=== PATIENT | female | born 1960 | race Caucasian/White ===

== ENCOUNTER 2017-07-16 07:10 | Inpatient (IN) | payer OTHER ==
--- NOTE | 2017-07-16 07:44 | EDPHY ---
HPI/HX/ROS/PE/MDM Narrative: CHIEF COMPLAINT: Abdominal pain HPI: The patient is a 56 y/o female who complains of abdominal pain. Her reports that earlier this morning she was diagnosed with gallstones at [facility] At 15:00 yesterday the pain began and became more severe at 21:00 last night. She states this pain is different than her chronic pain. Her states that they are unable to control her pain at home with her prescribed narcotics. She has also been vomiting since the pain began. Denies chest pain, numbness, paresthesias or other pertinent symptoms. Her states that she was told she had gallstones and was discharged and told to follow-up with a surgeon. REVIEW OF SYSTEMS: Aside from elements discussed in the HPI, a comprehensive 10-point review of systems was reviewed and is negative. PMH: Gallstones Diabetes Chronic pain RSD SOCIAL HISTORY: Lives in [place] at bedside PHYSICAL EXAM: General:Patient is alert, writhing in pain, very uncomfortable. ENT:Eyes are normal to inspection. ENT inspection normal. Neck: Normal inspection. Full range of motion. Respiratory:No respiratory distress. Breath sounds normal bilaterally. Cardiovascular: Regular rate and rhythm. Strong peripheral pulses. Normal cap refill. Abdomen: Diffuse abdominal tenderness is present. Back: Normal to inspection. No tenderness to palpation. Skin: Normal color. No rash. Warm and dry. Extremities: Normal appearance. Full range of motion. Neuro: Normal motor function. Normal sensory function. Portions of this note were transcribed by an ED scribe. I personally performed the history, physical exam, and medical decision making; and confirm the accuracy of the information in the transcribed note. ED Course: The patient is a 56 y/o female who was diagnosed with gallstones at [facility] this morning. She presents to this ED with no pain or nausea relief. 1mg IV Ativan administered. 0817: Consulted with Dr. Yuliana Dunn, general surgeon, for removal of her gallbladder. She believes the hospitalist should be the primary physician. 0824: 150 mcg IV Fentanyl administered. From [facility] records: Assessment and Plan 56, female, presenting with 10 hours of moderate to severe sharp epigastric pain with radiation to her back at the same level that is exacerbated by deep palpation, relieved by rest. The patient has chronic nausea for which she takes Ativan. No emesis. The patient has a colostomy, output has been at baseline. No fevers, urinary symptoms. Past history is notable for appendectomy, she is unclear on the indication for the colostomy. She additionally has a history of chronic pain syndrome for which she takes MS Contin. She is additionally on Klonopin and the aforementioned Ativan. At baseline, she states that "everything hurts," severely hindering her activities of daily living. She was admitted here about 6 months ago for ketoacidosis, presumably secondary to poor oral intake/diabetes. She is a [id number] diabetic. At the time of that admission, she had several abnormal vital signs. On arrival today, she was found to be afebrile, pulse rate in the 80s, systolic in the 120s, breathing at 16/m, oxygenating in the mid 90s on room air. On exam, she appears generally uncomfortable, has diffuse tenderness on palpation of her abdomen but no signs of peritonitis. ED workup included CBC, BMP, LFTs, lipase, EKG, troponin, VBG, serum ketones. CT abdomen/pelvis was performed without contrast as she is allergic to iodine amongst numerous other medications. Her will bring her home medications secondary to an extensive list of allergies that she is very anxious about, wearing a mask to the emergency department tonight to avoid any form of any such exposures. MDM: This patient has a history of severe intermittent abdominal pain, and a note of narcotic caution is present in her chart, making evaluation somewhat difficult. She apparently had a CTAP within the last 12 hours that shows a gallstone in the gallbladder neck. Given her degree of pain and this objective finding, Dr. Dunn was consulted. She plans on taking the patient to the OR for cholecystectomy. I have not repeated imaging here, but based on [facility] records , I see no evidence of pancreatitis, bowel obstruction, bowel perforation or sepsis. - Data Points Laboratory Results: Laboratory Results 07/16/17 07:25 07/16/17 07:25 07/16/17 07/16/17 07:25 07:25 WBC 9.96 10^3/uL H 10^3/uL (3.80-9.50) RBC 4.41 10^6/uL 10^6/uL (4.18-5.33) Hgb 15.7 g/dL g/dL (12.6-16.3) Hct 45.4 % % (38.0-47.0) MCV 102.9 fL H fL (81.5-99.8) MCH 35.6 pg H pg (27.9-34.1) MCHC 34.6 g/dL g/dL (32.4-36.7) RDW 14.0 % % (11.5-15.2) Plt Count 216 10^3/uL 10^3/uL (150-400) MPV 10.6 fL fL (8.7-11.7) Neut % (Auto) 82.1 % H % (39.3-74.2) Lymph % (Auto) 14.7 % L % (15.0-45.0) [place] % (Auto) 2.1 % L % (4.5-13.0) Eos % (Auto) 0.2 % L % (0.6-7.6) Baso % (Auto) 0.2 % L % (0.3-1.7) Nucleat RBC Rel Count 0.0 % % (0.0-0.2) Absolute Neuts (auto) 8.18 10^3/uL H 10^3/uL (1.70-6.50) Absolute Lymphs (auto) 1.46 10^3/uL 10^3/uL (1.00-3.00) Absolute Monos (auto) 0.21 10^3/uL L 10^3/uL (0.30-0.80) Absolute Eos (auto) 0.02 10^3/uL L 10^3/uL (0.03-0.40) Absolute Basos (auto) 0.02 10^3/uL 10^3/uL (0.02-0.10) Absolute Nucleated RBC 0.00 10^3/uL 10^3/uL (0-0.01) Immature Gran % 0.7 % % (0.0-1.1) Immature Gran # 0.07 10^3/uL 10^3/uL (0.00-0.10) Sodium 139 mEq/L mEq/L (134-144) Potassium 4.3 mEq/L mEq/L (3.5-5.2) Chloride 105 mEq/L mEq/L (97-110) Carbon Dioxide 18 mEq/l L mEq/l (22-31) Anion Gap 16 mEq/L mEq/L (8-16) BUN 14 mg/dL mg/dL (7-23) Creatinine 1.0 mg/dL mg/dL (0.6-1.0) Estimated GFR 57 Glucose 222 mg/dL H mg/dL (70-100) Calcium 8.8 mg/dL mg/dL (8.5-10.4) Lipase 165 IU/L IU/L (23-300) Medications Given: Fentanyl (Sublimaze) 50 - 100 mcg IVP Q1H PRN PRN Reason: Pain, Severe Stop: 07/16/17 23:30 Last Admin: 07/16/17 11:05 Dose: 50 mcg Fentanyl (Sublimaze) 50 mcg IVP Q10M PRN PRN Reason: Pain, Severe Unable to Take PO Stop: 07/16/17 23:59 Last Admin: 07/16/17 12:17 Dose: 50 mcg Lorazepam (Ativan Injection) 1 mg IVP Q1H PRN PRN Reason: Anxiety Stop: 01/12/18 08:44 Last Admin: 07/16/17 11:33 Dose: 1 mg Discontinued Medications Fentanyl (Sublimaze) 150 mcg IVP EDNOW ONE Stop: 07/16/17 08:25 Last Admin: 07/16/17 08:33 Dose: 150 mcg Lorazepam (Ativan Injection) 1 mg IVP EDNOW ONE Stop: 07/16/17 07:52 Last Admin: 07/16/17 08:00 Dose: 1 mg General Time Seen by Provider: 07/16/17 07:42 Initial Vital Signs: Initial Vital Signs Temperature (C) 37.1 C 07/16/17 07:25 Heart Rate 93 07/16/17 07:25 Respiratory Rate 16 07/16/17 07:25 Blood Pressure 183/147 H 07/16/17 07:25 O2 Sat (%) 91 L 07/16/17 07:25 O2 Delivery Mode Nasal Cannula O2 (L/minute) 2 Allergies/Adverse Reactions: vancomycin Allergy (Intermediate, Verified 04/23/16 20:52) Rash amoxicillin trihydrate [From Augmentin] Allergy (Verified 04/23/16 20:52) ampicillin [Ampicillin] Allergy (Verified 04/23/16 20:52) azithromycin Allergy (Verified 04/23/16 20:52) cephalexin monohydrate [From Keflex] Allergy (Verified 04/23/16 20:52) Cephalosporins Allergy (Verified 04/23/16 20:52) ciprofloxacin Allergy (Verified 07/16/17 07:28) clindamycin Allergy (Verified 07/16/17 07:28) cyclobenzaprine Allergy (Verified 07/16/17 07:28) Other-Enter Comments dalteparin sodium,porcine [From Fragmin] Allergy (Verified 07/16/17 07:28) erythromycin base [Erythromycin Base] Allergy (Verified 07/16/17 07:28) iodine Allergy (Verified 07/16/17 07:28) levofloxacin [Levofloxacin] Allergy (Verified 07/16/17 07:28) nitrofurantoin macrocrystalline [From Macrodantin] Allergy (Verified 07/16/17 07 :28) ondansetron HCl [From Zofran (as hydrochloride)] Allergy (Verified 07/16/17 07: 28) oxymorphone HCl [From Opana] Allergy (Verified 07/16/17 07:28) Penicillins Allergy (Verified 07/16/17 07:28) phenytoin sodium [From Dilantin] Allergy (Verified 07/16/17 07:28) potassium clavula *RETIRED-07/13/12 [From Augmentin] Allergy (Verified 07/16/17 07:28) prednisone Allergy (Verified 07/16/17 07:28) rifampin Allergy (Verified 07/16/17 07:28) Shellfish *RETIRED-07/13/12 Allergy (Verified 07/16/17 07:28) sulfamethoxazole [Sulfamethoxazole] Allergy (Verified 07/16/17 07:28) trimethoprim [From Bactrim] Allergy (Verified 04/23/16 20:52) chloroprep Allergy (Uncoded 07/16/17 07:28) LATEX Allergy (Uncoded 07/16/17 07:28) narcotics Allergy (Uncoded 07/16/17 07:28) Home Medications: Medication Instructions Recorded Insulin 70/30 Human [Novolin 70/30 10 unit SC BIDMEAL 07/16/17 (*)] Morphine Sulfate [Ms Contin] 15 mg PO BID@0530,22 07/16/17 Morphine Sulfate [Ms Contin] 15 mg PO DAILY@14 PRN 07/16/17 [place] Kiss 1 each PO QID@129,529,,07/16/17 clonIDINE [Catapres (*)] 0.1 mg PO BID@529,07/16/17 clonazePAM [Klonopin (*)] 0.5 mg PO QID@0,529,,07/16/17 diphenhydrAMINE HCL [Wal-Dryl] 50 mg PO QID@129,529,,07/16/17 tiZANidine HCL [Zanaflex 2MG (*)] 2 mg PO QID@129,529,,07/16/17 Departure - Departure Disposition: [facility] Inpatient Acute Clinical Impression: Biliary colic, Chronic pain Condition: Fair Report Scribed for: Lm Lane Report Scribed by: Flower Cruz Date of Report: 07/16/17 Time of Report: 07:44
[2017-07-16] MEDS ORDERED: LORazepam 2 MG/ML INJ IVP ONE (07:51)
[2017-07-16 08:11] LABS: % IMMATURE GRANULYOCYTES 0.7 % (0.0-1.1); ABSOLUTE IMMATURE GRANULOCYTES 0.07 10^3/uL (0.00-0.10); ADD DIFF? NO; ADD MORPH? NO; ADD SCAN? NO; ATYPICAL LYMPHOCYTE FLAG 0 (0-99); FRAGMENT RBC FLAG 30 (0-99); HEMATOCRIT 45.4 % (38.0-47.0); HEMOGLOBIN 15.7 g/dL (12.6-16.3); LEFT SHIFT FLG 0 (0-99); LIPEMIA HEMOLYSIS FLAG 90 (0-99); MEAN CELL HEMOGLOBIN 35.6 pg (27.9-34.1); MEAN CELL HEMOGLOBIN CONCENTR. 34.6 g/dL (32.4-36.7); MEAN CELL VOLUME 102.9 fL (81.5-99.8); MEAN PLATELET VOLUME 10.6 fL (8.7-11.7); PLATELET CLUMPS FLAG 0 (0-99); PLATELET COUNT 216 10^3/uL (150-400); RED BLOOD CELL COUNT 4.41 10^6/uL (4.18-5.33)
[2017-07-16 08:16] LABS: ANION GAP 16 mEq/L (8-16); CALCIUM 8.8 mg/dL (8.5-10.4); CARBON DIOXIDE 18 mEq/l (22-31); CHLORIDE 105 mEq/L (97-110); GLOMERULAR FILTRATION RATE 57; GLUCOSE 222 mg/dL (70-100); POTASSIUM 4.3 mEq/L (3.5-5.2); SODIUM 139 mEq/L (134-144)
[2017-07-16] MEDS ORDERED: fentaNYL 100 MCG/2 ML INJ IVP ONE ×2 (08:24→10:55)
[2017-07-16] MEDS ORDERED: fentaNYL 100 MCG/2 ML INJ ONE ×7 (08:25→17:05)
[2017-07-16] MEDS ORDERED: ONDANSETRON DISINTEGRATING 4 MG TAB PO PRN (08:37)
[2017-07-16] MEDS ORDERED: ONDANSETRON 4 MG/2 ML VIAL IVP PRN (08:37)
[2017-07-16] MEDS ORDERED: fentaNYL 100 MCG/2 ML INJ IVP PRN (08:42)
[2017-07-16] MEDS ORDERED: PHARMACY PAIN CONSULT 1 EA MISC SCH (10:00)
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
--- NOTE | 2017-07-16 11:11 | GHP ---
[f rep st] HISTORY AND PHYSICAL DATE OF ADMISSION: 07/16/2017 CHIEF COMPLAINT: Epigastric pain. HISTORY OF PRESENT ILLNESS: The patient is a 56-year-old woman well known to me , who had abrupt onset of abdominal pain last night. It was so severe she presented to [facility]. She reports that she had a CAT scan there, and I looked at the report which showed cholelithiasis including a stone in the neck of the gallbladder. She also had nonobstructing right renal calculi without hydronephrosis. A bedside ultrasound was obtained and lab was obtained. She was given fentanyl and discharged home. Due to her continued nausea, vomiting, and abdominal pain, she presented to the ER at [facility]. Her pain is fairly constant. PAST MEDICAL HISTORY: Stroke, reflex sympathetic dystrophy, diabetes mellitus. PAST SURGICAL HISTORY: Three back surgeries, knee surgeries, hysterectomy, ostomy for difficulty with bowel movements due to limited sensation below the waist. MEDICATIONS: MS Contin 30 mg daily, Zanaflex, Klonopin and per Pharmacy medication reconciliation. ALLERGIES: Multiple allergies including most opioids. She is able to take fentanyl. Latex, Fragmin, most antibiotics, iodine, gadolinium, surgical steel , nickel, cobalt, aluminum, red dye #4, ChloraPrep. SOCIAL HISTORY: She is with 1 child. She denies tobacco, alcohol, illegal drug use. She is physically disabled. FAMILY HISTORY: Her grandmother had breast and ovarian cancer. Her great- aunts on her maternal side also had breast cancer. REVIEW OF SYSTEMS: Per HPI. PHYSICAL EXAM: GENERAL: A pleasant, obese, well-groomed woman, lying on gurney , very uncomfortable, at bedside. HEENT: Normocephalic. No gross hearing deficits. Mucous membranes moist. Pupils equal and round. No scleral icterus. LUNGS: Clear to auscultation bilaterally. No increased work of breathing. CARDIAC: Regular rate. No peripheral edema. ABDOMEN: She is exquisitely tender in the right upper quadrant. She has minimal tenderness in other areas of her abdomen. She has stool in her appliance. Her ostomy is pink. Lower midline abdominal incision. MUSCULOSKELETAL: Requires wheelchair with assistance for complete transfers. SKIN: Warm and dry. PSYCH: Appropriately tearful. NEURO: Limited sensation below the waist. LABORATORY DATA: Results reviewed. I reviewed the results of her laboratory work from [facility] as well as her CT scan from [facility]. IMPRESSION AND PLAN: A 56-year-old woman with reflex sympathetic dystrophy, history of stroke, and cholelithiasis. I will take her to the operating room for a laparoscopic cholecystectomy. The risks and benefits including but not limited to stroke, heart attack, , blood clots, infection, bleeding, damage to common bile duct were all discussed. I discussed the case with Dr. Ten Tomas, and she will receive aztreonam 1 g IV on-call to OR. Due to her difficulty with pain management, I have asked Pharmacy to assist with this. I have also asked the hospitalist to see her as well. I have known this patient for quite some time and, in general, she does not like being admitted to the hospital or coming in for doctor's appointments so her pain is clearly out of the ordinary for her. /[id number]/MODL MTDD
[2017-07-16] MEDS ORDERED: LORazepam 2 MG/ML INJ ONE ×2 (11:27→13:21)
[2017-07-16] MEDS ORDERED: AZTREONAM 1 GM in D5W 50 ML IV ONE (11:30)
[2017-07-16] MEDS: LORazepam 2 MG/ML INJ IVP PRN ×4 (11:33→19:27)
[2017-07-16] MEDS: fentaNYL 100 MCG/2 ML INJ IVP PRN ×15 (11:49→20:55)
[2017-07-16] MEDS ORDERED: PROPOFOL 200 MG/20 ML VIAL ONE (12:56)
[2017-07-16] MEDS ORDERED: DEXAMETHASONE 4 MG/ML VIAL ONE ×2 (12:59→14:58)
[2017-07-16] MEDS ORDERED: ROCURONIUM 50 MG/5 ML VIAL ONE ×2 (12:59→14:42)
[2017-07-16] MEDS ORDERED: DESFLURANE 240 ML BOTTLE IH ONE (13:19)
[2017-07-16] MEDS ORDERED: BUPIVACAINE 0.5% 30 ML SDV ONE (13:23)
[2017-07-16] MEDS ORDERED: LABETALOL HCL 5 MG/ML 20 ML MDV ONE (14:22)
[2017-07-16] MEDS ORDERED: clonIDINE 1 MG/10 ML VIAL EP ONE (14:38)
[2017-07-16] MEDS ORDERED: GLYCOPYRROLATE 0.2 MG/1 ML VIAL ONE (15:11)
[2017-07-16] MEDS ORDERED: NEOSTIGMINE METHYLSULFATE 5 MG/5 ML SYR ONE (15:12)
[2017-07-16] MEDS ORDERED: NALOXONE HCL 0.4 MG/ML INJ IVP PRN (15:32)
--- NOTE | 2017-07-16 15:35 | POSTOPPROG ---
Post Op Note Date of Operation: 07/16/17 Surgeon: Yuliana Dunn Anesthesiologist: chey Anesthesia: GET(General Endotracheal) Pre-op Diagnosis: cholelithiasis Post-op Diagnosis: same Indication: 56 yo with RUQ pain and stone in neck of GB Procedure: lap lorraine Findings: large gallbladder Inf/Abcess present in the surg proc area at time of surgery?: No EBL: Minimal Specimen(s): gallbladder
--- NOTE | 2017-07-16 15:47 | POSTANESTH ---
Post Anesthetic Evaluation Cardiovascular Status: Normal, Stable Respiratory Status: Similar to Pre-op Cond. Level of Consciousness/Mental Status: Can Participate in Eval Pain Control: Adequate, Prn Tx Ordered Nausea/Vomiting Control: Adequate, Prn Tx Ordered Complications Possibly Related to Anesthesia: None Noted
[2017-07-16] MEDS ORDERED: MORPHINE SULFATE 15 MG PO PRN (17:05)
--- NOTE | 2017-07-16 17:24 | PDHOSCONS ---
Hospitalist Consult Hospitalist Consult: CONSULTATION HISTORY AND PHYSICAL CC: I have been asked by Dr. Dunn to assess and assist in the care of this patient with multiple complex medical issues, entering the hospital for cholecystectomy HISTORY: This patient has presented to the hospital with abdominal pain consistent with gallbladder etiology and has imaging study showing presence of gallstone in the common duct. Dr. Yuliana Dunn is not taking the patient to the operating room and perform cholecystectomy by laparoscopy. I am seeing the patient postop in the recovery room. The patient had no complications in the operating room. She has some mild nausea right now in the recovery room but her pain is reasonably well controlled in terms of abdominal incision pain. Her chronic pains are at her baseline. She has no shortness of breath, no headache, no fever symptoms no palpitations. ROS: A comprehensive 10 system review revealed no other significant Acute findings but she does have significant chronic symptoms especially pain related to her complex regional pain syndrome. PAST MEDICAL HISTORY: Complex regional pain syndrome since 2003, affecting both legs, the lower portion of her trunk now into her upper extremities as well with pain and numbness Stroke Diabetes mellitus Colostomy which was performed due to bowel issues related to loss of sensation Chronic pain syndrome with chronic daily prescribed narcotic use Kidney stones Urinary tract infection Depression Hemochromatosis Surgeries including multiple spine surgeries, knee, hysterectomy and her colostomy FAMILY MEDICAL HISTORY: SOCIAL HISTORY: no use of tobacco alcohol or drugs MEDICATIONS: The patients list has been reconciled by our clinical pharmacist in the EMR. I have reviewed the list and ordered appropriate medicines. PHYSICAL EXAMINATION: Vital Signs: currently in the recovery room stable without fever Shrub Grower: sinus rhythm Examination: General: alert, oriented, good mentation, relaxed Skin: skin particularly on her legs slightly cool and pale, thickened, consistent with her chronic syndrome but no signs of acute hypoperfusion HEENT: normal Neck: no mass or jvd Resps: relaxed Lungs: clear breath sounds Heart: regular, no murmur Abdomen: soft, nondistended, no signs of bleeding, No Bleeding or bruising Neurologic: normal speech/language, normal worm packer, no focal weakness LABORATORY DATA: white blood cell count 9000 Blood glucose just over 200 RADIOLOGY STUDIES: imaging studies were performed last night at the [facility] are not available for my viewing at this time but per Dr. Zuniga discussion show evidence of an impacted gallstone in the common duct ASSESSMENT: -Status post successful laparoscopic cholecystectomy -Mild nausea in the postoperative setting otherwise stable -Ongoing chronic severe pain due to complex regional pain syndrome, wide spread over her body and requiring ongoing narcotic use ; this will make postoperative pain management a bit more challenging. She also has issues with formulations of various pain medicines and other medicines and I will order her home medications to be used to keep up with her oral medications as much as possible - insulin-dependent diabetes mellitus. We will have to see how she does with eating but will need to keep up with close blood sugar monitoring and manage her Diabetes depending on her dietary intake and her sugar levels It will be beneficial to be aggressive about managing nausea and her situation in the postoperative setting in terms of her recovery
[2017-07-16] MEDS: D5W 1/2 NS W/ 20 KCl/L 1,000 ML IV SCH (18:08)
[2017-07-16] MEDS ORDERED: D50W 25 GM/50 ML SYR IVP PRN (21:18)
[2017-07-16] MEDS ORDERED: CLONAZEPAM 0.5 MG PO SCH (22:00)
[2017-07-16] MEDS ORDERED: MORPHINE SULFATE 15 MG PO SCH (22:00)
[2017-07-16] MEDS ORDERED: TIZANIDINE HCL PO SCH (22:00)
[2017-07-16] MEDS: DIPHENHYDRAMINE HCL 25 MG PO SCH (22:49)
[2017-07-16] MEDS: SENNOSIDES PO SCH (22:49)
[2017-07-16] MEDS: TIZANIDINE HCL 4 MG PO SCH (22:50)
[2017-07-16] MEDS: CLONIDINE 0.1 MG PO SCH (22:50)
[2017-07-16] MEDS: MORPHINE SULFATE 15 MG PO SCH (22:51)
[2017-07-16] MEDS: CLONAZEPAM 0.5 MG PO SCH (22:51)
[2017-07-16] MEDS: INSULIN 70/30 HUMAN 100 UNITS/ML SYR SC SCH (22:52)
[2017-07-17] MEDS: DIPHENHYDRAMINE HCL 25 MG PO SCH ×4 (02:02→22:23)
[2017-07-17] MEDS: TIZANIDINE HCL 4 MG PO SCH ×4 (02:03→22:25)
[2017-07-17] MEDS: CLONAZEPAM 0.5 MG PO SCH ×4 (02:03→22:11)
[2017-07-17] MEDS: SENNOSIDES PO SCH ×4 (02:03→22:27)
[2017-07-17] MEDS: MORPHINE SULFATE 15 MG PO SCH ×2 (05:44→22:15)
[2017-07-17] MEDS: CLONIDINE 0.1 MG PO SCH ×2 (05:44→22:18)
[2017-07-17] MEDS: D5W 1/2 NS W/ 20 KCl/L 1,000 ML IV SCH (05:44)
[2017-07-17 05:55] LABS: % IMMATURE GRANULYOCYTES 0.9 % (0.0-1.1); ABSOLUTE IMMATURE GRANULOCYTES 0.07 10^3/uL (0.00-0.10); ADD DIFF? NO; ADD MORPH? NO; ADD SCAN? NO; ATYPICAL LYMPHOCYTE FLAG 0 (0-99); FRAGMENT RBC FLAG 0 (0-99); HEMATOCRIT 38.1 % (38.0-47.0); HEMOGLOBIN 12.9 g/dL (12.6-16.3); LEFT SHIFT FLG 0 (0-99); LIPEMIA HEMOLYSIS FLAG 90 (0-99); MEAN CELL HEMOGLOBIN 35.5 pg (27.9-34.1); MEAN CELL HEMOGLOBIN CONCENTR. 33.9 g/dL (32.4-36.7); MEAN PLATELET VOLUME 10.6 fL (8.7-11.7); PLATELET CLUMPS FLAG 0 (0-99); PLATELET COUNT 172 10^3/uL (150-400); RED BLOOD CELL COUNT 3.63 10^6/uL (4.18-5.33); RED CELL DISTRIBUTION WIDTH 14.1 % (11.5-15.2)
[2017-07-17 06:24] LABS: ALANINE AMINOTRANSFERASE 59 IU/L (9-52); ALKALINE PHOSPHATASE 91 IU/L (38-126); ANION GAP 9 mEq/L (8-16); ASPARTATE AMINOTRANSFERASE 67 IU/L (14-46); BILIRUBIN,TOTAL 1.3 mg/dL (0.1-1.4); CARBON DIOXIDE 21 mEq/l (22-31); CHLORIDE 107 mEq/L (97-110); CREATININE 0.8 mg/dL (0.6-1.0); GLOMERULAR FILTRATION RATE > 60; GLUCOSE 239 mg/dL (70-100); POTASSIUM 4.7 mEq/L (3.5-5.2); SODIUM 137 mEq/L (134-144); TOTAL PROTEIN 5.2 g/dL (6.3-8.2)
[2017-07-17] MEDS ORDERED: INSULIN LISPRO 100 UNIT/ML SC SCH ×2 (08:00→12:00)
[2017-07-17] MEDS ORDERED: D50W 25 GM/50 ML SYR IVP PRN (08:18)
[2017-07-17] MEDS: LORazepam 2 MG/ML INJ IVP PRN ×4 (08:36→23:01)
[2017-07-17] MEDS: INSULIN 70/30 HUMAN 100 UNITS/ML SYR SC SCH ×3 (08:39→19:07)
[2017-07-17] MEDS: fentaNYL 100 MCG/2 ML INJ IV PRN ×4 (10:56→23:00)
--- NOTE | 2017-07-17 14:43 | HOSPPROG ---
Hospitalist Progress Note Assessment/Plan: #Acute on chronic abd pain: s/p cholecystectomy. Doing well on home meds and PRN IV Fentanyl #Chronic pain syndrome: home meds #Uncontrolled DM: she wants to dose her own insulin like she does at home. She understands the risk of not checking fingersticks regularly #Diet: diabetic #DVT ppx: declines Lovenox, SCDs aggravate RSD Disp: stable for transfer to floor Subjective: min pain this morning Objective: Vital Signs Temp Pulse Resp BP Pulse Ox 36.4 C 47 L 12 117/75 99 07/17/17 12:00 07/17/17 12:00 07/17/17 12:00 07/17/17 12:00 07/17/17 12:00 Laboratory Results 07/17/17 05:48 07/17/17 05:48 07/16/17 07/17/17 07/18/17 05:59 05:59 05:59 Intake Total 2851 Balance 2851 - Physical Exam Constitutional: no apparent distress Eyes: PERRL Ears, Nose, Mouth, Throat: moist mucous membranes, hearing normal Cardiovascular: regular rate and rhythym, no murmur, rub, or gallop Respiratory: no respiratory distress Gastrointestinal: normoactive bowel sounds, other (lap incision sites CDI, min pain with palp) Skin: warm Musculoskeletal: full muscle strength Neurologic: AAOx3, CN II-XII Intact Psychiatric: interacting appropriately ICD10 Worksheet Patient Problems: Problems Problem Status Onset Biliary colic Acute Chronic pain Acute Kidney stone Active Microscopic hematuria Active Recurrent cystitis Active Reflex sympathetic dystrophy Active Abdominal pain Acute Flank pain, acute Acute Narcotic withdrawal Acute Nausea and vomiting Acute UTI (urinary tract infection) Acute Vomiting Acute
--- NOTE | 2017-07-17 14:56 | ASMTCASEMG ---
Living Arrangements What is your living Answers: With Spouse arrangement? Who do you live with? Type Of Residence What kind of residence do Answers: House you live in? Discharge Plan Comments Coordination Status Comments Notes: Patient is a 56yo woman with reflex sympathetic dystrophy, hx of stroke and cholelithiasis. Patient is admitted for a laparoscopic cholecystectomy. OT/PT ordered. OT recommends d/c to home independent. Awaiting PT eval.Patient lives with her and is disabled at baseline. CM will follow. Date Signed: 07/17/2017 02:56 PM Electronically Signed By:Veronica Beth LCSW
--- NOTE | 2017-07-17 16:46 | SOAPPROG ---
SOAP Progress Note Assessment/Plan: Assessment: Postop day 1. Status post laparoscopic cholecystectomy for stone in the neck of the gallbladder. Overall her abdominal pain is much improved from preop. From a surgical perspective DVT prophylaxis is okay although I suspect SHERRI will decline. No SCDs as this aggravates her RSD Appreciate pharmacy assisting with pain management. I counseled Sherri that she would probably need an escalated dose of pain medicine for 2-3 days postoperatively and then back down to her baseline medications Regular diet Appreciate hospitalists with co-management S: feeling better, no nausea or emesis since post op. O: Lying in bed, vern at bedside Abdomen soft and mostly non tender. Incisions cdi Plan: 07/17/17 16:43 Objective: Vital Signs Temp Pulse Resp BP Pulse Ox 36.6 C 67 11 L 95/60 L 97 07/17/17 16:00 07/17/17 16:00 07/17/17 16:00 07/17/17 16:00 07/17/17 16:00 Laboratory Results 07/17/17 05:48 07/17/17 05:48 07/16/17 07/17/17 07/18/17 05:59 05:59 05:59 Intake Total 2851 Balance 2851 ICD10 Worksheet Patient Problems: Problems Problem Status Onset Biliary colic Acute Chronic pain Acute Kidney stone Active Microscopic hematuria Active Recurrent cystitis Active Reflex sympathetic dystrophy Active Abdominal pain Acute Flank pain, acute Acute Narcotic withdrawal Acute Nausea and vomiting Acute UTI (urinary tract infection) Acute Vomiting Acute
[2017-07-18] MEDS: CLONAZEPAM 0.5 MG PO SCH ×3 (02:00→14:08)
[2017-07-18] MEDS: TIZANIDINE HCL 4 MG PO SCH ×3 (02:03→14:11)
[2017-07-18] MEDS: DIPHENHYDRAMINE HCL 25 MG PO SCH ×3 (02:03→14:10)
[2017-07-18] MEDS: SENNOSIDES PO SCH ×3 (02:04→14:13)
[2017-07-18 05:39] LABS: % IMMATURE GRANULYOCYTES 0.7 % (0.0-1.1); ABSOLUTE IMMATURE GRANULOCYTES 0.05 10^3/uL (0.00-0.10); ADD DIFF? NO; ADD MORPH? NO; ADD SCAN? NO; ATYPICAL LYMPHOCYTE FLAG 0 (0-99); FRAGMENT RBC FLAG 0 (0-99); HEMATOCRIT 37.3 % (38.0-47.0); HEMOGLOBIN 12.8 g/dL (12.6-16.3); LEFT SHIFT FLG 0 (0-99); LIPEMIA HEMOLYSIS FLAG 90 (0-99); MEAN CELL HEMOGLOBIN 36.1 pg (27.9-34.1); MEAN CELL HEMOGLOBIN CONCENTR. 34.3 g/dL (32.4-36.7); MEAN CELL VOLUME 105.1 fL (81.5-99.8); MEAN PLATELET VOLUME 10.6 fL (8.7-11.7); PLATELET CLUMPS FLAG 0 (0-99); PLATELET COUNT 131 10^3/uL (150-400); RED BLOOD CELL COUNT 3.55 10^6/uL (4.18-5.33); RED CELL DISTRIBUTION WIDTH 14.2 % (11.5-15.2)
[2017-07-18 06:01] LABS: ALANINE AMINOTRANSFERASE 56 IU/L (9-52); ALBUMIN 2.8 g/dL (3.5-5.0); ALKALINE PHOSPHATASE 102 IU/L (38-126); ANION GAP 6 mEq/L (8-16); ASPARTATE AMINOTRANSFERASE 41 IU/L (14-46); BILIRUBIN,TOTAL 0.7 mg/dL (0.1-1.4); CALCIUM 8.3 mg/dL (8.5-10.4); CARBON DIOXIDE 23 mEq/l (22-31); CHLORIDE 105 mEq/L (97-110); CREATININE 0.8 mg/dL (0.6-1.0); GLOMERULAR FILTRATION RATE > 60; GLUCOSE 211 mg/dL (70-100); POTASSIUM 3.8 mEq/L (3.5-5.2); SODIUM 134 mEq/L (134-144); TOTAL PROTEIN 5.2 g/dL (6.3-8.2)
[2017-07-18] MEDS: MORPHINE SULFATE 15 MG PO SCH (06:14)
[2017-07-18] MEDS: CLONIDINE 0.1 MG PO SCH (06:21)
[2017-07-18] MEDS: fentaNYL 100 MCG/2 ML INJ IV PRN ×5 (06:32→20:56)
[2017-07-18] MEDS: LORazepam 2 MG/ML INJ IVP PRN ×5 (06:32→20:56)
--- NOTE | 2017-07-18 08:33 | SOAPPROG ---
SOAP Progress Note Assessment/Plan: Assessment: POD #2 s/p laparoscopic cholecystectomy for stone in the neck of the gallbladder. Pain currently controlled with Fentanyl. Wants to go home without pain meds ( has at home) Regular diet No SCDs as this aggravates her RSD Appreciate hospitalists with co-management Dispo: d/c if pain controlled, tolerating regular diet S: feeling better, no nausea or emesis since post op. O: Lying in bed, comfortable, NAD Abdomen soft and mostly non tender. Incisions cdi Plan: 07/17/17 16:43 07/18/17 08:31 Objective: Vital Signs Temp Pulse Resp BP Pulse Ox 36.6 C 56 L 18 122/78 H 96 07/18/17 04:00 07/18/17 04:00 07/18/17 04:00 07/18/17 04:00 07/18/17 04:00 Laboratory Results 07/18/17 05:13 07/18/17 05:13 07/17/17 07/18/17 07/19/17 05:59 05:59 05:59 Intake Total 1000 Balance 1000 ICD10 Worksheet Patient Problems: Problems Problem Status Onset Biliary colic Acute Chronic pain Acute Kidney stone Active Microscopic hematuria Active Recurrent cystitis Active Reflex sympathetic dystrophy Active Abdominal pain Acute Flank pain, acute Acute Narcotic withdrawal Acute Nausea and vomiting Acute UTI (urinary tract infection) Acute Vomiting Acute
[2017-07-18] MEDS: INSULIN 70/30 HUMAN 100 UNITS/ML SYR SC SCH ×3 (09:33→17:28)
--- NOTE | 2017-07-18 15:24 | HOSPPROG ---
Hospitalist Progress Note Assessment/Plan: # POD#2 s/p lap lorraine for abd pain and stone in GB neck # chronic pain on continuos narcotics - cont home meds + fentanyl IV # DM - wants to take home insulin as is - her glucs are high # RSD # CVA # vte ppx - declines lovenox/SCDs Subjective: ongoing abd/back/rib pain Objective: Vital Signs Temp Pulse Resp BP Pulse Ox 36.6 C 68 16 120/74 98 07/18/17 12:00 07/18/17 14:20 07/18/17 14:20 07/18/17 14:20 07/18/17 14:20 Laboratory Results 07/18/17 05:13 07/18/17 05:13 07/17/17 07/18/17 07/19/17 05:59 05:59 05:59 Intake Total 1000 Balance 1000 chart reviewed op note reviewed - Physical Exam Constitutional: other (tearful) Cardiovascular: regular rate and rhythym, no murmur, rub, or gallop Respiratory: no respiratory distress, no rales or rhonchi, clear to auscultation Gastrointestinal: other (abd soft, TTP), No guarding, No rebound ICD10 Worksheet Patient Problems: Problems Problem Status Onset Nausea and vomiting Acute Reflex sympathetic dystrophy Active Kidney stone Active Microscopic hematuria Active Recurrent cystitis Active Abdominal pain Acute Narcotic withdrawal Acute Chronic pain Acute Vomiting Acute Flank pain, acute Acute UTI (urinary tract infection) Acute Biliary colic Acute
--- NOTE | 2017-07-18 15:36 | GOP ---
[f rep st] OPERATIVE REPORT DATE OF OPERATION: 07/16/2017 SURGEON: Yuliana Dunn MD ANESTHESIA: General. ANESTHESIOLOGIST: Alli Mckenzie MD. PREOPERATIVE DIAGNOSIS: Symptomatic cholelithiasis. POSTOPERATIVE DIAGNOSIS: Symptomatic cholelithiasis. PROCEDURE PERFORMED: Laparoscopic cholecystectomy. FINDINGS: Enlarged gallbladder. SPECIMENS: Gallbladder. ESTIMATED BLOOD LOSS: 20 cc. INDICATIONS: The patient is a 56-year-old woman with a stroke and RSD. She presented with acute onset of epigastric pain, nausea, vomiting. At outside facility, a CT scan was obtained, which showed a stone in the neck of the gallbladder. She was given fentanyl and discharged. Due to her continued symptoms, they presented to the emergency room at [facility]. I reviewed her outside records and took her to surgery. DESCRIPTION OF PROCEDURE: The patient was brought into the operating room, placed supine on the table, and general anesthesia was administered. Her abdomen was prepped and draped in the usual sterile fashion. I infiltrated all sites with 0.5% Marcaine prior to making incisions. Due to her previous lower midline incision, I made an incision in her right upper quadrant. I infiltrated the area with Marcaine, inserted the Veress needle. It passed the hanging drop test. Her abdomen insufflated to a pressure of 15 mmHg. I placed a 5 mm trocar with a camera at this site. There were no injuries from Veress needle placement. Under direct vision, I placed a 10 mm subxiphoid trocar, a 5 mm umbilical trocar, and an additional 5 mm trocar along the right costal margin. I lifted her gallbladder cephalad. I performed some adhesiolysis and tried to expose the triangle of Calot; however, there was a lot of omentum that was coming up into this critical area. I made an additional incision and placed a 5 mm trocar so that I could retract the omentum downward to have visualization of the triangle of Calot. I completely skeletonized the cystic artery and cystic duct so that they were the only 2 structures directly entering the gallbladder. I singly clipped the cystic duct toward the gallbladder, and I used the Harmonic Scalpel to achieve hemostasis on the cystic artery. I transected the cystic duct with scissors. I then placed an Endoloop around the cystic duct. I removed the gallbladder from the gallbladder fossa with the Harmonic. It was placed in an EndoCatch bag and removed the gallbladder. Hemostasis was achieved on the liver bed with electrocautery. I explored the abdomen. The loop was tight, and there was no leakage from the cystic duct. There was no bleeding from the cystic artery. The ports were removed under direct vision and the abdomen allowed to desufflate. The fascia at the 10 mm trocar site was closed with a Eddie- Patricia device with 0 Vicryl, skin closed with 4-0 Monocryl, Dermabond applied. She was awakened in the operating room, extubated, transferred to PACU in stable condition. /[id number]/MODL MTDD
--- NOTE | 2017-07-18 17:37 | ASMTCMCOM ---
CM Note CM Note Notes: Spoke w/RN, antiicpate pt will dc home w/support of when medically stable. CM availble for any changes. Date Signed: 07/18/2017 05:37 PM Electronically Signed By:Gladys Martinez RN
[2017-07-18 19:25] VITALS: BP 114/69; PULSE 77; RESP 18; TEMP 98.6; O2SAT 98
--- NOTE | 2017-07-19 12:28 | GDS ---
[f rep st] DISCHARGE SUMMARY Date of admission: 07/16/2017 Date of discharge: 07/18/2017 Reason for admission: Increasing abdominal pain with nausea, vomiting and imaging with stone in the neck of the gallbladder ADMITTING DIAGNOSIS: Cholelithiasis with a stone in the neck of the gallbladder. SECONDARY DIAGNOSES: 1. Diabetes mellitus. 2. History of cerebrovascular accident. 3. Reflex sympathetic dystrophy. HOSPITAL COURSE: The patient was admitted on 07/16 and taken to the OR on the same day for a cholecystectomy, that was performed by Dr. Dunn for symptomatic cholelithiasis. She was given her home pain medications. For postoperative pain, Pharmacy was consulted for pain management, and fentanyl was prescribed for breakthrough pain. On postop day #1, her diet was advanced and pain controlled with Fentanyl. Her diet was advanced and was able to be discharged on postop day 2 DISCHARGE CONDITION: The patient is discharged with pain controlled and tolerating regular diet. DISCHARGE MEDICATIONS: None. FOLLOWUP: The patient will make an appointment to follow up in Dr. Dunn's office in 2 weeks. /[id number]/MODL MTDD
--- NOTE | 2017-07-19 14:26 | ASDISCHSUM ---
Discharge Information Plan Status:Home with No Needs Medically Cleared to Leave: Discharge Date:07/18/2017 09:10 PM CM D/C Disposition:Home, Routine, Self-Care ADT D/C Disposition:Home, Routine, Self-Care Projected Discharge Date:07/18/2017 09:10 PM Transportation at D/C:Family Discharge Delay Reason: Follow-Up Date:07/18/2017 09:10 PM Discharge Slot: Final Diagnosis: Placement Information Patient Contact Information Contact Name:GT Relationship: Address:[address] [place] City:[place] Alternate Phone: State/Zip Code:[place] [address] Email: Financial Information Financial Class: Primary Plan Desc:MEDICARE INPATIENT Primary Plan Number:[id number] Secondary Plan Desc:[facility] Secondary Plan Number:[id number] Assessment Information [facility] Initial CM Assessment Living Arrangements What is your living Answers: With Spouse arrangement? Who do you live with? Type Of Residence What kind of residence do Answers: House you live in? Discharge Plan Comments Coordination Status Comments Notes: Patient is a 56yo woman with reflex sympathetic dystrophy, hx of stroke and cholelithiasis. Patient is admitted for a laparoscopic cholecystectomy. OT/PT ordered. OT recommends d/c to home independent. Awaiting PT eval.Patient lives with her and is disabled at baseline. CM will follow. Date Signed: 07/17/2017 02:56 PM Electronically Signed By:Veronica Beth LCSW [facility] CM Progress Note CM Note CM Note Notes: Spoke w/cece VAUGHAN pt will dc home w/support of when medically stable. CM availble for any changes. Date Signed: 07/18/2017 05:37 PM Electronically Signed By:Gladys Martinez RN Intervention Information Intervention Type:*DESAI-Signed Date of Service:07/17/2017 09:26 AM Patient Type:Observation Staff Member:Vane Fischer Hours: Discipline: Severity: Comment: Intervention Type:*Occurence 72 Date of Service:07/16/2017 08:37 AM Patient Type:Inpatient Staff Member:CLEMENT Malhotra, Loraine Hours: Discipline: Severity: Comment: Occ 72 for 07/16/2017 as patient disch arged 07/18/2017 1634 9< 2 MN LOS after patie nt admission status changed from observation to inpatient)
== END 2017-07-18 21:10 | disposition home or self-care (01) | DRG 418 ==
LOC: F2N 17:47 → OBSVTOIN 07-17 15:26 → F3E 07-17 20:43
PROVIDERS: ADMIT Surgery; ATTEND Surgery
PROC: 0FT44ZZ Resection of Gallbladder, Percutaneous Endoscopic Approach (ICD-10-PCS; principal; 2017-07-16 12:15)
DX: K80.20 Calculus of gallbladder without cholecystitis without obstruction (principal); G90.50 Complex regional pain syndrome I, unspecified; E11.9 Type 2 diabetes mellitus without complications; Z86.73 Personal history of transient ischemic attack (TIA), and cerebral infarction without residual deficits; Z79.4 Long term (current) use of insulin
CPT/HCPCS: 96374; 97162-GP; 97166-GO; 97535-GO; G0378; G8978-GP-CI; G8979-GP-CI; G8987-GO-CK; G8988-GO-CJ; J0735; J1100; J1200; J1815; J2060; J2704; J2710; J3010; J3490

== ENCOUNTER → 2017-10-31 | Outpatient (CLI) | payer OTHER | LOC: FIMAGING 16:16 | PROVIDERS: ATTEND Surgery | DX: L98.8 Other specified disorders of the skin and subcutaneous tissue (principal); Z93.3 Colostomy status; N20.0 Calculus of kidney; R16.1 Splenomegaly, not elsewhere classified ==

== ENCOUNTER 2018-02-27 18:54 | Inpatient (IN) | payer OTHER ==
[2018-02-27] MEDS ORDERED: NS 1,000 ML IV ONE ×3 (19:17→21:35)
[2018-02-27] MEDS ORDERED: LORazepam 2 MG/ML INJ IVP ONE (19:17)
[2018-02-27] MEDS ORDERED: fentaNYL 100 MCG/2 ML INJ IVP ONE ×3 (19:17→21:54)
--- NOTE | 2018-02-27 19:21 | EDPHY ---
H & P Stated Complaint: abd pain Time Seen by Provider: 02/27/18 19:08 HPI/ROS: CHIEF COMPLAINT: Abdominal pain, concerns over small-bowel obstruction HISTORY OF PRESENT ILLNESS: 57-year-old female with significant medical history for diabetes, reflex sympathetic dystrophy, bowel obstruction, cholecystectomy, ileostomy, arrives via private vehicle complaining of intractable vomiting, decreased ileostomy output for the past [address] Artemio Santos, on-call for Dr. Dunn, recommend she come to the ER for evaluation as Dr. Dunn has performed majority of her surgeries. REVIEW OF SYSTEMS: A ten point review of systems was performed and is negative with the exception of the items mentioned in the HPI PAST MEDICAL & SURGICAL HISTORY: Diabetes. RSD. Bowel obstruction. Cholecystectomy. Colostomy. SOCIAL HISTORY: PHYSICAL EXAM (Prior to examination, patient consented to physical exam, hands were washed and my usual and customary physical exam procedures followed) 1) GENERAL: Well-developed, well-nourished, alert and oriented. She appears uncomfortable, moaning 2) HEAD: Normocephalic, atraumatic 3) HEENT: Pupils equal, round, reactive to light bilaterally. Sclera anicteric. [Nasopharynx, oropharynx, clear, no lesions. Dry mucous membranes 4) NECK: Full range of motion, no meningeal signs. 5) LUNGS: Clear auscultation bilaterally, no wheezes, no rhonchi, no retractions. 6) HEART: Regular rate and rhythm, no murmur, no heave, no gallop. 7) ABDOMEN: Small amount of output in her ileostomy bag. Diffusely tender to palpation abdomen, distended., 8) MUSCULOSKELETAL: Moving all extremities, no focal areas of tenderness, no obvious trauma. No peripheral edema or discoloration. 9) BACK: No CVA tenderness, no midline vertebral tenderness, no fluctuance, no step-off, no obvious trauma, no visual or palpable abnormality. 10) SKIN: No rash, no petechiae. 11) Psychiatric: Patient is oriented X 3, there is no agitation. DIFFERENTIAL DIAGNOSIS: In no particular order including but not limited to bowel obstruction, mesenteric ischemia, volvulus, DKA, - Personal History Current Tetanus/Diphtheria Vaccine: Unsure Current Tetanus Diphtheria and Acellular Pertussis (TDAP): Unsure Tetanus Vaccine Date: unsure - Medical/Surgical History Hx Asthma: No Hx Chronic Respiratory Disease: No Hx Diabetes: Yes Hx Cardiac Disease: No Hx Renal Disease: No Hx Cirrhosis: No Hx Alcoholism: No Hx HIV/AIDS: No Hx Splenectomy or Spleen Trauma: No Other PMH: Reflex Synpathetic Dystrophy, chronic back pain, lumbar fusion, TIA, Appendectomy, Total hysterectomy, colostomy takedown and revision, , chronic constipation, chronic immobility, DM, O2 dependant, HTN with pain, chronic nausea. - Social History Smoking Status: Former smoker Constitutional: Initial Vital Signs Temperature (C) 36.4 C 02/27/18 19:01 Heart Rate 117 H 02/27/18 19:01 Respiratory Rate 20 02/27/18 19:01 Blood Pressure 113/90 H 02/27/18 19:01 O2 Sat (%) 89 L 02/27/18 19:01 O2 Delivery Mode Nasal Cannula O2 (L/minute) 2 Allergies/Adverse Reactions: vancomycin Allergy (Intermediate, Verified 02/27/18 18:59) Rash amoxicillin trihydrate [From Augmentin] Allergy (Verified 02/27/18 18:59) ampicillin [Ampicillin] Allergy (Verified 02/27/18 18:59) azithromycin Allergy (Verified 02/27/18 18:59) cephalexin monohydrate [From Keflex] Allergy (Verified 02/27/18 18:59) Cephalosporins Allergy (Verified 02/27/18 18:59) ciprofloxacin Allergy (Verified 02/27/18 18:59) clindamycin Allergy (Verified 02/27/18 18:59) cyclobenzaprine Allergy (Verified 02/27/18 18:59) Other-Enter Comments dalteparin sodium,porcine [From Fragmin] Allergy (Verified 02/27/18 18:59) erythromycin base [Erythromycin Base] Allergy (Verified 02/27/18 18:59) iodine Allergy (Verified 02/27/18 18:59) levofloxacin [Levofloxacin] Allergy (Verified 02/27/18 18:59) nitrofurantoin macrocrystalline [From Macrodantin] Allergy (Verified 02/27/18 18 :59) ondansetron HCl [From Zofran (as hydrochloride)] Allergy (Verified 02/27/18 18: 59) oxymorphone HCl [From Opana] Allergy (Verified 02/27/18 18:59) Penicillins Allergy (Verified 02/27/18 18:59) phenytoin sodium [From Dilantin] Allergy (Verified 02/27/18 18:59) potassium clavula *RETIRED-07/13/12 [From Augmentin] Allergy (Verified 02/27/18 18:59) prednisone Allergy (Verified 02/27/18 18:59) rifampin Allergy (Verified 02/27/18 18:59) Shellfish *RETIRED-07/13/12 Allergy (Verified 02/27/18 18:59) sulfamethoxazole [Sulfamethoxazole] Allergy (Verified 02/27/18 18:59) trimethoprim [From Bactrim] Allergy (Verified 02/27/18 18:59) chloroprep Allergy (Uncoded 02/27/18 18:59) LATEX Allergy (Uncoded 02/27/18 18:59) narcotics Allergy (Uncoded 02/27/18 18:59) Home Medications: Medication Instructions Recorded Insulin 70/30 Human [Novolin 70/30 4 - 10 unit SC DAILY PRN 07/16/17 (*)] Morphine Sulfate [Ms Contin] 15 mg PO BID@0530,07/16/17 Morphine Sulfate [Ms Contin] 15 mg PO DAILY@14 PRN 07/16/17 Czech Kiss 1 each PO QID@0130,0530,,07/16/17 Tizanidine HCl [Zanaflex] 8 mg PO QID@0130,0530,,07/16/17 clonIDINE [Catapres (*)] 0.1 mg PO BID@0530,07/16/17 clonazePAM [Klonopin (*)] 0.25 mg PO QID@0130,0530,14 07/16/17 clonazePAM [Klonopin (*)] 0.5 mg PO DAILY@2200 07/16/17 diphenhydrAMINE HCL [Wal-Dryl] 50 mg PO QID@0130,0530,14,07/16/17 LORazepam [Lorazepam Intensol] 2 mg PO Q4 PRN 02/27/18 Medical Decision Making - Diagnostics Imaging Results: Imaging Impressions Abdomen/Pelvis CT 02/27/18 19:17 Impression: 1. Dilation of the colon proximal to a left lower quadrant end colostomy suggests partial obstruction. 2. Additional findings, as above. Dr. Tan discussed these findings by telephone with Johnathon Bauer at 2008 hours on 02/27/2018. Images reviewed by myself ED Course/Re-evaluation: 7:20 p.m.: I reviewed the patient's medical records, discussed case with secondary supervising physician Dr. Morris in the ER. Will obtain CT imaging, laboratory studies, plan on likely admission. Patient has multiple allergies listed including iodine. States that she is only able to tolerate IV fentanyl and Ativan for analgesia. 7:40 p.m.: Patient noted to have an elevated H&H of 20 and 62 which I think is more likely secondary to hemoconcentration secondary to intractable vomiting, decreased oral intake. She is receiving IV hydration. 8:39 p.m.: Consultation with Dr. Artemio Santos regarding patient's obstructions proximal order colostomy. He recommended enema from the colostomy , he will consult for surgery, recommends admission to hospitalist for her DKA. 8:50 p.m.: Consultation with hospitalist Dr. Russ Morgan who will admit patient to ICU - Data Points Laboratory Results: Laboratory Results 02/27/18 19:14 02/27/18 19:14 02/27/18 02/27/18 02/27/18 21:30 21:29 21:15 WBC RBC Hgb POC Hgb 21.1 gm/dL H* gm/dL (12.6-16.3) Hct POC Hct 62 % H* % (38-47) MCV MCH MCHC RDW Plt Count MPV Neut % (Auto) Lymph % (Auto) Walker % (Auto) Eos % (Auto) Baso % (Auto) Nucleat RBC Rel Count Absolute Neuts (auto) Absolute Lymphs (auto) Absolute Monos (auto) Absolute Eos (auto) Absolute Basos (auto) Absolute Nucleated RBC Immature Gran % Immature Gran # PT INR APTT VBG Lactic Acid 2.8 mmol/L H mmol/L (0.7-2.1) POC Sodium 139 mEq/L mEq/L (135-145) Sodium POC Potassium 6.0 mEq/L H mEq/L (3.3-5.0) Potassium POC Chloride 102 mEq/L mEq/L (97-110) Chloride Carbon Dioxide Anion Gap POC BUN 22 mg/dL mg/dL (7-23) BUN Creatinine POC Creatinine 1.0 mg/dL mg/dL (0.6-1.0) Estimated GFR Glucose POC Glucose 312 mg/dL H mg/dL (70-100) Calcium Total Bilirubin Conjugated Bilirubin Unconjugated Bilirubin AST ALT Alkaline Phosphatase Total Protein Albumin Lipase Beta-Hydroxybutyrate 2.17 mmol/L H mmol/L (0.02-0.27) Beta HCG, Qual Specimen Hemolysis 02/27/18 02/27/18 02/27/18 19:22 19:14 19:14 WBC RBC Hgb POC Hgb 21.1 gm/dL H* gm/dL (12.6-16.3) Hct POC Hct 62 % H* % (38-47) MCV MCH MCHC RDW Plt Count MPV Neut % (Auto) Lymph % (Auto) Walker % (Auto) Eos % (Auto) Baso % (Auto) Nucleat RBC Rel Count Absolute Neuts (auto) Absolute Lymphs (auto) Absolute Monos (auto) Absolute Eos (auto) Absolute Basos (auto) Absolute Nucleated RBC Immature Gran % Immature Gran # PT 12.1 SEC SEC (12.0-15.0) INR 0.87 (0.83-1.16) APTT 23.7 SEC SEC (23.0-38.0) VBG Lactic Acid POC Sodium 136 mEq/L mEq/L (135-145) Sodium POC Potassium 5.1 mEq/L H mEq/L (3.3-5.0) Potassium POC Chloride 101 mEq/L mEq/L (97-110) Chloride Carbon Dioxide Anion Gap POC BUN 20 mg/dL mg/dL (7-23) BUN Creatinine POC Creatinine 1.0 mg/dL mg/dL (0.6-1.0) Estimated GFR Glucose POC Glucose 333 mg/dL H mg/dL (70-100) Calcium Total Bilirubin Conjugated Bilirubin Unconjugated Bilirubin AST ALT Alkaline Phosphatase Total Protein Albumin Lipase Beta-Hydroxybutyrate Beta HCG, Qual NEGATIVE Specimen Hemolysis 02/27/18 02/27/18 02/27/18 19:14 19:14 19:14 WBC 10.86 10^3/uL H 10^3/uL (3.80-9.50) RBC 6.73 10^6/uL H 10^6/uL (4.18-5.33) Hgb 20.3 g/dL H* g/dL (12.6-16.3) POC Hgb Hct 58.5 % H % (38.0-47.0) POC Hct MCV 86.9 fL fL (81.5-99.8) MCH 30.2 pg pg (27.9-34.1) MCHC 34.7 g/dL g/dL (32.4-36.7) RDW 16.1 % H % (11.5-15.2) Plt Count 162 10^3/uL 10^3/uL (150-400) MPV 10.3 fL fL (8.7-11.7) Neut % (Auto) 87.5 % H % (39.3-74.2) Lymph % (Auto) 9.0 % L % (15.0-45.0) Walker % (Auto) 2.4 % L % (4.5-13.0) Eos % (Auto) 0.1 % L % (0.6-7.6) Baso % (Auto) 0.3 % % (0.3-1.7) Nucleat RBC Rel Count 0.0 % % (0.0-0.2) Absolute Neuts (auto) 9.50 10^3/uL H 10^3/uL (1.70-6.50) Absolute Lymphs (auto) 0.98 10^3/uL L 10^3/uL (1.00-3.00) Absolute Monos (auto) 0.26 10^3/uL L 10^3/uL (0.30-0.80) Absolute Eos (auto) 0.01 10^3/uL L 10^3/uL (0.03-0.40) Absolute Basos (auto) 0.03 10^3/uL 10^3/uL (0.02-0.10) Absolute Nucleated RBC 0.00 10^3/uL 10^3/uL (0-0.01) Immature Gran % 0.7 % % (0.0-1.1) Immature Gran # 0.08 10^3/uL 10^3/uL (0.00-0.10) PT INR APTT VBG Lactic Acid 2.1 mmol/L mmol/L (0.7-2.1) POC Sodium Sodium 136 mEq/L mEq/L (135-145) POC Potassium Potassium 5.4 mEq/L H mEq/L (3.5-5.2) POC Chloride Chloride 99 mEq/L mEq/L (97-110) Carbon Dioxide 17 mEq/l L mEq/l (22-31) Anion Gap 20 mEq/L H mEq/L (8-16) POC BUN BUN 15 mg/dL mg/dL (7-23) Creatinine 0.9 mg/dL mg/dL (0.6-1.0) POC Creatinine Estimated GFR > 60 Glucose 309 mg/dL H mg/dL (70-100) POC Glucose Calcium 9.2 mg/dL mg/dL (8.5-10.4) Total Bilirubin 1.9 mg/dL H mg/dL (0.1-1.4) Conjugated Bilirubin 0.9 mg/dL H mg/dL (0.0-0.5) Unconjugated Bilirubin 1.0 mg/dL mg/dL (0.0-1.1) AST 39 IU/L IU/L (14-46) ALT 42 IU/L IU/L (9-52) Alkaline Phosphatase 180 IU/L H IU/L (38-126) Total Protein 7.6 g/dL g/dL (6.3-8.2) Albumin 4.4 g/dL g/dL (3.5-5.0) Lipase 145 IU/L IU/L (23-300) Beta-Hydroxybutyrate 1.95 mmol/L H mmol/L (0.02-0.27) Beta HCG, Qual Specimen Hemolysis 126 Medications Given: Lorazepam (Ativan Injection) 1 mg IVP Q4HRS PRN PRN Reason: Anxiety, Unable to Take PO Stop: 08/26/18 21:54 Last Admin: 02/27/18 22:41 Dose: 1 mg Discontinued Medications Fentanyl (Sublimaze) 100 mcg IVP EDNOW ONE Stop: 02/27/18 19:18 Last Admin: 02/27/18 19:27 Dose: 100 mcg Fentanyl (Sublimaze) 100 mcg IVP EDNOW ONE Stop: 02/27/18 20:06 Last Admin: 02/27/18 20:10 Dose: 100 mcg Fentanyl (Sublimaze) 100 mcg IVP ONCE ONE Stop: 02/27/18 21:55 Last Admin: 02/27/18 21:55 Dose: 100 mcg Sodium Chloride (Ns) 1,000 mls @ 0 mls/hr IV ONCE ONE PRN Reason: Wide Open Stop: 02/27/18 19:18 Last Admin: 02/27/18 19:27 Dose: 1,000 mls Sodium Chloride (Ns) 1,000 mls @ 1,000 mls/hr IV EDNOW ONE PRN Reason: Protocol Stop: 02/27/18 22:34 Last Admin: 02/27/18 22:42 Dose: Not Given Insulin Human Regular 100 unit / Miscellaneous Medication 1 ea/ Sodium Chloride 101 mls @ 0 mls/hr IV EDNOW ONE; Per Protocol PRN Reason: Protocol Stop: 02/27/18 20:36 Last Admin: 02/27/18 21:44 Dose: 101 mls Sodium Chloride (Ns) 1,000 mls @ 6,000 mls/hr IV ONCE ONE Stop: 02/27/18 21:19 Last Admin: 02/27/18 21:45 Dose: 1,000 mls Lorazepam (Ativan Injection) 1 mg IVP EDNOW ONE Stop: 02/27/18 19:18 Last Admin: 02/27/18 19:28 Dose: 1 mg Point of Care Test Results: 02/27/18 02/27/18 19:22 21:29 POC Sodium 136 139 POC Potassium 5.1 H 6.0 H POC Chloride 101 102 POC BUN 20 22 POC Creatinine 1.0 1.0 POC Glucose 333 H 312 H Departure - Departure Disposition: [facility] Inpatient Acute Clinical Impression: Hyperglycemia, Volume depletion, History of reflex sympathetic dystrophy Bowel obstruction Qualifiers: Intestinal obstruction type: unspecified Intestinal obstruction extent: complete Qualified Code(s): K56.601 - Complete intestinal obstruction, unspecified as to cause Condition: Fair
[2018-02-27 19:29] LABS: PLATELET COUNT 162 10^3/uL (150-400)
[2018-02-27 19:35] LABS: INR 0.87 (0.83-1.16); PROTIME(PATIENT) 12.1 SEC (12.0-15.0)
[2018-02-27] MEDS ORDERED: fentaNYL 100 MCG/2 ML INJ ONE (20:06)
[2018-02-27] MEDS ORDERED: INSULIN REGULAR HUMAN 100 UNIT, COSIGN. REQUIRED 1 EA in NS 100 ML IV ONE (20:35)
[2018-02-27] MEDS ORDERED: D10W 1,000 ML IV ONE (20:35)
[2018-02-27] MEDS ORDERED: D50W 25 GM/50 ML SYR IVP PRN (20:35)
[2018-02-27] MEDS ORDERED: PROMETHAZINE HCL 25 MG/ML INJ IVP PRN (21:50)
[2018-02-27] MEDS ORDERED: ONDANSETRON DISINTEGRATING 4 MG TAB PO PRN (21:50)
[2018-02-27] MEDS ORDERED: ONDANSETRON 4 MG/2 ML VIAL IVP PRN (21:50)
[2018-02-27] MEDS ORDERED: HYDROmorphONE/DILAUDID 1 MG/ML INJ IVP PRN (21:50)
[2018-02-27] MEDS ORDERED: DIAZEPAM 5 MG/ML 1 ML SYR IVP PRN (21:55)
[2018-02-27] MEDS ORDERED: HYDROmorphone HCL/NS 0.5 MG/ML SYR IVP PRN ×2 (21:56→23:19)
[2018-02-27] MEDS: LORazepam 2 MG/ML INJ IVP PRN (22:41)
--- NOTE | 2018-02-27 23:01 | GHP ---
[f rep st] HISTORY AND PHYSICAL DATE OF ADMISSION: 02/27/2018 HISTORY OF PRESENT ILLNESS: The patient is a 57-year-old female with a history of ostomy placement, on continuous benzodiazepine and narcotic use, type 2 diabetes, who presents with nausea and vomiting . She was feeling well yesterday but today she has had nausea and vomiting, has been unable to eat a nything. She has not had fever or chills. When I see her, she has brown ostomy output in her stool. She has not been taking extra pain medicines. She has not had cough or nausea, vomiting, diarrhea. REVIEW OF SYSTEMS: Complete 10-point review of systems conducted, negative except as noted in the HP I. PAST MEDICAL HISTORY: Chronic abdominal pain with reflex sympathetic dystrophy starting after back s urgery in 2002; hypertension; anxiety; chronic oxygen dependency; lumbar fusion; history of stroke; s mall bowel obstruction with lysis of adhesions; colostomy with takedown, revision, and now with colos jacinta. ALLERGIES: Vancomycin, amoxicillin, ampicillin, azithromycin, Keflex, cephalosporin, ciprofloxacin, clindamycin, cyclobenzaprine, dalteparin, erythromycin, iodine, levofloxacin, nitrofurantoin, ondanse ronaldo, oxymorphone, penicillins, phenytoin, prednisone, rifampin, shellfish, trimethoprim sulfamethoxa zole, ChloraPrep, latex, narcotics. MEDICATIONS: Tizanidine; Filipino [place], I do not know what that is; MS Contin 15 b.i.d., lorazepam, in sulin 70/30 sliding scale, diphenhydramine, clonazepam. clonidine. SOCIAL HISTORY: No tobacco. No alcohol. Lives with her . FAMILY HISTORY: Reviewed, unremarkable. PHYSICAL EXAMINATION: Temp 36.4, blood pressure 113/90, pulse 117, breathing 20 times a minute, 88% on room air, 96% on 2 L. GENERAL: Uncomfortable, moaning. Sclerae anicteric. Oropharynx clear. M ucous membranes are moist. NECK: Supple. Without lymphadenopathy or JVD. LUNGS: Clear to auscult ation bilaterally. HEART: S1, S2. It is borderline tachycardic when I see her. ABDOMEN: Soft. T here is no rebound or guarding. Bowel sounds are hypoactive but she has a fair amount of abdominal f at. There is no rebound or guarding. She has brown stool in her ostomy. LOWER EXTREMITIES: No stephanie ma. Calves are nontender. SKIN: Without rash. NEUROLOGIC: Nonfocal. LABORATORY DATA: White count 10.9, hemoglobin 20, hematocrit 58.5, platelets are 162,000. Coags are normal. Venous lactate is elevated at 2.8. Presenting sodium 136, potassium 5.4, chloride 99, bica rb 17, BUN 15, creatinine 0.9, glucose 309. LFTs are somewhat normal. Bilirubin slightly elevated. Beta-hydroxybutyrate elevated. Beta hCG is negative. Repeat is pending. Repeat chem-7 is pending at this time. IMAGING: Abdominal CT shows obstruction at the level of the left colon. There is no evidence of abs cess. I discussed case with Lm Bauer of the emergency department. ASSESSMENT/PLAN: 57-year-old female with colon obstruction, metabolic acidosis. 1. Metabolic acid acidosis. Initially I though this was likely to be just ketosis from starvation, but her rising lactate is somewhat concerning. This was drawn just a half an hour ago. We will cont inue volume resuscitation and follow. She is hemodynamically stable. I do not think she has an infe ction. I do not think she has sepsis. I do worry about underperfusion of this. Dr. Santos is aware of it and I will reach out to him and let him know the current findings. She does not have peritonea l signs. 2. Question diabetic ketoacidosis. The patient has type 2 diabetes and starvation ketosis. Her bic arb is not really consistent with diabetic ketoacidosis. We can avoid an insulin drip. I have start ed her on a sliding scale, which should be adequate. 3. Multiple drug allergies. We will minimize medications. 4. Bowel obstruction. Addendum: The patient is n.p.o. I will give her p.r.n. IV Benadryl, p.r.n. IV narcotics. 5. Reflex sympathetic dystrophy. I advised against touching her legs as these can be a trigger poin t for her. 6. Prophylaxis: The patient is at risk for a deep vein thrombosis, but given her abdominal issue, s he may be candidate for surgery. We will hold at this time. DISPOSITION: Inpatient status. /[id number]/MODL
[2018-02-27] MEDS ORDERED: fentaNYL 100 MCG/2 ML INJ IVP PRN (23:39)
--- NOTE | 2018-02-27 23:39 | PDMN ---
Medical Necessity Medical necessity: C/M review: est. > 2 MN LOS for eval and TX of acute metabolic acidosis, question diabetic acidosis, acute bowel obstruction, patient may be a candidate for surgery, requiring General Surgery consult, ongoing NPO, IV fluids, insulin sliding scale, IV Benadryl as needed, IV narcotics as needed, minimize medications, avoid touching patient's legs as these can be can be a trigger point for patient, pulse oximetry, supplemental O2 , comorbid type 2 diabetes, multiple drug allergies, chronic abdominal pain with reflex sympathetic dystrophy after back surgery in 2002, chronic O2 dependency, lumbar fusion, history of a stroke, small bowel obstruction with lysis of adhesions, colostomy with take down, now with colostomy per H/P.
[2018-02-28] MEDS: hydrALAZINE 20 MG/ML VIAL IVP PRN ×2 (00:38→18:21)
[2018-02-28] MEDS: NS 1,000 ML IV SCH ×3 (00:39→11:14)
[2018-02-28] MEDS: fentaNYL 100 MCG/2 ML INJ IVP PRN ×16 (01:24→22:17)
[2018-02-28] MEDS: LORazepam 2 MG/ML INJ IVP PRN ×5 (02:27→19:32)
[2018-02-28 05:09] LABS: INR 0.99 (0.83-1.16); PROTIME(PATIENT) 13.3 SEC (12.0-15.0)
[2018-02-28 05:10] LABS: PLATELET COUNT 166 10^3/uL (150-400)
[2018-02-28] MEDS: KETAMINE 100 MG in D5W 100 ML IV SCH ×2 (11:38→18:15)
--- NOTE | 2018-02-28 12:15 | SOAPPROG ---
SOAP Progress Note Assessment/Plan: Assessment: AFEBRILE TODAY/ STILL CO PAIN/ LARGE VOLUME EMPTYING FROM COLON WITH ENEMAS/ 2 -WAY IMPROVED Plan:MAY NEED OSTOMY REVISION 02/28/18 12:14 Objective: Vital Signs Temp Pulse Resp BP Pulse Ox 36.6 C 111 H 12 158/84 H 92 02/28/18 12:00 02/28/18 12:03 02/28/18 12:03 02/28/18 12:03 02/28/18 12:03 Laboratory Results 02/28/18 04:50 02/28/18 04:50 02/27/18 02/28/18 03/01/18 05:59 05:59 05:59 Intake Total 3494 Output Total 1999 400 Balance 1494 -400 PT 13.3 SEC (12.0-15.0) 02/28/18 04:50 INR 0.99 (0.83-1.16) 02/28/18 04:50 ICD10 Worksheet Patient Problems: Problems Problem Status Onset Bowel obstruction Acute History of reflex sympathetic dystrophy Acute Hyperglycemia Acute Volume depletion Acute Kidney stone Active Microscopic hematuria Active Recurrent cystitis Active Reflex sympathetic dystrophy Active Abdominal pain Acute Biliary colic Acute Chronic pain Acute Flank pain, acute Acute Narcotic withdrawal Acute Nausea and vomiting Acute UTI (urinary tract infection) Acute Vomiting Acute
[2018-02-28] MEDS ORDERED: LIDOCAINE 1% 300 MG/30 ML SDV ONE (12:25)
--- NOTE | 2018-02-28 13:45 | PDRADPN ---
Radiology Procedure Note Date of Procedure: 02/28/18 Radiologist: Aditya Moreira Anesthesia: Local (Specify) Pre-op Diagnosis: ICU Post-op Diagnosis: same Indication: bad access Finding(s): LUE cephalic TL PICC terminates at mid SVC. ok to use Inf/Abcess present in the surg proc area at time of surgery?: No EBL: Minimal Complications: none
--- NOTE | 2018-02-28 14:01 | HOSPPROG ---
Hospitalist Progress Note Assessment/Plan: DIAGNOSES: -partial colonic obstruction at her ostomy site with increased abdominal pain and vomiting * Awaiting Dr. Santos final recommendations but she may need surgical revision * So far will able to get some stool out using fleets through the colostomy -acute metabolic acidosis, combination of lactic and ketosis. ? If the ketosis was a starvation ketosis from repeated vomiting or a diabetic ketoacidosis * Anion gap is now resolved though her bicarb is little bit low with hyperchloremia after resuscitation -uncontrolled diabetes mellitus * Her usage of insulin at home was extremely low dose, and given the fact that she is not eating it would be very easy to cause her to be hypoglycemic here, her pain and other acute issues will help to mitigate that to some degree but will need to be very careful about insulin and monitoring -severe uncontrolled pain of not only her colon but her legs and back with severe chronic RSD * Uses 45 mg per day of oral long-acting morphine at home * Here fentanyl has been helpful to a degree but she has been in severe pain getting several times as much equivalent narcotic here as at home * Have begun a 5 ketamine drip and are starting to get better pain relief with that now -sinus tachycardia * This may limit what were able to do with the fentanyl drip -erythrocytosis, largely concentration affect from dehydration and is improving with hydration -chronic hypertension -chronic hypoxemic respiratory failure * So far not aiming any trouble with hypoxemia or dyspnea here Seen by me on hospitalist rounds and multidisc rounds I have reviewed in detail with Dr Dumont and will review with Dr Santos PLANS: -continue IV hydration -continue pain management as above -continue to try and evacuate the bowels is were able -await Dr. Santos recommendations for management of her obstruction beyond that -antiemetics -Q 4 hr glucose monitoring and for now use a low dose short-acting insulin regimen. Would not use her usual 70 30 at this time is there is too much chance of hypoglycemia with that under these circumstances SUBJECTIVE: Severe ongoing abdominal pain nausea vomiting No shortness of breath No fever symptoms OBJECTIVE Vitals reviewed: Remains mildly tachycardic in sinus rhythm, blood pressure is good, respirations okay, no fever Lan Manager, my review: Sinus tachycardia Exam: alert oriented, looks quite uncomfortable skin warm dry color some flushing in several areas likely related to RSD resps not labored lungs clear BSs heart regular tachycardic abd soft mildly distended, quiet, diffusely tender but no rebound limbs warm, some edema of limbs edema iv site ok Laboratory data: Her anion gap has resolved, CO2 was low but there is some hyperchloremia; lactate now in normal range Electrolytes okay renal function okay Some decrease in white count and her high red count I reviewed the images from her CT abdomen and she does certainly have a distended colon with lots of stool and some air, and air-fluid level, and a narrowed segment of bowel just leading up to her ostomy Objective: Vital Signs Temp Pulse Resp BP Pulse Ox 36.6 C 111 H 12 158/84 H 92 02/28/18 12:00 02/28/18 12:03 02/28/18 12:03 02/28/18 12:03 02/28/18 12:03 Laboratory Results 02/28/18 04:50 02/28/18 04:50 02/27/18 02/28/18 03/01/18 06:59 06:59 06:59 Intake Total 3494 Output Total 2400 650 Balance 1094 -650 PT 13.3 SEC (12.0-15.0) 02/28/18 04:50 INR 0.99 (0.83-1.16) 02/28/18 04:50 - Time Spent With Patient Time Spent with Patient: greater than 35 minutes Time Spent with Patient: Greater than 35 minutes spent on this patients care, greater than 50% of time spent counseling, educating, and coordinating care regarding the above mentioned plan. ICD10 Worksheet Patient Problems: Problems Problem Status Onset Bowel obstruction Acute History of reflex sympathetic dystrophy Acute Hyperglycemia Acute Volume depletion Acute Kidney stone Active Microscopic hematuria Active Recurrent cystitis Active Reflex sympathetic dystrophy Active Abdominal pain Acute Biliary colic Acute Chronic pain Acute Flank pain, acute Acute Narcotic withdrawal Acute Nausea and vomiting Acute UTI (urinary tract infection) Acute Vomiting Acute
[2018-02-28] MEDS ORDERED: D5W LR 1,000 ML IV SCH (14:15)
[2018-02-28] MEDS ORDERED: D5W 1,000 ML IV SCH (14:15)
--- NOTE | 2018-02-28 14:52 | ASMTCMCOM ---
CM Note CM Note Notes: Patient admitted for partial colonic obstruction at her ostomy site with increased abdominal pain and vomiting. She is awaiting Dr Santos final recommendations re: surgical revision. She has many other medical problems including multiple drug allergies and chronic narcotic use. She lives with her and is essentially bed bound according to her . Therapies have been ordered, and Case Management will follow for any discharge needs. Date Signed: 02/28/2018 02:52 PM Electronically Signed By:Michelle Weinstein RN
[2018-02-28] MEDS: INSULIN LISPRO 100 UNIT/ML SC SCH ×2 (15:25→22:18)
[2018-03-01] MEDS: fentaNYL 100 MCG/2 ML INJ IVP PRN ×9 (01:29→22:28)
[2018-03-01] MEDS: LORazepam 2 MG/ML INJ IVP PRN ×3 (01:29→10:33)
[2018-03-01] MEDS: KETAMINE 100 MG in D5W 100 ML IV SCH ×3 (01:33→16:08)
[2018-03-01] MEDS: INSULIN LISPRO 100 UNIT/ML SC SCH ×6 (01:39→22:07)
[2018-03-01] MEDS: LR 1,000 ML IV SCH ×3 (07:40→22:11)
[2018-03-01 09:10] LABS: INR 1.03 (0.83-1.16); PROTIME(PATIENT) 13.7 SEC (12.0-15.0)
--- NOTE | 2018-03-01 09:49 | SOAPPROG ---
SOAP Progress Note Assessment/Plan: Assessment: AFEBRILE TODAY/ STILL CO PAIN/ LARGE VOLUME EMPTYING FROM COLON WITH ENEMAS/ 2 -WAY IMPROVED Plan:MAY NEED OSTOMY REVISION 02/28/18 12:14 03/01/18 09:47 AFEBRILE/ STILL CO PAIN/ NO OSTOMY OUTPUT AND REMAINS TIGHTLY STRICTURED COMBO OF NARCS AND STRICTURE CREATING PROBLEM/ RISKS AND OPTIONS FULLY DISCUSSED WITH PT AND FAMILY PLAN PROCEED WITH OSTOMY REVISION TODAY/ KUB AND LABS PENDING Objective: Vital Signs Temp Pulse Resp BP Pulse Ox 36.9 C 104 H 14 160/79 H 97 03/01/18 08:00 03/01/18 09:00 03/01/18 09:00 03/01/18 09:00 03/01/18 09:00 Laboratory Results 03/01/18 08:45 03/01/18 08:45 02/28/18 03/01/18 03/02/18 05:59 05:59 05:59 Intake Total 3494 3487 Output Total 1999 2400 Balance 1494 1087 PT 13.7 SEC (12.0-15.0) 03/01/18 08:45 INR 1.03 (0.83-1.16) 03/01/18 08:45 ICD10 Worksheet Patient Problems: Problems Problem Status Onset Bowel obstruction Acute History of reflex sympathetic dystrophy Acute Hyperglycemia Acute Volume depletion Acute Kidney stone Active Microscopic hematuria Active Recurrent cystitis Active Reflex sympathetic dystrophy Active Abdominal pain Acute Biliary colic Acute Chronic pain Acute Flank pain, acute Acute Narcotic withdrawal Acute Nausea and vomiting Acute UTI (urinary tract infection) Acute Vomiting Acute
--- NOTE | 2018-03-01 12:34 | HOSPPROG ---
Hospitalist Progress Note Assessment/Plan: 57 yo F dm2, chronic pain, rsd and colostomy here w colostomy obstruction, acidosis acidosis: lactic and starvation ketosis not DKA resolved colostomy obstruction: not complete, but warrants revision per dr finley surgery at his timing colon not ischemic pain: restarted home pain meds currently on ketamine drip will continue this until surgery pain management challenging in this patient proph: lmwh postop dm2: continue sliding scale requesting c prptide, which I have sent dispo: inpt Subjective: on ketamine. case d/w rossy finley and reyna Objective: Vital Signs Temp Pulse Resp BP Pulse Ox 36.9 C 91 20 153/76 H 99 03/01/18 08:00 03/01/18 12:00 03/01/18 12:00 03/01/18 12:00 03/01/18 12:00 Laboratory Results 03/01/18 08:45 03/01/18 08:45 02/28/18 03/01/18 03/02/18 05:59 05:59 05:59 Intake Total 3494 3487 Output Total 2000 2400 Balance 1494 1087 PT 13.7 SEC (12.0-15.0) 03/01/18 08:45 INR 1.03 (0.83-1.16) 03/01/18 08:45 - Physical Exam Constitutional: no apparent distress, appears nourished Eyes: PERRL, anicteric sclera Ears, Nose, Mouth, Throat: moist mucous membranes, hearing normal Cardiovascular: regular rate and rhythym, no murmur, rub, or gallop Respiratory: no respiratory distress, no rales or rhonchi Gastrointestinal: normoactive bowel sounds, soft, non-tender abdomen Genitourinary: no bladder fullness, No woods in urethra Skin: warm, normal color Musculoskeletal: full muscle strength Neurologic: AAOx3 Psychiatric: interacting appropriately, not anxious Lymph, Heme, Immunologic: no cervical LAD ICD10 Worksheet Patient Problems: Problems Problem Status Onset Bowel obstruction Acute History of reflex sympathetic dystrophy Acute Hyperglycemia Acute Volume depletion Acute Kidney stone Active Microscopic hematuria Active Recurrent cystitis Active Reflex sympathetic dystrophy Active Abdominal pain Acute Biliary colic Acute Chronic pain Acute Flank pain, acute Acute Narcotic withdrawal Acute Nausea and vomiting Acute UTI (urinary tract infection) Acute Vomiting Acute
[2018-03-01] MEDS ORDERED: morphINE SR 15 MG TAB PO PRN ×2 (13:10→14:00)
--- NOTE | 2018-03-01 13:50 | PDINTPN ---
Trailer Chief Progress Note Assessment/Plan: Assessment: Lactic and ketoacidosis: Likely starvation. Resolved. Diabetes: BSs controlled with minimal insulin. Not taking PO Abdominal Pain: Apparently due to colostomy obstruction in addition to chronic pain syndrome. Complex regional pain syndrome: Now essentially generalized. Improved with ketamine, able to sleep Plan: Continue ketamine. Restart Zanaflex, clonidine. Hopefully can transfer to floor and stop ketamine post-op 03/01/18 13:50 Subjective: Sleeping. Pain control has been a bit better. Objective: Vital Signs Temp Pulse Resp BP Pulse Ox 36.9 C 95 25 H 149/91 H 96 03/01/18 08:00 03/01/18 13:00 03/01/18 13:00 03/01/18 13:00 03/01/18 13:00 Laboratory Results 03/01/18 08:45 03/01/18 08:45 02/28/18 03/01/18 03/02/18 05:59 05:59 05:59 Intake Total 3494 3487 Output Total 2000 2400 Balance 1494 1087 PT 13.7 SEC (12.0-15.0) 03/01/18 08:45 INR 1.03 (0.83-1.16) 03/01/18 08:45 Physical Exam - Physical Exam General Appearance: no apparent distress, No alert (sleeping) EENT: normal ENT inspection Neck: normal inspection Cardiac/Chest: No edema Skin: normal color, warm/dry Extremities: normal inspection Neuro/Psych: No alert (sleeping) ICD10 Worksheet Patient Problems: Problems Problem Status Onset Bowel obstruction Acute History of reflex sympathetic dystrophy Acute Hyperglycemia Acute Volume depletion Acute Kidney stone Active Microscopic hematuria Active Recurrent cystitis Active Reflex sympathetic dystrophy Active Abdominal pain Acute Biliary colic Acute Chronic pain Acute Flank pain, acute Acute Narcotic withdrawal Acute Nausea and vomiting Acute UTI (urinary tract infection) Acute Vomiting Acute
[2018-03-01] MEDS ORDERED: clonazePAM 0.5 MG TAB PO SCH ×2 (14:00→22:00)
[2018-03-01] MEDS ORDERED: DIPHENHYDRAMINE HCL 50 MG PO SCH (14:00)
[2018-03-01] MEDS ORDERED: TIZANIDINE HCL 8 MG PO SCH (14:00)
[2018-03-01] MEDS ORDERED: [UNRECOGNIZED DRUG - OTHER] PO SCH (14:00)
[2018-03-01] MEDS: clonazePAM 0.5 MG TAB PO SCH ×2 (14:17→22:02)
[2018-03-01] MEDS: DIPHENHYDRAMINE HCL 50 MG PO SCH ×3 (14:17→22:03)
[2018-03-01] MEDS: TIZANIDINE HCL 8 MG PO SCH ×2 (14:18→22:05)
[2018-03-01] MEDS: [UNRECOGNIZED DRUG - OTHER] PO SCH ×2 (14:18→22:06)
[2018-03-01] MEDS ORDERED: PROPOFOL 200 MG/20 ML VIAL ONE (14:24)
[2018-03-01] MEDS ORDERED: fentaNYL 250 MCG/5 ML INJ ONE (14:24)
[2018-03-01] MEDS ORDERED: LIDOCAINE 2% 100 MG/5 ML SYR ONE (14:25)
[2018-03-01] MEDS ORDERED: DEXAMETHASONE 4 MG/ML VIAL ONE (14:28)
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
[2018-03-01] MEDS ORDERED: BUPIVACAINE 0.5% 30 ML SDV ONE (15:37)
[2018-03-01] MEDS ORDERED: fentaNYL 100 MCG/2 ML INJ IVP PRN (15:55)
[2018-03-01] MEDS ORDERED: NALOXONE HCL 0.4 MG/ML INJ IVP PRN (15:55)
[2018-03-01] MEDS ORDERED: ALBUTEROL 3 ML DEYVIAL IH PRN (15:55)
--- NOTE | 2018-03-01 15:58 | POSTANESTH ---
Post Anesthetic Evaluation Cardiovascular Status: Similar to Pre-Op Cond Respiratory Status: Similar to Pre-op Cond. Level of Consciousness/Mental Status: Mildly Sleepy, Arousable Pain Control: Adequate, Prn Tx Ordered Nausea/Vomiting Control: Adequate, Prn Tx Ordered Complications Possibly Related to Anesthesia: None Noted
[2018-03-01] MEDS: hydrALAZINE 20 MG/ML VIAL IVP PRN (16:34)
[2018-03-01] MEDS: LORazepam 1 MG/0.5 ML UDSYR PO PRN (17:10)
--- NOTE | 2018-03-01 18:23 | POSTOPPROG ---
Post Op Note Date of Operation: 03/01/18 Surgeon: Artemio Santos Anesthesiologist: BIB Anesthesia: GET(General Endotracheal) Pre-op Diagnosis: COLON OBSTRUCTION SECONDARY TO COLOSTOMY STRICTURE Post-op Diagnosis: SAME Indication: OBSTRUCTION Procedure: COLOSTOMY RESECTION AND CREATION OF A NEW END COLOSTOMY Findings: SEVERE STRICTURE IN THE SKIN AND SUBCUTANEOUS LEVEL BUT ADEQUATE THE OPENIN Inf/Abcess present in the surg proc area at time of surgery?: Yes Depth: Organ Space EBL: Minimal Complications: NONE Specimen(s): COLOSTOMY
[2018-03-01] MEDS ORDERED: morphINE SR 15 MG TAB PO SCH (22:00)
[2018-03-01] MEDS: morphINE SR 15 MG TAB PO SCH (22:02)
[2018-03-02] MEDS: KETAMINE 100 MG in D5W 100 ML IV SCH ×3 (00:12→12:26)
[2018-03-02] MEDS: fentaNYL 100 MCG/2 ML INJ IVP PRN ×5 (00:19→18:29)
[2018-03-02] MEDS: clonazePAM 0.5 MG TAB PO SCH ×4 (01:32→21:09)
[2018-03-02] MEDS: DIPHENHYDRAMINE HCL 50 MG PO SCH ×4 (01:33→20:56)
[2018-03-02] MEDS: TIZANIDINE HCL 8 MG PO SCH ×4 (01:34→20:58)
[2018-03-02] MEDS: [UNRECOGNIZED DRUG - OTHER] PO SCH ×3 (01:35→13:39)
[2018-03-02] MEDS: INSULIN LISPRO 100 UNIT/ML SC SCH ×6 (01:45→20:55)
[2018-03-02] MEDS: LR 1,000 ML IV SCH (05:18)
[2018-03-02] MEDS: morphINE SR 15 MG TAB PO SCH ×2 (05:22→21:09)
[2018-03-02 05:47] LABS: PLATELET COUNT 105 10^3/uL (150-400)
[2018-03-02] MEDS: LORazepam 1 MG/0.5 ML UDSYR PO PRN (10:26)
--- NOTE | 2018-03-02 10:29 | SOAPPROG ---
SOAP Progress Note Assessment/Plan: Assessment: 57 y/o female s/p colostomy resection and recreation for stricture POD#1 S: Doing well today. Sitting up in bed eating breakfast during visit. Concerned about pain control upon discharge. Still in ICU d/t ketamine drip. Takes MS contin bid at home. O: Alert Afebrile RRR No increase WOB Abdomen: soft, nontender, ostomy pink with sweat in appliance, no flatus or BM. Plan: Discussed moving to oral pain meds only. Pt and concerned about increased pain with this. Pt can likely go home tomorrow or the next day pending return of bowel function into ostomy and pain control. 03/02/18 10:24 Objective: Vital Signs Temp Pulse Resp BP Pulse Ox 36.9 C 67 12 107/57 L 98 03/02/18 07:00 03/02/18 09:00 03/02/18 09:00 03/02/18 09:00 03/02/18 09:00 Laboratory Results 03/02/18 05:39 03/02/18 05:39 03/01/18 03/02/18 03/03/18 05:59 05:59 05:59 Intake Total 3487 3554 Output Total 2400 695 Balance 1087 2859 PT 13.7 SEC (12.0-15.0) 03/01/18 08:45 INR 1.03 (0.83-1.16) 03/01/18 08:45 ICD10 Worksheet Patient Problems: Problems Problem Status Onset Bowel obstruction Acute History of reflex sympathetic dystrophy Acute Hyperglycemia Acute Volume depletion Acute Kidney stone Active Microscopic hematuria Active Recurrent cystitis Active Reflex sympathetic dystrophy Active Abdominal pain Acute Biliary colic Acute Chronic pain Acute Flank pain, acute Acute Narcotic withdrawal Acute Nausea and vomiting Acute UTI (urinary tract infection) Acute Vomiting Acute
--- NOTE | 2018-03-02 15:27 | HOSPPROG ---
Hospitalist Progress Note Assessment/Plan: 57 yo F dm2, chronic pain, rsd and colostomy here w colostomy obstruction, acidosis acidosis: lactic and starvation ketosis not DKA resolved colostomy obstruction: s/p revision bowel function returning pain: restarted home pain meds currently on ketamine drip will continue this until surgery decrease ketamine today proph: scd's as allergic to dalteparin dm2: continue sliding scale requesting c prptide, which I have sent dispo: inpt Subjective: casse d/w dr mccabe. somnolent Objective: Vital Signs Temp Pulse Resp BP Pulse Ox 36.9 C 70 20 112/68 96 03/02/18 07:00 03/02/18 14:00 03/02/18 14:00 03/02/18 14:00 03/02/18 14:00 Laboratory Results 03/02/18 05:39 03/02/18 05:39 03/01/18 03/02/18 03/03/18 05:59 05:59 05:59 Intake Total 3487 3554 320 Output Total 2400 695 600 Balance 1087 2859 -280 PT 13.7 SEC (12.0-15.0) 03/01/18 08:45 INR 1.03 (0.83-1.16) 03/01/18 08:45 - Physical Exam Constitutional: no apparent distress, appears nourished Eyes: PERRL, anicteric sclera Ears, Nose, Mouth, Throat: moist mucous membranes, hearing normal Cardiovascular: regular rate and rhythym, no murmur, rub, or gallop Respiratory: no respiratory distress, no rales or rhonchi Gastrointestinal: other (solid stool in ostomy bag. bowel sounds present) Genitourinary: No woods in urethra Skin: warm, normal color Musculoskeletal: full muscle strength Neurologic: AAOx3 ICD10 Worksheet Patient Problems: Problems Problem Status Onset Bowel obstruction Acute History of reflex sympathetic dystrophy Acute Hyperglycemia Acute Volume depletion Acute Kidney stone Active Microscopic hematuria Active Recurrent cystitis Active Reflex sympathetic dystrophy Active Abdominal pain Acute Biliary colic Acute Chronic pain Acute Flank pain, acute Acute Narcotic withdrawal Acute Nausea and vomiting Acute UTI (urinary tract infection) Acute Vomiting Acute
[2018-03-02] MEDS: ACETAMINOPHEN 325 MG TAB PO PRN (18:03)
[2018-03-02] MEDS: IBUPROFEN 200 MG TAB PO PRN (18:30)
[2018-03-02] MEDS: KRISS PO SCH (20:56)
[2018-03-02] MEDS ORDERED: KRISS PO SCH (22:00)
[2018-03-03] MEDS: DIPHENHYDRAMINE HCL 50 MG PO SCH ×4 (01:04→21:09)
[2018-03-03] MEDS: fentaNYL 100 MCG/2 ML INJ IVP PRN ×10 (01:04→22:32)
[2018-03-03] MEDS: clonazePAM 0.5 MG TAB PO SCH ×4 (01:04→14:32)
[2018-03-03] MEDS: TIZANIDINE HCL 8 MG PO SCH ×4 (01:05→21:09)
[2018-03-03] MEDS: KRISS PO SCH ×4 (01:06→21:07)
[2018-03-03] MEDS: KETAMINE 100 MG in D5W 100 ML IV SCH (01:07)
[2018-03-03] MEDS: ACETAMINOPHEN 325 MG TAB PO PRN ×2 (03:35→10:27)
[2018-03-03] MEDS: IBUPROFEN 200 MG TAB PO PRN ×3 (03:35→21:07)
[2018-03-03] MEDS: morphINE SR 15 MG TAB PO SCH ×2 (05:46→21:07)
[2018-03-03] MEDS: INSULIN LISPRO 100 UNIT/ML SC SCH ×4 (08:57→21:02)
[2018-03-03] MEDS ORDERED: KETAMINE 100 MG in D5W 100 ML IV SCH (11:30)
[2018-03-03] MEDS ORDERED: morphINE SR 15 MG TAB PO PRN (14:30)
--- NOTE | 2018-03-03 15:35 | HOSPPROG ---
Hospitalist Progress Note Assessment/Plan: 57 yo F dm2, chronic pain, rsd and colostomy here w colostomy obstruction, acidosis acidosis: lactic and starvation ketosis not DKA resolved colostomy obstruction: s/p revision bowel function returned pain: restarted home pain meds ketamine drip off at 5 [place] to keep fentanyl going until dc, which she states will be tomoorow proph: scd's as allergic to dalteparin dm2: c peptide normal, type 2 dm refusing insulin and fingersticks, which worsens her care dispo: inpt Subjective: case d/w belkys valentine, general surgery PA. bowel funtion has returned she notes Objective: Vital Signs Temp Pulse Resp BP Pulse Ox 36.8 C 78 16 128/65 H 99 03/03/18 04:00 03/03/18 10:00 03/03/18 10:00 03/03/18 10:00 03/03/18 10:00 Laboratory Results 03/02/18 05:39 03/02/18 05:39 03/02/18 03/03/18 03/04/18 05:59 05:59 05:59 Intake Total 3554 3208 Output Total 695 1320 Balance 2859 1888 PT 13.7 SEC (12.0-15.0) 03/01/18 08:45 INR 1.03 (0.83-1.16) 03/01/18 08:45 - Physical Exam Constitutional: no apparent distress, appears nourished Eyes: PERRL, anicteric sclera Ears, Nose, Mouth, Throat: moist mucous membranes, hearing normal Cardiovascular: regular rate and rhythym, no murmur, rub, or gallop Respiratory: no respiratory distress, no rales or rhonchi Gastrointestinal: normoactive bowel sounds, soft, non-tender abdomen Genitourinary: no bladder fullness, No woods in urethra Skin: warm, normal color Musculoskeletal: full muscle strength Neurologic: AAOx3 ICD10 Worksheet Patient Problems: Problems Problem Status Onset Bowel obstruction Acute History of reflex sympathetic dystrophy Acute Hyperglycemia Acute Volume depletion Acute Kidney stone Active Microscopic hematuria Active Recurrent cystitis Active Reflex sympathetic dystrophy Active Abdominal pain Acute Biliary colic Acute Chronic pain Acute Flank pain, acute Acute Narcotic withdrawal Acute Nausea and vomiting Acute UTI (urinary tract infection) Acute Vomiting Acute
--- NOTE | 2018-03-03 16:49 | ASMTCMCOM ---
CM Note CM Note Notes: In ICU Rounds, RN reported that patient wanted to follow her medication schedule she had at home. asked if he would be interested in a Family Meeting which he declined today. Date Signed: 03/03/2018 04:48 PM Electronically Signed By:Meghan Darby LCSW
--- NOTE | 2018-03-03 17:52 | SOAPPROG ---
SOAP Progress Note Assessment/Plan: Assessment/Plan: 57 Y F c RSD and chronic opioid dependence s/p colostomy revision for high grade stricture causing obstruction. Challenging patient in regards to pain control. Plan is to turn off ketamine gtt today. Discussed with medicine who is managing this--appreciate the help. Regular diet. Ostomy is pink, +soft brown stool in bag. Of note, patient claims the ostomy appliance in place now was the same as before surgery--this is not the case. She has refused ostomy care and assistance from the ostomy nurse. Discussed with ICU nurse. S: c/o pain. wants to make sure she gets fentanyl right away if the ketamine gtt is turned off. continues to forget earlier agreed upon plans for pain control. O: alert, nad no wob abd soft, wounds intact, ostomy pink, +soft brown stool. 03/03/18 17:48 Objective: Vital Signs Temp Pulse Resp BP Pulse Ox 36.8 C 62 16 113/94 H 98 03/03/18 04:00 03/03/18 14:00 03/03/18 14:00 03/03/18 14:00 03/03/18 14:00 Laboratory Results 03/02/18 05:39 03/02/18 05:39 03/02/18 03/03/18 03/04/18 05:59 05:59 05:59 Intake Total 3554 3208 Output Total 695 1320 Balance 2859 1888 PT 13.7 SEC (12.0-15.0) 03/01/18 08:45 INR 1.03 (0.83-1.16) 03/01/18 08:45 ICD10 Worksheet Patient Problems: Problems Problem Status Onset Bowel obstruction Acute History of reflex sympathetic dystrophy Acute Hyperglycemia Acute Volume depletion Acute Kidney stone Active Microscopic hematuria Active Recurrent cystitis Active Reflex sympathetic dystrophy Active Abdominal pain Acute Biliary colic Acute Chronic pain Acute Flank pain, acute Acute Narcotic withdrawal Acute Nausea and vomiting Acute UTI (urinary tract infection) Acute Vomiting Acute
[2018-03-03] MEDS ORDERED: clonazePAM 0.5 MG TAB PO SCH (22:00)
[2018-03-04] MEDS: DIPHENHYDRAMINE HCL 50 MG PO SCH ×3 (00:51→14:33)
[2018-03-04] MEDS: TIZANIDINE HCL 8 MG PO SCH ×3 (00:52→14:30)
[2018-03-04] MEDS: fentaNYL 100 MCG/2 ML INJ IVP PRN ×8 (00:53→17:34)
[2018-03-04] MEDS: clonazePAM 0.5 MG TAB PO SCH ×3 (00:53→14:32)
[2018-03-04] MEDS: KRISS PO SCH ×3 (00:54→14:31)
[2018-03-04] MEDS: morphINE SR 15 MG TAB PO SCH (04:41)
[2018-03-04] MEDS: INSULIN LISPRO 100 UNIT/ML SC SCH ×2 (08:20→12:41)
--- NOTE | 2018-03-04 10:40 | SOAPPROG ---
SOAP Progress Note Assessment/Plan: Assessment/Plan: 57 Y F c RSD and chronic opioid dependence s/p colostomy revision for high grade stricture causing obstruction. Ostomy functioning. Open to working with fountain dispenser today. Has pain, but controlled. S: pleasant this am. "sore." Wants to go home O: alert, nad no wob abd soft, wounds intact, ostomy appears pink but difficult to view 2/2 +soft brown stool. patient not wanting me to remove appliance. 03/04/18 10:39 Objective: Vital Signs Temp Pulse Resp BP Pulse Ox 36.9 C 66 16 125/80 H 97 03/04/18 07:14 03/04/18 07:14 03/04/18 07:14 03/04/18 07:14 03/04/18 07:14 Laboratory Results 03/02/18 05:39 03/02/18 05:39 03/03/18 03/04/18 03/05/18 05:59 05:59 05:59 Intake Total 3208 2206 Output Total 1320 Balance 1888 2206 PT 13.7 SEC (12.0-15.0) 03/01/18 08:45 INR 1.03 (0.83-1.16) 03/01/18 08:45 ICD10 Worksheet Patient Problems: Problems Problem Status Onset Bowel obstruction Acute History of reflex sympathetic dystrophy Acute Hyperglycemia Acute Volume depletion Acute Kidney stone Active Microscopic hematuria Active Recurrent cystitis Active Reflex sympathetic dystrophy Active Abdominal pain Acute Biliary colic Acute Chronic pain Acute Flank pain, acute Acute Narcotic withdrawal Acute Nausea and vomiting Acute UTI (urinary tract infection) Acute Vomiting Acute
--- NOTE | 2018-03-04 12:40 | HOSPPROG ---
Hospitalist Progress Note Assessment/Plan: 57 yo F dm2, chronic pain, rsd and colostomy here w colostomy obstruction, acidosis low grade temps: w urinary sx check UA, ucx acidosis: lactic and starvation ketosis not DKA resolved colostomy obstruction: s/p revision bowel function returned pain: restarted home pain meds ketamine drip off at 5 [place] to keep fentanyl going until dc, which she states will be tomoorow proph: scd's as allergic to dalteparin dm2: c peptide normal, type 2 dm refusing insulin and fingersticks, which worsens her care dispo: inpt Subjective: "i think i have a uti" Objective: Vital Signs Temp Pulse Resp BP Pulse Ox 37.4 C 70 16 131/83 H 94 03/04/18 11:40 03/04/18 11:40 03/04/18 11:40 03/04/18 11:40 03/04/18 11:40 Laboratory Results 03/02/18 05:39 03/02/18 05:39 03/03/18 03/04/18 03/05/18 05:59 05:59 05:59 Intake Total 3208 2206 Output Total 1320 Balance 1888 2206 PT 13.7 SEC (12.0-15.0) 03/01/18 08:45 INR 1.03 (0.83-1.16) 03/01/18 08:45 - Physical Exam Constitutional: no apparent distress, appears nourished Eyes: PERRL, anicteric sclera Ears, Nose, Mouth, Throat: moist mucous membranes, hearing normal Cardiovascular: regular rate and rhythym, no murmur, rub, or gallop Respiratory: no respiratory distress, no rales or rhonchi Gastrointestinal: normoactive bowel sounds, soft, non-tender abdomen, other ( brown stool in ostomy) Genitourinary: no bladder fullness, No woods in urethra Musculoskeletal: full muscle strength, no muscle tenderness Neurologic: AAOx3 ICD10 Worksheet Patient Problems: Problems Problem Status Onset Bowel obstruction Acute History of reflex sympathetic dystrophy Acute Hyperglycemia Acute Volume depletion Acute Kidney stone Active Microscopic hematuria Active Recurrent cystitis Active Reflex sympathetic dystrophy Active Abdominal pain Acute Biliary colic Acute Chronic pain Acute Flank pain, acute Acute Narcotic withdrawal Acute Nausea and vomiting Acute UTI (urinary tract infection) Acute Vomiting Acute
[2018-03-04 16:00] VITALS: BP 123/75
--- NOTE | 2018-03-04 16:52 | WOCRNPDOC ---
WOCRN Advanced Assessment Note - Colostomy Assessment, Advanced Left Lower Abdomen Colostomy Stoma Colostomy Appliance Intact: Yes Colostomy Appliance Currently in Use: Two Piece Flat, 2 3/4, Cut to Fit Stoma Color: Arnot, Red Stoma Turgor: Moist Stoma Shape: Oval Stoma Height: Protruding Slightly Mucocutaneus Junction: Intact Colostomy Effluent: Fecal, Thin Peristomal Skin: Intact Colostomy Comment/Treatment Details: Stoma has a flat profile but is healthy. Patient reports her previous stoma was also flat but smaller and her pouch worked well for 5 days at a time so they will continue to use that pouch at home. Current pouch removed and changed. Stoma remeasured and 2 3/4 which patient was using will continue to fit well. Patient wanted scientist immunology to perform pouch change and did not participate but it well versed in ostomy care as she has had the ostomy for quite a while. Patient requests samples from convatec, coloplast and [place] all which will be requested. No further needs at this time. sat instructor will sign off.
--- NOTE | 2018-03-04 16:58 | GDS ---
[f rep st] DISCHARGE SUMMARY DISCHARGE DIAGNOSES: 1. 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 2. Metabolic acidosis, now resolved. 3. Reflex sympathetic dystrophy. 4. Multiple drug allergies. 5. Chronic pain with continuous narcotic use. Please see admission history and physical by Dr. Russ Morgan. The patient presented with abdomina l pain, metabolic acidosis, likely secondary to starvation. It was not DKA. Her type 2 diabetes was confirmed with a positive C-peptide. She went to the operating room with Dr. Santos for revision of her ostomy, which went well. The patient was maintained postoperatively on ketamine drip, on fentany l. On the last hospital day, she developed some urinary symptoms. Urinalysis checked and was unambi guously negative. She was discharged home with no prescriptions provided. /[id number]/MODL
--- NOTE | 2018-03-08 17:45 | GOP ---
[f rep st] OPERATIVE REPORT DATE OF OPERATION: 03/01/2018 SURGEON: Artemio Santos MD BANNER PAINTER: None. PREOPERATIVE DIAGNOSIS: Colonic obstruction with colostomy stenosis. POSTOPERATIVE DIAGNOSIS: Colonic obstruction with colostomy stenosis. PROCEDURE PERFORMED: Colostomy revision with partial colectomy. FINDINGS: The patient was found to have severe stenosis of the colostomy in the left lower quadrant involving the skin and subcutaneous tissue. However, the colon was quite free and normal at the fasc ia level and was able to be elevated up. DESCRIPTION OF PROCEDURE: Patient taken to the operating room. She received satisfactory general en dotracheal anesthesia. She was placed in supine position and prepped and draped in usual sterile fas hion. An elliptical skin incision was made around the colostomy opening. Dissection extended down t hrough the subcutaneous tissue down to the fascial level. The colon was freed up from the fascia cir cumferentially, and the abdomen was entered, and the colon was elevated for several cm. The strictur ed subcutaneous portion of the colostomy was then excised and sent to Pathology. She had good viable bleeding edges from the cut colon. The colon segment was secured to the fascia with interrupted 3-0 Vicryl sutures, and then the open end of the colon was secured to the skin with interrupted 4-0 Vicr yl sutures creating a good, patent ostomy opening. The suture line was covered with Dermabond and an appliance was placed. Prior to that, the stoma was palpated and was quite open all the way through the fascia. The wound was infiltrated with some Marcaine. She tolerated procedure well. She was ta mariela to the recovery room in good condition. There were no complications. /[id number]/MODL
== END 2018-03-04 18:07 | disposition home or self-care (01) | DRG 330 ==
LOC: OBSVTOIN 21:50 → F2N 22:49 → F3E 03-03 22:46
PROVIDERS: ADMIT Internal Medicine; ATTEND Internal Medicine
PROC: 02HV33Z Insertion of Infusion Device into Superior Vena Cava, Percutaneous Approach (ICD-10-PCS; 2018-02-28)
PROC: 0WQF0ZZ Repair Abdominal Wall, Open Approach (ICD-10-PCS; principal; 2018-03-01 12:30)
PROC: 0D1N0Z4 Bypass Sigmoid Colon to Cutaneous, Open Approach (ICD-10-PCS; principal; 2018-03-01 12:30)
PROC: 0DBN0ZX Excision of Sigmoid Colon, Open Approach, Diagnostic (ICD-10-PCS; principal; 2018-03-01 12:30)
PROC: 02H633Z Insertion of Infusion Device into Right Atrium, Percutaneous Approach (ICD-10-PCS; 2018-03-02)
DX: K94.03 Colostomy malfunction (principal); E87.2 Acidosis; G90.523 Complex regional pain syndrome I of lower limb, bilateral; G90.59 Complex regional pain syndrome I of other specified site; J96.11 Chronic respiratory failure with hypoxia; F11.20 Opioid dependence, uncomplicated; G89.29 Other chronic pain; E11.9 Type 2 diabetes mellitus without complications; I10 Essential (primary) hypertension; Z99.81 Dependence on supplemental oxygen; Z79.4 Long term (current) use of insulin; Z86.73 Personal history of transient ischemic attack (TIA), and cerebral infarction without residual deficits; Z87.891 Personal history of nicotine dependence
CPT/HCPCS: 82947-QW; 84681-90; 96374; C1751; J0360; J1100; J1170; J1815; J2001; J2060; J2270; J2704; J3010

== ENCOUNTER 2018-04-08 09:33 | Inpatient (IN) | payer OTHER ==
[2018-04-08] MEDS ORDERED: PROMETHAZINE HCL 25 MG/ML INJ IVP PRN (12:08)
[2018-04-08] MEDS ORDERED: ZOLPIDEM TARTRATE 5 MG TAB PO PRN (12:08)
[2018-04-08] MEDS ORDERED: ONDANSETRON 4 MG/2 ML VIAL IVP PRN (12:08)
[2018-04-08] MEDS ORDERED: oxyCODONE IR 5 MG TAB PO PRN (12:08)
[2018-04-08] MEDS ORDERED: ONDANSETRON DISINTEGRATING 4 MG TAB PO PRN (12:08)
[2018-04-08] MEDS ORDERED: D50W 25 GM/50 ML SYR IVP PRN (13:07)
[2018-04-08] MEDS ORDERED: AZTREONAM 1 GM in NS 50 ML IV SCH (13:30)
[2018-04-08 14:28] LABS: PLATELET COUNT 141 10^3/uL (150-400)
[2018-04-08] MEDS ORDERED: ALTEPLASE 2 MG VIAL IVP PRN (15:20)
--- NOTE | 2018-04-08 16:21 | PDGENHP ---
History and Physical - Chief Complaint fever/uti - History of Present Illness 57 yo F with MMI including RSD, chronic pain with continuous narcotic use and dependency as well as recurrent UTI and multiple allergies to medications presenting with UTI diagnosed at her ID doctor's appointment. She is being admitted for IV abx as there are no oral options for her given her multiple allergies. She also complains of severe pain throughout her urethra at all times , that feels like razor blades and for which she feels her current pain regimen is not controlling. She also notes that she has an abscess in her vagina that was seen by Dr. Santos recently and which she thinks is draining. History Information - Allergies/Home Medication List Allergies/Adverse Reactions: ondansetron HCl [From Zofran (as hydrochloride)] Allergy (Severe, Verified 04/08 12:58) itching and swelling of throat vancomycin Allergy (Intermediate, Verified 02/27/18 18:59) Rash oxymorphone HCl [From Opana] Allergy (Unknown, Verified 04/08/18 12:58) amoxicillin trihydrate [From Augmentin] Allergy (Verified 02/27/18 18:59) ampicillin [Ampicillin] Allergy (Verified 02/27/18 18:59) azithromycin Allergy (Verified 02/27/18 18:59) cephalexin monohydrate [From Keflex] Allergy (Verified 02/27/18 18:59) Cephalosporins Allergy (Verified 02/27/18 18:59) ciprofloxacin Allergy (Verified 02/27/18 18:59) clindamycin Allergy (Verified 02/27/18 18:59) cyclobenzaprine Allergy (Verified 02/27/18 18:59) Other-Enter Comments dalteparin sodium,porcine [From Fragmin] Allergy (Verified 02/27/18 18:59) erythromycin base [Erythromycin Base] Allergy (Verified 02/27/18 18:59) iodine Allergy (Verified 02/27/18 18:59) levofloxacin [Levofloxacin] Allergy (Verified 02/27/18 18:59) nitrofurantoin macrocrystalline [From Macrodantin] Allergy (Verified 02/27/18 18 :59) Penicillins Allergy (Verified 02/27/18 18:59) phenytoin sodium [From Dilantin] Allergy (Verified 02/27/18 18:59) potassium clavula *RETIRED-07/13/12 [From Augmentin] Allergy (Verified 02/27/18 18:59) prednisone Allergy (Verified 02/27/18 18:59) rifampin Allergy (Verified 02/27/18 18:59) Shellfish *RETIRED-07/13/12 Allergy (Verified 02/27/18 18:59) sulfamethoxazole [Sulfamethoxazole] Allergy (Verified 02/27/18 18:59) trimethoprim [From Bactrim] Allergy (Verified 02/27/18 18:59) chloroprep Allergy (Uncoded 02/27/18 18:59) LATEX Allergy (Uncoded 02/27/18 18:59) narcotics Allergy (Uncoded 02/27/18 18:59) Home Medications: Insulin 70/30 Human [Novolin 70/30 (*)] 4 - 10 unit SC DAILY PRN 07/16/17 [Last Taken 04/08/18 12:00 7.5 units] Morphine Sulfate [Ms Contin] 15 mg PO BID@529,07/16/17 [Last Taken 04/08/18 05:30] Morphine Sulfate [Ms Contin] 15 mg PO DAILY@14 PRN 07/16/17 [Last Taken Unknown] Tizanidine HCl [Zanaflex] 8 mg PO QID@129,529,,07/16/17 [Last Taken 04/08 05:30] clonIDINE [Catapres (*)] 0.1 mg PO BID@0530,07/16/17 [Last Taken 04/08/18 05: 30] clonazePAM [Klonopin (*)] 0.25 mg PO QID@129,529,07/16/17 [Last Taken 04/08 05:30] clonazePAM [Klonopin (*)] 0.5 mg PO DAILY@2200 07/16/17 [Last Taken 04/07/18] diphenhydrAMINE HCL [Wal-Dryl] 50 mg PO QID@0,30,,07/16/17 [Last Taken 04/08/18 05:30] LORazepam [Lorazepam Intensol] 2 mg PO Q4 PRN 02/27/18 [Last Taken 04/08/18 11: 30] Acetaminophen/ASA/Caffeine [Excedrin Tablet (*)] 1 each PO DAILY PRN 04/08/18 [ Last Taken Unknown] Alocril 2% Drops 1 drop EACHEYE DAILY PRN 04/08/18 [Last Taken Unknown] Morphine 100mg/5ml Symone 0.5 - 1 ml PO DAILY PRN 04/08/18 [Last Taken Unknown] Phenazopyridine HCl [Pyridium] 100 mg PO HS 04/08/18 [Last Taken 04/07/18 20:00] Ronel [place] 1 each PO QID@0130,0530,14,22 04/08/18 [Last Taken 04/08/18 05:30] I have personally reviewed and updated: family history, medical history, social history, surgical history - Past Medical History hypertension Additional medical history: RSD. chronic pain/continuous narcotic use and dependency. anxiety. sbo. morbid obesity - Surgical History Additional surgical history: LUPILLO. colostomy and takedown/revision - Family History Positive for: non-pertinent - Social History Smoking Status: Former smoker Alcohol Use: Rarely Drug Use: None Additional social history: wheelchair bound Review of Systems Review of Systems: ROS: 10pt was reviewed & negative except for what was stated in HPI & below Physical Exam Physical Exam: Temp Pulse Resp BP Pulse Ox 35.9 C L 73 12 115/77 93 04/08/18 12:40 04/08/18 12:40 04/08/18 12:40 04/08/18 12:40 04/08/18 12:40 O2 (L/minute) 2 Constitutional: no apparent distress, obese Eyes: PERRL, anicteric sclera Ears, Nose, Mouth, Throat: moist mucous membranes, hearing normal Cardiovascular: regular rate and rhythym, no murmur, rub, or gallop, No edema Respiratory: no respiratory distress, no rales or rhonchi Gastrointestinal: normoactive bowel sounds, soft, non-tender abdomen Genitourinary: no bladder tenderness Skin: warm Musculoskeletal: muscular tenderness, generalized weakness Neurologic: AAOx3 Psychiatric: interacting appropriately, anxious Lab Data & Imaging Review 04/08/18 14:00 04/08/18 14:17 WBC 5.43 10^3/uL (3.80-9.50) 04/08/18 14:00 RBC 5.66 10^6/uL (4.18-5.33) H 04/08/18 14:00 Hgb 16.7 g/dL (12.6-16.3) H 04/08/18 14:00 Hct 49.5 % (38.0-47.0) H 04/08/18 14:00 MCV 87.5 fL (81.5-99.8) 04/08/18 14:00 MCH 29.5 pg (27.9-34.1) 04/08/18 14:00 MCHC 33.7 g/dL (32.4-36.7) 04/08/18 14:00 RDW 13.5 % (11.5-15.2) 04/08/18 14:00 Plt Count 141 10^3/uL (150-400) L 04/08/18 14:00 MPV 10.5 fL (8.7-11.7) 04/08/18 14:00 Neut % (Auto) 52.8 % (39.3-74.2) 04/08/18 14:00 Lymph % (Auto) 33.3 % (15.0-45.0) 04/08/18 14:00 [place] % (Auto) 5.7 % (4.5-13.0) 04/08/18 14:00 Eos % (Auto) 7.2 % (0.6-7.6) 04/08/18 14:00 Baso % (Auto) 0.6 % (0.3-1.7) 04/08/18 14:00 Nucleat RBC Rel Count 0.0 % (0.0-0.2) 04/08/18 14:00 Absolute Neuts (auto) 2.87 10^3/uL (1.70-6.50) 04/08/18 14:00 Absolute Lymphs (auto) 1.81 10^3/uL (1.00-3.00) 04/08/18 14:00 Absolute Monos (auto) 0.31 10^3/uL (0.30-0.80) 04/08/18 14:00 Absolute Eos (auto) 0.39 10^3/uL (0.03-0.40) 04/08/18 14:00 Absolute Basos (auto) 0.03 10^3/uL (0.02-0.10) 04/08/18 14:00 Absolute Nucleated RBC 0.00 10^3/uL (0-0.01) 04/08/18 14:00 Immature Gran % 0.4 % (0.0-1.1) 04/08/18 14:00 Immature Gran # 0.02 10^3/uL (0.00-0.10) 04/08/18 14:00 Sodium TNP 04/08/18 14:17 Potassium REJ 04/08/18 14:17 Chloride REJ 04/08/18 14:17 Carbon Dioxide REJ 04/08/18 14:17 Anion Gap REJ 04/08/18 14:17 BUN REJ 04/08/18 14:17 Creatinine REJ 04/08/18 14:17 Estimated GFR REJ 04/08/18 14:17 Glucose REJ 04/08/18 14:17 Calcium REJ 04/08/18 14:17 Total Bilirubin REJ 04/08/18 14:17 AST REJ 04/08/18 14:17 ALT REJ 04/08/18 14:17 Alkaline Phosphatase REJ 04/08/18 14:17 Total Protein REJ 04/08/18 14:17 Albumin REJ 04/08/18 14:17 Urine Color BRENNAN 04/08/18 12:39 Urine Appearance TURBID 04/08/18 12:39 Urine pH 5.0 (5.0-7.5) 04/08/18 12:39 Ur Specific [place] 1.021 (1.002-1.030) 04/08/18 12:39 Urine Protein 2+ (NEGATIVE) H 04/08/18 12:39 Urine Ketones TRACE (NEGATIVE) H 04/08/18 12:39 Urine Blood 2+ (NEGATIVE) H 04/08/18 12:39 Urine Nitrate POSITIVE (NEGATIVE) H 04/08/18 12:39 Urine Bilirubin NEGATIVE (NEGATIVE) 04/08/18 12:39 Urine Urobilinogen 4.0 EU (0.2-1.0) H 04/08/18 12:39 Ur Leukocyte Esterase 2+ (NEGATIVE) H 04/08/18 12:39 Urine RBC 50-182 /hpf (0-3) H 04/08/18 12:39 Urine WBC 50-182 /hpf (0-3) H 04/08/18 12:39 Ur Epithelial Cells 2+ /lpf (NONE-1+) H 04/08/18 12:39 Urine Bacteria 4+ /hpf (NONE SEEN) H 04/08/18 12:39 Urine Mucus 2+ /lpf (NONE-1+) H 04/08/18 12:39 Ur Culture Indicated? INDICATED (NI) H 04/08/18 12:39 Urine Glucose 2+ (NEGATIVE) H 04/08/18 12:39 Assessment & Plan Assessment: 57 yo F with RSD/chronic pain/multiple allergies admitted with UTI # UTI: given multiple allergies treatment needs to be completed in hospital, started on aztreonam with benadryl, ID following, urine culture pending # acute on chronic pain/continuous narcotic use and dependency: complicating her care, will continue her OP regimen and work to avoid IV narcotics unless she is completely unable to take PO # RSD: with pain "everywhere" and inability to ambulate due to this, as above # vaginal lesion: with what appears to be hidradenitis but draining on it's own , no e/o surrounding cellulitis # anxiety: again complicating her care, patient states that she needs to know that when she pushes her button "staff will come running" , will need to work on boundaries and reasonable expectations for this patient # IP status, will require abx x 3 days Patient new to my care. Old records reviewed, care plan reviewed with DR. Tomas. Further hx obtained from patients present at bedside.
[2018-04-08] MEDS ORDERED: LORazepam 1 MG/0.5 ML UDSYR PO PRN (16:29)
[2018-04-08] MEDS ORDERED: MORPHINE 100 MG/5 ML PO PRN (16:29)
[2018-04-08] MEDS ORDERED: ALOCRIL EACHEYE PRN (16:29)
--- NOTE | 2018-04-08 17:24 | PCMIDPN ---
Assessment/Plan: Assessment/Plan: * E coli cystitis with multiple antibiotic allergies: Multiple antibiotic allergies preclude use of oral therapy necessitating hospitalization for treatment of UTI with IV aztreonam which she has tolerated previously. Anticipate short duration of therapy dependent on clinical response with goal of 3-5 days of antibiotics in total. Will premedicate with Benadryl IV as this has improved tolerance of therapies previously. * Nausea: Patient notes responds well to Ativan which will be provided as needed. * Multiple drug allergies: See above discussion. * History of Katarina vaginitis with antibiotic exposure: Plan fluconazole 200 mg IV x1 on day of discharge. Time spent, greater than 35 min, of which greater than half was spent in education/counseling/coordination of care related to treatment of E coli cystitis with IV aztreonam based on multiple drug allergies and medication intolerances. 04/08/18 17:20 04/08/18 17:26 Subjective: Patient admitted in preceding month for colostomy revision and describes having I/O catheterization performed x1. Approximately 2 days after leaving hospital, she describes having development of dysuria, frequency, urgency and suprapubic pain. This has persisted and progressed over time and she now describes that it feels like razors in her urethra with urination. No fever or chills. No flank pain. Does have prior history of nephrolithiasis. Urinalysis obtained by primary care provider showing significant pyuria and culture with greater than 100,000 E coli which is a butcher susceptible organism. Patient with multiple antibiotic allergies without viable oral options available to treat her cystitis. Based on this finding and prior tolerance of aztreonam, she is now admitted for IV antibiotic therapy of E coli cystitis. Objective: Vital Signs Temp Pulse Resp BP Pulse Ox 36.9 C 76 18 145/96 H 97 04/08/18 16:56 04/08/18 16:56 04/08/18 16:56 04/08/18 16:56 04/08/18 16:56 Laboratory Results 04/08/18 14:00 04/08/18 16:35 UA 50-182 WBC Urine culture greater than 100,000 E coli - Physical Exam General Appearance: alert, no apparent distress EENT: No scleral icterus, No thrush Respiratory: lungs clear, No respiratory distress Cardiac/Chest: regular rate, rhythm Abdomen: tender (Suprapubic region), No distended ICD10 Worksheet Patient Problems: Problems Problem Status Onset Kidney stone Active Microscopic hematuria Active Recurrent cystitis Active Reflex sympathetic dystrophy Active Abdominal pain Acute Biliary colic Acute Bowel obstruction Acute Chronic pain Acute Flank pain, acute Acute History of reflex sympathetic dystrophy Acute Hyperglycemia Acute Narcotic withdrawal Acute Nausea and vomiting Acute UTI (urinary tract infection) Acute Volume depletion Acute Vomiting Acute
[2018-04-08] MEDS: INSULIN LISPRO 100 UNIT/ML SC SCH (18:10)
[2018-04-08] MEDS: LORazepam 2 MG/ML INJ IVP PRN (21:37)
[2018-04-08] MEDS: ZANAFLEX 4 MG PO SCH (21:40)
[2018-04-08] MEDS: clonazePAM 0.5 MG TAB PO SCH (21:41)
[2018-04-08] MEDS: morphINE SR 15 MG TAB PO SCH (21:41)
[2018-04-08] MEDS: PHENAZOPYRIDINE HCL 100 MG TAB PO SCH (21:46)
[2018-04-08] MEDS ORDERED: KRISS PO SCH (22:00)
[2018-04-08] MEDS: SENNOSIDES PO SCH (23:03)
[2018-04-08] MEDS: HERBAL LAXATIVE PO SCH (23:03)
[2018-04-09] MEDS: AZTREONAM 1 GM in NS 50 ML IV SCH ×3 (00:32→16:32)
[2018-04-09] MEDS: ZANAFLEX 4 MG PO SCH ×4 (01:42→22:06)
[2018-04-09] MEDS: SENNOSIDES PO SCH ×4 (01:42→22:07)
[2018-04-09] MEDS: HERBAL LAXATIVE PO SCH ×4 (01:42→22:07)
[2018-04-09] MEDS: clonazePAM 0.5 MG TAB PO SCH ×4 (01:43→22:28)
[2018-04-09] MEDS: LORazepam 2 MG/ML INJ IVP PRN ×4 (01:45→19:40)
[2018-04-09] MEDS: morphINE SR 15 MG TAB PO SCH ×2 (05:40→22:28)
--- NOTE | 2018-04-09 07:10 | PDMN ---
Medical Necessity Medical necessity: Pt meets IP criteria per MD; est los >2 mn for eval/tx of UTI , vaginal lesion & RSD w/inability to ambulate; pt has multiple allergies; admit for IV abx (there are no oral options), ID consult & therapies; hx HTN, recurrent UTIs, SBO, chronic pain/narcotic use, anxiety & morbid obesity; per H& P & order 04/08/18
[2018-04-09] MEDS: INSULIN LISPRO 100 UNIT/ML SC SCH ×3 (08:53→17:40)
[2018-04-09] MEDS: HYDROmorphONE/DILAUDID 1 MG/ML INJ IVP PRN ×3 (09:04→19:58)
[2018-04-09] MEDS ORDERED: LORazepam 2 MG/ML INJ IVP ONE (10:11)
[2018-04-09] MEDS: INSULIN 70/30 HUMAN 100 UNIT/ML SYR SC PRN (12:55)
[2018-04-09] MEDS ORDERED: morphINE SR 15 MG TAB PO PRN (14:00)
--- NOTE | 2018-04-09 14:24 | ASMTCMCOM ---
CM Note CM Note Notes: Pt admitted for IV ABX mgmt of her UTI. Anticipate pt will have no DC needs but CM available if needs change. Date Signed: 04/09/2018 02:23 PM Electronically Signed By:Alana Warren LCSW
--- NOTE | 2018-04-09 14:32 | HOSPPROG ---
Hospitalist Progress Note Assessment/Plan: 57 yo F with RSD/chronic pain/multiple allergies admitted with UTI # e coli UTI: given multiple allergies treatment needs to be completed in hospital, started on aztreonam with benadryl, ID following, will likely require 3-5 days of abx given her usual history # acute on chronic pain/continuous narcotic use and dependency: complicating her care, will continue her OP regimen and work to avoid IV narcotics unless she is completely unable to take PO # RSD: with pain "everywhere" and inability to ambulate due to this, as above # vaginal lesion: with what appears to be hidradenitis suppurativa but draining on it's own, no e/o surrounding cellulitis, continue usual management # anxiety: again complicating her care, patient states that she needs to know that when she pushes her button "staff will come running" , will need to work on boundaries and reasonable expectations for this patient # IP status, will require abx x 3-5 days Care plan discussed with Dr. Tomas and patients present at bedside. Subjective: no significant overnight events, patient currently feeling a bit better though pain/nausea continues, frustrated that her medications are not being given as she would like them to be Objective: Vital Signs Temp Pulse Resp BP Pulse Ox 36.4 C 58 L 18 158/102 H 100 04/09/18 08:35 04/09/18 08:35 04/09/18 08:35 04/09/18 08:35 04/09/18 08:35 Laboratory Results 04/08/18 14:00 04/09/18 05:26 04/08/18 04/09/18 04/10/18 05:59 05:59 05:59 Intake Total 690 Output Total 400 Balance 290 Constitutional: no apparent distress, obese Eyes: PERRL, anicteric sclera Ears, Nose, Mouth, Throat: moist mucous membranes, hearing normal Cardiovascular: regular rate and rhythym, no murmur, rub, or gallop, No edema Respiratory: no respiratory distress, no rales or rhonchi Gastrointestinal: normoactive bowel sounds, soft, non-tender abdomen Genitourinary: no bladder tenderness Skin: warm Musculoskeletal: muscular tenderness, generalized weakness Neurologic: AAOx3 Psychiatric: interacting appropriately, anxious - Time Spent With Patient Time Spent with Patient: greater than 35 minutes Time Spent with Patient: Greater than 35 minutes spent on this patients care, greater than 50% of time spent counseling, educating, and coordinating care regarding the above mentioned plan. ICD10 Worksheet Patient Problems: Problems Problem Status Onset Kidney stone Active Microscopic hematuria Active Recurrent cystitis Active Reflex sympathetic dystrophy Active Abdominal pain Acute Biliary colic Acute Bowel obstruction Acute Chronic pain Acute Flank pain, acute Acute History of reflex sympathetic dystrophy Acute Hyperglycemia Acute Narcotic withdrawal Acute Nausea and vomiting Acute UTI (urinary tract infection) Acute Volume depletion Acute Vomiting Acute
--- NOTE | 2018-04-09 17:03 | PCMIDPN ---
Assessment/Plan: Assessment/Plan: * E coli cystitis with multiple antibiotic allergies: Continue IV aztreonam with Benadryl premedication which she is tolerating well to date. No improvement and cystitis symptoms as of yet. Total treatment course will be of 3-5 days duration dependent on clinical response to therapy. * Nausea: Persistent nausea with some decreased with use of Ativan. * Multiple drug allergies * History of Katarina vaginitis with antibiotic exposure: Plan fluconazole 200 mg IV x1 on day of discharge. 04/09/18 16:56 Subjective: Patient with persistent dysuria, urgency and frequency. Continues to have nausea. Objective: Vital Signs Temp Pulse Resp BP Pulse Ox 36.4 C 58 L 18 158/102 H 100 04/09/18 08:35 04/09/18 08:35 04/09/18 08:35 04/09/18 08:35 04/09/18 08:35 Laboratory Results 04/08/18 14:00 04/09/18 05:26 04/08/18 04/09/18 04/10/18 05:59 05:59 05:59 Intake Total 690 Output Total 400 Balance 290 Aztreonam # 1 Urine culture with greater than 100,000 lactose fermenting gram-negative rods; outpatient culture recently showed greater than 100,000 E coli which is butcher susceptible - Physical Exam General Appearance: alert, no apparent distress EENT: No scleral icterus, No thrush Respiratory: lungs clear, No respiratory distress Cardiac/Chest: regular rate, rhythm Abdomen: tender (Suprapubic region) ICD10 Worksheet Patient Problems: Problems Problem Status Onset Kidney stone Active Microscopic hematuria Active Recurrent cystitis Active Reflex sympathetic dystrophy Active Abdominal pain Acute Biliary colic Acute Bowel obstruction Acute Chronic pain Acute Flank pain, acute Acute History of reflex sympathetic dystrophy Acute Hyperglycemia Acute Narcotic withdrawal Acute Nausea and vomiting Acute UTI (urinary tract infection) Acute Volume depletion Acute Vomiting Acute
[2018-04-09] MEDS: PHENAZOPYRIDINE HCL 100 MG TAB PO SCH (22:05)
[2018-04-10] MEDS: LORazepam 2 MG/ML INJ IVP PRN ×5 (00:13→21:27)
[2018-04-10] MEDS: HYDROmorphONE/DILAUDID 1 MG/ML INJ IVP PRN ×5 (00:14→21:27)
[2018-04-10] MEDS: clonazePAM 0.5 MG TAB PO SCH ×6 (00:53→21:54)
[2018-04-10] MEDS: HERBAL LAXATIVE PO SCH ×4 (00:53→21:30)
[2018-04-10] MEDS: ZANAFLEX 4 MG PO SCH ×4 (00:53→21:36)
[2018-04-10] MEDS: SENNOSIDES PO SCH ×4 (00:53→21:30)
[2018-04-10] MEDS: AZTREONAM 1 GM in NS 50 ML IV SCH ×3 (00:53→17:42)
[2018-04-10] MEDS: morphINE SR 15 MG TAB PO SCH ×2 (05:00→21:55)
[2018-04-10] MEDS ORDERED: diphenhydrAMINE 25 MG CAP PO PRN (09:31)
--- NOTE | 2018-04-10 09:35 | PCMIDPN ---
Assessment/Plan: Assessment: Cystitis symptoms secondary to pansensitive E coli. Patient with multiple medical antibiotic allergies. She is currently being managed on IV aztreonam. Today she reports no improvement yet in her symptoms. Plan to continue the aztreonam course for a total of 3-5 days. Will continue to follow symptoms. Plan: 1. Continue IV aztreonam at current dose. 2. Discuss with hospitalist about scheduling Benadryl around morphine as well as antibiotic doses. 3. Follow symptoms of cystitis. 04/10/18 09:32 Subjective: Patient is resting in her hospital bed. Her is in the room. Denies any new symptoms although states that her symptoms on admission have not changed. Objective: Aztreonam #2 Vital Signs Temp Pulse Resp BP Pulse Ox 35.8 C L 67 15 108/76 98 04/10/18 07:55 04/10/18 07:55 04/10/18 07:55 04/10/18 07:55 04/10/18 07:55 Microbiology 04/08/18 12:39 Urine Culture - Final Urine,Clean Catch Escherichia Coli Laboratory Results 04/08/18 14:00 04/09/18 05:26 04/09/18 04/10/18 04/11/18 05:59 05:59 05:59 Intake Total 690 1140 Output Total 400 400 Balance 290 740 - Physical Exam General Appearance: WD/WN, alert, no apparent distress, non-toxic Respiratory: lungs clear, normal breath sounds, No respiratory distress Cardiac/Chest: regular rate, rhythm, No tachycardia Abdomen: non-tender, soft Skin: normal color, warm/dry, No rash Neuro/Psych: alert, normal mood/affect, oriented x 3 ICD10 Worksheet Patient Problems: Problems Problem Status Onset Kidney stone Active Microscopic hematuria Active Recurrent cystitis Active Reflex sympathetic dystrophy Active Abdominal pain Acute Biliary colic Acute Bowel obstruction Acute Chronic pain Acute Flank pain, acute Acute History of reflex sympathetic dystrophy Acute Hyperglycemia Acute Narcotic withdrawal Acute Nausea and vomiting Acute UTI (urinary tract infection) Acute Volume depletion Acute Vomiting Acute
[2018-04-10] MEDS: INSULIN LISPRO 100 UNIT/ML SC SCH ×3 (09:52→17:42)
--- NOTE | 2018-04-10 12:54 | ASMTCMCOM ---
CM Note CM Note Notes: Pt's asked for a list of caregiver support groups in [place]. Provided him with the list. stated he had no other DC needs. Date Signed: 04/10/2018 12:54 PM Electronically Signed By:Alana Warren LCSW
--- NOTE | 2018-04-10 13:21 | HOSPPROG ---
Hospitalist Progress Note Assessment/Plan: 57 yo F with RSD/chronic pain/multiple allergies admitted with UTI # e coli UTI: given multiple allergies treatment needs to be completed in hospital, started on aztreonam with IV benadryl, ID following, day 3 of treatment with only minimal improvement in her symptoms # acute on chronic pain/continuous narcotic use and dependency: complicating her care, will continue her OP regimen and work to avoid IV narcotics unless she is completely unable to take PO # RSD: with pain "everywhere" and inability to ambulate due to this, as above # vaginal lesion: with what appears to be hidradenitis suppurativa but draining on it's own, no e/o surrounding cellulitis, continue usual management # anxiety: again complicating her care, has been behaviorally well controlled during this stay # IP status, will require abx x 3-5 days Care plan discussed with and patients present at bedside. Subjective: no acute overnight events, patient wondering about getting a new bed for her home, also wants more benadryl Objective: Vital Signs Temp Pulse Resp BP Pulse Ox 35.8 C L 67 15 108/76 98 04/10/18 07:55 04/10/18 07:55 04/10/18 07:55 04/10/18 07:55 04/10/18 07:55 Microbiology 04/08/18 12:39 Urine Culture - Final Urine,Clean Catch Escherichia Coli Laboratory Results 04/08/18 14:00 04/09/18 05:26 04/09/18 04/10/18 04/11/18 05:59 05:59 05:59 Intake Total 690 1140 Output Total 400 400 Balance 290 740 Constitutional: no apparent distress, obese Eyes: PERRL, anicteric sclera Ears, Nose, Mouth, Throat: moist mucous membranes, hearing normal Cardiovascular: regular rate and rhythym, no murmur, rub, or gallop, No edema Respiratory: no respiratory distress, no rales or rhonchi Gastrointestinal: normoactive bowel sounds, soft, non-tender abdomen Genitourinary: no bladder tenderness Skin: warm Musculoskeletal: muscular tenderness, generalized weakness Neurologic: AAOx3 Psychiatric: interacting appropriately, anxious - Time Spent With Patient Time Spent with Patient: greater than 35 minutes Time Spent with Patient: Greater than 35 minutes spent on this patients care, greater than 50% of time spent counseling, educating, and coordinating care regarding the above mentioned plan. ICD10 Worksheet Patient Problems: Problems Problem Status Onset Kidney stone Active Microscopic hematuria Active Recurrent cystitis Active Reflex sympathetic dystrophy Active Abdominal pain Acute Biliary colic Acute Bowel obstruction Acute Chronic pain Acute Flank pain, acute Acute History of reflex sympathetic dystrophy Acute Hyperglycemia Acute Narcotic withdrawal Acute Nausea and vomiting Acute UTI (urinary tract infection) Acute Volume depletion Acute Vomiting Acute
[2018-04-10] MEDS: PHENAZOPYRIDINE HCL 100 MG TAB PO SCH ×2 (21:29→21:42)
[2018-04-11] MEDS: AZTREONAM 1 GM in NS 50 ML IV SCH ×3 (00:31→17:04)
[2018-04-11] MEDS: LORazepam 2 MG/ML INJ IVP PRN ×6 (01:38→22:46)
[2018-04-11] MEDS: HYDROmorphONE/DILAUDID 1 MG/ML INJ IVP PRN ×6 (01:38→22:46)
[2018-04-11] MEDS: clonazePAM 0.5 MG TAB PO SCH ×4 (01:38→23:15)
[2018-04-11] MEDS: ZANAFLEX 4 MG PO SCH ×4 (01:42→22:51)
[2018-04-11] MEDS: SENNOSIDES PO SCH ×4 (04:20→21:12)
[2018-04-11] MEDS: HERBAL LAXATIVE PO SCH ×4 (04:20→21:12)
[2018-04-11] MEDS: morphINE SR 15 MG TAB PO SCH ×2 (05:37→22:48)
[2018-04-11] MEDS: INSULIN LISPRO 100 UNIT/ML SC SCH ×3 (08:13→17:49)
--- NOTE | 2018-04-11 09:57 | PCMIDPN ---
Assessment/Plan: Assessment: Cystitis symptoms secondary to pansensitive E coli. Patient with multiple medical antibiotic allergies. She is currently being managed on IV aztreonam. Today she reports some improvement in her dysuria although it is still painful. Plan to continue the aztreonam course for a total of 4-5 days. Will continue to follow symptoms. Plan: 1. Continue IV aztreonam at current dose. 2. Follow symptoms of cystitis. 04/10/18 09:32 04/11/18 09:56 Subjective: Patient continues to rest in her hospital bed. is by her bedside. She reports some small improvement in her dysuria symptoms. She denies any fevers or chills. Objective: Aztreonam # 3 Vital Signs Temp Pulse Resp BP Pulse Ox 35.9 C L 53 L 16 183/100 H 98 04/11/18 07:30 04/11/18 07:30 04/11/18 07:30 04/11/18 07:30 04/11/18 07:30 Microbiology 04/08/18 12:39 Urine Culture - Final Urine,Clean Catch Escherichia Coli Laboratory Results 04/08/18 14:00 04/09/18 05:26 04/10/18 04/11/18 04/12/18 05:59 05:59 05:59 Intake Total 1140 1414 Output Total 400 850 Balance 740 564 - Physical Exam General Appearance: WD/WN, alert, no apparent distress, obese, non-toxic Respiratory: lungs clear, normal breath sounds, No respiratory distress Cardiac/Chest: regular rate, rhythm, No tachycardia Skin: normal color, warm/dry, No rash Neuro/Psych: alert, normal mood/affect, oriented x 3 ICD10 Worksheet Patient Problems: Problems Problem Status Onset Kidney stone Active Microscopic hematuria Active Recurrent cystitis Active Reflex sympathetic dystrophy Active Abdominal pain Acute Biliary colic Acute Bowel obstruction Acute Chronic pain Acute Flank pain, acute Acute History of reflex sympathetic dystrophy Acute Hyperglycemia Acute Narcotic withdrawal Acute Nausea and vomiting Acute UTI (urinary tract infection) Acute Volume depletion Acute Vomiting Acute
[2018-04-11] MEDS: INSULIN 70/30 HUMAN 100 UNIT/ML SYR SC PRN (14:07)
--- NOTE | 2018-04-11 14:09 | HOSPPROG ---
Hospitalist Progress Note Assessment/Plan: 57 yo F with RSD/chronic pain/multiple allergies admitted with UTI # e coli UTI: given multiple allergies treatment needs to be completed in hospital, started on aztreonam with IV benadryl, ID following, day 4 of treatment with some improvement in her symptoms, continue current tx and if sxs improved tomorrow can likely dc at that time # acute on chronic pain/continuous narcotic use and dependency: complicating her care, will continue her OP regimen and work to avoid IV narcotics unless she is completely unable to take PO # RSD: with pain "everywhere" and inability to ambulate due to this, as above # vaginal lesion: with what appears to be hidradenitis suppurativa but draining on it's own, no e/o surrounding cellulitis, continue usual management # anxiety: again complicating her care, has been behaviorally well controlled during this stay # IP status, will require abx x 3-5 days Patient with an issue with her bed at home, discussed with her PCP Dr. Cunningham who is aware and working on it Subjective: no significant overnight events, "urethral pain" improved but still feels like "razor blades" Objective: Vital Signs Temp Pulse Resp BP Pulse Ox 35.9 C L 53 L 16 183/100 H 98 04/11/18 07:30 04/11/18 07:30 04/11/18 07:30 04/11/18 07:30 04/11/18 07:30 Laboratory Results 04/08/18 14:00 04/09/18 05:26 04/10/18 04/11/18 04/12/18 05:59 05:59 05:59 Intake Total 1140 1414 Output Total 400 850 Balance 740 564 Constitutional: no apparent distress, obese Eyes: PERRL, anicteric sclera Ears, Nose, Mouth, Throat: moist mucous membranes, hearing normal Cardiovascular: regular rate and rhythym, no murmur, rub, or gallop, No edema Respiratory: no respiratory distress, no rales or rhonchi Gastrointestinal: normoactive bowel sounds, soft, non-tender abdomen Genitourinary: no bladder tenderness Skin: warm Musculoskeletal: muscular tenderness, generalized weakness Neurologic: AAOx3 Psychiatric: interacting appropriately, anxious - Time Spent With Patient Time Spent with Patient: greater than 35 minutes Time Spent with Patient: Greater than 35 minutes spent on this patients care, greater than 50% of time spent counseling, educating, and coordinating care regarding the above mentioned plan. ICD10 Worksheet Patient Problems: Problems Problem Status Onset Kidney stone Active Microscopic hematuria Active Recurrent cystitis Active Reflex sympathetic dystrophy Active Abdominal pain Acute Biliary colic Acute Bowel obstruction Acute Chronic pain Acute Flank pain, acute Acute History of reflex sympathetic dystrophy Acute Hyperglycemia Acute Narcotic withdrawal Acute Nausea and vomiting Acute UTI (urinary tract infection) Acute Volume depletion Acute Vomiting Acute
[2018-04-11] MEDS: PHENAZOPYRIDINE HCL 100 MG TAB PO SCH (21:11)
[2018-04-12] MEDS: HERBAL LAXATIVE PO SCH ×4 (00:47→20:02)
[2018-04-12] MEDS: SENNOSIDES PO SCH ×4 (00:47→20:02)
[2018-04-12] MEDS: AZTREONAM 1 GM in NS 50 ML IV SCH ×4 (01:20→18:44)
[2018-04-12] MEDS: clonazePAM 0.5 MG TAB PO SCH ×4 (01:24→21:32)
[2018-04-12] MEDS ORDERED: morphINE 10 MG/0.5 ML UDSYR PO ONE (02:20)
[2018-04-12] MEDS: HYDROmorphONE/DILAUDID 1 MG/ML INJ IVP PRN ×4 (02:43→18:42)
[2018-04-12] MEDS: LORazepam 2 MG/ML INJ IVP PRN ×5 (02:44→18:51)
[2018-04-12] MEDS: ZANAFLEX 4 MG PO SCH ×4 (02:49→21:33)
[2018-04-12] MEDS: ACETAMINOPHEN/ASA/CAFFEINE 1 EACH TAB PO PRN (04:06)
[2018-04-12] MEDS: morphINE 10 MG/0.5 ML UDSYR PO PRN (04:07)
[2018-04-12] MEDS: morphINE SR 15 MG TAB PO SCH ×2 (05:33→21:32)
[2018-04-12] MEDS: INSULIN LISPRO 100 UNIT/ML SC SCH ×3 (09:11→18:40)
--- NOTE | 2018-04-12 13:48 | HOSPPROG ---
Hospitalist Progress Note Assessment/Plan: 57 yo F with RSD/chronic pain/multiple allergies admitted with UTI # e coli UTI: given multiple allergies treatment needs to be completed in hospital, started on aztreonam with IV benadryl, ID following, day 5 of treatment with some improvement in her symptoms. will keep at least one more day # acute on chronic pain/continuous narcotic use and dependency: complicating her care, will continue her OP regimen and work to avoid IV narcotics unless she is completely unable to take PO # RSD: with pain "everywhere" and inability to ambulate due to this, as above # vaginal lesion: with what appears to be hidradenitis suppurativa but draining on it's own, no e/o surrounding cellulitis, continue usual management # anxiety: again complicating her care, has been behaviorally well controlled during this stay # IP status, will require abx x 3-5 days Subjective: feeling better. no new complaints Objective: Vital Signs Temp Pulse Resp BP Pulse Ox 36.2 C 51 L 16 113/102 H 96 04/12/18 08:00 04/12/18 08:00 04/12/18 08:00 04/12/18 08:00 04/12/18 08:00 Laboratory Results 04/08/18 14:00 04/09/18 05:26 04/11/18 04/12/18 04/13/18 05:59 05:59 05:59 Intake Total 1414 2560 Output Total 850 400 Balance 564 2160 - Physical Exam Constitutional: no apparent distress, appears nourished, not in pain Eyes: anicteric sclera, EOMI Ears, Nose, Mouth, Throat: moist mucous membranes Cardiovascular: regular rate and rhythym Respiratory: no respiratory distress, no rales or rhonchi Gastrointestinal: normoactive bowel sounds, soft, non-tender abdomen, no palpable masses Skin: warm Neurologic: AAOx3 Psychiatric: interacting appropriately, not anxious, not encephalopathic, thought process linear ICD10 Worksheet Patient Problems: Problems Problem Status Onset Kidney stone Active Microscopic hematuria Active Recurrent cystitis Active Reflex sympathetic dystrophy Active Abdominal pain Acute Biliary colic Acute Bowel obstruction Acute Chronic pain Acute Flank pain, acute Acute History of reflex sympathetic dystrophy Acute Hyperglycemia Acute Narcotic withdrawal Acute Nausea and vomiting Acute UTI (urinary tract infection) Acute Volume depletion Acute Vomiting Acute
--- NOTE | 2018-04-12 15:44 | PCMIDPN ---
Assessment/Plan: Assessment: Cystitis symptoms secondary to pansensitive E coli. Patient with multiple medical antibiotic allergies. She is currently being managed on IV aztreonam. Today she reports some small increment improvement but the majority of her symptoms remain. Plan to continue the aztreonam course for 1 more day for total of 5 days. Will continue to follow symptoms. After further discussion with the patient it appears that she has a history as a child of having urethral stricture and multiple dilatations. Is it possible that some of the basis of the symptoms or even a urinary tract infection risk could be secondary to anatomic issues or urodynamic issues now as an older adult. In conversation with the patient and her I suggested that she pursue urodynamic testing as the next step if her symptoms do not completely resolve. Plan: 1. Continue IV aztreonam at current dose. 2. Follow symptoms of cystitis. Subjective: Patient is resting in her hospital room. is in room as well. Patient relates that her symptoms are not significantly resolved at this point as she would expect. She denies any fevers or chills. She states that she has continued deep pelvic pain with urination and that her urine stream suddenly "cuts off"as she is trying to urinate. Objective: Aztreonam # 4/5 Vital Signs Temp Pulse Resp BP Pulse Ox 36.2 C 51 L 16 113/102 H 96 04/12/18 08:00 04/12/18 08:00 04/12/18 08:00 04/12/18 08:00 04/12/18 08:00 Laboratory Results 04/08/18 14:00 04/09/18 05:26 04/11/18 04/12/18 04/13/18 05:59 05:59 05:59 Intake Total 1414 2560 Output Total 850 400 Balance 564 2160 - Physical Exam General Appearance: WD/WN, alert, no apparent distress, non-toxic Respiratory: lungs clear, normal breath sounds, No respiratory distress Cardiac/Chest: regular rate, rhythm, No tachycardia Abdomen: soft Skin: normal color, warm/dry, No rash Neuro/Psych: alert, normal mood/affect, oriented x 3 ICD10 Worksheet Patient Problems: Problems Problem Status Onset Kidney stone Active Microscopic hematuria Active Recurrent cystitis Active Reflex sympathetic dystrophy Active Abdominal pain Acute Biliary colic Acute Bowel obstruction Acute Chronic pain Acute Flank pain, acute Acute History of reflex sympathetic dystrophy Acute Hyperglycemia Acute Narcotic withdrawal Acute Nausea and vomiting Acute UTI (urinary tract infection) Acute Volume depletion Acute Vomiting Acute
[2018-04-12] MEDS: PHENAZOPYRIDINE HCL 100 MG TAB PO SCH (20:01)
[2018-04-12] MEDS: INSULIN 70/30 HUMAN 100 UNIT/ML SYR SC PRN ×2 (20:05→22:01)
[2018-04-13] MEDS: SENNOSIDES PO SCH ×4 (00:08→21:38)
[2018-04-13] MEDS: HERBAL LAXATIVE PO SCH ×4 (00:08→21:38)
[2018-04-13] MEDS: LORazepam 0.5 MG TAB PO PRN (01:38)
[2018-04-13] MEDS: ZANAFLEX 4 MG PO SCH ×4 (01:39→21:40)
[2018-04-13] MEDS: clonazePAM 0.5 MG TAB PO SCH ×4 (01:39→21:42)
[2018-04-13] MEDS: HYDROmorphONE/DILAUDID 1 MG/ML INJ IVP PRN ×5 (01:40→22:38)
[2018-04-13] MEDS: AZTREONAM 1 GM in NS 50 ML IV SCH ×3 (01:42→17:38)
[2018-04-13] MEDS: LORazepam 2 MG/ML INJ IVP PRN ×5 (01:50→22:38)
[2018-04-13] MEDS: morphINE SR 15 MG TAB PO SCH ×2 (05:20→22:10)
[2018-04-13] MEDS: INSULIN LISPRO 100 UNIT/ML SC SCH ×3 (07:36→17:32)
--- NOTE | 2018-04-13 12:07 | ASMTCMCOM ---
CM Note CM Note Notes: Chart reviewed. Met with patient to review discharge needs. The patient reports that she and her are equipped to provide her care needs at home. They requested a sheet for loan closets as well as [employer]. These were provided. CM to follow. Plan: Likely home without services. Date Signed: 04/13/2018 12:06 PM Electronically Signed By:Maritza Ho RN
[2018-04-13] MEDS: FLUCONAZOLE/NaCl 100 ML IV SCH (12:40)
--- NOTE | 2018-04-13 13:07 | PCMIDPN ---
Assessment/Plan: Assessment/Plan: * E coli cystitis with multiple antibiotic allergies: Completing 5th day of aztreonam today. Dysuria improved but other symptoms without significant interval change. See Dr. Anne is note dated 04/12/2018 for details regarding potential anatomic contributions. * Rash: Inguinal rash consistent with intertrigo. Will begin fluconazole 200 mg IV daily. Query if this may also be contributing to her urinary symptoms. * Multiple drug allergies 04/13/18 13:05 Subjective: Patient complains of painful rash in both inguinal regions. Dysuria decreased but lower abdominal pain unchanged. Objective: Vital Signs Temp Pulse Resp BP Pulse Ox 36.5 C 55 L 17 176/101 H 97 04/13/18 07:25 04/13/18 07:25 04/13/18 07:25 04/13/18 07:25 04/13/18 07:25 Laboratory Results 04/08/18 14:00 04/09/18 05:26 04/12/18 04/13/18 04/14/18 05:59 05:59 05:59 Intake Total 2560 260 Output Total 400 400 Balance 2160 -140 Aztreonam # 5 Urine culture greater than 100,000 butcher susceptible E coli Blood culture x1 no growth - Physical Exam General Appearance: alert, no apparent distress EENT: No scleral icterus, No thrush Abdomen: tender (Suprapubic region) Skin: rash (Bilateral rash over thighs abutting perineal region consistent with intertrigo) ICD10 Worksheet Patient Problems: Problems Problem Status Onset Kidney stone Active Microscopic hematuria Active Recurrent cystitis Active Reflex sympathetic dystrophy Active Abdominal pain Acute Biliary colic Acute Bowel obstruction Acute Chronic pain Acute Flank pain, acute Acute History of reflex sympathetic dystrophy Acute Hyperglycemia Acute Narcotic withdrawal Acute Nausea and vomiting Acute UTI (urinary tract infection) Acute Volume depletion Acute Vomiting Acute
--- NOTE | 2018-04-13 14:18 | HOSPPROG ---
Hospitalist Progress Note Assessment/Plan: 57 yo F with RSD/chronic pain/multiple allergies admitted with UTI # e coli UTI: given multiple allergies treatment needs to be completed in hospital, started on aztreonam with IV benadryl, ID following, will finish abx tonight # acute on chronic pain/continuous narcotic use and dependency: complicating her care, will continue her OP regimen and work to avoid IV narcotics unless she is completely unable to take PO # intertrigo - IV fluconazole # RSD: with pain "everywhere" and inability to ambulate due to this, as above # vaginal lesion: with what appears to be hidradenitis suppurativa but draining on it's own, no e/o surrounding cellulitis, continue usual management # anxiety: again complicating her care, has been behaviorally well controlled during this stay # IP status, will require abx x 3-5 days Subjective: complains rash groin Objective: Vital Signs Temp Pulse Resp BP Pulse Ox 36.5 C 55 L 17 176/101 H 97 04/13/18 07:25 04/13/18 07:25 04/13/18 07:25 04/13/18 07:25 04/13/18 07:25 Laboratory Results 04/08/18 14:00 04/09/18 05:26 04/12/18 04/13/18 04/14/18 05:59 05:59 05:59 Intake Total 2560 260 Output Total 400 400 Balance 2160 -140 - Physical Exam Constitutional: no apparent distress, appears nourished, not in pain Eyes: anicteric sclera, EOMI Ears, Nose, Mouth, Throat: moist mucous membranes, hearing normal Cardiovascular: regular rate and rhythym Respiratory: no respiratory distress Gastrointestinal: normoactive bowel sounds, soft, non-tender abdomen, no palpable masses Skin: warm Neurologic: AAOx3 Psychiatric: interacting appropriately, not anxious, not encephalopathic, thought process linear ICD10 Worksheet Patient Problems: Problems Problem Status Onset Kidney stone Active Microscopic hematuria Active Recurrent cystitis Active Reflex sympathetic dystrophy Active Abdominal pain Acute Biliary colic Acute Bowel obstruction Acute Chronic pain Acute Flank pain, acute Acute History of reflex sympathetic dystrophy Acute Hyperglycemia Acute Narcotic withdrawal Acute Nausea and vomiting Acute UTI (urinary tract infection) Acute Volume depletion Acute Vomiting Acute
[2018-04-13] MEDS: PHENAZOPYRIDINE HCL 100 MG TAB PO SCH (21:44)
[2018-04-13] MEDS: INSULIN 70/30 HUMAN 100 UNIT/ML SYR SC PRN (22:10)
[2018-04-14] MEDS ORDERED: fentaNYL 100 MCG/2 ML INJ ONE ×2 (13:38→17:09)
--- NOTE | 2018-04-14 22:30 | ASMTCMCOM ---
CM Note CM Note Notes: Met with patient to see if they had any change in needs today. They have not yet called loan closets or medical supply providers. Per the patient she will likely be here a few days. ID following. CM to follow. Plan: Home with family support when medically cleared for discharge. Date Signed: 04/14/2018 03:08 PM Electronically Signed By:Maritza Ho RN
[2018-04-15] MEDS: LORazepam 2 MG/ML INJ IVP PRN ×5 (05:35→21:52)
[2018-04-15] MEDS: fentaNYL 100 MCG/2 ML INJ IV PRN ×5 (05:35→21:52)
[2018-04-15] MEDS: morphINE SR 15 MG TAB PO SCH ×4 (05:36→22:11)
[2018-04-15] MEDS: clonazePAM 0.5 MG TAB PO SCH ×5 (05:36→22:11)
[2018-04-15] MEDS: HERBAL LAXATIVE PO SCH ×4 (05:39→22:12)
[2018-04-15] MEDS: SENNOSIDES PO SCH ×4 (05:39→22:12)
[2018-04-15] MEDS: ZANAFLEX 4 MG PO SCH ×4 (05:40→22:14)
[2018-04-15] MEDS: FLUCONAZOLE/NaCl 100 ML IV SCH ×2 (07:11→09:35)
[2018-04-15] MEDS: INSULIN LISPRO 100 UNIT/ML SC SCH ×5 (07:11→18:27)
[2018-04-15] MEDS: PHENAZOPYRIDINE HCL 100 MG TAB PO SCH ×2 (07:12→21:58)
[2018-04-15] MEDS: AZTREONAM 1 GM in NS 50 ML IV SCH ×2 (07:12→07:13)
[2018-04-15] MEDS ORDERED: FLUCONAZOLE/NaCl 100 ML IV ONE (10:30)
--- NOTE | 2018-04-15 11:29 | PCMIDPN ---
Assessment/Plan: Assessment/Plan: * E coli cystitis with multiple antibiotic allergies: Completed 5 days of aztreonam. No noticeable change in symptoms raising question if residual symptoms are related to atrophic vaginitis or interstitial cystitis. E coli cystitis should be markedly improved at this point in time after 5 days of IV antibiotics. Other consideration is proceeding with formal gynecologic evaluation giving ongoing urethral in vaginal pain. * Rash: Inguinal rash consistent with intertrigo. No significant improvement with fluconazole at 200 mg IV daily. Patient notes she is unable to take oral fluconazole due to allergic reaction. Discussed with her use of topical nystatin powder given presence of maceration which she is reluctant to try due to numerous intolerance is associated with composition of powders and creams. Other consideration is proceeding with formal gynecologic evaluation * Multiple drug allergies Time spent, greater than 35 min, of which greater than half was spent in education/counseling/coordination of care related to urinary symptoms, rash, treatment considerations, and plan of care. 04/15/18 11:25 Subjective: Patient complains of persistent urethral burning like razors are present. Does not feel significant change in urinary symptoms after aztreonam. Patient notes that she stopped injectable estrogen replacement due to interaction with insulin. Does note she has significant vaginal dryness. Notes that inguinal rash appears to be extending with some involvement near perianal region. Objective: Vital Signs Temp Pulse Resp BP Pulse Ox 37.1 C 58 L 16 159/101 H 95 04/14/18 08:00 04/14/18 08:00 04/14/18 08:00 04/15/18 05:48 04/14/18 08:00 Laboratory Results 04/08/18 14:00 04/09/18 05:26 04/14/18 04/15/18 04/16/18 05:59 05:59 05:59 Intake Total 620 Balance 620 Fluconazole # 3 Status post 5 days aztreonam - Physical Exam General Appearance: alert, no apparent distress Skin: rash (Bilateral inguinal regions with rash consistent with intertrigo with maceration at groin crease; some rash present in perianal region) ICD10 Worksheet Patient Problems: Problems Problem Status Onset Kidney stone Active Microscopic hematuria Active Recurrent cystitis Active Reflex sympathetic dystrophy Active Abdominal pain Acute Biliary colic Acute Bowel obstruction Acute Chronic pain Acute Flank pain, acute Acute History of reflex sympathetic dystrophy Acute Hyperglycemia Acute Narcotic withdrawal Acute Nausea and vomiting Acute UTI (urinary tract infection) Acute Volume depletion Acute Vomiting Acute
--- NOTE | 2018-04-15 13:46 | ASMTLACE ---
LACE Length of stay for Answers: 7-13 days current admission Acuity / Level of Answers: Yes Care: Did the patient have an inpatient admission? Comorbidities - select Answers: Opioid dependence all that apply / Chronic pain Other Notes: HTN # of Emergency department Answers: 1-2 visits in the last 6 months Social determinants Answers: Mental health diagnosis (anxiety, depression, pers onality disorders, etc.) Score: 17 Date Signed: 04/15/2018 01:45 PM Electronically Signed By:Alana Warren LCSW
--- NOTE | 2018-04-15 14:59 | HOSPPROG ---
Hospitalist Progress Note Assessment/Plan: 57 yo F with RSD/chronic pain/multiple allergies admitted with UTI # e coli UTI: started on aztreonam with IV benadryl, ID following, ABX now stopped. She is still symptomatic which argues against her symptoms being from UTI #Vaginal pain and likely atrophic Vaginitis -will consult [employer] ASSOCIATE # acute on chronic pain/continuous narcotic use and dependency: complicating her care, will continue her OP regimen and work to avoid IV narcotics unless she is completely unable to take PO # intertrigo - IV fluconazole # RSD: with pain "everywhere" and inability to ambulate due to this, as above # vaginal lesion: with what appears to be hidradenitis suppurativa but draining on it's own, no e/o surrounding cellulitis, continue usual management # anxiety: again complicating her care, has been behaviorally well controlled during this stay # IP status, will require abx x 3-5 days Plan: -Off abx -Copnt IV Fluconazole -[employer] ASSOCIATE consult Subjective: still with vaginal pain and discomfort. no cp or sob. eating. Objective: Vital Signs Temp Pulse Resp BP Pulse Ox 37.1 C 58 L 16 161/101 H 95 04/15/18 08:00 04/15/18 08:00 04/15/18 08:00 04/15/18 08:00 04/15/18 08:00 Laboratory Results 04/08/18 14:00 04/09/18 05:26 04/14/18 04/15/18 04/16/18 05:59 05:59 05:59 Intake Total 620 Balance 620 - Physical Exam Constitutional: no apparent distress, not in pain Eyes: PERRL, EOMI Ears, Nose, Mouth, Throat: moist mucous membranes, hearing normal Cardiovascular: regular rate and rhythym, No edema Respiratory: no respiratory distress, no rales or rhonchi Gastrointestinal: normoactive bowel sounds, soft, non-tender abdomen Skin: warm Neurologic: AAOx3 Psychiatric: interacting appropriately, not anxious, not encephalopathic Lymph, Heme, Immunologic: No petechiae ICD10 Worksheet Patient Problems: Problems Problem Status Onset Kidney stone Active Microscopic hematuria Active Recurrent cystitis Active Reflex sympathetic dystrophy Active Abdominal pain Acute Biliary colic Acute Bowel obstruction Acute Chronic pain Acute Flank pain, acute Acute History of reflex sympathetic dystrophy Acute Hyperglycemia Acute Narcotic withdrawal Acute Nausea and vomiting Acute UTI (urinary tract infection) Acute Volume depletion Acute Vomiting Acute
[2018-04-16] MEDS: LORazepam 2 MG/ML INJ IVP PRN ×5 (01:53→20:14)
[2018-04-16] MEDS: clonazePAM 0.5 MG TAB PO SCH ×4 (01:53→22:21)
[2018-04-16] MEDS: fentaNYL 100 MCG/2 ML INJ IV PRN ×5 (01:53→20:14)
[2018-04-16] MEDS: ZANAFLEX 4 MG PO SCH ×4 (01:53→22:21)
[2018-04-16] MEDS: SENNOSIDES PO SCH ×4 (01:55→22:21)
[2018-04-16] MEDS: HERBAL LAXATIVE PO SCH ×4 (01:55→22:21)
[2018-04-16] MEDS: morphINE SR 15 MG TAB PO SCH ×2 (06:11→22:21)
[2018-04-16] MEDS: INSULIN LISPRO 100 UNIT/ML SC SCH ×3 (08:10→17:29)
[2018-04-16] MEDS: FLUCONAZOLE/NaCl 200 ML IV SCH (09:37)
--- NOTE | 2018-04-16 11:41 | PCMIDPN ---
Assessment/Plan: #Ecoli UTI: s/p aztreonam 5 days with minimal changes in symptoms #Katarina intertrigo : not initially responsive to standard dose fluconazole, concern for R katarina - she has rec'd a fair amt of fluconazole in the past; 15 % better over last 24 hours on higher dose fluconazole 400mg IV daily. Patient intolerant of PO fluconazole. Seen by P[employer]AGE [employer], vaginal cx obtained, PCR for katarina , trich, Gardnerella negative. Clinically a component of atrophic vaginitis too. --continue IV fluconazole --patient is considering topical E meds Fluconazole 400mg IV daily #2 (+ 2 days of lower dose fluconazole) Subjective: feels like knives in her vaginal area, also with severe itching Objective: Vital Signs Temp Pulse Resp BP Pulse Ox 36.4 C 55 L 15 166/99 H 95 04/16/18 08:33 04/16/18 08:33 04/16/18 08:33 04/16/18 08:33 04/16/18 08:33 Microbiology 04/15/18 17:35 Gram Stain - Final Vulva - Swab Laboratory Results 04/08/18 14:00 04/09/18 05:26 04/15/18 04/16/18 04/17/18 05:59 05:59 05:59 Intake Total 1050 600 Output Total 500 Balance 550 600 - Physical Exam General Appearance: alert, no apparent distress EENT: pale conjunctiva Respiratory: No accessory muscle use Pelvic Exam: other (plaque-like eruption in inguinal folds with some scale; labial mildly inflammed) Neuro/Psych: alert, oriented x 3 - Line/s RUE PICC Lines: No drainage, No erythema - Time Spent With Patient Time Spent with Patient: greater than 35 minutes (care coordinated with hospitalist and nursing) Time Spent with Patient: Greater than 35 minutes spent on this patients care, greater than 50% of time spent counseling, educating, and coordinating care regarding the above mentioned plan. ICD10 Worksheet Patient Problems: Problems Problem Status Onset Kidney stone Active Microscopic hematuria Active Recurrent cystitis Active Reflex sympathetic dystrophy Active Abdominal pain Acute Biliary colic Acute Bowel obstruction Acute Chronic pain Acute Flank pain, acute Acute History of reflex sympathetic dystrophy Acute Hyperglycemia Acute Narcotic withdrawal Acute Nausea and vomiting Acute UTI (urinary tract infection) Acute Volume depletion Acute Vomiting Acute
--- NOTE | 2018-04-16 14:21 | HOSPPROG ---
Hospitalist Progress Note Assessment/Plan: 57 yo F with RSD/chronic pain/multiple allergies admitted with UTI and vaginal/ groin pruritis # e coli UTI: completed aztreonam with IV benadryl, ID following, ABX now stopped. She is still symptomatic which argues against her symptoms being from UTI #Vaginal pain and likely atrophic Vaginitis -[employer] # acute on chronic pain/continuous narcotic use and dependency: complicating her care, will continue her OP regimen and work to avoid IV narcotics unless she is completely unable to take PO -on MS Contin and Roxanol # intertrigo - IV fluconazole. Has refused topical agents # RSD: with pain "everywhere" and inability to ambulate due to this, as above # vaginal lesion: with what appears to be hidradenitis suppurativa but draining on it's own, no e/o surrounding cellulitis, continue usual management # anxiety: again complicating her care, has been behaviorally well controlled during this stay #DM with poor glucose control while inpatient -poor control is due to non compliance. She is refusing to take meds as ordered #HTN: mgmt is complicated by numerous allergies limiting agents available # IP status, will require abx x 3-5 days Plan: -IV Fluconazole -Await [employer] reccs -Await further ID reccs -cont with pain mgmt Subjective: still with vaginal discomfort but she reports a 15% improvement. Still with pruritis Objective: Vital Signs Temp Pulse Resp BP Pulse Ox 36.4 C 55 L 15 166/99 H 95 04/16/18 08:33 04/16/18 08:33 04/16/18 08:33 04/16/18 08:33 04/16/18 08:33 Microbiology 04/15/18 17:35 Gram Stain - Final Vulva - Swab Laboratory Results 04/08/18 14:00 04/09/18 05:26 04/15/18 04/16/18 04/17/18 05:59 05:59 05:59 Intake Total 1050 600 Output Total 500 Balance 550 600 - Physical Exam Constitutional: no apparent distress Eyes: PERRL, EOMI Ears, Nose, Mouth, Throat: moist mucous membranes, hearing normal Cardiovascular: regular rate and rhythym, No edema Respiratory: no respiratory distress Gastrointestinal: normoactive bowel sounds Genitourinary: other (erythematous, ortiz like lesions with well defined borders and satellite lesions) Skin: warm Neurologic: AAOx3 Psychiatric: interacting appropriately, not anxious, not encephalopathic Lymph, Heme, Immunologic: No petechiae ICD10 Worksheet Patient Problems: Problems Problem Status Onset Kidney stone Active Microscopic hematuria Active Recurrent cystitis Active Reflex sympathetic dystrophy Active Abdominal pain Acute Biliary colic Acute Bowel obstruction Acute Chronic pain Acute Flank pain, acute Acute History of reflex sympathetic dystrophy Acute Hyperglycemia Acute Narcotic withdrawal Acute Nausea and vomiting Acute UTI (urinary tract infection) Acute Volume depletion Acute Vomiting Acute
[2018-04-16] MEDS: PHENAZOPYRIDINE HCL 100 MG TAB PO SCH (22:21)
[2018-04-17] MEDS: LORazepam 2 MG/ML INJ IVP PRN ×5 (00:50→20:21)
[2018-04-17] MEDS: fentaNYL 100 MCG/2 ML INJ IV PRN ×5 (00:51→20:21)
[2018-04-17] MEDS: ZANAFLEX 4 MG PO SCH ×4 (00:54→22:17)
[2018-04-17] MEDS: HERBAL LAXATIVE PO SCH ×4 (00:56→20:17)
[2018-04-17] MEDS: SENNOSIDES PO SCH ×4 (00:56→20:17)
[2018-04-17] MEDS: clonazePAM 0.5 MG TAB PO SCH ×4 (01:55→22:18)
[2018-04-17] MEDS: morphINE SR 15 MG TAB PO SCH ×2 (06:02→22:18)
[2018-04-17] MEDS: FLUCONAZOLE/NaCl 200 ML IV SCH (09:03)
[2018-04-17] MEDS: ACETAMINOPHEN/ASA/CAFFEINE 1 EACH TAB PO PRN (09:05)
[2018-04-17] MEDS: morphINE 10 MG/0.5 ML UDSYR PO PRN (09:05)
[2018-04-17] MEDS: INSULIN LISPRO 100 UNIT/ML SC SCH ×3 (09:13→20:07)
--- NOTE | 2018-04-17 11:46 | PCMIDPN ---
Assessment/Plan: #Ecoli UTI: s/p aztreonam 5 days with minimal changes in symptoms #Katarina intertrigo :minimal response after 3 days high dose fluconazole, cannot find a source of contact dermatitis therefore suspect katarina source of inflammation. significant plaque-like inflammation remains B inguinal region tracking down to posterior gluteal area --take cultures to evaluate for more resistant katarina --try micafungin and follow up symptoms meds Fluconazole 400mg IV daily #3 (+ 2 days of lower dose fluconazole) history and PE performed in presence of her Subjective: No change in the symptom of feeling like knives are burning her urethra/vagina joint pain and lower abdominal pain better today worried still has UTI does not think inguinal eruption any better than 2 days ago Objective: Vital Signs Temp Pulse Resp BP Pulse Ox 36.8 C 56 L 16 182/83 H 97 04/17/18 06:08 04/17/18 08:40 04/17/18 08:40 04/17/18 08:40 04/17/18 08:40 Microbiology 04/15/18 17:35 Gram Stain - Final Vulva - Swab Laboratory Results 04/08/18 14:00 04/09/18 05:26 04/16/18 04/17/18 04/18/18 05:59 05:59 05:59 Intake Total 1050 1100 Output Total 500 Balance 550 1100 - Physical Exam General Appearance: alert, no apparent distress, obese EENT: pale conjunctiva, No thrush Respiratory: No accessory muscle use Pelvic Exam: other (plaque like MP eruption B inguinal region approx extending 2 -3 cm on to her leg, superimposed white discharge; labia mildly erythematous) Skin: No rash Neuro/Psych: alert, normal mood/affect, oriented x 3 - Line/s RUE PICC Lines: No drainage, No erythema - Time Spent With Patient Time Spent with Patient: greater than 35 minutes Time Spent with Patient: Greater than 35 minutes spent on this patients care, greater than 50% of time spent counseling, educating, and coordinating care regarding the above mentioned plan. ICD10 Worksheet Patient Problems: Problems Problem Status Onset Kidney stone Active Microscopic hematuria Active Recurrent cystitis Active Reflex sympathetic dystrophy Active Abdominal pain Acute Biliary colic Acute Bowel obstruction Acute Chronic pain Acute Flank pain, acute Acute History of reflex sympathetic dystrophy Acute Hyperglycemia Acute Narcotic withdrawal Acute Nausea and vomiting Acute UTI (urinary tract infection) Acute Volume depletion Acute Vomiting Acute
--- NOTE | 2018-04-17 12:56 | ASMTCMCOM ---
CM Note CM Note Notes: Chart reviewed. Patient continues to have symptoms surrounding her UTI even after antibiotics. ID consulted and assisting with finding appropriate treatment Patient not compliant with therapies siting pain prevents her participation, She states her can provide her care at home independently. CM to follow should needs arise. Plan: likely home independent when medically cleared for discharge. Date Signed: 04/17/2018 12:55 PM Electronically Signed By:Maritza Ho RN
[2018-04-17] MEDS: MICAFUNGIN NA 100 MG in NS 100 ML IV SCH (13:08)
--- NOTE | 2018-04-17 13:36 | HOSPPROG ---
Hospitalist Progress Note Assessment/Plan: 57 yo F with RSD/chronic pain/multiple allergies admitted with UTI and vaginal/ groin pruritis # e coli UTI: completed aztreonam with IV benadryl, ID following, ABX now stopped. She is still symptomatic which argues against her symptoms being from UTI #Vaginal pain and likely atrophic Vaginitis # intertrigo - IV fluconazole changed to Micafungin today. -Has refused topical agents #HTN: will increased Clonidine to TID dosing #Pedal Edema. She is refusing Lasix for now. # acute on chronic pain/continuous narcotic use and dependency: complicating her care, will continue her OP regimen and work to avoid IV narcotics unless she is completely unable to take PO -on MS Contin and Roxanol # RSD: with pain "everywhere" and inability to ambulate due to this, as above # vaginal lesion: with what appears to be hidradenitis suppurativa but draining on it's own, no e/o surrounding cellulitis, continue usual management # anxiety: again complicating her care, has been behaviorally well controlled during this stay #DM with poor glucose control while inpatient -poor control is due to non compliance. She is refusing to take meds as ordered #HTN: mgmt is complicated by numerous allergies limiting agents available # IP status, will require abx x 3-5 days Subjective: no cp or sob. still with vaginal and groin pain Objective: Vital Signs Temp Pulse Resp BP Pulse Ox 36.8 C 56 L 16 182/83 H 97 04/17/18 06:08 04/17/18 08:40 04/17/18 08:40 04/17/18 08:40 04/17/18 08:40 Microbiology 04/15/18 17:35 Gram Stain - Final Vulva - Swab Laboratory Results 04/08/18 14:00 04/09/18 05:26 04/16/18 04/17/18 04/18/18 05:59 05:59 05:59 Intake Total 1050 1100 Output Total 500 Balance 550 1100 - Physical Exam Constitutional: no apparent distress Eyes: PERRL, EOMI Ears, Nose, Mouth, Throat: moist mucous membranes, hearing normal Cardiovascular: regular rate and rhythym, edema (trace) Respiratory: no respiratory distress, reduced air movement Gastrointestinal: normoactive bowel sounds Skin: warm Neurologic: AAOx3 Psychiatric: interacting appropriately, not anxious, not encephalopathic Lymph, Heme, Immunologic: No petechiae ICD10 Worksheet Patient Problems: Problems Problem Status Onset Kidney stone Active Microscopic hematuria Active Recurrent cystitis Active Reflex sympathetic dystrophy Active Abdominal pain Acute Biliary colic Acute Bowel obstruction Acute Chronic pain Acute Flank pain, acute Acute History of reflex sympathetic dystrophy Acute Hyperglycemia Acute Narcotic withdrawal Acute Nausea and vomiting Acute UTI (urinary tract infection) Acute Volume depletion Acute Vomiting Acute
[2018-04-17] MEDS: PHENAZOPYRIDINE HCL 100 MG TAB PO SCH (20:17)
--- NOTE | 2018-04-17 21:37 | GCON ---
[f rep st] CONSULTATION DATE OF CONSULTATION: 04/15/2018 REASON FOR CONSULTATION: Vaginal and urethral pain. HISTORY OF PRESENT ILLNESS: Patient is a 57-year-old 1, para 1-0-0-1, with multiple medical problems. Please see history and physical for detailed history on allergies, medications, and medica l history as it is extensive. Patient was admitted for a urinary tract infection and started on aztr eonam for 5 days. Patient states when she has urinary tract infection, she normally feels better by third day and she is not feeling better this time. The antibiotics are being continued. The patient 's primary complaint at this time is what she describes as a razor blade sensation in her urethra and general pain in her vaginal area. Patient has a history of reflexive sympathetic dystrophy, which c auses heightened sense of pain in different areas. Patient is not sure if it has been related to thi s or not. She also has groin and vaginal significant irritation. EXAM: The patient was noted to have what is suspicious for extensive skin yeast infection. She had a hard time tolerating exam of her vagina and urethra. The skin culture of the of the inguinal folds and the vagina were obtained, as well as a BD Affirm which tests for yeast and bacterial vaginosis w as collected. The patient previously was on hormone replacement with estradiol but was discontinued due to an interaction with her insulin. We discussed the symptoms of the razor blade sensation in he r urethra could be related to decreased estrogen and/or yeast. Topical vaginal estrogen would be a g ood option for her; however, due to the skin irritation due to the presumptive yeast, I would hold of f until that has been improved before trying a topical medication given her extensive history of tory rgies. Approximately 20 minutes were spent with the patient and her reviewing her history and discus sing management options. ASSESSMENT AND PLAN: Urethral discomfort and inguinal vaginal irritation, suspicious for yeast, and atrophic vaginitis due to menopause. Await vaginal cultures. Would recommend either Diflucan or nys tatin per ID due to patient's extensive history of allergies, whatever their preference is, and once the symptoms have improved, patient can use topical estrogen as needed around the urethra. She can f ollow up with a vulvar pain specialist or a urogynecologist if symptoms persist. Thank you for this consultation. /[id number]/MODL
[2018-04-17] MEDS: INSULIN 70/30 HUMAN 100 UNIT/ML SYR SC PRN (22:19)
[2018-04-18] MEDS: clonazePAM 0.5 MG TAB PO SCH ×4 (01:37→21:54)
[2018-04-18] MEDS: ZANAFLEX 4 MG PO SCH ×4 (01:38→21:53)
[2018-04-18] MEDS: SENNOSIDES PO SCH ×5 (01:39→21:49)
[2018-04-18] MEDS: HERBAL LAXATIVE PO SCH ×5 (01:39→21:49)
[2018-04-18] MEDS: LORazepam 2 MG/ML INJ IVP PRN ×4 (05:06→20:33)
[2018-04-18] MEDS: morphINE SR 15 MG TAB PO SCH ×2 (05:17→21:54)
[2018-04-18] MEDS: fentaNYL 100 MCG/2 ML INJ IV PRN ×4 (06:04→20:30)
[2018-04-18] MEDS: INSULIN LISPRO 100 UNIT/ML SC SCH ×3 (09:59→18:41)
[2018-04-18] MEDS: MICAFUNGIN NA 100 MG in NS 100 ML IV SCH (10:23)
[2018-04-18] MEDS: morphINE 10 MG/0.5 ML UDSYR PO PRN (10:23)
--- NOTE | 2018-04-18 11:02 | PCMIDPN ---
Assessment/Plan: 1. Intertriginous candidiasis: I have asked the microbiology lab to send susceptibility testing on presumptive Katarina albicans growing from vaginal culture. For now, will continue Micafungin. 2. History of urinary tract infection treated with 5 days of aztreonam: Patient is concerned her symptoms are coming back. Could be related to urethral irritation from Katarina as well. Over 25 min spent with pt today. Subjective: Feels that her urinary symptoms are coming back. Long conversation today about her Katarina intertrigo. Feels that it is slightly better today. Objective: T-max 37.2 degrees Micafungin 100 mg IV daily day 2 Status post fluconazole 400 mg p. O. Daily for 3 days and lower dose for 2 days Vital Signs Temp Pulse Resp BP Pulse Ox 37.0 C 60 16 187/98 H 96 04/18/18 08:00 04/18/18 08:00 04/18/18 08:00 04/18/18 08:00 04/18/18 08:00 Microbiology 04/15/18 17:35 Gram Stain - Final Vulva - Swab Laboratory Results 04/08/18 14:00 04/09/18 05:26 04/17/18 04/18/18 04/19/18 05:59 05:59 05:59 Intake Total 1100 1391 Balance 1100 1391 Vaginal culture growing presumptive Katarina albicans BV testing negative - Physical Exam General Appearance: obese EENT: No thrush Abdomen: other (Obese abdomen. Skin maceration with erythema noted inguinal folds bilaterally. Brawny discoloration extends from vaginal area to perianal skin.) ICD10 Worksheet Patient Problems: Problems Problem Status Onset Kidney stone Active Microscopic hematuria Active Recurrent cystitis Active Reflex sympathetic dystrophy Active Abdominal pain Acute Biliary colic Acute Bowel obstruction Acute Chronic pain Acute Flank pain, acute Acute History of reflex sympathetic dystrophy Acute Hyperglycemia Acute Narcotic withdrawal Acute Nausea and vomiting Acute UTI (urinary tract infection) Acute Volume depletion Acute Vomiting Acute
[2018-04-18] MEDS: ACETAMINOPHEN/ASA/CAFFEINE 1 EACH TAB PO PRN (11:16)
[2018-04-18] MEDS: INSULIN 70/30 HUMAN 100 UNIT/ML SYR SC PRN ×2 (11:17→20:27)
[2018-04-18] MEDS ORDERED: PROPOFOL/EMULSION 500 MG/50 ML BOTTLE IV ONE (12:07)
[2018-04-18] MEDS ORDERED: LIDOCAINE 2% 100 MG/5 ML SYR ONE (12:08)
[2018-04-18] MEDS ORDERED: FUROSEMIDE 20 MG/2 ML VIAL IVP ONE (12:55)
--- NOTE | 2018-04-18 12:59 | HOSPPROG ---
Hospitalist Progress Note Assessment/Plan: 57 yo F with RSD/chronic pain/multiple allergies admitted with UTI and vaginal/ groin pruritis # e coli UTI: completed aztreonam x 5 days. #Vaginal pain and likely atrophic Vaginitis # intertrigo - IV fluconazole changed to Micafungin 04/17 -Has refused topical agents -susceptibility testing from vaginal culture is pending #HTN: -Clonidine increased to TID -she agrees to Lasix today and diuresis should help #Pedal Edema. Lasix x 1 # acute on chronic pain/continuous narcotic use and dependency: complicating her care, will continue her OP regimen and work to avoid IV narcotics unless she is completely unable to take PO -on MS Contin and Roxanol # RSD: with pain "everywhere" and inability to ambulate due to this, as above # vaginal lesion: with what appears to be hidradenitis suppurativa but draining on it's own, no e/o surrounding cellulitis, continue usual management # anxiety: again complicating her care, has been behaviorally well controlled during this stay #DM with poor glucose control while inpatient -poor control is due to non compliance. She is refusing to take meds as ordered #HTN: mgmt is complicated by numerous allergies limiting agents available # IP status Subjective: still with vaginal discomfort. BP is elevated. no n/v Objective: Vital Signs Temp Pulse Resp BP Pulse Ox 37.0 C 60 16 187/98 H 96 04/18/18 08:00 04/18/18 08:00 04/18/18 08:00 04/18/18 08:00 04/18/18 08:00 Microbiology 04/15/18 17:35 Gram Stain - Final Vulva - Swab Laboratory Results 04/08/18 14:00 04/09/18 05:26 04/17/18 04/18/18 04/19/18 05:59 05:59 05:59 Intake Total 1100 1391 Balance 1100 1391 - Physical Exam Constitutional: no apparent distress Eyes: PERRL, EOMI Ears, Nose, Mouth, Throat: moist mucous membranes Cardiovascular: regular rate and rhythym, edema Respiratory: no respiratory distress, no rales or rhonchi Gastrointestinal: normoactive bowel sounds, soft, non-tender abdomen Skin: warm Musculoskeletal: generalized weakness Neurologic: AAOx3 Psychiatric: interacting appropriately, not anxious, not encephalopathic Lymph, Heme, Immunologic: No petechiae ICD10 Worksheet Patient Problems: Problems Problem Status Onset Kidney stone Active Microscopic hematuria Active Recurrent cystitis Active Reflex sympathetic dystrophy Active Abdominal pain Acute Biliary colic Acute Bowel obstruction Acute Chronic pain Acute Flank pain, acute Acute History of reflex sympathetic dystrophy Acute Hyperglycemia Acute Narcotic withdrawal Acute Nausea and vomiting Acute UTI (urinary tract infection) Acute Volume depletion Acute Vomiting Acute
[2018-04-18] MEDS: morphINE SR 15 MG TAB PO PRN (15:44)
[2018-04-18] MEDS: PHENAZOPYRIDINE HCL 100 MG TAB PO SCH (20:16)
[2018-04-19] MEDS: fentaNYL 100 MCG/2 ML INJ IV PRN ×3 (00:30→11:43)
[2018-04-19] MEDS: LORazepam 2 MG/ML INJ IVP PRN ×2 (00:33→04:42)
[2018-04-19] MEDS: ZANAFLEX 4 MG PO SCH ×3 (01:32→14:20)
[2018-04-19] MEDS: clonazePAM 0.5 MG TAB PO SCH ×3 (01:32→14:42)
[2018-04-19] MEDS: ACETAMINOPHEN 325 MG TAB PO PRN ×2 (05:43→15:16)
[2018-04-19] MEDS: morphINE SR 15 MG TAB PO SCH (05:44)
[2018-04-19] MEDS: SENNOSIDES PO SCH ×2 (05:50→14:19)
[2018-04-19] MEDS: HERBAL LAXATIVE PO SCH ×2 (05:50→14:19)
[2018-04-19] MEDS: morphINE 10 MG/0.5 ML UDSYR PO PRN (08:13)
[2018-04-19] MEDS ORDERED: AZTREONAM 1 GM in NS 50 ML IV SCH ×2 (08:45→14:00)
[2018-04-19] MEDS ORDERED: NS 1,000 ML IV SCH (09:15)
--- NOTE | 2018-04-19 09:35 | HOSPPROG ---
Hospitalist Progress Note Assessment/Plan: 57 yo F with RSD/chronic pain/multiple allergies admitted with UTI and vaginal/ groin pruritis #Fever: -Etiology unclear, possible pneumonia vs UTI vs other -She is s/p aztreonam x 5 days for E-Coli UTI. I will restart this now. She needs IV Benadryl with it. -She is hemodynamically stable -check infectious w/u: CXR, urine culture, blood cultures -They are refusing straight cath for urine sample -CXR does not have any significant findings -ID to see today -If after starting abx and pending lab/infectious w/u, may need to search for another etiology of fever/dyspnea such as P.E. #Vaginal pain and likely atrophic Vaginitis # intertrigo - IV fluconazole changed to Micafungin 04/17 -Has refused topical agents -susceptibility testing from vaginal culture is pending #HTN: -currently BP is appropriate -Hold Clonidine given infection -She got Lasix yesterday x one and had an allergic reaction #Pedal Edema. Lasix x 1 # acute on chronic pain/continuous narcotic use and dependency -on MS Contin and Roxanol -on IV Fentanyl. -Attempting to wean her has been very difficult as she c/o of constant vaginal, inguinal, and suprapubic pain # RSD: with pain "everywhere" and inability to ambulate due to this, as above # vaginal lesion: with what appears to be hidradenitis suppurativa but draining on it's own, no e/o surrounding cellulitis, continue usual management # anxiety: again complicating her care, has been behaviorally well controlled during this stay #DM with poor glucose control while inpatient -poor control is due to non compliance. She is refusing to take meds as ordered # IP status Subjective: Was called to bedside urgently as the pt has a high fever and is shaking. No shaking when I arrived. BP is stable. + Fever. + urinay symptoms, vaginal discomfort. Also says difficult left sided rib pain when taking a deep breath. She denies cough or SOB. She does not have increased resp effort. She denies chest pain. She is on 5 L O2. She denies abd pain other than suprapubic pain. Objective: Vital Signs Temp Pulse Resp BP Pulse Ox 38.4 C H 101 H 22 H 120/87 H 97 06/17/18 08:52 04/19/18 08:52 04/19/18 08:52 04/19/18 08:52 04/19/18 08:52 Microbiology 04/15/18 17:35 Gram Stain - Final Vulva - Swab Laboratory Results 04/19/18 08:35 04/18/18 04/19/18 04/20/18 05:59 05:59 05:59 Intake Total 1391 460 567 Balance 1391 460 567 - Physical Exam Constitutional: no apparent distress Eyes: PERRL, EOMI Ears, Nose, Mouth, Throat: moist mucous membranes, hearing normal Cardiovascular: regular rate and rhythym, No edema Respiratory: no respiratory distress, no rales or rhonchi, clear to auscultation Gastrointestinal: normoactive bowel sounds, No tenderness Skin: warm Neurologic: AAOx3 Psychiatric: interacting appropriately, not anxious, not encephalopathic Lymph, Heme, Immunologic: No petechiae ICD10 Worksheet Patient Problems: Problems Problem Status Onset Kidney stone Active Microscopic hematuria Active Recurrent cystitis Active Reflex sympathetic dystrophy Active Abdominal pain Acute Biliary colic Acute Bowel obstruction Acute Chronic pain Acute Flank pain, acute Acute History of reflex sympathetic dystrophy Acute Hyperglycemia Acute Narcotic withdrawal Acute Nausea and vomiting Acute UTI (urinary tract infection) Acute Volume depletion Acute Vomiting Acute
[2018-04-19 09:42] LABS: PLATELET COUNT 99 10^3/uL (150-400)
[2018-04-19] MEDS: INSULIN LISPRO 100 UNIT/ML SC SCH ×3 (10:40→17:43)
--- NOTE | 2018-04-19 10:50 | PCMIDPN ---
Assessment/Plan: # Fever, rigors with increased O2 requirements and tachycardia. Difficult to assess localizing symptoms on exam today as patient is speaking minimally - which is quite different than her baseline and gives me concern about the severity of underlying illness. Patient reports allergies to iodine limiting CT scan evaluation. Possible etiologies include UTI, PICC line infection, pneumonia. No change in stool output makes C diff less likely. Interestingly white count is normal but patient has not really had significant leukocytosis over the years. Drug reaction and PE in DDx --discontinue aztreonam due to coverage limited to gram-negative rods. Will try meropenem to have broader coverage in setting of lack of understanding of source of infection. Discussed potential cross-reactivity with penicillin and cephalosporins. Certainly gap is MRSA. Allergies to dapto, linezolid ( serotonin syndrome) and vancomycin (rash/hives). Could re-challenge with one of these if no improvement with initial antibiotic coverage. Dapto option less favorable due to lack of pulmonary penetration. Hold off on MRSA coverage for now --blood and urine cultures obtained, CXR ordered --low threshold for non-contrasted CT chest/abd/pelvis # Low platelets: could be due to above ID issues #Ecoli UTI: s/p aztreonam 5 days with minimal changes in symptoms #Katarina intertrigo : Significant less inflammation today. Continue micafungin for now meds Micafungin 100 mg IV daily, # 3 Subjective: patient describing hurting all over. specifically denies chest pain Objective: Vital Signs Temp Pulse Resp BP Pulse Ox 38.4 C H 101 H 22 H 120/87 H 97 04/19/18 08:52 04/19/18 08:52 04/19/18 08:52 04/19/18 08:52 04/19/18 08:52 Microbiology 04/15/18 17:35 Gram Stain - Final Vulva - Swab Laboratory Results 04/19/18 08:35 04/19/18 08:35 04/18/18 04/19/18 04/20/18 05:59 05:59 05:59 Intake Total 1391 460 567 Balance 1391 460 567 - Physical Exam General Appearance: apparent distress, obese, toxic EENT: pale conjunctiva, No thrush Respiratory: lungs clear, No respiratory distress, No accessory muscle use Neck: supple Cardiac/Chest: tachycardia Extremities: pedal edema, No inflammation Abdomen: normal bowel sounds, non-tender, soft, other (Ostomy L side pink stoma , no stool in bag) Pelvic Exam: other (Intertrigo much less inflamed today in inguinal region) Skin: diaphoresis, pallor, No rash Neuro/Psych: alert, oriented x 3, other (follows commands but typically very conversational but does not speak today unless significant prompting) - Line/s RUE PICC Lines: No drainage, No erythema - Time Spent With Patient Time Spent with Patient: greater than 35 minutes Time Spent with Patient: Greater than 35 minutes spent on this patients care, greater than 50% of time spent counseling, educating, and coordinating care regarding the above mentioned plan. ICD10 Worksheet Patient Problems: Problems Problem Status Onset Kidney stone Active Microscopic hematuria Active Recurrent cystitis Active Reflex sympathetic dystrophy Active Abdominal pain Acute Biliary colic Acute Bowel obstruction Acute Chronic pain Acute Flank pain, acute Acute History of reflex sympathetic dystrophy Acute Hyperglycemia Acute Narcotic withdrawal Acute Nausea and vomiting Acute UTI (urinary tract infection) Acute Volume depletion Acute Vomiting Acute
--- NOTE | 2018-04-19 11:33 | ASMTCMCOM ---
CM Note CM Note Notes: Chart reviewed. Acute onset of fever and rigors. Seen by ID. Patient to transfer to SDU for closer observation. Needs TBD. CM to follow. Plan: TBD Date Signed: 04/19/2018 11:32 AM Electronically Signed By:Maritza Ho RN
[2018-04-19] MEDS: MICAFUNGIN NA 100 MG in NS 100 ML IV SCH (11:35)
[2018-04-19] MEDS: MEROPENEM 1 GM in NS 100 ML IV SCH ×3 (12:38→20:35)
[2018-04-19] MEDS ORDERED: EPINEPHrine 1 MG/ML INJ ONE (12:45)
[2018-04-19] MEDS ORDERED: methylPREDNISolone SOD SUCC 125 MG/2 ML VIAL ONE (12:45)
[2018-04-19] MEDS: NS 1,000 ML IV SCH ×4 (15:21→20:16)
--- NOTE | 2018-04-19 16:14 | GCON ---
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 REASON FOR ADMISSION TO INTENSIVE CARE UNIT: Tachycardia, hypotension. HISTORY OF PRESENT ILLNESS: The patient is a 57-year-old white female with a very extensive past med ical history, including reflex sympathetic dystrophy, chronic pain with narcotic use, anxiety, morbid obesity, and a small bowel obstruction in the past. She was initially admitted on 04/08/2018, for u rinary tract infection and a worsening of her RSD. She has had a somewhat difficult course. She has multiple drug allergies. She was initially begun on aztreonam. On 04/19/2018, she had a worsening in her condition, began having a fever, source of which is unclear. She was also markedly tachycardi c and was admitted to intensive care unit. Currently, patient complains of pain she describes all ov er, but mostly in her belly. She denies any cough or production of sputum. There was no chest pain, pleuritic-type chest pain, or angina equivalent. No fever or night sweats. She looks distinctly. REVIEW OF SYSTEMS: 10-point review of systems performed is negative, except for what is listed in HP I. PAST MEDICAL HISTORY: Significant for reflex sympathetic dystrophy, anxiety, obesity, and chronic na rcotic use, secondary to chronic pain. FAMILY HISTORY: Noncontributory. SOCIAL HISTORY: Previous smoker, none recently. No significant alcohol use. She is wheelchair boun d. She is with good family support. ALLERGIES: Include Zofran, vancomycin, Opana, Augmentin, ampicillin, azithromycin, Keflex, cephalosp orins, ciprofloxacin, clindamycin, cyclobenzaprine, Fragmin, erythromycin, iodine, levofloxacin, nitr ofurantoin, penicillin, Dilantin, prednisone, rifampin, sulfamethoxazole, trimethoprim, latex, narcot ics MEDICATIONS: Include 70/30 insulin morphine, Zanaflex, Catapres, Klonopin, Benadryl, lorazepam. PHYSICAL EXAMINATION: VITAL SIGNS: Blood pressure 137/66, pulse is 127, respiratory rate 21, temper ature is 38.4 oxygen saturation 92% on 4 L. GENERAL: She is a morbidly obese, 57-year-old white fem candelaria who is in moderate distress. HEENT: Eyes: PERRLA, EOMI. Throat shows no erythema or tonsillar hypertrophy. NECK: Supple. No cervical adenopathy. HEART: Regular rate and rhythm with a 2/6 sy stolic murmur left sternal border without radiation. LUNGS: Diminished breath sounds, but no wheeze . ABDOMEN: Soft, diffusely tender. Bowel sounds are present. EXTREMITIES: No clubbing, cyanosis, or edema. LABORATORY DATA: White count 6.3, hemoglobin 14, hematocrit 41, platelet count 99. Sodium 138, pota ssium 4.2, chloride 100, CO2 28, BUN is 14, creatinine 1, glucose is 239. Urinalysis: pH 5, specifi c gravity 1.014, 3+ blood, positive nitrite, 50-182 wbc's, 1+ bacteria. IMPRESSION: 1. Fever, source of which is unclear at this time. 2. Tachycardia. 3. Reflex sympathetic dystrophy. 4. Chronic pain. 5. Anxiety. 6. Morbid obesity. RECOMMENDATIONS: 1. Agree with CT scan. 2. Antibiotics per Infectious Disease. 3. We will check an echocardiogram. 4. Adequate pain control. 5. Panculture. /[id number]/MODL
--- NOTE | 2018-04-19 16:31 | CPEKG ---
Heart Rate: 91 RR Interval: 659 P-R Interval: 132 QRSD Interval: 96 QT Interval: 396 QTC Interval: 488 P [place]: 51 QRS [place]: 235 T Wave [place]: 42 EKG Severity - ABNORMAL ECG - EKG Impression: SINUS RHYTHM EKG Impression: LAFB EKG Impression: BORDERLINE T WAVE ABNORMALITIES EKG Impression: BORDERLINE PROLONGED QT INTERVAL Electronically Signed By: Phillip Camejo 20-Apr-2018 05:50:38
--- NOTE | 2018-04-19 17:27 | ECHO ---
[email or web address] [address] [address] Main: [phone] Fax: Transthoracic Echocardiogram Name: JESSICA SIEGEL MR#: [id number] Study Date: 04/19/2018 Study Time: 04:30 PM Date of : 1960 Age: 57 year(s) Height: 172.7 cm (68 in.) Weight: 106.6 kg (235 lb.) BSA: 2.19 m2 Gender: Female Examination: Echo Indication: Cardiogenic shock Image Quality: Contrast: Requested by: Yifan Tamayo BP: 81 mmHg/45 mmHg Heart Rate: Rhythm: Indication: Cardiogenic shock Procedure Staff Product Tester [employer]lass: Shagufta Milligan HUI Reading Physician: Frederick Brink MD Requesting Provider: Conclusions: Normal size left ventricle. Global hypercontractility of the left ventricle. The ejection fraction is estimated to be 70-75 %. Mild mitral valve regurgitation is present. Mild tricuspid regurgitation is present. No pericardial effusion. Measurements: Chambers Valvular Assessment AV/MV Valvular Assessment TV/PV Normal Normal Normal Name Value Range Name Value Range Name Value Range Ao Nuha (MM): 3.1 cm (2.2 cm-3.7 AV Vmax: 1.43 m/s (1 m/s-1.7 TR Vmax: 2.24 mm/s ( - ) cm) m/s) TR PGmax: 20 mmHg ( - ) IVSd (2D): 0.9 cm (0.6 cm-1.1 AV meanP mmHg ( - ) syst. PAP: 25 mmHg ( - ) cm) MV E Vmax: 0.53 m/s ( - ) LVDd (2D): 4.7 cm (3.9 cm-5.3 MV A Vmax: 0.60 m/s ( - ) cm) MV E/A: 0.88 ( - ) LVDs (2D): 2.3 cm (2.1 cm-4 cm) LVPWd (2D): 1.0 cm ( - ) LVEF (2D): 82 (>=54 %) EF Range: 70-75 % Continued Measurements: Chambers Valvular Assessment AV/MV Valvular Assessment TV/PV Name Value Name Value Name Value LADs: 2.8 cm MV E' Septal: 0.05 m/s CVP (est.): 5 mmHg MV E/E' Septal: 9.80 MV E/E' Lateral: 10.70 Patient: JESSICA SIEGEL Study Date: 04/19/2018 Page 1 of 2 04:30 PM Findings: Left Ventricle: Normal size left ventricle. Mild concentric LV hypertrophy. Global hypercontractility of the left ventricle. The ejection fraction is estimated to be 70-75 %. No regional wall motion abnormality. Right Ventricle: Normal size right ventricle. Left Atrium: The left atrium is normal in size. Right Atrium: The right atrium is normal in size. Mitral Valve: The mitral valve is normal in appearance and function. Mild mitral valve regurgitation is present. Aortic Valve: The aortic valve is normal in appearance and function. Tricuspid Valve: The tricuspid valve is normal in appearance and function. Mild tricuspid regurgitation is present. The pulmonary artery pressure is normal. Pulmonic Valve: The pulmonic valve is normal in appearance and function. Aorta: The aorta is normal. Pericardium: No pericardial effusion. There is pericardial fat. (No Signature Object) Patient: JESSICA SIEGEL Study Date: 04/19/2018 Page 2 of 2 04:30 PM [id number]
[2018-04-19] MEDS ORDERED: NS BOLUS 500 ML (Wide open) IV ONE (17:30)
[2018-04-19] MEDS ORDERED: ALBUMIN 5% 500 ML BOTTLE IV ONE (18:00)
[2018-04-19] MEDS ORDERED: ALBUMIN 5% 500 ML IV ONE (18:30)
--- NOTE | 2018-04-19 20:01 | PDRADPN ---
Radiology Procedure Note Date of Procedure: 04/19/18 Radiologist: Aditya Moreira Anesthesia: Local (Specify) Pre-op Diagnosis: sepsis Post-op Diagnosis: same Indication: improve venous access Procedure: PICC exchange Finding(s): TL 55cm PICC terminates at same position. ok to use. Inf/Abcess present in the surg proc area at time of surgery?: No EBL: Minimal Complications: none
[2018-04-19] MEDS ORDERED: NALOXONE HCL 0.4 MG/ML INJ IVP PRN ×2 (20:02→23:18)
[2018-04-19] MEDS ORDERED: MEPERIDINE 25 MG/ML SYR IVP PRN (20:02)
[2018-04-19] MEDS ORDERED: HEPARIN 10,000 UNIT/10 ML MDV (1,000 UNIT/ML) IVP PRN (20:02)
[2018-04-19] MEDS ORDERED: ALTEPLASE 2 MG VIAL IVP PRN (20:02)
[2018-04-19] MEDS ORDERED: fentaNYL 100 MCG/2 ML INJ IVP PRN ×2 (20:02→23:18)
[2018-04-19] MEDS ORDERED: FLUMAZENIL 0.5 MG/5 ML MDV IVP PRN (20:02)
[2018-04-19] MEDS ORDERED: PROTAMINE SULFATE 50 MG/5 ML VIAL IVP PRN (20:02)
[2018-04-19] MEDS ORDERED: GLUCAGON HCL 1 MG VIAL IVP PRN (20:02)
[2018-04-19] MEDS ORDERED: MIDAZOLAM 2 MG/2 ML VIAL IVP PRN (20:02)
[2018-04-19 20:33] LABS: INR 1.2 (0.83-1.16)
[2018-04-19 20:34] LABS: PROTIME(PATIENT) 15.4 SEC (12.0-15.0)
--- NOTE | 2018-04-19 20:40 | PDGENHP ---
History & Physical Chief Complaint: urosepsis History of Present Illness: obstructive right ureteral stone with hydro and sepsis. Relevant Physical Exam: mild flank pain, borderline hypotensive, afebrile, non tachycardic. Cardiorespiratory Assessment: well perfused, rrr, nl wob
--- NOTE | 2018-04-19 20:40 | PDPROPOC ---
Sedation Plan of Care Sedation Plan of Care: vital signs stable, mental status noted, patient educated of risks, benefits, alternatives, patient can tolerate sedation ASA Classification: ASA 3 Planned drugs: fentanyl, midazolam Mallampati Score: Class 3 Mallampati Reference Image:
[2018-04-19] MEDS ORDERED: NOREPINEPHRINE BITARTRATE 4 MG in D5W 500 ML IV SCH (21:00)
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
[2018-04-19] MEDS ORDERED: SUGAMMADEX SODIUM 200 MG/2 ML VIAL IVP ONE (21:30)
[2018-04-19] MEDS ORDERED: PROPOFOL 200 MG/20 ML VIAL ONE (21:30)
[2018-04-19] MEDS ORDERED: fentaNYL 100 MCG/2 ML INJ ONE ×2 (21:30→23:07)
[2018-04-19] MEDS ORDERED: ROCURONIUM 50 MG/5 ML VIAL ONE (21:30)
--- NOTE | 2018-04-19 22:55 | PDRADPN ---
Radiology Procedure Note Date of Procedure: 04/19/18 Radiologist: Aditya Moreira Anesthesiologist: kobi Anesthesia: GET(General Endotracheal) Pre-op Diagnosis: obstructive urosepsis Post-op Diagnosis: same Indication: divert obstructed right shikha system Procedure: PCN Finding(s): Moderately dilated collecting system. obstructing 8mm calculus at prox-mid ureter. Also abnormal configuration of renal collecting system with stagnation of fluid in inferior system possibly due to a second stone obstructing the infundibulum. 8F PCN formed in the central collecting system. Inf/Abcess present in the surg proc area at time of surgery?: No EBL: Minimal Complications: none apparent Drains: Nephrostomy
[2018-04-19] MEDS ORDERED: IOPAMIDOL (ISOVUE-300) 100 ML BTL ONE (23:14)
[2018-04-19] MEDS ORDERED: HYDROmorphONE/DILAUDID 1 MG/ML INJ IVP PRN (23:18)
--- NOTE | 2018-04-19 23:20 | POSTANESTH ---
Post Anesthetic Evaluation Cardiovascular Status: Normal, Stable Respiratory Status: Normal, Stable Level of Consciousness/Mental Status: Mildly Sleepy, Arousable Pain Control: Adequate, Prn Tx Ordered Nausea/Vomiting Control: Adequate, Prn Tx Ordered Complications Possibly Related to Anesthesia: None Noted
[2018-04-19] MEDS: PHENAZOPYRIDINE HCL 100 MG TAB PO SCH (23:46)
[2018-04-20] MEDS: clonazePAM 0.5 MG TAB PO SCH ×5 (00:24→22:39)
[2018-04-20] MEDS: SENNOSIDES PO SCH ×6 (00:24→22:39)
[2018-04-20] MEDS: ZANAFLEX 4 MG PO SCH ×6 (00:24→22:39)
[2018-04-20] MEDS: HERBAL LAXATIVE PO SCH ×6 (00:24→22:39)
[2018-04-20] MEDS: morphINE SR 15 MG TAB PO SCH ×3 (00:24→22:37)
[2018-04-20] MEDS: morphINE 10 MG/0.5 ML UDSYR PO PRN (02:08)
[2018-04-20] MEDS: NS 1,000 ML IV SCH ×2 (02:14→16:26)
[2018-04-20] MEDS: ACETAMINOPHEN 325 MG TAB PO PRN (05:35)
[2018-04-20 05:45] LABS: PLATELET COUNT 72 10^3/uL (150-400)
[2018-04-20] MEDS: MEROPENEM 1 GM in NS 100 ML IV SCH ×3 (05:49→22:37)
[2018-04-20] MEDS: INSULIN 70/30 HUMAN 100 UNIT/ML SYR SC PRN (09:43)
[2018-04-20] MEDS: MICAFUNGIN NA 100 MG in NS 100 ML IV SCH (09:43)
[2018-04-20] MEDS: INSULIN LISPRO 100 UNIT/ML SC SCH ×3 (09:50→16:57)
--- NOTE | 2018-04-20 10:18 | HOSPPROG ---
Hospitalist Progress Note Assessment/Plan: # Complicated UTI with obstructive stone (Rt 8mm mid ureter obstructing stone s/ p pec neph 04/19) -cont abx per ID (merrem D#6) -Case discussed with Dr. Quintero who will see her in consultation to discuss definitive stone treatment # Suspect Health Care Acquired PNA -cont Merrem for now -encourage IS # Low platelets: could be due to above ID issues #Ecoli UTI: s/p aztreonam 5 days with minimal changes in symptoms #Katarina intertrigo : Significant less inflammation today. Continue micafungin for now #Vaginal pain and likely atrophic Vaginitis #HTN: -Hold Clonidine for now given hypotension #Pedal Edema. Lasix x 1 # acute on chronic pain/continuous narcotic use and dependency: complicating her care, will continue her OP regimen and work to avoid IV narcotics unless she is completely unable to take PO -on MS Contin and Roxanol # RSD: with pain "everywhere" and inability to ambulate due to this, as above # vaginal lesion: with what appears to be hidradenitis suppurativa but draining on it's own, no e/o surrounding cellulitis, continue usual management # anxiety: again complicating her care, has been behaviorally well controlled during this stay #DM with poor glucose control while inpatient -poor control is due to non compliance. She is refusing to take meds as ordered # IP status Transfer back to floor if hemodynamically stable Subjective: feels better today. reports productive cough. continues to have fevers Objective: Vital Signs Temp Pulse Resp BP Pulse Ox 36.7 C 68 14 95/57 L 96 04/20/18 09:00 04/20/18 09:00 04/20/18 09:00 04/20/18 09:00 04/20/18 09:00 Microbiology 04/19/18 08:35 Blood Panel (PCR) - Final Blood Escherichia Coli 04/15/18 17:35 Gram Stain - Final Vulva - Swab Laboratory Results 04/20/18 05:05 04/20/18 05:05 04/19/18 04/20/18 04/21/18 05:59 05:59 05:59 Intake Total 460 4906 Output Total 1300 Balance 460 3606 PT 15.4 SEC (12.0-15.0) H 04/19/18 20:05 INR 1.20 (0.83-1.16) H 04/19/18 20:05 - Physical Exam Constitutional: no apparent distress, appears nourished, not in pain Ears, Nose, Mouth, Throat: moist mucous membranes, hearing normal, ears appear normal, no oral mucosal ulcers Cardiovascular: regular rate and rhythym, no murmur, rub, or gallop Respiratory: no respiratory distress, reduced air movement, No expiratory wheeze , No rhonchi Gastrointestinal: normoactive bowel sounds, soft, non-tender abdomen, no palpable masses, No guarding, No rebound Genitourinary: other (nephrostomy in place darining bloody urine) ICD10 Worksheet Patient Problems: Problems Problem Status Onset Kidney stone Active Microscopic hematuria Active Recurrent cystitis Active Reflex sympathetic dystrophy Active Abdominal pain Acute Biliary colic Acute Bowel obstruction Acute Chronic pain Acute Flank pain, acute Acute History of reflex sympathetic dystrophy Acute Hyperglycemia Acute Narcotic withdrawal Acute Nausea and vomiting Acute UTI (urinary tract infection) Acute Volume depletion Acute Vomiting Acute
[2018-04-20] MEDS ORDERED: PROTOCOL MAGNESIUM 1 DOSE IV PRN (10:34)
[2018-04-20] MEDS ORDERED: MAGNESIUM SULF 2 GM/WATER 50 ML IV ONE (10:55)
[2018-04-20] MEDS: morphINE SR 15 MG TAB PO PRN (14:05)
[2018-04-20] MEDS ORDERED: NS 500 ML IV ONE (15:00)
--- NOTE | 2018-04-20 15:33 | SOAPPROG ---
SOAP Progress Note Assessment/Plan: Assessment: Kidney stone Active PCN in place and will address timing of attempting to remove stone. Plan: will discuss when pt is ready for surgical procedure with General Anesthesia 04/20/18 17:46 Subjective: reviewed charr Objective: Vital Signs Temp Pulse Resp BP Pulse Ox 37.1 C 75 14 96/81 H 96 04/20/18 13:57 04/20/18 15:00 04/20/18 13:57 04/20/18 15:00 04/20/18 13:57 Microbiology 04/19/18 08:35 Blood Panel (PCR) - Final Blood Escherichia Coli 04/15/18 17:35 Gram Stain - Final Vulva - Swab Laboratory Results 04/20/18 05:05 04/20/18 05:05 04/19/18 04/20/18 04/21/18 05:59 05:59 05:59 Intake Total 460 4906 500 Output Total 1300 Balance 460 3606 500 PT 15.4 SEC (12.0-15.0) H 04/19/18 20:05 INR 1.20 (0.83-1.16) H 04/19/18 20:05 ICD10 Worksheet Patient Problems: Problems Problem Status Onset Kidney stone Active Microscopic hematuria Active Recurrent cystitis Active Reflex sympathetic dystrophy Active Abdominal pain Acute Biliary colic Acute Bowel obstruction Acute Chronic pain Acute Flank pain, acute Acute History of reflex sympathetic dystrophy Acute Hyperglycemia Acute Narcotic withdrawal Acute Nausea and vomiting Acute UTI (urinary tract infection) Acute Volume depletion Acute Vomiting Acute
[2018-04-20] MEDS: LORazepam 2 MG/ML INJ IVP PRN ×2 (16:04→20:14)
[2018-04-20] MEDS: fentaNYL 100 MCG/2 ML INJ IV PRN ×2 (16:27→20:14)
--- NOTE | 2018-04-20 17:30 | PCMIDPN ---
Assessment/Plan: Assessment/Plan: * E coli sepsis associated with obstructing nephrolithiasis: Clinically improved post nephrostomy tube placement. Blood and urine culture showing growth of E coli. Previous isolate was butcher susceptible. Tolerating meropenem well to date. Await urologic input regarding stone removal which will be necessary prior to completion of antibiotic therapy given difficulty with antibiotic tolerance. * Intertrigo: Marked improvement with use of micafungin. Time spent, greater than 25 min, of which greater than half was spent in education/counseling/coordination of care related to E coli sepsis, nephrolithiasis, and intertrigo including plan of care. 04/20/18 17:27 Subjective: Clinical course reviewed noting development of sepsis with E coli bacteremia with associated obstructing nephrolithiasis. Patient now status post nephrostomy placement. Treatment continues with meropenem which she is tolerating well to date. Objective: Vital Signs Temp Pulse Resp BP Pulse Ox 37.3 C 82 15 141/74 H 96 04/20/18 15:54 04/20/18 15:54 04/20/18 15:54 04/20/18 15:54 04/20/18 15:54 Microbiology 04/19/18 08:35 Blood Panel (PCR) - Final Blood Escherichia Coli 04/15/18 17:35 Gram Stain - Final Vulva - Swab Laboratory Results 04/20/18 05:05 04/20/18 05:05 04/19/18 04/20/18 04/21/18 05:59 05:59 05:59 Intake Total 460 4906 500 Output Total 1300 Balance 460 3606 500 C-Reactive Protein 75.8 mg/L (<10.0) H 04/19/18 15:35 Meropenem # 2 Micafungin # 4 Blood cultures 2/2 E coli Urine culture greater than 100,000 E coli Temperature maximum 39.3 - Physical Exam General Appearance: alert, no apparent distress, non-toxic EENT: No scleral icterus Abdomen: non-tender, other (Bloody output in nephrostomy tube), No distended Skin: other (Intertrigo in inguinal folds markedly decreased bilaterally) ICD10 Worksheet Patient Problems: Problems Problem Status Onset Kidney stone Active Microscopic hematuria Active Recurrent cystitis Active Reflex sympathetic dystrophy Active Abdominal pain Acute Biliary colic Acute Bowel obstruction Acute Chronic pain Acute Flank pain, acute Acute History of reflex sympathetic dystrophy Acute Hyperglycemia Acute Narcotic withdrawal Acute Nausea and vomiting Acute UTI (urinary tract infection) Acute Volume depletion Acute Vomiting Acute
[2018-04-20] MEDS: PHENAZOPYRIDINE HCL 100 MG TAB PO SCH (22:37)
[2018-04-21] MEDS: LORazepam 2 MG/ML INJ IVP PRN ×5 (01:06→20:13)
[2018-04-21] MEDS: fentaNYL 100 MCG/2 ML INJ IV PRN ×5 (01:06→20:14)
[2018-04-21] MEDS: HERBAL LAXATIVE PO SCH ×4 (03:05→21:36)
[2018-04-21] MEDS: clonazePAM 0.5 MG TAB PO SCH ×4 (03:05→21:31)
[2018-04-21] MEDS: SENNOSIDES PO SCH ×4 (03:05→21:36)
[2018-04-21] MEDS: ZANAFLEX 4 MG PO SCH ×4 (03:05→21:37)
[2018-04-21] MEDS ORDERED: PROTOCOL POTASSIUM 1 DOSE MISC PRN (05:40)
[2018-04-21] MEDS ORDERED: POTASSIUM Cl (KCl) 50 ML IV ONE (05:41)
[2018-04-21] MEDS ORDERED: MAGNESIUM SULF 1 GM/DEXTROSE 100 ML IV ONE (05:41)
[2018-04-21] MEDS: morphINE SR 15 MG TAB PO SCH ×2 (05:47→21:31)
[2018-04-21] MEDS: MEROPENEM 1 GM in NS 100 ML IV SCH ×3 (05:58→22:54)
[2018-04-21] MEDS: MICAFUNGIN NA 100 MG in NS 100 ML IV SCH (09:39)
[2018-04-21] MEDS: INSULIN LISPRO 100 UNIT/ML SC SCH ×3 (09:39→17:35)
--- NOTE | 2018-04-21 09:44 | PCMIDPN ---
Assessment/Plan: # sepsis due to E coli bacteremia and right pyelonephritis: Clinical parameters much improved, back to baseline mental status # E coli bacteremia and right pyelonephritis related to obstruction from ureteral kidney stone. Due to the complexity of the disease will recheck blood cultures to assess for clearance of E coli bacteremia. Isolate on 04/08/2018 was butcher susceptible therefore meropenem likely active. Patient with multiple antibiotic allergies which limits step-down therapy. --continue meropenem --recheck blood cultures --assess timing of removal of kidney stone # Low platelets: could be due to above ID issues # Multiple antibiotic allergy: Appears to be tolerating meropenem for now #Katarina intertrigo : Continued remarkable improvement on micafungin. Cultures from these areas are now growing yeast and awaiting final identification. Clinically suspect azole resistance, tentatively plan 7-10 days of micafungin meds Micafungin 100 mg IV daily, # 5 Meropenem 1 g IV Q 8, #3 Microbiology 04/19 urine culture E coli 04/19 blood cultures (2 sets) E coli 04/08 urine culture butcher susceptible E coli 04/17 groin and rectal swab: Yeast, id pending Subjective: Patient feeling significantly improved with decreased groin pain Still feels a little foggy at bedside Complaining of feeling weak Objective: Vital Signs Temp Pulse Resp BP Pulse Ox 37.2 C 62 16 167/91 H 94 04/21/18 07:28 04/21/18 07:28 04/21/18 07:28 04/21/18 07:28 04/21/18 07:28 Microbiology 04/19/18 08:35 Blood Panel (PCR) - Final Blood Escherichia Coli 04/19/18 10:48 Urine Culture - Final Unspecified Escherichia Coli 04/15/18 17:35 Gram Stain - Final Vulva - Swab Laboratory Results 04/21/18 04:50 04/21/18 04:50 04/20/18 04/21/18 04/22/18 05:59 05:59 05:59 Intake Total 4906 2959 Output Total 1300 1470 Balance 3606 1489 C-Reactive Protein 75.8 mg/L (<10.0) H 04/19/18 15:35 - Physical Exam General Appearance: alert, obese, non-toxic EENT: pale conjunctiva, No thrush Respiratory: lungs clear, No accessory muscle use Neck: supple Cardiac/Chest: regular rate, rhythm Extremities: No pedal edema Abdomen: normal bowel sounds, non-tender, soft, other (Ostomy LLQ pink with small amt stool in bag) Pelvic Exam: woods (External female Woods; right nephrostomy tube with blood- tinged urine), other (Almost complete resolution of intertrigo) Skin: pallor, No rash Neuro/Psych: alert, normal mood/affect - Line/s LUE PICC Lines: No drainage, No erythema - Time Spent With Patient Time Spent with Patient: greater than 35 minutes Time Spent with Patient: Greater than 35 minutes spent on this patients care, greater than 50% of time spent counseling, educating, and coordinating care regarding the above mentioned plan. ICD10 Worksheet Patient Problems: Problems Problem Status Onset Kidney stone Active Microscopic hematuria Active Recurrent cystitis Active Reflex sympathetic dystrophy Active Abdominal pain Acute Biliary colic Acute Bowel obstruction Acute Chronic pain Acute Flank pain, acute Acute History of reflex sympathetic dystrophy Acute Hyperglycemia Acute Narcotic withdrawal Acute Nausea and vomiting Acute UTI (urinary tract infection) Acute Volume depletion Acute Vomiting Acute
--- NOTE | 2018-04-21 14:38 | HOSPPROG ---
Hospitalist Progress Note Assessment/Plan: # Complicated UTI with obstructive stone (Rt 8mm mid ureter obstructing stone s/ p pec neph 04/19) -cont abx per ID (merrem D#7) -Case discussed with Dr. Quintero who will see her in consultation to discuss definitive stone treatment # Suspect Health Care Acquired PNA -cont Merrem for now -encourage IS # Low platelets: could be due to above ID issues -cont to monitor # constipation -bowel protocol start 04/21/18 #Katarina intertrigo : Significant less inflammation today. Continue micafungin for now #Vaginal pain and likely atrophic Vaginitis #HTN: -cont to hold Clonidine for now #Pedal Edema # acute on chronic pain/continuous narcotic use and dependency: complicating her care, will continue her OP regimen and work to avoid IV narcotics unless she is completely unable to take PO -on MS Contin and Roxanol # RSD: with pain "everywhere" and inability to ambulate due to this, as above # vaginal lesion: with what appears to be hidradenitis suppurativa but draining on it's own, no e/o surrounding cellulitis, continue usual management # anxiety: again complicating her care, has been behaviorally well controlled during this stay #DM with poor glucose control while inpatient -poor control is due to non compliance. She is refusing to take meds as ordered # IP status Objective: Vital Signs Temp Pulse Resp BP Pulse Ox 36.8 C 61 18 135/77 H 93 04/21/18 12:00 04/21/18 12:00 04/21/18 12:00 04/21/18 12:00 04/21/18 12:00 Microbiology 04/19/18 08:35 Blood Culture - Final Blood Escherichia Coli Blood Panel (PCR) - Final Escherichia Coli 04/19/18 10:15 Blood Culture - Final Blood Escherichia Coli 04/19/18 10:48 Urine Culture - Final Unspecified Escherichia Coli 04/15/18 17:35 Gram Stain - Final Vulva - Swab Laboratory Results 04/21/18 04:50 04/21/18 04:50 04/20/18 04/21/18 04/22/18 05:59 05:59 05:59 Intake Total 4906 2959 Output Total 1300 1470 Balance 3606 1489 PT 15.4 SEC (12.0-15.0) H 04/19/18 20:05 INR 1.20 (0.83-1.16) H 04/19/18 20:05 - Physical Exam Constitutional: no apparent distress, appears nourished, not in pain Cardiovascular: regular rate and rhythym, no murmur, rub, or gallop Respiratory: no respiratory distress, no rales or rhonchi, clear to auscultation Gastrointestinal: normoactive bowel sounds, soft, non-tender abdomen, no palpable masses, distension (mild) Skin: no rashes or abrasions, no fluctuance, no induration ICD10 Worksheet Patient Problems: Problems Problem Status Onset Nausea and vomiting Acute Reflex sympathetic dystrophy Active Kidney stone Active Microscopic hematuria Active Recurrent cystitis Active Abdominal pain Acute Narcotic withdrawal Acute Chronic pain Acute Vomiting Acute Flank pain, acute Acute UTI (urinary tract infection) Acute Biliary colic Acute Bowel obstruction Acute Hyperglycemia Acute Volume depletion Acute History of reflex sympathetic dystrophy Acute
[2018-04-21] MEDS ORDERED: LACTULOSE 20 GM/30 ML UDCUP PO PRN (14:41)
[2018-04-21] MEDS ORDERED: BISACODYL 10 MG SUPP PR PRN (14:41)
[2018-04-21] MEDS ORDERED: POLYETHYLENE GLYCOL 3350 17 GM PKT PO PRN (14:41)
[2018-04-21] MEDS ORDERED: MAGNESIUM HYDROXIDE 30 ML UDCUP PO PRN (14:41)
[2018-04-21] MEDS: NS 1,000 ML IV SCH (14:46)
--- NOTE | 2018-04-21 14:50 | SOAPPROG ---
[facility] Progress Note Assessment/Plan: Assessment: right ureteral stone urosepsis Plan: Have reviewed images with patient and after discussion of options, recommend ureteroscopy for stone removal. Consent reviewed and left with patient. Risk, benefits discussed. Planned for OR Thurs 11am 04/21/18 14:48 Subjective: right flank pain Objective: Vital Signs Temp Pulse Resp BP Pulse Ox 36.8 C 61 18 135/77 H 93 04/21/18 12:00 04/21/18 12:00 04/21/18 12:00 04/21/18 12:00 04/21/18 12:00 Microbiology 04/19/18 08:35 Blood Culture - Final Blood Escherichia Coli Blood Panel (PCR) - Final Escherichia Coli 04/19/18 10:15 Blood Culture - Final Blood Escherichia Coli 04/19/18 10:48 Urine Culture - Final Unspecified Escherichia Coli 04/15/18 17:35 Gram Stain - Final Vulva - Swab Laboratory Results 04/21/18 04:50 04/21/18 04:50 04/20/18 04/21/18 04/22/18 05:59 05:59 05:59 Intake Total 4906 2959 Output Total 1300 1470 Balance 3606 1489 PT 15.4 SEC (12.0-15.0) H 04/19/18 20:05 INR 1.20 (0.83-1.16) H 04/19/18 20:05 Physical Exam - Physical Exam General Appearance: alert, no apparent distress Respiratory: normal breath sounds, other (on ) Cardiac/Chest: regular rate, rhythm Abdomen: distended, other (colostomy, right abd ttp) Skin: normal color, warm/dry Neuro/Psych: no motor/sensory deficits, alert ICD10 Worksheet Patient Problems: Problems Problem Status Onset Kidney stone Active Microscopic hematuria Active Recurrent cystitis Active Reflex sympathetic dystrophy Active Abdominal pain Acute Biliary colic Acute Bowel obstruction Acute Chronic pain Acute Flank pain, acute Acute History of reflex sympathetic dystrophy Acute Hyperglycemia Acute Narcotic withdrawal Acute Nausea and vomiting Acute UTI (urinary tract infection) Acute Volume depletion Acute Vomiting Acute
[2018-04-21] MEDS: PHENAZOPYRIDINE HCL 100 MG TAB PO SCH (21:32)
[2018-04-21] MEDS: SENNOSIDES/DOCUSATE SODIUM TAB PO SCH (21:32)
[2018-04-21] MEDS ORDERED: POTASSIUM CL 10 MEQ TAB PO ONE (23:46)
[2018-04-22] MEDS: LORazepam 2 MG/ML INJ IVP PRN ×5 (00:26→17:45)
[2018-04-22] MEDS: fentaNYL 100 MCG/2 ML INJ IV PRN ×5 (00:27→17:58)
[2018-04-22] MEDS: clonazePAM 0.5 MG TAB PO SCH ×4 (01:57→22:57)
[2018-04-22] MEDS: ZANAFLEX 4 MG PO SCH ×5 (01:57→22:56)
[2018-04-22] MEDS: HERBAL LAXATIVE PO SCH ×5 (01:58→22:57)
[2018-04-22] MEDS: SENNOSIDES PO SCH ×5 (01:58→22:57)
[2018-04-22] MEDS: morphINE SR 15 MG TAB PO SCH ×2 (05:33→22:56)
[2018-04-22] MEDS: MEROPENEM 1 GM in NS 100 ML IV SCH ×3 (05:41→22:55)
[2018-04-22] MEDS ORDERED: MAGNESIUM SULF 1 GM/DEXTROSE 100 ML IV ONE (07:38)
[2018-04-22] MEDS: INSULIN LISPRO 100 UNIT/ML SC SCH ×3 (08:15→17:57)
[2018-04-22] MEDS: SENNOSIDES/DOCUSATE SODIUM TAB PO SCH ×3 (08:19→22:30)
[2018-04-22] MEDS: LORazepam 0.5 MG TAB PO PRN (08:50)
[2018-04-22] MEDS: NS 1,000 ML IV SCH (10:32)
[2018-04-22] MEDS: MICAFUNGIN NA 100 MG in NS 100 ML IV SCH ×2 (10:32→17:50)
--- NOTE | 2018-04-22 11:52 | HOSPPROG ---
Hospitalist Progress Note Assessment/Plan: 57 yo F with RSD/chronic pain/multiple allergies admitted with UTI. Today is my first encounter with the patient, chart reviewed. # sepsis due to E coli bacteremia and right pyelonephritis: -on Merrem day #8 -patient has multiple antibiotic allergies #pyelonephritis is r/t obstruction from ureteral kidney stone -seen by urology and the plan is ureteroscopy morning # Low platelets: could be due to above ID issues # Multiple antibiotic allergy: tolerating meropenem #Katarina intertrigo -on micafungin (plan is treatment 7-10 days) # Suspect Health Care Acquired PNA -cont Merrem for now -encourage IS # Low platelets: could be due to above ID issues -cont to monitor # constipation -bowel protocol start 04/21/18 #Vaginal pain and likely atrophic Vaginitis #HTN: -Clonidine resumed # acute on chronic pain/continuous narcotic use and dependency: complicating her care -on MS Contin and Roxanol & iv fentanyl -patient crying during my evaluation, will tx to ICU and place on Precedex gtt -she needs closer monitoring with high dose narcotics and would benefit from Precedex -did a trial of ibuprofen, she can't use Toradol (she says this affects her vision) -asked for Integrative support to see Sherri to see if there are other options to help address her pain # RSD: with pain "everywhere" and inability to ambulate due to this, as above # anxiety: complicating her care #DM with poor glucose control while inpatient -poor control is due to non compliance #plan: reviewed the patient's care with Dr Baca and Alanna FREEDMAN with urology. Ureteroscope tomorrow, will initiate Precedex, she is very anxious and pain is high. Spoke with charge nurse and patient will go to step down ICU for close monitoring. Dr Baca will order labs for the a.m. Subjective: Sherri is crying and saying pain is '10' Objective: Vital Signs Temp Pulse Resp BP Pulse Ox 37.6 C 91 18 170/94 H 97 04/22/18 11:16 04/22/18 11:16 04/22/18 11:16 04/22/18 11:16 04/22/18 11:16 Microbiology 04/15/18 17:35 Gram Stain - Final Vulva - Swab 04/19/18 08:35 Blood Culture - Final Blood Escherichia Coli Blood Panel (PCR) - Final Escherichia Coli 04/19/18 10:15 Blood Culture - Final Blood Escherichia Coli 04/19/18 10:48 Urine Culture - Final Unspecified Escherichia Coli Laboratory Results 04/21/18 04:50 04/22/18 05:50 04/21/18 04/22/18 04/23/18 05:59 05:59 05:59 Intake Total 2959 1330 Output Total 1470 2500 Balance 1489 -1170 PT 15.4 SEC (12.0-15.0) H 04/19/18 20:05 INR 1.20 (0.83-1.16) H 04/19/18 20:05 - Physical Exam Constitutional: chronically ill appearing, obese Eyes: PERRL Ears, Nose, Mouth, Throat: hearing normal Cardiovascular: regular rate and rhythym Respiratory: no respiratory distress, reduced air movement Gastrointestinal: tenderness Skin: warm Neurologic: AAOx3 Psychiatric: anxious ICD10 Worksheet Patient Problems: Problems Problem Status Onset Kidney stone Active Microscopic hematuria Active Recurrent cystitis Active Reflex sympathetic dystrophy Active Abdominal pain Acute Biliary colic Acute Bowel obstruction Acute Chronic pain Acute Flank pain, acute Acute History of reflex sympathetic dystrophy Acute Hyperglycemia Acute Narcotic withdrawal Acute Nausea and vomiting Acute UTI (urinary tract infection) Acute Volume depletion Acute Vomiting Acute
--- NOTE | 2018-04-22 12:36 | SOAPPROG ---
SO[facility] Progress Note Assessment/Plan: Assessment/Plan: right ureteral stone-- Surgery planned for tomorrow AM. Consent has been reviewed and signed. urosepsis-- Continue current antibiotics, stone to be treated tomorrow Pain- acute on chronic pain. Discussed with RN, reviewed Cristina's note and agree with pain control plan 04/22/18 12:32 Subjective: Pain, worse on right mid abdomen wrapping to right abd Objective: Vital Signs Temp Pulse Resp BP Pulse Ox 37.6 C 91 18 170/94 H 97 04/22/18 11:16 04/22/18 11:16 04/22/18 11:16 04/22/18 11:16 04/22/18 11:16 Microbiology 04/15/18 17:35 Gram Stain - Final Vulva - Swab 04/19/18 08:35 Blood Culture - Final Blood Escherichia Coli Blood Panel (PCR) - Final Escherichia Coli 04/19/18 10:15 Blood Culture - Final Blood Escherichia Coli 04/19/18 10:48 Urine Culture - Final Unspecified Escherichia Coli Laboratory Results 04/21/18 04:50 04/22/18 05:50 04/21/18 04/22/18 04/23/18 05:59 05:59 05:59 Intake Total 2959 1330 Output Total 1470 2500 Balance 1489 -1170 PT 15.4 SEC (12.0-15.0) H 04/19/18 20:05 INR 1.20 (0.83-1.16) H 04/19/18 20:05 Physical Exam - Physical Exam General Appearance: moderate distress Respiratory: No respiratory distress Abdomen: other (TTP diffusely ) ICD10 Worksheet Patient Problems: Problems Problem Status Onset Kidney stone Active Microscopic hematuria Active Recurrent cystitis Active Reflex sympathetic dystrophy Active Abdominal pain Acute Biliary colic Acute Bowel obstruction Acute Chronic pain Acute Flank pain, acute Acute History of reflex sympathetic dystrophy Acute Hyperglycemia Acute Narcotic withdrawal Acute Nausea and vomiting Acute UTI (urinary tract infection) Acute Volume depletion Acute Vomiting Acute
--- NOTE | 2018-04-22 14:56 | PCMIDPN ---
Assessment/Plan: # sepsis due to E coli bacteremia and right pyelonephritis: Clinical parameters normalized. Interestingly, no leukocytosis w acute events. # E coli bacteremia and right pyelonephritis related to obstruction from ureteral kidney stone. Increased R sided pain likely attributable to stone migration --discussed with Urology, no surgical openings today --continue meropenem # Low platelets: could be due to above ID issues --recheck CBC in a.m. # Multiple antibiotic allergy: Appears to be tolerating meropenem for now #Katarina intertrigo : Remarkable improvement on micafungin. Cultures from these areas are now growing yeast awaiting ID. Clinically suspect azole resistance, tentatively plan 7 days of micafungin, will stop after dose 04/23. Did not discuss with Sherri today bc she was in so much pain. meds Micafungin 100 mg IV daily, # 6 Meropenem 1 g IV Q 8, #4 Microbiology 04/19 urine culture E coli 04/19 blood cultures (2 sets) E coli 04/08 urine culture butcher susceptible E coli 04/17 groin and rectal swab: Yeast, id pending at bedside Subjective: severe R side/abdominal pain different than her RSD pain. Sl improvement w fentanyl + ativan Objective: Vital Signs Temp Pulse Resp BP Pulse Ox 37.6 C 91 18 170/94 H 97 04/22/18 11:16 04/22/18 11:16 04/22/18 11:16 04/22/18 11:16 04/22/18 11:16 Microbiology 04/15/18 17:35 Gram Stain - Final Vulva - Swab 04/19/18 08:35 Blood Culture - Final Blood Escherichia Coli Blood Panel (PCR) - Final Escherichia Coli 04/19/18 10:15 Blood Culture - Final Blood Escherichia Coli Laboratory Results 04/21/18 04:50 04/22/18 05:50 04/21/18 04/22/18 04/23/18 05:59 05:59 05:59 Intake Total 2959 1330 Output Total 1470 2500 Balance 1489 -1170 C-Reactive Protein 75.8 mg/L (<10.0) H 04/19/18 15:35 - Physical Exam General Appearance: alert, apparent distress, obese, non-toxic EENT: pale conjunctiva, No thrush Respiratory: lungs clear, No accessory muscle use Cardiac/Chest: regular rate, rhythm Extremities: No pedal edema Abdomen: soft, other (R side and abdominal pain to palpation) Skin: diaphoresis, No rash Neuro/Psych: alert, oriented x 3, other (aggitated due to pain) - Time Spent With Patient Time Spent with Patient: greater than 35 minutes (care coordinated w hospitalist and urology, concern over degree of her pain) Time Spent with Patient: Greater than 35 minutes spent on this patients care, greater than 50% of time spent counseling, educating, and coordinating care regarding the above mentioned plan. ICD10 Worksheet Patient Problems: Problems Problem Status Onset Kidney stone Active Microscopic hematuria Active Recurrent cystitis Active Reflex sympathetic dystrophy Active Abdominal pain Acute Biliary colic Acute Bowel obstruction Acute Chronic pain Acute Flank pain, acute Acute History of reflex sympathetic dystrophy Acute Hyperglycemia Acute Narcotic withdrawal Acute Nausea and vomiting Acute UTI (urinary tract infection) Acute Volume depletion Acute Vomiting Acute
[2018-04-22] MEDS ORDERED: IBUPROFEN 200 MG TAB PO PRN (15:18)
[2018-04-22] MEDS ORDERED: IBUPROFEN 200 MG TAB PO ONE (15:18)
--- NOTE | 2018-04-22 16:17 | ASMTCMCOM ---
CM Note CM Note Notes: Spoke w/[facility] and RN, pt lives with who helps with her ADLs. Pt takes large amounts of narcotics, she is going for kidney stone removal tomorrow. DC needs unclear, may needs home health, STACY w/f. DC Plan: TBD Date Signed: 04/22/2018 04:16 PM Electronically Signed By:Gladys Martinez RN
[2018-04-22] MEDS ORDERED: DEXMEDETOMIDINE HCL 400 MCG in NS 100 ML IV SCH (16:30)
[2018-04-22] MEDS: DEXMEDETOMIDINE IN 0.9 % NACL 100 ML IV SCH ×2 (17:45→22:21)
[2018-04-22] MEDS: PHENAZOPYRIDINE HCL 100 MG TAB PO SCH (22:31)
[2018-04-23] MEDS: DEXMEDETOMIDINE IN 0.9 % NACL 100 ML IV SCH ×5 (03:17→22:27)
[2018-04-23] MEDS: SENNOSIDES PO SCH ×4 (04:28→22:16)
[2018-04-23] MEDS: HERBAL LAXATIVE PO SCH ×4 (04:28→22:16)
[2018-04-23] MEDS: ZANAFLEX 4 MG PO SCH ×4 (04:29→22:18)
[2018-04-23] MEDS: clonazePAM 0.5 MG TAB PO SCH ×4 (04:29→22:16)
[2018-04-23 06:10] LABS: PLATELET COUNT 84 10^3/uL (150-400)
[2018-04-23] MEDS: MEROPENEM 1 GM in NS 100 ML IV SCH ×3 (06:39→22:16)
[2018-04-23] MEDS: morphINE SR 15 MG TAB PO SCH ×2 (06:45→22:16)
[2018-04-23] MEDS: MICAFUNGIN NA 100 MG in NS 100 ML IV SCH (08:37)
[2018-04-23] MEDS: INSULIN LISPRO 100 UNIT/ML SC SCH ×3 (08:37→17:19)
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
[2018-04-23] MEDS ORDERED: PROPOFOL 200 MG/20 ML VIAL ONE (10:53)
[2018-04-23] MEDS ORDERED: ROCURONIUM 50 MG/5 ML VIAL ONE ×2 (10:53→10:54)
[2018-04-23] MEDS ORDERED: IOPAMIDOL (ISOVUE-M 300) 15 ML VIAL ONE (10:54)
[2018-04-23] MEDS ORDERED: fentaNYL 100 MCG/2 ML INJ ONE ×2 (10:55→13:03)
--- NOTE | 2018-04-23 11:28 | PCMIDPN ---
Assessment/Plan: Assessment/Plan: * E coli sepsis associated with obstructing nephrolithiasis: Clinically improved post nephrostomy tube placement. Blood and urine culture showing growth of E coli. Continues to tolerate meropenem. Plans for stone removal later this a.m.. Plan approximately 7 days of IV antibiotic therapy post stone removal. * Intertrigo: Marked improvement with use of micafungin. Will discontinue micafungin after 7 days and observe for recurrence which she will be at risk for given continued need for broad-spectrum antibiotic therapy. * Thrombocytopenia: Likely related to acute sepsis. Time spent, greater than 25 min, of which greater than half was spent in education/counseling/coordination of care related to E coli sepsis, nephrolithiasis, and intertrigo including plan of care and participation in ICU rounds. 04/23/18 11:26 04/23/18 11:27 04/23/18 11:28 Subjective: Patient with much better pain control on Precedex. Objective: Vital Signs Temp Pulse Resp BP Pulse Ox 36.7 C 61 32 H 160/94 H 96 04/23/18 09:32 04/23/18 10:33 04/23/18 10:33 04/23/18 10:33 04/23/18 10:33 Laboratory Results 04/23/18 05:20 04/23/18 05:20 04/22/18 04/23/18 04/24/18 05:59 05:59 05:59 Intake Total 1330 1150.2 Output Total 2500 1820 Balance -1170 -669.8 C-Reactive Protein 75.8 mg/L (<10.0) H 04/19/18 15:35 Micafungin # 7 Meropenem # 5 - Physical Exam General Appearance: non-toxic, other (Sleepy but arousable) EENT: No scleral icterus, No conjunctival petechiae Cardiac/Chest: regular rate, rhythm Abdomen: non-tender, No distended - Line/s LUE PICC Lines: No drainage, No erythema ICD10 Worksheet Patient Problems: Problems Problem Status Onset Kidney stone Active Microscopic hematuria Active Recurrent cystitis Active Reflex sympathetic dystrophy Active Abdominal pain Acute Biliary colic Acute Bowel obstruction Acute Chronic pain Acute Flank pain, acute Acute History of reflex sympathetic dystrophy Acute Hyperglycemia Acute Narcotic withdrawal Acute Nausea and vomiting Acute UTI (urinary tract infection) Acute Volume depletion Acute Vomiting Acute
[2018-04-23] MEDS ORDERED: NALOXONE HCL 0.4 MG/ML INJ IVP PRN (12:14)
--- NOTE | 2018-04-23 12:44 | POSTOPPROG ---
Post Op Note Date of Operation: 04/23/18 Surgeon: Ashkan Quintero Anesthesiologist: Jonah Anesthesia: GET(General Endotracheal) Pre-op Diagnosis: right renal stone Procedure: ureteroscopy stone removal Findings: stone Inf/Abcess present in the surg proc area at time of surgery?: No EBL: Minimal Specimen(s): stone for analysis--dictated op note
--- NOTE | 2018-04-23 12:54 | GOP ---
[f rep st] OPERATIVE REPORT DATE OF OPERATION: 04/23/2018 SURGEON: Ashkan Quintero MD PREOPERATIVE DIAGNOSIS: Right proximal ureteral calculus, renal pelvis calculus. POSTOPERATIVE DIAGNOSIS: Right proximal ureteral calculus, renal pelvis calculus. PROCEDURE PERFORMED: Cystoscopy, retrograde ureteral pyelogram, placement of ureteral access sheath, fluoroscopy, and laser lithotripsy. A total of 4700+ joules were utilized to fragment the stone and extract it. FINDINGS: DESCRIPTION OF PROCEDURE: After undergoing general anesthesia, appropriate time-out, being prepped a nd draped in normal sterile fashion with non-allogeneic prep, the scope was passed into her bladder a nd the right ureteral orifice was cannulated and identified the stone in proximal ureter. Nephrostom y tube was in place. At that point, I was able to pass a guidewire up and a ureteral access sheath w as passed up to just below the stone. The stone was dislodged into the renal pelvis, and then with t he Holmium laser 200 micron fiber and flexible scope, I was able to fragment the stone in multiple pi eces and extract the pieces so that at the end, there were no visual pieces radiographically or endos copically. She has a nephrostomy tube in so elected not to place a ureteral stent, and we terminated the procedure. She had a Uro-Jet placed in the urethra and bladder for local anesthetic. She tasha ated the procedure well and will be transferred back to the ICU. /[id number]/MODL
[2018-04-23] MEDS: fentaNYL 100 MCG/2 ML INJ IVP PRN ×2 (13:06→13:24)
[2018-04-23] MEDS: fentaNYL 100 MCG/2 ML INJ IV PRN ×2 (14:13→20:55)
[2018-04-23] MEDS: LORazepam 2 MG/ML INJ IVP PRN (14:13)
--- NOTE | 2018-04-23 14:44 | HOSPPROG ---
Hospitalist Progress Note Assessment/Plan: 57 yo F with RSD/chronic pain/multiple allergies admitted with UTI # E coli pyelonephritis with obstructing nephrolithiasis: sp nephrostomy tube placement yesterday and ureteroscopy with stone removal today. Per ID will need 7 days of abx approximately post stone removal, continued on merrem which she is tolerating despite multiple allergies # e coli bacteremia: as above # sepsis: 2/2 above, resolving # thrombocytopenia: in setting of sepsis, has been stable # acute on chronic pain/continuous narcotic use and dependency: complicating her care, now with prolonged stay and need for multiple interventions pain has significantly escalated, precedex gtt on board to help with anxiety around pain , fentanyl IV in addition to her home medications # anxiety: as above # RSD: underlying her chronic pain issues as well as her immobility # ICU status, high risk requiring high dose IV opiates Care plan reviewed with Dr. Tomas as above. Further hx obtained from patients present at bedside. Subjective: no significant overnight events, patient currently in significant pain/crying , states pain is due to both her urinary issues as well as transferring her from OR to her room Objective: Vital Signs Temp Pulse Resp BP Pulse Ox 36.4 C 61 14 153/94 H 93 04/23/18 13:18 04/23/18 13:52 04/23/18 13:52 04/23/18 13:52 04/23/18 13:52 Laboratory Results 04/23/18 05:20 04/23/18 05:20 04/22/18 04/23/18 04/24/18 05:59 05:59 05:59 Intake Total 1330 1150.2 410 Output Total 2500 1820 650 Balance -1170 -669.8 -240 PT 15.4 SEC (12.0-15.0) H 04/19/18 20:05 INR 1.20 (0.83-1.16) H 04/19/18 20:05 awake alert tearful anicteric op clear rrr no mrg cta b soft obese nt nd no cce ttp diffusely on lower extremities oriented anxious tearful ICD10 Worksheet Patient Problems: Problems Problem Status Onset Kidney stone Active Microscopic hematuria Active Recurrent cystitis Active Reflex sympathetic dystrophy Active Abdominal pain Acute Biliary colic Acute Bowel obstruction Acute Chronic pain Acute Flank pain, acute Acute History of reflex sympathetic dystrophy Acute Hyperglycemia Acute Narcotic withdrawal Acute Nausea and vomiting Acute UTI (urinary tract infection) Acute Volume depletion Acute Vomiting Acute
--- NOTE | 2018-04-23 16:32 | PDINTPN ---
Swatch Cutter Progress Note Assessment/Plan: Assessment: Pyelonephritis: Due to E. Coli. S/P nephrostomy tube placement yesterday with stone removal today. On Meropenem. Sepsis: E.Coli bacteremia. On Meropenem. Clinically improved, no presors, VSS. Chronic Pain: Escalated in hospital. On Precedex, Fentanyl IV in addition to home meds. RSD: On chronic narcotics. Hyperglycemia: Mild Plan:Continue antibiotics. Wean Precedex/narcotics as tolerated. Keep in SDU for now, hopefully can move to [facility] in next 1-2 days. 04/23/18 16:26 Subjective: CO back pain and right leg pain due to nephrolithiasis, persists after surgery. Fair appetite, taking small amounts of PO. Objective: Vital Signs Temp Pulse Resp BP Pulse Ox 36.4 C 61 14 153/94 H 93 04/23/18 13:18 04/23/18 13:52 04/23/18 13:52 04/23/18 13:52 04/23/18 13:52 Laboratory Results 04/23/18 05:20 04/23/18 05:20 04/22/18 04/23/18 04/24/18 05:59 05:59 05:59 Intake Total 1330 1150.2 410 Output Total 2500 1820 650 Balance -1170 -669.8 -240 PT 15.4 SEC (12.0-15.0) H 04/19/18 20:05 INR 1.20 (0.83-1.16) H 04/19/18 20:05 Physical Exam - Physical Exam General Appearance: alert, no apparent distress EENT: normal ENT inspection Neck: normal inspection Respiratory: lungs clear, normal breath sounds Cardiac/Chest: normal peripheral pulses, regular rate, rhythm, No edema Abdomen: normal bowel sounds, non-tender Skin: normal color, warm/dry Extremities: normal inspection Neuro/Psych: alert, normal mood/affect ICD10 Worksheet Patient Problems: Problems Problem Status Onset Kidney stone Active Microscopic hematuria Active Recurrent cystitis Active Reflex sympathetic dystrophy Active Abdominal pain Acute Biliary colic Acute Bowel obstruction Acute Chronic pain Acute Flank pain, acute Acute History of reflex sympathetic dystrophy Acute Hyperglycemia Acute Narcotic withdrawal Acute Nausea and vomiting Acute UTI (urinary tract infection) Acute Volume depletion Acute Vomiting Acute
[2018-04-23] MEDS: SENNOSIDES/DOCUSATE SODIUM TAB PO SCH (20:55)
[2018-04-23] MEDS: PHENAZOPYRIDINE HCL 100 MG TAB PO SCH (20:55)
[2018-04-24] MEDS: clonazePAM 0.5 MG TAB PO SCH ×4 (01:40→22:07)
[2018-04-24] MEDS: fentaNYL 100 MCG/2 ML INJ IV PRN ×6 (01:40→21:07)
[2018-04-24] MEDS: SENNOSIDES PO SCH ×4 (01:41→21:09)
[2018-04-24] MEDS: ZANAFLEX 4 MG PO SCH ×4 (01:41→21:09)
[2018-04-24] MEDS: HERBAL LAXATIVE PO SCH ×4 (01:41→21:09)
[2018-04-24] MEDS: DEXMEDETOMIDINE IN 0.9 % NACL 100 ML IV SCH ×5 (01:50→20:00)
[2018-04-24] MEDS: morphINE SR 15 MG TAB PO SCH ×2 (05:10→22:07)
[2018-04-24] MEDS: MEROPENEM 1 GM in NS 100 ML IV SCH ×3 (05:12→22:07)
[2018-04-24] MEDS ORDERED: MAGNESIUM SULF 1 GM/DEXTROSE 100 ML IV ONE (06:44)
[2018-04-24] MEDS: INSULIN LISPRO 100 UNIT/ML SC SCH ×3 (08:11→17:51)
[2018-04-24] MEDS: SENNOSIDES/DOCUSATE SODIUM TAB PO SCH ×3 (08:12→21:08)
--- NOTE | 2018-04-24 08:51 | HOSPPROG ---
Hospitalist Progress Note Assessment/Plan: #E coli pyelonephritis with obstructing stone -s/p nephrost tube and stone removal (04/23). Cont Meropenem 7 days from stone removal #E coli bacteremia: positive cultures 04/19 (negative from 04/21) #Sepsis: resolved #Thrombocytopenia: due to acute illness. Stable #Acute on chronic pain with opioid dependence -suspect pain flared by procedure, being in med. Cont home medications, wean Precedex #Diet: regular #DVT ppx: SCDs #Disp: cont inpatient admission for IV abx, pain control. Transfer to floor once Precedex weaned off Time spent bedside with patient and : 35 min evaluating right back pain, reviewing labs, note. Case discussed with Dr. Dumont and Dr. Baca Subjective: "pain in right back" after being moved from bed for procedure Objective: Vital Signs Temp Pulse Resp BP Pulse Ox 36.6 C 53 L 16 192/87 H 98 04/24/18 07:44 04/24/18 07:44 04/24/18 07:44 04/24/18 07:44 04/24/18 07:44 Laboratory Results 04/23/18 05:20 04/24/18 06:00 04/23/18 04/24/18 04/25/18 05:59 05:59 05:59 Intake Total 1150.2 3689 Output Total 1820 2675 Balance -669.8 1014 PT 15.4 SEC (12.0-15.0) H 04/19/18 20:05 INR 1.20 (0.83-1.16) H 04/19/18 20:05 - Time Spent With Patient Time Spent with Patient: greater than 35 minutes Time Spent with Patient: Greater than 35 minutes spent on this patients care, greater than 50% of time spent counseling, educating, and coordinating care regarding the above mentioned plan. - Physical Exam Constitutional: no apparent distress, obese, uncomfortable Eyes: PERRL Ears, Nose, Mouth, Throat: moist mucous membranes Cardiovascular: regular rate and rhythym Respiratory: no respiratory distress Gastrointestinal: normoactive bowel sounds Genitourinary: other (right nephro tube in place. right lumbar paraspinal TTP) Skin: warm Neurologic: AAOx3, CN II-XII Intact Psychiatric: anxious ICD10 Worksheet Patient Problems: Problems Problem Status Onset Nausea and vomiting Acute Reflex sympathetic dystrophy Active Kidney stone Active Microscopic hematuria Active Recurrent cystitis Active Abdominal pain Acute Narcotic withdrawal Acute Chronic pain Acute Vomiting Acute Flank pain, acute Acute UTI (urinary tract infection) Acute Biliary colic Acute Bowel obstruction Acute Hyperglycemia Acute Volume depletion Acute History of reflex sympathetic dystrophy Acute
--- NOTE | 2018-04-24 08:52 | POSTANESTH ---
Post Anesthetic Evaluation Cardiovascular Status: Similar to Pre-Op Cond Respiratory Status: Similar to Pre-op Cond. Level of Consciousness/Mental Status: Can Participate in Eval Pain Control: Adequate, Prn Tx Ordered Nausea/Vomiting Control: Adequate, Prn Tx Ordered Complications Possibly Related to Anesthesia: None Noted
[2018-04-24] MEDS: LORazepam 2 MG/ML INJ IVP PRN ×4 (09:41→23:15)
--- NOTE | 2018-04-24 09:56 | PCMIDPN ---
Assessment/Plan: # sepsis due to E coli bacteremia and right pyelonephritis: Sepsis resolved # E coli bacteremia and right pyelonephritis related to obstruction from ureteral kidney stone. Stone removed yesterday without complication. Patient with present stent severe right flank and back pain at the L5 level. Nephrostomy tube still in place. Blood cultures have cleared, creatinine stable /normal --patient needs 7 more days of meropenem # Low platelets: Stable. Decline started before starting meropenem therefore doubt antibiotic effect # Multiple antibiotic allergies: Continues to tolerate meropenem #Katarina intertrigo : Resolved s/p 7 days micafungin. Now cultures are showing C albicans suspect reason for lack of response to fluconazole may have been due to inadequate dose in a patient 121 kg # origin of right back and flank pain not clear to me meds Meropenem 1 g IV Q 8, # 6 Microbiology 04/21 blood cultures (2 sets) NGTD 04/19 urine culture E coli 04/19 blood cultures (2 sets) E coli 04/08 urine culture butcher susceptible E coli 04/17 groin and rectal swab: C albicans at bedside Subjective: patient c/o R sided pain, some of pain localizes to L5, some more lateral, greater than baseline pain Objective: Vital Signs Temp Pulse Resp BP Pulse Ox 36.6 C 53 L 16 192/87 H 98 04/24/18 07:44 04/24/18 07:44 04/24/18 07:44 04/24/18 07:44 04/24/18 07:44 Laboratory Results 04/23/18 05:20 04/24/18 06:00 04/23/18 04/24/18 04/25/18 05:59 05:59 05:59 Intake Total 1150.2 3689 Output Total 1820 2675 Balance -669.8 1014 C-Reactive Protein 75.8 mg/L (<10.0) H 04/19/18 15:35 General Appearance: alert, less distressed than exam 2 days ago EENT: pale conjunctiva, No thrush Respiratory: lungs clear, No accessory muscle use Cardiac/Chest: Nacho Extremities: No pedal edema Abdomen: soft, R side and abdominal pain to palpation Skin: diaphoresis, No rash Neuro/Psych: alert, oriented x 3 LUE PICC c/d/i R nephrostomy with orange urine Groin: Intertrigo resolved - Time Spent With Patient Time Spent with Patient: greater than 35 minutes (Care coordinated with Dr. Georgiana Kafufman) Time Spent with Patient: Greater than 35 minutes spent on this patients care, greater than 50% of time spent counseling, educating, and coordinating care regarding the above mentioned plan. ICD10 Worksheet Patient Problems: Problems Problem Status Onset Kidney stone Active Microscopic hematuria Active Recurrent cystitis Active Reflex sympathetic dystrophy Active Abdominal pain Acute Biliary colic Acute Bowel obstruction Acute Chronic pain Acute Flank pain, acute Acute History of reflex sympathetic dystrophy Acute Hyperglycemia Acute Narcotic withdrawal Acute Nausea and vomiting Acute UTI (urinary tract infection) Acute Volume depletion Acute Vomiting Acute
[2018-04-24] MEDS ORDERED: ALTEPLASE 2 MG VIAL IVP ONE (11:25)
[2018-04-24] MEDS ORDERED: IOPAMIDOL (ISOVUE-300) 100 ML BTL ONE (12:46)
--- NOTE | 2018-04-24 12:58 | PDINTPN ---
Check Processor Progress Note Assessment/Plan: Assessment: Pyelonephritis: Due to E. Coli. S/P nephrostomy tube placement yesterday with stone removal today. On Meropenem. Sepsis: E.Coli bacteremia. On Meropenem. Clinically improved, no pressors, VSS. Repeat blood Cx negative. Chronic Pain: Escalated in hospital. On Precedex, Fentanyl IV in addition to home meds. RSD: On chronic narcotics. Hyperglycemia: Mild Plan:Continue antibiotics to complete 7 day course. Wean Precedex/narcotics as tolerated. Keep in SDU for now, hopefully can move to [facility] in next 1-2 days. 04/24/18 12:59 Subjective: C/O persistent acute on chronic back pain that she attributes to a bed transfer. Objective: Vital Signs Temp Pulse Resp BP Pulse Ox 36.9 C 57 L 16 123/79 H 92 04/24/18 12:00 04/24/18 12:00 04/24/18 12:00 04/24/18 12:00 04/24/18 12:00 Laboratory Results 04/23/18 05:20 04/24/18 06:00 04/23/18 04/24/18 04/25/18 05:59 05:59 05:59 Intake Total 1150.2 3689 Output Total 1820 2675 350 Balance -669.8 1014 -350 PT 15.4 SEC (12.0-15.0) H 04/19/18 20:05 INR 1.20 (0.83-1.16) H 04/19/18 20:05 Physical Exam - Physical Exam General Appearance: alert, no apparent distress EENT: normal ENT inspection Neck: normal inspection Respiratory: lungs clear, normal breath sounds Cardiac/Chest: normal peripheral pulses, regular rate, rhythm, No edema Abdomen: normal bowel sounds, non-tender Skin: normal color, warm/dry Extremities: normal inspection Neuro/Psych: alert, No normal mood/affect (flat) ICD10 Worksheet Patient Problems: Problems Problem Status Onset Kidney stone Active Microscopic hematuria Active Recurrent cystitis Active Reflex sympathetic dystrophy Active Abdominal pain Acute Biliary colic Acute Bowel obstruction Acute Chronic pain Acute Flank pain, acute Acute History of reflex sympathetic dystrophy Acute Hyperglycemia Acute Narcotic withdrawal Acute Nausea and vomiting Acute UTI (urinary tract infection) Acute Volume depletion Acute Vomiting Acute
--- NOTE | 2018-04-24 14:40 | ASMTCMCOM ---
CM Note CM Note Notes: Patient went for stone removal today and will need ABX for the next 7 days. Patient may need home health care but it's still too early to know. Patient is on chronic narcotics for pain control.CM available for any d/c needs that arise. Date Signed: 04/24/2018 02:39 PM Electronically Signed By:Veronica Beth LCSW
[2018-04-24] MEDS: PHENAZOPYRIDINE HCL 100 MG TAB PO SCH (21:08)
[2018-04-25] MEDS: DEXMEDETOMIDINE IN 0.9 % NACL 100 ML IV SCH ×3 (00:39→07:57)
[2018-04-25] MEDS: clonazePAM 0.5 MG TAB PO SCH ×4 (01:19→23:44)
[2018-04-25] MEDS: fentaNYL 100 MCG/2 ML INJ IV PRN ×2 (01:19→13:07)
[2018-04-25] MEDS: SENNOSIDES PO SCH ×4 (01:20→23:45)
[2018-04-25] MEDS: ZANAFLEX 4 MG PO SCH ×4 (01:20→23:45)
[2018-04-25] MEDS: HERBAL LAXATIVE PO SCH ×4 (01:20→23:45)
[2018-04-25] MEDS: LORazepam 2 MG/ML INJ IVP PRN ×4 (04:21→21:01)
[2018-04-25] MEDS: ACETAMINOPHEN 325 MG TAB PO PRN ×2 (04:21→12:15)
[2018-04-25] MEDS: MEROPENEM 1 GM in NS 100 ML IV SCH ×3 (05:47→23:39)
[2018-04-25] MEDS: morphINE SR 15 MG TAB PO SCH ×2 (05:47→23:45)
[2018-04-25] MEDS ORDERED: MAGNESIUM SULF 2 GM/WATER 50 ML IV ONE (06:01)
[2018-04-25] MEDS: POTASSIUM Cl (KCl) 50 ML IV SCH ×3 (07:44→07:51)
[2018-04-25] MEDS: INSULIN LISPRO 100 UNIT/ML SC SCH ×3 (09:23→18:33)
[2018-04-25] MEDS: SENNOSIDES/DOCUSATE SODIUM TAB PO SCH ×2 (09:24→22:25)
--- NOTE | 2018-04-25 10:49 | PCMIDPN ---
Assessment/Plan: # sepsis due to E coli bacteremia and right pyelonephritis: Sepsis resolved # E coli bacteremia and right pyelonephritis related to obstruction from ureteral kidney stone. Stone removed yesterday without complication. Patient with present stent severe right flank and back pain at the L5 level. Nephrostomy tube still in place. Blood cultures have cleared, creatinine stable /normal --patient needs 6 more days of meropenem # Low platelets: not repeated today, started before meropenem # Multiple antibiotic allergies: Continues to tolerate meropenem #Katarina intertrigo : Resolved s/p 7 days micafungin. Now cultures are showing C albicans suspect reason for lack of response to fluconazole may have been due to inadequate dose in a patient 121 kg meds Meropenem 1 g IV Q 8, # 7 Microbiology 04/21 blood cultures (2 sets) NGTD 04/19 urine culture E coli 04/19 blood cultures (2 sets) E coli 04/08 urine culture butcher susceptible E coli 04/17 groin and rectal swab: C albicans at bedside Subjective: R side pain better but still on Precedex Objective: Vital Signs Temp Pulse Resp BP Pulse Ox 36.6 C 54 L 20 189/96 H 93 04/25/18 07:59 04/25/18 07:59 04/25/18 07:59 04/25/18 07:59 04/25/18 07:59 Laboratory Results 04/23/18 05:20 04/25/18 04:30 04/24/18 04/25/18 04/26/18 05:59 05:59 05:59 Intake Total 3689 3191 Output Total 2675 3500 Balance 1014 -309 C-Reactive Protein 75.8 mg/L (<10.0) H 04/19/18 15:35 Gen: obese nontoxic, sleep but oriented x 4 HEENT: MMM CV hailee Chest: no crackles or wheezes Abd: soft NT ostomy L side pink stoma Ext: no edema LUE PICC c/d/i external woods - Time Spent With Patient Time Spent with Patient: greater than 35 minutes (care coordinated with Dr. Kauffman) Time Spent with Patient: Greater than 35 minutes spent on this patients care, greater than 50% of time spent counseling, educating, and coordinating care regarding the above mentioned plan. ICD10 Worksheet Patient Problems: Problems Problem Status Onset Kidney stone Active Microscopic hematuria Active Recurrent cystitis Active Reflex sympathetic dystrophy Active Abdominal pain Acute Biliary colic Acute Bowel obstruction Acute Chronic pain Acute Flank pain, acute Acute History of reflex sympathetic dystrophy Acute Hyperglycemia Acute Narcotic withdrawal Acute Nausea and vomiting Acute UTI (urinary tract infection) Acute Volume depletion Acute Vomiting Acute
--- NOTE | 2018-04-25 11:44 | PDINTPN ---
Amphibian Crewmember Progress Note Assessment/Plan: Assessment: Pyelonephritis: Due to E. Coli. S/P nephrostomy tube placement. Removed 04/24. On Meropenem. Sepsis: E.Coli bacteremia. On Meropenem. Clinically improved, no pressors, VSS. Repeat blood Cx negative. Chronic Pain: Escalated in hospital. Was on Precedex which is now weaned off this morning; Fentanyl/Ativan IV in addition to home meds. RSD: On chronic narcotics. Hyperglycemia: Mild Plan:Continue antibiotics to complete 7 day course. D/C Precedex and IVF. OK to transfer to floor. Probably change Ativan to PO at home dosage 04/25/18 11:44 Subjective: Feels better today. Had MEJIA last night for unknown reasons, now improved. Still with minimal appetite, but taking PO fluids OK. Objective: Vital Signs Temp Pulse Resp BP Pulse Ox 36.6 C 54 L 20 189/96 H 93 04/25/18 07:59 04/25/18 07:59 04/25/18 07:59 04/25/18 07:59 04/25/18 07:59 Laboratory Results 04/23/18 05:20 04/25/18 04:30 04/24/18 04/25/18 04/26/18 05:59 05:59 05:59 Intake Total 3689 3191 Output Total 2675 3500 Balance 1014 -309 PT 15.4 SEC (12.0-15.0) H 04/19/18 20:05 INR 1.20 (0.83-1.16) H 04/19/18 20:05 Physical Exam - Physical Exam General Appearance: alert, no apparent distress EENT: normal ENT inspection Neck: normal inspection Respiratory: lungs clear, normal breath sounds Cardiac/Chest: regular rate, rhythm, No edema Abdomen: normal bowel sounds, non-tender Skin: normal color, warm/dry Extremities: normal inspection Neuro/Psych: alert, normal mood/affect, oriented x 3 ICD10 Worksheet Patient Problems: Problems Problem Status Onset Kidney stone Active Microscopic hematuria Active Recurrent cystitis Active Reflex sympathetic dystrophy Active Abdominal pain Acute Biliary colic Acute Bowel obstruction Acute Chronic pain Acute Flank pain, acute Acute History of reflex sympathetic dystrophy Acute Hyperglycemia Acute Narcotic withdrawal Acute Nausea and vomiting Acute UTI (urinary tract infection) Acute Volume depletion Acute Vomiting Acute
[2018-04-25] MEDS ORDERED: LORazepam 1 MG TAB PO PRN (13:58)
--- NOTE | 2018-04-25 14:02 | HOSPPROG ---
Hospitalist Progress Note Assessment/Plan: #E coli pyelonephritis with obstructing stone -s/p nephrost tube (removed 04/24) -stone removal (04/23). Cont Meropenem 7 days from stone removal #E coli bacteremia: positive cultures 04/19 (negative from 04/21) #Sepsis: resolved #Thrombocytopenia: due to acute illness. Stable #Acute on chronic pain with opioid dependence -suspect pain flared by procedure,. Cont home medications, wean Precedex today. Resume home meds #Anxiety:resume home Ativan dose #Diet: regular #DVT ppx: SCDs #Disp: cont inpatient admission for IV abx, pain control. Transfer to med-surg Time spent bedside with patient and : 35 min evaluating right back pain, reviewing labs, note. Case discussed with Dr. Dumont and Dr. Baca Subjective: less back pain today Objective: Vital Signs Temp Pulse Resp BP Pulse Ox 36.9 C 72 12 168/80 H 98 04/25/18 12:00 04/25/18 12:00 04/25/18 12:00 04/25/18 12:00 04/25/18 12:00 Laboratory Results 04/23/18 05:20 04/25/18 04:30 04/24/18 04/25/18 04/26/18 05:59 05:59 05:59 Intake Total 3689 3191 87 Output Total 2675 3500 1500 Balance 1014 -309 -1413 PT 15.4 SEC (12.0-15.0) H 04/19/18 20:05 INR 1.20 (0.83-1.16) H 04/19/18 20:05 - Time Spent With Patient Time Spent with Patient: greater than 35 minutes Time Spent with Patient: Greater than 35 minutes spent on this patients care, greater than 50% of time spent counseling, educating, and coordinating care regarding the above mentioned plan. - Physical Exam Constitutional: obese, other (slightly ) Eyes: PERRL Ears, Nose, Mouth, Throat: moist mucous membranes Cardiovascular: regular rate and rhythym Respiratory: no respiratory distress Gastrointestinal: normoactive bowel sounds Genitourinary: no bladder fullness, other (nephro site dressed with some leakage today.) ICD10 Worksheet Patient Problems: Problems Problem Status Onset Kidney stone Active Microscopic hematuria Active Recurrent cystitis Active Reflex sympathetic dystrophy Active Abdominal pain Acute Biliary colic Acute Bowel obstruction Acute Chronic pain Acute Flank pain, acute Acute History of reflex sympathetic dystrophy Acute Hyperglycemia Acute Narcotic withdrawal Acute Nausea and vomiting Acute UTI (urinary tract infection) Acute Volume depletion Acute Vomiting Acute
[2018-04-25] MEDS: fentaNYL 100 MCG/2 ML INJ IVP PRN ×2 (16:52→21:01)
[2018-04-25] MEDS: PHENAZOPYRIDINE HCL 100 MG TAB PO SCH (21:01)
[2018-04-25] MEDS ORDERED: POTASSIUM CL 10 MEQ TAB PO ONE (21:46)
[2018-04-26] MEDS: fentaNYL 100 MCG/2 ML INJ IVP PRN ×5 (00:59→21:21)
[2018-04-26] MEDS: LORazepam 2 MG/ML INJ IVP PRN ×6 (00:59→22:35)
[2018-04-26] MEDS: ZANAFLEX 4 MG PO SCH ×4 (02:34→23:17)
[2018-04-26] MEDS: SENNOSIDES PO SCH ×4 (02:34→23:18)
[2018-04-26] MEDS: clonazePAM 0.5 MG TAB PO SCH ×4 (02:34→23:17)
[2018-04-26] MEDS: HERBAL LAXATIVE PO SCH ×4 (02:34→23:18)
[2018-04-26] MEDS: morphINE 10 MG/0.5 ML UDSYR PO PRN (03:54)
[2018-04-26] MEDS: METOCLOPRAMIDE 10 MG/2 ML VIAL IVP SCH ×3 (05:10→18:22)
[2018-04-26] MEDS: morphINE SR 15 MG TAB PO SCH ×2 (05:17→23:17)
[2018-04-26] MEDS: MEROPENEM 1 GM in NS 100 ML IV SCH ×3 (05:23→23:03)
[2018-04-26] MEDS: POTASSIUM Cl (KCl) 50 ML IV SCH ×2 (06:12→09:08)
[2018-04-26] MEDS: INSULIN LISPRO 100 UNIT/ML SC SCH ×3 (08:59→18:14)
[2018-04-26] MEDS: SENNOSIDES/DOCUSATE SODIUM TAB PO SCH ×2 (09:00→23:17)
[2018-04-26] MEDS ORDERED: MAGNESIUM SULF 2 GM/WATER 50 ML IV ONE (11:33)
[2018-04-26] MEDS ORDERED: morphINE SR 15 MG TAB PO PRN (13:01)
[2018-04-26] MEDS ORDERED: morphINE 10 MG/0.5 ML UDSYR PO PRN (13:03)
--- NOTE | 2018-04-26 14:37 | PCMIDPN ---
Assessment/Plan: # sepsis due to E coli bacteremia and right pyelonephritis: Sepsis resolved # E coli bacteremia and right pyelonephritis related to obstruction from ureteral kidney stone. Stone removed yesterday without complication. Patient with present stent severe right flank and back pain at the L5 level. Nephrostomy tube still in place. Blood cultures have cleared. --7 days of meropenem following stone removal, 04/30 stop date, MAR adjusted --ID to see every couple days, call if problems # Low platelets: Resolved # Multiple antibiotic allergies: Continues to tolerate meropenem #Katarina intertrigo : Resolved s/p 7 days micafungin. Now cultures are showing C albicans suspect reason for lack of response to fluconazole may have been due to inadequate dose in a patient 121 kg meds Meropenem 1 g IV Q 8, # 8 Microbiology 04/21 blood cultures (2 sets) NGTD 04/19 urine culture E coli 04/19 blood cultures (2 sets) E coli 04/08 urine culture butcher susceptible E coli 04/17 groin and rectal swab: C albicans Subjective: Patient states that she feels like she is going through withdrawals Objective: Vital Signs Temp Pulse Resp BP Pulse Ox 37.2 C 93 19 167/99 H 100 04/26/18 12:00 04/26/18 12:00 04/26/18 12:00 04/26/18 07:37 04/26/18 12:00 Microbiology 04/15/18 17:35 Gram Stain - Final Vulva - Swab Vaginal Culture - Final Katarina Albicans Laboratory Results 04/26/18 04:45 04/26/18 04:45 04/25/18 04/26/18 04/27/18 05:59 05:59 05:59 Intake Total 3191 1237 Output Total 3500 0800 Balance -309 -8763 C-Reactive Protein 75.8 mg/L (<10.0) H 04/19/18 15:35 General: Tearful woman lying on her left side Pulmonary: Breathing easy Left upper extremity multi port PICC line C/D/I Right flank nephrostomy tube site without drainage Skin: No rash, pallor ICD10 Worksheet Patient Problems: Problems Problem Status Onset Kidney stone Active Microscopic hematuria Active Recurrent cystitis Active Reflex sympathetic dystrophy Active Abdominal pain Acute Biliary colic Acute Bowel obstruction Acute Chronic pain Acute Flank pain, acute Acute History of reflex sympathetic dystrophy Acute Hyperglycemia Acute Narcotic withdrawal Acute Nausea and vomiting Acute UTI (urinary tract infection) Acute Volume depletion Acute Vomiting Acute
--- NOTE | 2018-04-26 15:33 | HOSPPROG ---
Hospitalist Progress Note Assessment/Plan: #E coli pyelonephritis with obstructing stone -s/p nephrost tube (removed 04/24) -stone removal (04/23). Cont Meropenem 7 days from stone removal #E coli bacteremia: positive cultures 04/19 (negative from 04/21) #Sepsis: resolved #Thrombocytopenia: due to acute illness. Resolved #Acute on chronic pain with opioid dependence -suspect pain flared by procedure -Cont home medications. IV Ativan/Benadryl for nausea #N/V: cont Ativan, Benadryl. Multiple allergies to other antiemeticc #Diet: regular #DVT ppx: SCDs #Disp: cont inpatient admission for IV abx, pain control. Time spent bedside with patient and : 35 min counseling on pain/nausea management Subjective: " I am withdrawaling from meds, want ketamine drip" Objective: Vital Signs Temp Pulse Resp BP Pulse Ox 37.2 C 93 19 167/99 H 100 04/26/18 12:00 04/26/18 12:00 04/26/18 12:00 04/26/18 07:37 04/26/18 12:00 Microbiology 04/15/18 17:35 Gram Stain - Final Vulva - Swab Vaginal Culture - Final Katarina Albicans Laboratory Results 04/26/18 04:45 04/26/18 04:45 04/25/18 04/26/18 04/27/18 05:59 05:59 05:59 Intake Total 3191 1237 Output Total 3500 4750 Balance -309 -3513 PT 15.4 SEC (12.0-15.0) H 04/19/18 20:05 INR 1.20 (0.83-1.16) H 04/19/18 20:05 - Time Spent With Patient Time Spent with Patient: greater than 35 minutes Time Spent with Patient: Greater than 35 minutes spent on this patients care, greater than 50% of time spent counseling, educating, and coordinating care regarding the above mentioned plan. - Physical Exam Constitutional: obese, uncomfortable Eyes: PERRL Ears, Nose, Mouth, Throat: moist mucous membranes, hearing normal Cardiovascular: regular rate and rhythym, no murmur, rub, or gallop Respiratory: no respiratory distress, no rales or rhonchi Gastrointestinal: normoactive bowel sounds, soft, non-tender abdomen Genitourinary: no bladder fullness Skin: warm Musculoskeletal: full muscle strength Neurologic: AAOx3, CN II-XII Intact Psychiatric: anxious ICD10 Worksheet Patient Problems: Problems Problem Status Onset Kidney stone Active Microscopic hematuria Active Recurrent cystitis Active Reflex sympathetic dystrophy Active Abdominal pain Acute Biliary colic Acute Bowel obstruction Acute Chronic pain Acute Flank pain, acute Acute History of reflex sympathetic dystrophy Acute Hyperglycemia Acute Narcotic withdrawal Acute Nausea and vomiting Acute UTI (urinary tract infection) Acute Volume depletion Acute Vomiting Acute
[2018-04-26] MEDS ORDERED: hydrALAZINE 20 MG/ML VIAL IVP ONE (17:30)
[2018-04-26] MEDS: NS W/ 20 KCl/L 1,000 ML IV SCH (18:56)
[2018-04-26] MEDS: PHENAZOPYRIDINE HCL 100 MG TAB PO SCH (23:16)
[2018-04-27] MEDS ORDERED: POTASSIUM Cl (KCl) 50 ML IV ONE ×2 (00:17→00:39)
[2018-04-27] MEDS: hydrALAZINE 20 MG/ML VIAL IVP PRN ×3 (00:22→12:50)
[2018-04-27] MEDS: METOCLOPRAMIDE 10 MG/2 ML VIAL IVP SCH ×4 (00:22→18:14)
[2018-04-27] MEDS: clonazePAM 0.5 MG TAB PO SCH ×4 (00:40→22:56)
[2018-04-27] MEDS: ZANAFLEX 4 MG PO SCH ×4 (00:40→21:10)
[2018-04-27] MEDS: SENNOSIDES PO SCH ×4 (01:24→21:17)
[2018-04-27] MEDS: HERBAL LAXATIVE PO SCH ×4 (01:24→21:17)
[2018-04-27] MEDS: LORazepam 2 MG/ML INJ IVP PRN ×5 (03:18→22:46)
[2018-04-27] MEDS: fentaNYL 100 MCG/2 ML INJ IVP PRN ×5 (03:18→22:46)
[2018-04-27] MEDS: morphINE SR 15 MG TAB PO SCH ×2 (06:26→21:25)
[2018-04-27] MEDS: MEROPENEM 1 GM in NS 100 ML IV SCH ×3 (06:47→22:24)
[2018-04-27] MEDS: NS W/ 20 KCl/L 1,000 ML IV SCH (06:48)
[2018-04-27] MEDS: NS 1,000 ML IV SCH ×2 (07:20→22:23)
[2018-04-27] MEDS: SENNOSIDES/DOCUSATE SODIUM TAB PO SCH ×2 (08:35→21:10)
[2018-04-27] MEDS: INSULIN LISPRO 100 UNIT/ML SC SCH ×3 (08:52→18:12)
[2018-04-27] MEDS: ACETAMINOPHEN 325 MG TAB PO PRN (12:50)
[2018-04-27] MEDS ORDERED: MAGNESIUM SULF 1 GM/DEXTROSE 100 ML IV ONE (14:18)
[2018-04-27] MEDS ORDERED: METHYLNALTREXONE BROMIDE 12 MG/0.6 ML INJ SC ONE (15:54)
--- NOTE | 2018-04-27 15:57 | HOSPPROG ---
Hospitalist Progress Note Assessment/Plan: 57 yo F w obstructing kidney stone, complex pain syndrome E coli pyelonephritis with obstructing stone s/p nephrost tube (removed 04/24) wound c/d/i stone removal (04/23). Cont Meropenem 7 days from stone removal E coli bacteremia: positive cultures 04/19 (negative from 04/21) Sepsis: resolved Thrombocytopenia: due to acute illness. Resolved Acute on chronic pain with opioid dependence suspect pain flared by procedure Cont home medications. IV Ativan/Benadryl for nausea N/V: cont Ativan, Benadryl. Multiple allergies to other antiemetic constipation: trial of relistor she has tolerated this in the past htn: schedule hydralazine Diet: regular DVT ppx: SCDs Disp: cont inpatient admission for IV abx, pain control. Subjective: no bm in many days. sleeping Objective: Vital Signs Temp Pulse Resp BP Pulse Ox 36.8 C 103 H 16 172/103 H 98 04/27/18 12:00 04/27/18 13:39 04/27/18 13:39 04/27/18 13:39 04/27/18 13:39 Microbiology 04/21/18 13:22 Blood Culture - Final Blood 04/21/18 12:18 Blood Culture - Final Blood Laboratory Results 04/26/18 04:45 04/27/18 05:00 04/26/18 04/27/18 04/28/18 05:59 05:59 05:59 Intake Total 1237 1354 1178 Output Total 4750 3950 1400 Balance -7003 -2596 -222 PT 15.4 SEC (12.0-15.0) H 04/19/18 20:05 INR 1.20 (0.83-1.16) H 04/19/18 20:05 - Physical Exam Constitutional: no apparent distress, appears nourished Eyes: PERRL, anicteric sclera Ears, Nose, Mouth, Throat: moist mucous membranes, hearing normal Cardiovascular: regular rate and rhythym, no murmur, rub, or gallop Respiratory: no respiratory distress, no rales or rhonchi, clear to auscultation Gastrointestinal: other (ostomy, soft, no rebound) Genitourinary: no bladder fullness, No woods in urethra Skin: warm, normal color Musculoskeletal: No full muscle strength Neurologic: AAOx3 ICD10 Worksheet Patient Problems: Problems Problem Status Onset Kidney stone Active Microscopic hematuria Active Recurrent cystitis Active Reflex sympathetic dystrophy Active Abdominal pain Acute Biliary colic Acute Bowel obstruction Acute Chronic pain Acute Flank pain, acute Acute History of reflex sympathetic dystrophy Acute Hyperglycemia Acute Narcotic withdrawal Acute Nausea and vomiting Acute UTI (urinary tract infection) Acute Volume depletion Acute Vomiting Acute
--- NOTE | 2018-04-27 16:58 | ASMTCMCOM ---
CM Note CM Note Notes: Chart reviewed. Patient continues to be treated with antibiotics and pain control. No therapies involved in current care. Her has been her primary caregiver. Needs still unclear at this point. CM to follow. Plan: Home at some point. Date Signed: 04/27/2018 04:57 PM Electronically Signed By:Maritza Ho RN
[2018-04-27] MEDS: hydrALAZINE 20 MG/ML VIAL IVP SCH (18:13)
[2018-04-27] MEDS: PHENAZOPYRIDINE HCL 100 MG TAB PO SCH (21:09)
[2018-04-28] MEDS: hydrALAZINE 20 MG/ML VIAL IVP SCH ×3 (01:11→12:31)
[2018-04-28] MEDS: METOCLOPRAMIDE 10 MG/2 ML VIAL IVP SCH ×4 (01:12→17:50)
[2018-04-28] MEDS: clonazePAM 0.5 MG TAB PO SCH ×4 (01:19→22:22)
[2018-04-28] MEDS: HERBAL LAXATIVE PO SCH ×4 (01:19→22:25)
[2018-04-28] MEDS: SENNOSIDES PO SCH ×4 (01:19→22:25)
[2018-04-28] MEDS: ZANAFLEX 4 MG PO SCH ×4 (01:19→22:24)
[2018-04-28] MEDS: LORazepam 2 MG/ML INJ IVP PRN ×5 (02:47→20:15)
[2018-04-28] MEDS: fentaNYL 100 MCG/2 ML INJ IVP PRN ×5 (02:47→20:15)
[2018-04-28] MEDS: morphINE SR 15 MG TAB PO SCH ×2 (06:32→22:23)
[2018-04-28] MEDS: MEROPENEM 1 GM in NS 100 ML IV SCH ×3 (06:44→22:16)
[2018-04-28] MEDS ORDERED: POTASSIUM CL 20 MEQ TAB PO ONE (07:45)
[2018-04-28] MEDS ORDERED: POTASSIUM Cl (KCl) 100 ML IV SCH (08:00)
[2018-04-28] MEDS: SENNOSIDES/DOCUSATE SODIUM TAB PO SCH ×2 (08:09→22:15)
[2018-04-28] MEDS: INSULIN LISPRO 100 UNIT/ML SC SCH ×3 (10:09→17:50)
[2018-04-28] MEDS: NS 1,000 ML IV SCH (13:47)
--- NOTE | 2018-04-28 13:50 | HOSPPROG ---
Hospitalist Progress Note Assessment/Plan: 57 yo F w obstructing kidney stone, complex pain syndrome E coli pyelonephritis with obstructing stone s/p nephrost tube (removed 04/24) wound c/d/i stone removal (04/23). Cont Meropenem 7 days from stone removal- last day 04/30 E coli bacteremia: positive cultures 04/19 (negative from 04/21) Sepsis: resolved Thrombocytopenia: due to acute illness. Resolved Acute on chronic pain with opioid dependence suspect pain flared by procedure Cont home medications. IV Ativan/Benadryl for nausea N/V: cont Ativan, Benadryl. Multiple allergies to other antiemetic constipation: trial of relistor she has tolerated this in the past restart her home laxative htn: suspect rebound hypertnesion from clonidine this has been restarted dc hydralazine asit makes her feel "bad" Diet: regular DVT ppx: SCDs Disp: cont inpatient admission for IV abx, pain control. Subjective: case d/w dr healy. notes she had missed multiple days of clonidine Objective: Vital Signs Temp Pulse Resp BP Pulse Ox 36.9 C 90 17 143/92 H 98 04/28/18 10:58 04/28/18 10:58 04/28/18 10:58 04/28/18 12:31 04/28/18 10:58 Laboratory Results 04/26/18 04:45 04/28/18 06:10 04/27/18 04/28/18 04/29/18 05:59 05:59 05:59 Intake Total 1354 1478 1055 Output Total 3950 1675 Balance -2596 -197 1055 PT 15.4 SEC (12.0-15.0) H 04/19/18 20:05 INR 1.20 (0.83-1.16) H 04/19/18 20:05 - Physical Exam Constitutional: no apparent distress, appears nourished Eyes: PERRL, anicteric sclera Ears, Nose, Mouth, Throat: moist mucous membranes, hearing normal Cardiovascular: regular rate and rhythym, no murmur, rub, or gallop Respiratory: no respiratory distress, no rales or rhonchi Gastrointestinal: normoactive bowel sounds, soft, non-tender abdomen, other ( some stool in ostomy bag) Genitourinary: no bladder fullness, No woods in urethra Skin: warm, normal color Musculoskeletal: no muscle tenderness, No full muscle strength Neurologic: AAOx3 ICD10 Worksheet Patient Problems: Problems Problem Status Onset Kidney stone Active Microscopic hematuria Active Recurrent cystitis Active Reflex sympathetic dystrophy Active Abdominal pain Acute Biliary colic Acute Bowel obstruction Acute Chronic pain Acute Flank pain, acute Acute History of reflex sympathetic dystrophy Acute Hyperglycemia Acute Narcotic withdrawal Acute Nausea and vomiting Acute UTI (urinary tract infection) Acute Volume depletion Acute Vomiting Acute
--- NOTE | 2018-04-28 15:36 | PCMIDPN ---
Assessment/Plan: Assessment/Plan: * E coli sepsis associated with obstructing nephrolithiasis: Clinically improved post stone removal and with antibiotic therapy. Plan to complete 7 days of meropenem post stone removal with in date of 04/30/2018. * Intertrigo: Resolved. Continue to observe off anti fungal therapy. * Thrombocytopenia: Resolved. 04/28/18 15:34 Subjective: Patient feels significantly better. Groin rash markedly improved. Objective: Vital Signs Temp Pulse Resp BP Pulse Ox 36.9 C 90 17 143/92 H 98 04/28/18 10:58 04/28/18 10:58 04/28/18 10:58 04/28/18 12:31 04/28/18 10:58 Laboratory Results 04/26/18 04:45 04/28/18 06:10 04/27/18 04/28/18 04/29/18 05:59 05:59 05:59 Intake Total 1354 1478 1055 Output Total 3950 1675 Balance -2596 -197 1055 C-Reactive Protein 75.8 mg/L (<10.0) H 04/19/18 15:35 Meropenem # 9 - Physical Exam General Appearance: alert, no apparent distress EENT: No scleral icterus, No thrush Respiratory: lungs clear, No respiratory distress Cardiac/Chest: regular rate, rhythm Abdomen: non-tender, No distended Skin: other (Bilateral inguinal intertrigo resolved) - Line/s LUE PICC Lines: No drainage, No erythema ICD10 Worksheet Patient Problems: Problems Problem Status Onset Kidney stone Active Microscopic hematuria Active Recurrent cystitis Active Reflex sympathetic dystrophy Active Abdominal pain Acute Biliary colic Acute Bowel obstruction Acute Chronic pain Acute Flank pain, acute Acute History of reflex sympathetic dystrophy Acute Hyperglycemia Acute Narcotic withdrawal Acute Nausea and vomiting Acute UTI (urinary tract infection) Acute Volume depletion Acute Vomiting Acute
--- NOTE | 2018-04-28 16:26 | ASMTCMCOM ---
CM Note CM Note Notes: Chart reviewed. Per ID on antibiotics till 04/30. Reports tp MD feeling better. Patient currently cared for at home by her . He reports to me that [facility] stated 2 years ago that medicare was no longer accepted and discharged patient. I gave him a list of C agencies serving [facility] and offered to make a referral for [facility] on their behalf. CM to follow for needs. Plan: TBD Date Signed: 04/28/2018 04:23 PM Electronically Signed By:Maritza Ho RN
[2018-04-28] MEDS ORDERED: POTASSIUM CL 10 MEQ TAB PO ONE (20:58)
[2018-04-28] MEDS: PHENAZOPYRIDINE HCL 100 MG TAB PO SCH (22:15)
[2018-04-29] MEDS: POTASSIUM Cl (KCl) 50 ML IV SCH ×2 (00:02→02:19)
[2018-04-29] MEDS: METOCLOPRAMIDE 10 MG/2 ML VIAL IVP SCH ×2 (00:43→06:21)
[2018-04-29] MEDS: clonazePAM 0.5 MG TAB PO SCH ×4 (02:25→22:04)
[2018-04-29] MEDS: ZANAFLEX 4 MG PO SCH ×4 (02:26→22:11)
[2018-04-29] MEDS: HERBAL LAXATIVE PO SCH ×4 (02:26→22:11)
[2018-04-29] MEDS: SENNOSIDES PO SCH ×4 (02:26→22:11)
[2018-04-29] MEDS: LORazepam 2 MG/ML INJ IVP PRN ×5 (03:00→20:12)
[2018-04-29] MEDS: fentaNYL 100 MCG/2 ML INJ IVP PRN ×5 (03:00→20:11)
[2018-04-29] MEDS: morphINE SR 15 MG TAB PO SCH ×2 (06:29→22:10)
[2018-04-29] MEDS: MEROPENEM 1 GM in NS 100 ML IV SCH ×3 (06:33→22:20)
[2018-04-29] MEDS: INSULIN LISPRO 100 UNIT/ML SC SCH ×3 (08:05→17:06)
--- NOTE | 2018-04-29 11:18 | HOSPPROG ---
Hospitalist Progress Note Assessment/Plan: 57 yo F w obstructing kidney stone, complex pain syndrome E coli pyelonephritis with obstructing stone s/p nephrost tube (removed 04/24) wound c/d/i stone removal (04/23). Cont Meropenem 7 days from stone removal- last day 04/30 E coli bacteremia: positive cultures 04/19 (negative from 04/21) Sepsis: resolved Thrombocytopenia: due to acute illness. Resolved Acute on chronic pain with opioid dependence suspect pain flared by procedure Cont home medications. IV Ativan/Benadryl for nausea N/V: cont Ativan, Benadryl. Multiple allergies to other antiemetic constipation: trial of relistor she has tolerated this in the past restart her home laxative htn: suspect rebound hypertnesion from clonidine this has been restarted dc hydralazine asit makes her feel "bad" better w reinstitution of clonidine Diet: regular DVT ppx: SCDs Disp: cont inpatient admission for IV abx, pain control. Subjective: case d/w dr healy. ostomy output improving. bp better. sitting up and reading Objective: Vital Signs Temp Pulse Resp BP Pulse Ox 36.6 C 71 14 133/87 H 93 04/29/18 07:37 04/29/18 07:37 04/29/18 07:37 04/29/18 07:37 04/29/18 07:37 Laboratory Results 04/26/18 04:45 04/29/18 06:00 04/28/18 04/29/18 04/30/18 05:59 05:59 05:59 Intake Total 1478 2452 Output Total 1675 250 Balance -197 2202 PT 15.4 SEC (12.0-15.0) H 04/19/18 20:05 INR 1.20 (0.83-1.16) H 04/19/18 20:05 - Physical Exam Constitutional: no apparent distress, appears nourished Eyes: PERRL, anicteric sclera Ears, Nose, Mouth, Throat: moist mucous membranes, hearing normal Cardiovascular: regular rate and rhythym, no murmur, rub, or gallop Respiratory: no respiratory distress, no rales or rhonchi Gastrointestinal: normoactive bowel sounds, soft, non-tender abdomen, other ( smallamount krueger liquid ostomy output) Genitourinary: no bladder fullness, No woods in urethra Skin: warm, normal color Musculoskeletal: full muscle strength ICD10 Worksheet Patient Problems: Problems Problem Status Onset Kidney stone Active Microscopic hematuria Active Recurrent cystitis Active Reflex sympathetic dystrophy Active Abdominal pain Acute Biliary colic Acute Bowel obstruction Acute Chronic pain Acute Flank pain, acute Acute History of reflex sympathetic dystrophy Acute Hyperglycemia Acute Narcotic withdrawal Acute Nausea and vomiting Acute UTI (urinary tract infection) Acute Volume depletion Acute Vomiting Acute
[2018-04-29] MEDS: ACETAMINOPHEN 325 MG TAB PO PRN (17:38)
[2018-04-29] MEDS: PHENAZOPYRIDINE HCL 100 MG TAB PO SCH (22:03)
[2018-04-30] MEDS: LORazepam 2 MG/ML INJ IVP PRN ×6 (02:09→22:24)
[2018-04-30] MEDS: fentaNYL 100 MCG/2 ML INJ IVP PRN ×6 (02:09→22:23)
[2018-04-30] MEDS: ZANAFLEX 4 MG PO SCH ×4 (02:20→22:28)
[2018-04-30] MEDS: clonazePAM 0.5 MG TAB PO SCH ×5 (02:20→22:22)
[2018-04-30] MEDS: SENNOSIDES PO SCH ×4 (02:21→22:20)
[2018-04-30] MEDS: HERBAL LAXATIVE PO SCH ×4 (02:21→22:20)
[2018-04-30] MEDS: MEROPENEM 1 GM in NS 100 ML IV SCH ×3 (06:38→22:22)
[2018-04-30] MEDS: morphINE SR 15 MG TAB PO SCH ×2 (06:48→22:23)
[2018-04-30] MEDS: INSULIN LISPRO 100 UNIT/ML SC SCH ×3 (09:05→18:29)
[2018-04-30] MEDS: ACETAMINOPHEN 325 MG TAB PO PRN (12:27)
--- NOTE | 2018-04-30 15:05 | HOSPPROG ---
Hospitalist Progress Note Assessment/Plan: 57 yo F w obstructing kidney stone, complex pain syndrome E coli pyelonephritis with obstructing stone s/p nephrost tube (removed 04/24) wound c/d/i stone removal (04/23). Cont Meropenem 7 days from stone removal- last day at 10 pm E coli bacteremia: positive cultures 04/19 (negative from 04/21) Sepsis: resolved Thrombocytopenia: due to acute illness. Resolved Acute on chronic pain with opioid dependence suspect pain flared by procedure Cont home medications. IV Ativan/Benadryl for nausea N/V: cont Ativan, Benadryl. Multiple allergies to other antiemetic constipation: trial of relistor she has tolerated this in the past restart her home laxative htn: suspect rebound hypertnesion from clonidine this has been restarted dc hydralazine asit makes her feel "bad" better w reinstitution of clonidine Diet: regular DVT ppx: SCDs Disp: cont inpatient admission for IV abx, pain control. Subjective: askinf for excedrin and roxanol for headache. case d/w dr castro Objective: Vital Signs Temp Pulse Resp BP Pulse Ox 36.3 C 86 16 164/95 H 95 04/30/18 11:51 04/30/18 11:51 04/30/18 11:51 04/30/18 11:51 04/30/18 11:51 Laboratory Results 04/26/18 04:45 04/29/18 06:00 04/29/18 04/30/18 05/01/18 05:59 05:59 05:59 Intake Total 2452 1185 Output Total 250 401 Balance 2202 784 PT 15.4 SEC (12.0-15.0) H 04/19/18 20:05 INR 1.20 (0.83-1.16) H 04/19/18 20:05 - Physical Exam Constitutional: no apparent distress, appears nourished Eyes: PERRL, anicteric sclera Ears, Nose, Mouth, Throat: moist mucous membranes, hearing normal Cardiovascular: regular rate and rhythym, no murmur, rub, or gallop Respiratory: no respiratory distress, no rales or rhonchi Gastrointestinal: normoactive bowel sounds, soft, non-tender abdomen Genitourinary: No woods in urethra Skin: warm, normal color Musculoskeletal: full muscle strength Neurologic: AAOx3 ICD10 Worksheet Patient Problems: Problems Problem Status Onset Kidney stone Active Microscopic hematuria Active Recurrent cystitis Active Reflex sympathetic dystrophy Active Abdominal pain Acute Biliary colic Acute Bowel obstruction Acute Chronic pain Acute Flank pain, acute Acute History of reflex sympathetic dystrophy Acute Hyperglycemia Acute Narcotic withdrawal Acute Nausea and vomiting Acute UTI (urinary tract infection) Acute Volume depletion Acute Vomiting Acute
[2018-04-30] MEDS: ACETAMINOPHEN/ASA/CAFFEINE 1 EACH TAB PO PRN (15:11)
[2018-04-30] MEDS: PHENAZOPYRIDINE HCL 100 MG TAB PO SCH (22:20)
[2018-05-01] MEDS: HERBAL LAXATIVE PO SCH ×3 (01:40→13:58)
[2018-05-01] MEDS: SENNOSIDES PO SCH ×3 (01:40→13:58)
[2018-05-01] MEDS: clonazePAM 0.5 MG TAB PO SCH ×3 (01:40→13:57)
[2018-05-01] MEDS: ACETAMINOPHEN 325 MG TAB PO PRN (01:41)
[2018-05-01] MEDS: ZANAFLEX 4 MG PO SCH ×3 (01:42→13:58)
[2018-05-01] MEDS: fentaNYL 100 MCG/2 ML INJ IVP PRN ×3 (02:46→10:50)
[2018-05-01] MEDS: LORazepam 2 MG/ML INJ IVP PRN ×3 (02:47→10:41)
[2018-05-01] MEDS: morphINE SR 15 MG TAB PO SCH (06:25)
[2018-05-01] MEDS: INSULIN LISPRO 100 UNIT/ML SC SCH ×2 (07:56→13:16)
[2018-05-01 08:13] VITALS: BP 162/98
--- NOTE | 2018-05-01 09:03 | PDIAF ---
- Diagnosis Diagnosis: nephrolithiasis Code Status: Full Code - Medication Management Discharge Medications: Medications to Continue on Transfer Insulin 70/30 Human [Novolin 70/30 (*)] 4 - 10 unit SC DAILY PRN 07/16/17 [Last Taken 04/08/18 12:00 7.5 units] Morphine Sulfate [Ms Contin] 15 mg PO BID@0530,07/16/17 [Last Taken 04/08/18 05:30] Morphine Sulfate [Ms Contin] 15 mg PO DAILY@14 PRN 07/16/17 [Last Taken Unknown] Tizanidine HCl [Zanaflex] 8 mg PO QID@0,529,,07/16/17 [Last Taken 04/08 05:30] clonIDINE [Catapres (*)] 0.1 mg PO BID@0530,07/16/17 [Last Taken 04/08/18 05: 30] clonazePAM [Klonopin (*)] 0.25 mg PO QID@0,529,07/16/17 [Last Taken 04/08 05:30] clonazePAM [Klonopin (*)] 0.5 mg PO DAILY@2200 07/16/17 [Last Taken 04/07/18] diphenhydrAMINE HCL [Wal-Dryl] 50 mg PO QID@0,30,,07/16/17 [Last Taken 04/08/18 05:30] LORazepam [Lorazepam Intensol] 2 mg PO Q4 PRN 02/27/18 [Last Taken 04/08/18 11: 30] Acetaminophen/ASA/Caffeine [Excedrin Tablet (*)] 1 each PO DAILY PRN 04/08/18 [ Last Taken Unknown] Alocril 2% Drops 1 drop EACHEYE DAILY PRN 04/08/18 [Last Taken Unknown] Morphine 100mg/5ml Symone 0.5 - 1 ml PO DAILY PRN 04/08/18 [Last Taken Unknown] Phenazopyridine HCl [Pyridium] 100 mg PO HS 04/08/18 [Last Taken 04/07/18 20:00] Tristanian Odessa 1.5 tab PO QID@0,529,,04/08/18 [Last Taken 04/08/18 05:30] Discharge Medications: Refer to the Discharge Home Medication list for PRN reason. - Orders Services needed: Home Care, Registered Nurse, Physical Therapy, Occupational Therapy Home Care Face to Face: I certify that this patient was under my care and that I had the required [id number] encounter meeting the encounter requirements on the discharge day. My findings support the fact that the patient is homebound as defined in Home Care Face to Face Continued: CMS Chapter 7 Medicare Benefits Manual 30.1.1 , The condition of the patient is such that there exists a normal inability to leave home and consequently, leaving home would require a considerable and taxing effort. Isolation Type: None - Follow Up Care Current Providers and Referrals: Robert Cunningham MD [Primary Care Provider] -
--- NOTE | 2018-05-01 09:08 | HOSPPROG ---
Hospitalist Progress Note Assessment/Plan: 57 yo F w obstructing kidney stone, complex pain syndrome E coli pyelonephritis with obstructing stone s/p nephrost tube (removed 04/24) wound c/d/i stone removal (04/23). Cont Meropenem 7 days from stone removal- last day at 10 pm has completed abx E coli bacteremia: positive cultures 04/19 (negative from 04/21) Sepsis: resolved Thrombocytopenia: due to acute illness. Resolved Acute on chronic pain with opioid dependence suspect pain flared by procedure Cont home medications. IV Ativan/Benadryl for nausea N/V: cont Ativan, Benadryl. Multiple allergies to other antiemetic constipation: trial of relistor she has tolerated this in the past restart her home laxative htn: suspect rebound hypertnesion from clonidine this has been restarted dc hydralazine asit makes her feel "bad" better w reinstitution of clonidine Diet: regular DVT ppx: SCDs Dispo: home today > 30 minutes on dc Subjective: has completed abx. afebrile Objective: Vital Signs Temp Pulse Resp BP Pulse Ox 36.8 C 63 18 162/98 H 96 05/01/18 07:49 05/01/18 07:49 05/01/18 07:49 05/01/18 08:12 05/01/18 07:49 Laboratory Results 04/26/18 04:45 04/29/18 06:00 04/30/18 05/01/18 05/02/18 05:59 05:59 05:59 Intake Total 1185 900 Output Total 401 Balance 784 900 PT 15.4 SEC (12.0-15.0) H 04/19/18 20:05 INR 1.20 (0.83-1.16) H 04/19/18 20:05 - Physical Exam Constitutional: no apparent distress, appears nourished Eyes: PERRL, anicteric sclera Ears, Nose, Mouth, Throat: moist mucous membranes, hearing normal Cardiovascular: regular rate and rhythym, no murmur, rub, or gallop Respiratory: no respiratory distress, no rales or rhonchi Gastrointestinal: normoactive bowel sounds, soft, non-tender abdomen Genitourinary: no bladder fullness, No woods in urethra Skin: warm, normal color Musculoskeletal: full muscle strength ICD10 Worksheet Patient Problems: Problems Problem Status Onset Kidney stone Active Microscopic hematuria Active Recurrent cystitis Active Reflex sympathetic dystrophy Active Abdominal pain Acute Biliary colic Acute Bowel obstruction Acute Chronic pain Acute Flank pain, acute Acute History of reflex sympathetic dystrophy Acute Hyperglycemia Acute Narcotic withdrawal Acute Nausea and vomiting Acute UTI (urinary tract infection) Acute Volume depletion Acute Vomiting Acute
--- NOTE | 2018-05-01 10:00 | ASMTCMCOM ---
CM Note CM Note Notes: Late entry , Met with the patient and her yesterday. Offered HHC services. Patient and are currently declining need for HHC but instead request help with cooking and housekeeping services. I provided them with the [facility] for services, She expressed multiple issues with the provision of her care and feels like we don't listen or provide good care. I offered to have the patient claims representative come and talk with them and she declined again. She expressed concerns for retributions in her care should she vocalize her concerns. I assured her that is'nt true. She is likely to discharge home tomorrow to her home with her as her sole support. Spent over 1 hour speaking to patient and her offering emotional support. CM available should needs arise Plan: Home declining needs. Date Signed: 05/01/2018 09:59 AM Electronically Signed By:Maritza Ho RN
[2018-05-01] MEDS ORDERED: fentaNYL 100 MCG/2 ML INJ IVP ONE (13:00)
[2018-05-01] MEDS ORDERED: LORazepam 2 MG/ML INJ IVP ONE (13:30)
--- NOTE | 2018-05-02 18:02 | GDS ---
[f rep st] DISCHARGE SUMMARY DISCHARGE DIAGNOSES: 1. Chronic pain with continuous narcotic use and dependency. 2. Reflex sympathetic dystrophy. 3. Anxiety. 4. Multiple drug allergies. 5. Escherichia coli urinary tract infection. 6. Intertrigo requiring IV antifungals. 7. Obstructing kidney stone requiring percutaneous nephrostomy tube with subsequent stone removal. 8. Hypertension secondary to clonidine withdrawal. 9. Sepsis. Please see admission history and physical by Dr. Barrington Benavides. The patient presented with urinary symptoms and a positive UA from her primary care physician's office. She received 5 days of aztreon am with minimal improvement in her symptoms, but an E coli UTI is expected to have improved at this t marquez. The patient subsequently underwent IV antifungal treatment for intertrigo. About 11 days into the ho spitalization, she developed a fever. A CT abdomen pelvis showed an 8 x 6 mm obstructing right urete ral calculus. She required an ICU stay. With sepsis, she received meropenem. She had a percutaneou s nephrostomy tube placed. This was followed. Urology ultimately saw her, and on the , she unde rwent operative stone removal with lithotripsy via holmium laser. The patient's nephrostomy tube was removed. The patient had intact renal function. She completed a 7-day course of meropenem followin g stone removal and was discharged. As is typical for her hospitalizations, the patient required IV fentanyl and IV Benadryl until the ti me of discharge. I did not provide her with prescriptions. Her elevated blood pressures were second angélica to the discontinuation of clonidine, that when resumed, ultimately, her blood pressure was fine. She is discharged to home. /[id number]/MODL
== END 2018-05-01 13:50 | disposition home health service (06) | DRG 659 ==
LOC: F1N 12:06 → F2N 04-19 12:09 → F3E 04-21 10:11 → F2N 04-22 17:29 → F1N 04-25 17:10
PROVIDERS: ADMIT Internal Medicine; ATTEND Internal Medicine
PROC: 02HV33Z Insertion of Infusion Device into Superior Vena Cava, Percutaneous Approach (ICD-10-PCS; 2018-04-08)
PROC: 0T9030Z Drainage of Right Kidney with Drainage Device, Percutaneous Approach (ICD-10-PCS; 2018-04-20)
PROC: 0TC08ZZ Extirpation of Matter from Right Kidney, Via Natural or Artificial Opening Endoscopic (ICD-10-PCS; principal; 2018-04-23 11:00)
DX: N13.6 Pyonephrosis (principal); A41.51 Sepsis due to Escherichia coli [E. coli]; J18.9 Pneumonia, unspecified organism; L73.2 Hidradenitis suppurativa; G89.29 Other chronic pain; L30.4 Erythema intertrigo; B37.2 Candidiasis of skin and nail; F11.20 Opioid dependence, uncomplicated; G90.50 Complex regional pain syndrome I, unspecified; E87.6 Hypokalemia; D69.6 Thrombocytopenia, unspecified; K59.00 Constipation, unspecified; E11.9 Type 2 diabetes mellitus without complications; I10 Essential (primary) hypertension; E66.01 Morbid (severe) obesity due to excess calories; Z68.35 Body mass index [BMI] 35.0-35.9, adult; Z79.4 Long term (current) use of insulin; Z88.1 Allergy status to other antibiotic agents; Z99.3 Dependence on wheelchair; Z87.891 Personal history of nicotine dependence
CPT/HCPCS: 82365-90; 82947-PO; 87186-90; 97167-GO; 97530-GO; 97535-GO; C1729; C1751; C1758; C1769; C1894; G8987-GO-CL; G8988-GO-CL; J0171; J0360; J1170; J1200; J1450; J1644; J1815; J1940; J2001; J2060; J2185; J2212; J2248; J2250; J2310; J2550; J2704; J2765; J2930; J2997; J3010; J3475; J3480; P9041; Q9967

== ENCOUNTER → 2018-06-04 | Day surgery (SDC) | payer OTHER | END | disposition home or self-care (01) | LOC: FIMAGING 08:38 | PROVIDERS: ATTEND Internal Medicine Infectious Disease | PROC: 02HV33Z Insertion of Infusion Device into Superior Vena Cava, Percutaneous Approach (ICD-10-PCS; principal; 2018-06-04) | DX: B37.2 Candidiasis of skin and nail (principal); Z79.2 Long term (current) use of antibiotics | CPT/HCPCS: 36568; 77001; C1751 ==

== ENCOUNTER 2018-07-22 12:07 | Inpatient (IN) | payer OTHER ==
[2018-07-22] MEDS ORDERED: LORazepam 2 MG/ML INJ IVP ONE (12:49)
[2018-07-22] MEDS ORDERED: NS 1,000 ML IV ONE ×2 (12:49→13:38)
--- NOTE | 2018-07-22 12:54 | EDPHY ---
H & P Time Seen by Provider: 07/22/18 12:40 HPI/ROS: CHIEF COMPLAINT: Nausea and vomiting HISTORY OF PRESENT ILLNESS: 57-year-old woman with diabetes and colostomy presents with 4 days of severe nausea and vomiting with increasing glucose. Her spouse says he has been able to get her under 300 for the last several days. Nausea vomiting is severe, associated with decreased ostomy output and diffuse generalized abdominal pain. Not associated with urinary symptoms but she does have generalized weakness. Of note she is also getting an infusion for a groin yeast infection. She has a PICC line left arm which is been giving her pain over the last 3 days. REVIEW OF SYSTEMS: Eye: no change in vision ENT: no sore throat Cardiac: no chest pain or syncope Pulmonary: no cough or SOB Abdomen: HPI Musculoskeletal: Chronic pain on medications. Skin: no rash Neuro: Headache over the last 2 days, not thunderclap in onset or worst of life Constitutional: no fever : no urinary symptoms A comprehensive 10 point review of systems is otherwise negative aside from elements mentioned in the history of present illness. PAST MEDICAL HISTORY: Includes chronic back pain with lumbar fusion, appendectomy, hysterectomy colostomy. She has diabetes and is oxygen dependent , hypertension Social history: Nonsmoker General Appearance: Alert and conversant, cooperative. Eyes: No scleral icterus. ENT, Mouth: Normal mucous membranes. Respiratory: Normal respiratory effort, breath sounds equal, lungs are clear to auscultation. Cardiovascular: Regular rate and rhythm. Gastrointestinal: Diffuse tenderness, colostomy and abdomen is soft, no rebound or guarding. Neurological: Alert, face symmetric, she has a lot of muscle spasm but can move all 4 extremities. Follows commands and answers questions appropriately. Skin: Warm and dry, no rashes. No decubitus ulcer seen. Musculoskeletal: No extremity deformity or tenderness. Psychiatric: Not agitated. Emergency Department course/MDM: Plan Ativan 1 mg IV which the patient says helps her nausea and leg spasms, IV fluids, electrolytes, i-STAT and CT scanning, admission to the hospital for nausea vomiting significant hypotension. 1407: I-STAT creatinine noted to be elevated at 1.8, likely prerenal from dehydration. Glucose is elevated. Normal saline 2 L IV ordered. Blood pressure up to 81 systolic from in the 60s initially after 1 L normal saline. 1412: Electrolytes reviewed, no anion gap was CO2 of 20, glucose 349, 10 units IV insulin ordered. Discussed Dr. Santos from surgery will see the patient in the hospital. Smoking Status: Former smoker Constitutional: Initial Vital Signs Temperature (C) 36.4 C 07/22/18 12:10 Heart Rate 101 H 07/22/18 12:10 Respiratory Rate 19 07/22/18 12:10 Blood Pressure 68/50 L 07/22/18 12:10 O2 Sat (%) 90 L 07/22/18 12:10 O2 Delivery Mode Nasal Cannula O2 (L/minute) 2 Allergies/Adverse Reactions: chlorhexidine Allergy (Severe, Verified 07/22/18 12:08) hives, anaphylaxis linezolid Allergy (Severe, Verified 07/22/18 12:08) full body paralysis ondansetron HCl [From Zofran (as hydrochloride)] Allergy (Severe, Verified 07/22 12:08) itching and swelling of throat vancomycin Allergy (Intermediate, Verified 07/22/18 12:08) Rash zolpidem [From Ambien] Allergy (Intermediate, Verified 07/22/18 12:08) Hives oxymorphone HCl [From Opana] Allergy (Unknown, Verified 07/22/18 12:08) amoxicillin trihydrate [From Augmentin] Allergy (Verified 07/22/18 12:08) ampicillin [Ampicillin] Allergy (Verified 07/22/18 12:08) azithromycin Allergy (Verified 07/22/18 12:08) cephalexin monohydrate [From Keflex] Allergy (Verified 07/22/18 12:08) Cephalosporins Allergy (Verified 07/22/18 12:08) ciprofloxacin Allergy (Verified 07/22/18 12:08) clindamycin Allergy (Verified 07/22/18 12:08) cyclobenzaprine Allergy (Verified 07/22/18 12:08) Other-Enter Comments dalteparin sodium,porcine [From Fragmin] Allergy (Verified 07/22/18 12:08) erythromycin base [Erythromycin Base] Allergy (Verified 07/22/18 12:08) iodine Allergy (Verified 07/22/18 12:08) latex Allergy (Verified 07/22/18 12:08) levofloxacin [Levofloxacin] Allergy (Verified 07/22/18 12:08) nitrofurantoin macrocrystalline [From Macrodantin] Allergy (Verified 07/22/18 12 :08) oxycodone Allergy (Verified 07/22/18 12:08) Penicillins Allergy (Verified 07/22/18 12:08) phenytoin sodium [From Dilantin] Allergy (Verified 07/22/18 12:08) potassium clavula *RETIRED-07/13/12 [From Augmentin] Allergy (Verified 07/22/18 12:08) prednisone Allergy (Verified 07/22/18 12:08) rifampin Allergy (Verified 07/22/18 12:08) Shellfish *RETIRED-07/13/12 Allergy (Verified 07/22/18 12:08) sulfamethoxazole [Sulfamethoxazole] Allergy (Verified 07/22/18 12:08) trimethoprim [From Bactrim] Allergy (Verified 07/22/18 12:08) narcotics Allergy (Uncoded 02/27/18 18:59) Home Medications: Medication Instructions Recorded Insulin 70/30 Human [Novolin 70/30 4 - 10 unit SC BID PRN 07/16/17 (*)] Morphine Sulfate [Ms Contin] 15 mg PO BID@0530,07/16/17 Morphine Sulfate [Ms Contin] 15 mg PO DAILY@14 PRN 07/16/17 Tizanidine HCl [Zanaflex] 8 mg PO QID@0,529,,07/16/17 clonIDINE [Catapres (*)] 0.1 mg PO TID@0530,,07/16/17 clonazePAM [Klonopin (*)] 0.25 mg PO TID@129,30,07/16/17 clonazePAM [Klonopin (*)] 0.5 mg PO DAILY@2200 07/16/17 diphenhydrAMINE HCL [Wal-Dryl] 50 mg PO QID@0,529,,07/16/17 LORazepam [Lorazepam Intensol] 2 mg PO Q4 PRN 02/27/18 Acetaminophen/ASA/Caffeine 1 each PO DAILY PRN 04/08/18 [Excedrin Tablet (*)] Alocril 2% Drops 1 drop EACHEYE DAILY PRN 04/08/18 Morphine 100mg/5ml Symone 0.5 - 1 ml PO DAILY PRN 04/08/18 Phenazopyridine HCl [Pyridium] 100 mg PO HS PRN 04/08/18 Ronel Saxena 1.5 tab PO QID@0130,0530,14,22 04/08/18 EPINEPHrine [Epipen 0.3 MG] 0.3 mg IM ONCE 07/22/18 Medical Decision Making - Diagnostics EKG Interpretation: 12-lead EKG interpreted by me; official reading is in computer system. My interpretation is sinus rhythm rate 79 with inferior Q-waves noted. Imaging Results: Imaging Impressions Chest X-Ray 07/22/18 12:50 Impression: No source for low O2 sat identified. Abdomen/Pelvis CT 07/22/18 13:38 Impression: 1. Possible cecal bascule associated with proximal colonic constipation. 2. Cannot exclude focal colonic mucosal thickening with focal luminal narrowing some adjacent more proximal polyps in the mid transverse colon. Has this patient had a colonoscopy recently? What was the reason for her colostomy? 3. Nonobstructive right nephrolithiasis. Results discussed with Dr. Gamez at 2:52 PM. General information for patients regarding this examination can be found at [email or web address]. If you have questions or comments about this report, please contact me at (hospital) or [phone] (cell). Imaging: Discussed imaging studies w/ scallop raker Radiologist Consult/Admit Bed Type: [place] [id number] Critical Care Time: Critical care time spent by me, Dr. Gamez, exclusively with the care of this patient was 30 minutes, exclusive of PA or CARPENTRY TEACHER time and exclusive of separate procedures. The organ system at risk was metabolic and I ordered IV fluids for acute kidney injury, IV insulin for hyperglycemia, to stabilize the patient and prevent worsening of the patient's condition. - Data Points Laboratory Results: Laboratory Results 07/22/18 13:30 07/22/18 13:30 07/22/18 07/22/18 07/22/18 13:33 13:30 13:30 WBC 10.71 10^3/uL H 10^3/uL (3.80-9.50) RBC 5.27 10^6/uL 10^6/uL (4.18-5.33) Hgb 15.4 g/dL g/dL (12.6-16.3) POC Hgb 16.0 gm/dL gm/dL (12.6-16.3) Hct 44.4 % % (38.0-47.0) POC Hct 47 % % (38-47) MCV 84.3 fL fL (81.5-99.8) MCH 29.2 pg pg (27.9-34.1) MCHC 34.7 g/dL g/dL (32.4-36.7) RDW 14.3 % % (11.5-15.2) Plt Count 138 10^3/uL L 10^3/uL (150-400) MPV 10.9 fL fL (8.7-11.7) Neut % (Auto) 84.0 % H % (39.3-74.2) Lymph % (Auto) 8.8 % L % (15.0-45.0) [place] % (Auto) 5.8 % % (4.5-13.0) Eos % (Auto) 0.2 % L % (0.6-7.6) Baso % (Auto) 0.3 % % (0.3-1.7) Nucleat RBC Rel Count 0.0 % % (0.0-0.2) Absolute Neuts (auto) 9.00 10^3/uL H 10^3/uL (1.70-6.50) Absolute Lymphs (auto) 0.94 10^3/uL L 10^3/uL (1.00-3.00) Absolute Monos (auto) 0.62 10^3/uL 10^3/uL (0.30-0.80) Absolute Eos (auto) 0.02 10^3/uL L 10^3/uL (0.03-0.40) Absolute Basos (auto) 0.03 10^3/uL 10^3/uL (0.02-0.10) Absolute Nucleated RBC 0.00 10^3/uL 10^3/uL (0-0.01) Immature Gran % 0.9 % % (0.0-1.1) Immature Gran # 0.10 10^3/uL 10^3/uL (0.00-0.10) POC Sodium 132 mEq/L L mEq/L (135-145) Sodium 130 mEq/L L mEq/L (135-145) POC Potassium 3.9 mEq/L mEq/L (3.3-5.0) Potassium 4.2 mEq/L mEq/L (3.3-5.0) POC Chloride 98 mEq/L mEq/L (97-110) Chloride 97 mEq/L mEq/L (97-110) Carbon Dioxide 20 mEq/l L mEq/l (22-31) Anion Gap 13 mEq/L mEq/L (8-16) POC BUN 17 mg/dL mg/dL (7-23) BUN 18 mg/dL mg/dL (7-23) Creatinine 1.6 mg/dL H mg/dL (0.6-1.0) POC Creatinine 1.8 mg/dL H mg/dL (0.6-1.0) Estimated GFR 33 Glucose 330 mg/dL H mg/dL (70-100) POC Glucose 349 mg/dL H mg/dL (70-100) Calcium 8.8 mg/dL mg/dL (8.5-10.4) Total Bilirubin 1.6 mg/dL H mg/dL (0.1-1.4) Conjugated Bilirubin 0.5 mg/dL mg/dL (0.0-0.5) Unconjugated Bilirubin 1.1 mg/dL mg/dL (0.0-1.1) AST 41 IU/L IU/L (14-46) ALT 42 IU/L IU/L (9-52) Alkaline Phosphatase 103 IU/L IU/L (38-126) Total Protein 5.7 g/dL L g/dL (6.3-8.2) Albumin 3.1 g/dL L g/dL (3.5-5.0) Lipase 219 IU/L IU/L (23-300) Medications Given: Discontinued Medications Sodium Chloride (Ns) 1,000 mls @ 0 mls/hr IV EDNOW ONE; Wide Open PRN Reason: Protocol Stop: 07/22/18 12:50 Last Admin: 07/22/18 13:30 Dose: 1,000 mls Sodium Chloride (Ns) 1,000 mls @ 0 mls/hr IV EDNOW ONE; Wide Open PRN Reason: Protocol Stop: 07/22/18 13:39 Last Admin: 07/22/18 14:49 Dose: 1,000 mls Insulin Human Regular (Humulin R) 10 unit IVP EDNOW ONE Stop: 07/22/18 14:12 Last Admin: 07/22/18 15:00 Dose: 10 units Lorazepam (Ativan Injection) 1 mg IVP EDNOW ONE Stop: 07/22/18 12:50 Last Admin: 07/22/18 13:30 Dose: 1 mg Point of Care Test Results: Chemistry 07/22/18 13:33 POC Sodium 132 mEq/L L mEq/L (135-145) POC Potassium 3.9 mEq/L mEq/L (3.3-5.0) POC Chloride 98 mEq/L mEq/L (97-110) POC BUN 17 mg/dL mg/dL (7-23) POC Creatinine 1.8 mg/dL H mg/dL (0.6-1.0) POC Glucose 349 mg/dL H mg/dL (70-100) ISTAT H&H 07/22/18 13:33 POC Hgb 16.0 gm/dL gm/dL (12.6-16.3) POC Hct 47 % % (38-47) Departure - Departure Disposition: [facility] Acute Clinical Impression: Nausea and vomiting, Acute kidney injury, Dehydration Condition: Fair
--- NOTE | 2018-07-22 13:25 | CPEKG ---
Test Reason : OPEN Blood Pressure : / mmHG Vent. Rate : 079 BPM Atrial Rate : 079 BPM P-R Int : 133 ms QRS Dur : 084 ms QT Int : 421 ms P-R-T Axes : 035 -63 056 degrees QTc Int : 483 ms Sinus rhythm Inferior infarct, old Confirmed by Godwin Gamez ([id number]) on 07/22/2018 1:25:13 PM Referred By: Confirmed By:Godwin Gamez
[2018-07-22 13:43] LABS: PLATELET COUNT 138 10^3/uL (150-400)
[2018-07-22] MEDS ORDERED: INSULIN REGULAR HUMAN 100 UNIT/ML UNIT IVP ONE (14:11)
[2018-07-22] MEDS ORDERED: PHENAZOPYRIDINE HCL 100 MG TAB PO PRN (15:27)
[2018-07-22] MEDS ORDERED: INSULIN 70/30 HUMAN 100 UNIT/ML SYR SC PRN (15:27)
[2018-07-22] MEDS ORDERED: D50W 25 GM/50 ML SYR IVP PRN (15:29)
[2018-07-22] MEDS ORDERED: Epinephrine [Epipen 0.3 Mg] IM PRN (15:30)
--- NOTE | 2018-07-22 16:13 | GHP ---
DATE OF ADMISSION: 07/22/2018 HISTORY OF PRESENT ILLNESS: The patient is a 57-year-old female with multiple medical problems, cont inuous narcotic dependence, and multiple drug allergies, well known to the hospitalist service, [facility] with a number of complaints. She has been receiving IV micafungin for a vaginal yeast infection due to innumerable drug intolerances. She had a number of complaints. She i s complaining of being lightheaded, dizzy, poor p.o. intake, nausea, vomiting, decreased urine output , and no ostomy output since Friday night. She also complained of white light, and then, she had a fall on the stairs where she landed on her coccyx. She has been able to walk since. She has not had fever or chills. She has some chronic vaginal symptoms likely secondary to atrophic vaginitis, but she does endorse some urinary symptoms as well. She also notes some pain at the site of her left PICC line and possibly there was some swelling at a recent [facility]. She has been followed by Dr. Ten Tomas for evaluation of a vaginal yeast infection, which is being tr eated with micafungin. REVIEW OF SYSTEMS: Complete 10-point review of systems conducted, negative, except as noted in the H PI. PAST MEDICAL HISTORY: 1. Chronic pain on continuous narcotics. 2. Reflex sympathetic dystrophy with symptoms primarily in her legs. 3. Recent ostomy placement for diverticulitis. 4. Anxiety. 5. Small bowel obstruction. 6. VTE. 7. Morbid obesity. 8. History of lysis of adhesions. 9. Diabetes with poor control. ALLERGIES: Zofran, vancomycin, oxymorphone, amoxicillin, ampicillin, azithromycin, Keflex, ciproflox acin, clindamycin, cyclobenzaprine, dalteparin, erythromycin, iodine, levofloxacin, nitrofurantoin, p enicillin, phenytoin, potassium clavulanate, prednisone, rifampin, shellfish, sulfamethoxazole, trime thoprim, ChloraPrep, latex, and narcotics. Notably, she takes morphine. HOME MEDICATIONS: Insulin 70/30 10 units b.i.d., Excedrin, Alocril drops, clonazepam, clonidine, dip henhydramine, EpiPen, lorazepam 2 q.4 h., morphine sulfate 15 multiple times a day, Pyridium, Martiniquais K riss, which is a laxative, and tizanidine. SOCIAL HISTORY: No tobacco. No alcohol. Lives with her who is involved in her care. She l linda in [place] at the [facility]. FAMILY HISTORY: Reviewed and unremarkable. PHYSICAL EXAMINATION: VITAL SIGNS: Temp 36.4, blood pressure 68/50, now 108/70, pulse 101, now 70s, breathing 19 times a minute, 90% on room air. GENERAL: In no acute distress. HEENT: Sclerae anic teric. Oropharynx clear. Mucous membranes moist. NECK: Supple. No lymphadenopathy or JVD. LUNGS : Clear to auscultation bilaterally. HEART: S1, S2. Not tachycardic. ABDOMEN: Soft, nontender. It is distended, but also obese, so a little difficult to tell. Bowel sounds are hypoactive, but pr esent. There is no ostomy output. The stoma is pink. PELVIC: External vaginal exam reveals some e rythema without warmth, odor, or discharge. EXTREMITIES: Lower extremities are without edema. Her left upper extremity has some bleeding around the PICC line site, but no significant erythema. No ly mphangitic streaking, and it is not noticeably edematous. LABORATORY/IMAGING: White count 10.7, hematocrit 44, platelets are 138,000. Sodium 130, potassium 4 .2, chloride 97, bicarb 20, BUN 18, creatinine 1.6, her baseline is 1.0, glucose 130. LFTs normal ot her than a slightly elevated bilirubin, total protein 5.7. UA shows 25-50 white cells. She typicall y has a significant amount of pyuria at 50-180. The sample is consistent with a contaminated sample. Chest x-ray interpreted by me shows no acute cardiopulmonary disease. EKG interpreted by me shows sinus rhythm with a left axis deviation at [address] or T-wave change s. CT of the abdomen images reviewed interpreted by me shows a dilated cecum with proximal colonic const ipation, cannot exclude focal colonic mucosal thickening and right nephrolithiasis that is nonobstruc ting. I discussed the case with Dr. Godwin Gamez. ASSESSMENT/PLAN: 57-year-old female with multiple medical problems presents with multiple complaints and acute kidney injury. 1. Acute kidney injury. I suspect this is prerenal. We will volume resuscitate her and repeat in t he morning. 2. Light going white. She was hypotensive on presentation. I suspect this is a presyncopal type sy mptoms. We will not specifically work it up. We will rehydrate her and follow. She has a nonfocal exam, conversant, and absolutely in her neurologic baseline, which I know well. 3. Constipation with dilated cecum. This is either constipation and/or obstruction. Surgery will s ee her. She has a non-concerning exam. Her leukocytosis is noted. We will continue her Martiniquais [place] . 4. Pyuria. I think that this is likely a dirty sample. I will not start antibiotics. I will discu ss with Dr. Tomas the possibility of treatment. She has required meropenem in the past. I think it i s a bit much for a likely non-urinary tract infection. 5. Continuous pain with continuous narcotics. We will continue her pain medications. 6. Pain at the site of her peripherally inserted central catheter line with swelling. We will check an ultrasound. 7. Prophylaxis. Sequential compression devices. DISPOSITION: Inpatient status. /[id number]/MODL
[2018-07-22] MEDS ORDERED: morphINE 10 MG/0.5 ML UDSYR PO PRN (17:15)
--- NOTE | 2018-07-22 18:02 | PCMIDPN ---
Assessment/Plan: Assessment/Plan: * Possible sepsis: Mild leukocytosis with accompanying subjective fever/chills , nausea, vomiting, abdominal pain, poor glycemic control, and left upper extremity pain at PICC line site - presentation could be related to sepsis with considerations including PICC associated bacteremia, intra-abdominal infection, or less likely urinary source. Was hospitalized in April with E coli sepsis associated with obstructive uropathy. Patient has developed phlebitis associated with PICC lines and peripheral IV catheters in the past which may be etiology for patient's pain associated with current PICC line. Await surgical consultation regarding colonic dilatation which has been seen previously. Blood cultures have been obtained and patient has orders for left upper extremity ultrasound to assess for any PICC associated clot. Given overall presentation and prior history of sepsis, favor empiric meropenem (tolerated as treatment for her E coli bacteremia) pending culture data and clinical course. Will hold off on addition of therapy targeting resistant gram-positive organisms in LEs blood cultures show positivity for these species. * Intertrigo: Marked improvement in patient's intertrigo which has required IV micafungin for treatment given patient cannot tolerate topical or oral antifungals. Will continue this while on meropenem to prevent any further exacerbation. Time spent, greater than 35 min, which greater than half was spent in education/ counseling/coordination of care related to possible sepsis and ongoing infectious disease plan of care. 07/22/18 17:56 Subjective: Patient well known to me from ongoing infectious disease care related to refractory intertrigo which has required IV micafungin as patient cannot tolerate topical antifungals or oral anti fungal therapy. History of E coli bacteremia/sepsis due to obstructive nephropathy in April. Multiple drug allergies and drug intolerances. Patient describes having 4 days of subjective fever with chills and poor glycemic control with blood sugars ranging in the 350 range. Also has experience nausea, vomiting and abdominal pain. Was scheduled for last dose of IV micafungin on . Also notes pain at PICC line insertion site since Friday. She has prior history of phlebitis associated with indwelling peripheral or central catheters. Continues to complain of vaginal dryness and clumps of white discharge as well as mild dysuria. Ostomy output has gone down during same time frame of symptoms. Patient was referred from infusion center earlier to emergency department based on above symptomatology. Infectious disease service is now asked to continue in her follow-up by Dr. Morgan. Objective: Vital Signs Temp Pulse Resp BP Pulse Ox 37.5 C 88 16 105/73 96 07/22/18 16:56 07/22/18 16:56 07/22/18 16:56 07/22/18 16:56 07/22/18 16:56 07/21/18 07/22/18 07/23/18 05:59 05:59 05:59 Intake Total 2000 Output Total [address] of abdomen pelvis showing distension of cecum and ascending colon without pneumatosis; previous cecal dilatation noted although current measurement of 11 cm greater than prior measurement of 6.8 cm; nonobstructive right-sided nephrolithiasis present Laboratory Tests 07/22/18 07/22/18 07/22/18 13:30 13:30 13:33 WBC 10.71 H Hct 44.4 Plt Count 138 L Neut % (Auto) 84.0 H POC Creatinine 1.8 H POC Glucose Total Bilirubin 1.6 H AST 41 ALT 42 Alkaline Phosphatase 103 Albumin 3.1 L Urine RBC Urine WBC Ur Epithelial Cells 07/22/18 07/22/18 14:40 17:16 WBC Hct Plt Count Neut % (Auto) POC Creatinine POC Glucose 282 H Total Bilirubin AST ALT Alkaline Phosphatase Albumin Urine RBC 5-10 H Urine WBC 25-50 H Ur Epithelial Cells 2+ H - Physical Exam General Appearance: alert, no apparent distress, non-toxic EENT: No scleral icterus, No thrush, No conjunctival petechiae Respiratory: lungs clear, No respiratory distress Cardiac/Chest: regular rate, rhythm, No systolic murmur Extremities: inflammation (Left upper extremity with mild erythema and tenderness proximal to PICC insertion with mild edema) Abdomen: tender (Mild tenderness diffusely), No distended Skin: other (Intertrigo in bilateral inguinal regions resolved) ICD10 Worksheet Patient Problems: Problems Problem Status Onset Acute kidney injury Acute Dehydration Acute Nausea and vomiting Acute Kidney stone Active Microscopic hematuria Active Recurrent cystitis Active Reflex sympathetic dystrophy Active Abdominal pain Acute Biliary colic Acute Bowel obstruction Acute Chronic pain Acute Flank pain, acute Acute History of reflex sympathetic dystrophy Acute Hyperglycemia Acute Narcotic withdrawal Acute UTI (urinary tract infection) Acute Volume depletion Acute Vomiting Acute
[2018-07-22] MEDS: INSULIN LISPRO 100 UNIT/ML SC SCH (18:03)
[2018-07-22] MEDS: MICAFUNGIN NA 100 MG in NS 100 ML IV SCH ×2 (18:12→20:11)
[2018-07-22] MEDS ORDERED: ALTEPLASE 2 MG VIAL IVP PRN (18:51)
--- NOTE | 2018-07-22 19:43 | HOSPPROG ---
Hospitalist Progress Note Assessment/Plan: has non occlusive clot in L arm around picc not a candidate for R arm picc from pervious clots, per IR discussed risks/benefits, will keep in current picc, begin LMWH, remove picc when cr normalized Objective: Vital Signs Temp Pulse Resp BP Pulse Ox 37.5 C 88 16 105/73 96 07/22/18 16:56 07/22/18 16:56 07/22/18 16:56 07/22/18 16:56 07/22/18 16:56 07/21/18 07/22/18 07/23/18 05:59 05:59 05:59 Intake Total 2100 Output Total 100 Balance 1999 ICD10 Worksheet Patient Problems: Problems Problem Status Onset Acute kidney injury Acute Dehydration Acute Nausea and vomiting Acute Kidney stone Active Microscopic hematuria Active Recurrent cystitis Active Reflex sympathetic dystrophy Active Abdominal pain Acute Biliary colic Acute Bowel obstruction Acute Chronic pain Acute Flank pain, acute Acute History of reflex sympathetic dystrophy Acute Hyperglycemia Acute Narcotic withdrawal Acute UTI (urinary tract infection) Acute Volume depletion Acute Vomiting Acute
[2018-07-22] MEDS: ENOXAPARIN 120 MG/0.8 ML SYR SC SCH (20:16)
[2018-07-22] MEDS: clonazePAM 0.5 MG TAB PO SCH (20:56)
[2018-07-22] MEDS: morphINE SR 15 MG TAB PO SCH (20:56)
[2018-07-22] MEDS: KRISS PO SCH (20:57)
[2018-07-22] MEDS: DIPHENHYDRAMINE HCL 25 MG PO SCH (20:57)
[2018-07-22] MEDS: TIZANIDINE HCL 4 MG PO SCH (20:58)
[2018-07-22] MEDS: ALOCRIL EACHEYE PRN (21:08)
[2018-07-22] MEDS: MEROPENEM 1 GM in NS 100 ML IV SCH (22:34)
[2018-07-22] MEDS ORDERED: morphINE 10 MG/0.5 ML UDSYR PO ONE (23:38)
[2018-07-22] MEDS: NS 1,000 ML IV SCH (23:41)
[2018-07-23] MEDS: DIPHENHYDRAMINE HCL 25 MG PO SCH ×4 (02:39→21:18)
[2018-07-23] MEDS: KRISS PO SCH ×4 (02:40→21:17)
[2018-07-23] MEDS: TIZANIDINE HCL 4 MG PO SCH ×4 (02:41→21:17)
[2018-07-23] MEDS: ACETAMINOPHEN 325 MG TAB PO PRN (03:10)
[2018-07-23] MEDS: clonazePAM 0.5 MG TAB PO SCH ×4 (03:11→21:16)
[2018-07-23] MEDS: LORazepam 1 MG/0.5 ML UDSYR PO PRN (03:14)
--- NOTE | 2018-07-23 03:55 | HOSPPROG ---
Hospitalist Progress Note Assessment/Plan: XC: Blood cultures positive for GPC's in clusters, will start Vancomycin. Objective: Vital Signs Temp Pulse Resp BP Pulse Ox 40.3 C H 96 18 129/70 H 93 07/23/18 03:50 07/23/18 02:57 07/23/18 02:57 07/23/18 02:57 07/23/18 02:57 07/21/18 07/22/18 07/23/18 05:59 05:59 05:59 Intake Total 2100 Output Total 100 Balance 1999 ICD10 Worksheet Patient Problems: Problems Problem Status Onset Acute kidney injury Acute Dehydration Acute Nausea and vomiting Acute Kidney stone Active Microscopic hematuria Active Recurrent cystitis Active Reflex sympathetic dystrophy Active Abdominal pain Acute Biliary colic Acute Bowel obstruction Acute Chronic pain Acute Flank pain, acute Acute History of reflex sympathetic dystrophy Acute Hyperglycemia Acute Narcotic withdrawal Acute UTI (urinary tract infection) Acute Volume depletion Acute Vomiting Acute
[2018-07-23] MEDS: MEROPENEM 1 GM in NS 100 ML IV SCH ×3 (05:20→21:16)
[2018-07-23] MEDS: morphINE SR 15 MG TAB PO SCH ×2 (06:04→21:16)
[2018-07-23 07:00] LABS: PLATELET COUNT 87 10^3/uL (150-400)
[2018-07-23] MEDS: INSULIN LISPRO 100 UNIT/ML SC SCH ×3 (08:03→18:09)
[2018-07-23] MEDS: ENOXAPARIN 120 MG/0.8 ML SYR SC SCH ×2 (08:05→22:21)
[2018-07-23] MEDS: NS 1,000 ML IV SCH ×2 (08:21→21:16)
[2018-07-23] MEDS: MICAFUNGIN NA 100 MG in NS 100 ML IV SCH (08:24)
--- NOTE | 2018-07-23 09:27 | PDMN ---
Medical Necessity Medical necessity: Pt meets INPT criteria per MD as of 07/22/18 and [facility] [place] M-160 Sepsis and Other Febrile Illness, without Focal Infection (bacteremia, T 40.3, acute kidney injury - creatinine 1.4, hypotension/presyncopal symptoms, constipation with dilated cecum; hx DM, chronic pain on continuous narcotics, RSD, recent ostomy).
[2018-07-23] MEDS: ALOCRIL EACHEYE PRN (09:36)
--- NOTE | 2018-07-23 10:30 | PCMIDPN ---
Assessment/Plan: #Sepsis due to PICC Line infection #MSSA Bacteremia/PICC line infection associated with DVT c/w septic thrombophlebitis. Tmax 40 overnight --would like to remove PICC line, need to get PIV access first --increase dose meropenem for improving renal function --repeat blood cultures after 48 hours of antibiotics, expect could be difficult to clear with presence of DVT --no murmur or peripheral stigmata of endocarditis, hold off on ECHO now #Multiple antibiotic allergies: although meropenem broader abx than would like, hold off on change today due to multiple drug reactions/allergies. Will discuss w Dr Tomas tomorrow # ARF: 1.4 from 1.6 today # intertrigo: did not examine inguinal region today; she is on micafungin to prevent recurrence meds meropenem 1gm IV q12H #1 micafungin 100mg IV daily micro 07/22 blood cx (12/05) :MSSA Subjective: Feeling better than yesterday. Pt was prompted to come to the hospital due to her glucose levels ranging in 300-400. Complains of her diabetes acting up, with high of 600 yesterday. Complains of blurry vision. L-arm does not feel swollen to her but is painful. Pt is tearful at bedside due to pain and anxiety with coming to the hospital. I, Eileen Collins, am scribing for, and in the presence of, Aziza Baca MD IAziza MD, personally performed the services described in this documentation, as scribed by Eileen Collins in my presence, and it is both accurate and complete. Objective: Vital Signs Temp Pulse Resp BP Pulse Ox 36.9 C 73 16 163/96 H 99 07/23/18 07:11 07/23/18 07:11 07/23/18 07:11 07/23/18 07:11 07/23/18 07:11 CT of abdomen pelvis showing distension of cecum and ascending colon without pneumatosis; previous cecal dilatation noted although current measurement of 11 cm greater than prior measurement of 6.8 cm; nonobstructive right-sided nephrolithiasis present. Microbiology 07/22/18 17:40 Blood Panel (PCR) - Final Blood S.aureus Methicillin Suscept. Laboratory Results 07/23/18 06:15 07/23/18 06:15 07/22/18 07/23/18 07/24/18 05:59 05:59 05:59 Intake Total 2100 1328 Output Total 150 Balance 1950 1328 - Physical Exam General Appearance: alert, apparent distress, obese EENT: PERRL/EOMI, dry mucous membranes, other (no ulcers, fair dentition), No thrush Respiratory: lungs clear, normal breath sounds, No respiratory distress Neck: full range of motion, supple Cardiac/Chest: regular rate, rhythm, other (no murmur) Extremities: pedal edema (1+), other (LUE PICC line with mild erythema, tenderness to palpation. Moving all 4 extremities, but her lower extremities to a lesser extent.) Abdomen: soft, distended Skin: normal color, warm/dry, No rash Neuro/Psych: alert, other (depressed affect, tearful ) - Time Spent With Patient Time Spent with Patient: greater than 35 minutes (reviewed dx, plan of treatment , need for rehab, that this is a complication of PICC line) Time Spent with Patient: Greater than 35 minutes spent on this patients care, greater than 50% of time spent counseling, educating, and coordinating care regarding the above mentioned plan. ICD10 Worksheet Patient Problems: Problems Problem Status Onset Acute kidney injury Acute Dehydration Acute Nausea and vomiting Acute Kidney stone Active Microscopic hematuria Active Recurrent cystitis Active Reflex sympathetic dystrophy Active Abdominal pain Acute Biliary colic Acute Bowel obstruction Acute Chronic pain Acute Flank pain, acute Acute History of reflex sympathetic dystrophy Acute Hyperglycemia Acute Narcotic withdrawal Acute UTI (urinary tract infection) Acute Volume depletion Acute Vomiting Acute
--- NOTE | 2018-07-23 11:37 | HOSPPROG ---
Hospitalist Progress Note Assessment/Plan: MSSA Bacteremia - 02/04 blood cultures on admission growing GPCs, PCR showing MSSA - Indwelling PICC likely surce - Currently on Meropenum due to various drug allergies - ID consulted, will f/u their recommendations - Likely will remove PICC line after PIV access is established - Repeat blood cultures s/p 48 hours of abx Upper extremity DVT - Found on U/S on admission showing acute DVT involving brachial, axially, and subclavian veins along course of PICC - Continue therapeutic Lovenox BID, likely will require 3 month course given provoked nature of DVT Acute Kidney Injury - BUN/Cr on admission 18/1.6, Cr improved to 1.4 this AM, baseline ~1 - S/p IVF - Continue to monitor I/O, BMP Dilated Cecum - Patient has had hx of 3 colectomies - CT Abd on admission showed focal colonic mucosal thickening w/ focal luminal narrowing - Surgery consulted on admission to evaluate, will f/u recs Chronic Pain - Continue home pain medications FEN: PRN Ppx: Lovenox Code: Full Dispo: Pending clinical course Subjective: Patient reports pain in LUE this AM Objective: Vital Signs Temp Pulse Resp BP Pulse Ox 36.8 C 64 16 116/78 95 07/23/18 11:02 07/23/18 11:02 07/23/18 11:02 07/23/18 11:02 07/23/18 11:02 Microbiology 07/22/18 17:40 Blood Panel (PCR) - Final Blood S.aureus Methicillin Suscept. Laboratory Results 07/23/18 06:15 07/23/18 06:15 07/22/18 07/23/18 07/24/18 05:59 05:59 05:59 Intake Total 2100 1328 Output Total 150 Balance 1950 1328 - Physical Exam Constitutional: no apparent distress, chronically ill appearing, obese Eyes: PERRL Ears, Nose, Mouth, Throat: moist mucous membranes Cardiovascular: regular rate and rhythym Respiratory: no respiratory distress, clear to auscultation Gastrointestinal: soft, non-tender abdomen, other (colostemy bag in place) Genitourinary: no bladder tenderness Skin: warm, erythema Musculoskeletal: pain with ROM Neurologic: AAOx3 Psychiatric: anxious ICD10 Worksheet Patient Problems: Problems Problem Status Onset Acute kidney injury Acute Dehydration Acute Nausea and vomiting Acute Kidney stone Active Microscopic hematuria Active Recurrent cystitis Active Reflex sympathetic dystrophy Active Abdominal pain Acute Biliary colic Acute Bowel obstruction Acute Chronic pain Acute Flank pain, acute Acute History of reflex sympathetic dystrophy Acute Hyperglycemia Acute Narcotic withdrawal Acute UTI (urinary tract infection) Acute Volume depletion Acute Vomiting Acute
--- NOTE | 2018-07-23 12:34 | SOAPPROG ---
SOAP Progress Note Assessment/Plan: Assessment: 57 y/o F admitted for MSSA bacteremia secondary to indwelling PICC S: Feels much better. As far as her ostomy, she did get enemas x2 last night, and has had good output since then. O:Alert Abdomen soft, nontender, ostomy is retracted, but pink. No apparent stricture or hernia on exam. Plan: Pt seen with Dr. Santos. Ostomy appears to be functioning well. 07/23/18 12:30 Objective: Vital Signs Temp Pulse Resp BP Pulse Ox 36.8 C 64 16 116/78 95 07/23/18 11:02 07/23/18 11:02 07/23/18 11:02 07/23/18 11:02 07/23/18 11:02 Microbiology 07/22/18 17:40 Blood Panel (PCR) - Final Blood S.aureus Methicillin Suscept. Laboratory Results 07/23/18 06:15 07/23/18 06:15 07/22/18 07/23/18 07/24/18 05:59 05:59 05:59 Intake Total 2100 1328 Output Total 150 Balance 1950 1328 ICD10 Worksheet Patient Problems: Problems Problem Status Onset Acute kidney injury Acute Dehydration Acute Nausea and vomiting Acute Kidney stone Active Microscopic hematuria Active Recurrent cystitis Active Reflex sympathetic dystrophy Active Abdominal pain Acute Biliary colic Acute Bowel obstruction Acute Chronic pain Acute Flank pain, acute Acute History of reflex sympathetic dystrophy Acute Hyperglycemia Acute Narcotic withdrawal Acute UTI (urinary tract infection) Acute Volume depletion Acute Vomiting Acute
--- NOTE | 2018-07-23 12:50 | SOAPPROG ---
SOAP Progress Note Assessment/Plan: Assessment: PATIENT ADMITTED WITH ABDOMINAL PAIN AND CONSTIPATION/SHE HAS AN OSTOMY BECAUSE OF CHRONIC CONSTIPATION PROBLEMS CT SCAN DOES NOT REVEAL ANY OTHER HERNIAS OR PROBLEMS Plan: ENEMAS THROUGH THE COLOSTOMY/WILL FOLLOW UP TOMORROW 07/23/18 12:47 07/23/18 12:49 SEEN WITH MY NURSE PRACTITIONER TODAY/PLEASE REFER TO HER NOTE MUCH MORE COMFORTABLE/AFEBRILE/OSTOMY PINK AND PATENT WITH NO EVIDENCE OF OBSTRUCTION SHE HAS HAD SEVERAL BOWEL MOVEMENTS THROUGH THE COLOSTOMY AFTER IN MOST LAST NIGHT Objective: Vital Signs Temp Pulse Resp BP Pulse Ox 36.8 C 64 16 116/78 95 07/23/18 11:02 07/23/18 11:02 07/23/18 11:02 07/23/18 11:02 07/23/18 11:02 Microbiology 07/22/18 17:40 Blood Panel (PCR) - Final Blood S.aureus Methicillin Suscept. Laboratory Results 07/23/18 06:15 07/23/18 06:15 07/22/18 07/23/18 07/24/18 05:59 05:59 05:59 Intake Total 2100 1328 Output Total 150 Balance 1950 1328 ICD10 Worksheet Patient Problems: Problems Problem Status Onset Acute kidney injury Acute Dehydration Acute Nausea and vomiting Acute Kidney stone Active Microscopic hematuria Active Recurrent cystitis Active Reflex sympathetic dystrophy Active Abdominal pain Acute Biliary colic Acute Bowel obstruction Acute Chronic pain Acute Flank pain, acute Acute History of reflex sympathetic dystrophy Acute Hyperglycemia Acute Narcotic withdrawal Acute UTI (urinary tract infection) Acute Volume depletion Acute Vomiting Acute
[2018-07-23] MEDS: morphINE SR 15 MG TAB PO PRN (15:28)
--- NOTE | 2018-07-23 16:34 | ASMTCMCOM ---
CM Note CM Note Notes: Spoke w/MD, pt may benefit from SNF. PT/OT to STACY mancini w/f up in am. Date Signed: 07/23/2018 04:34 PM Electronically Signed By:Gladys Martinez RN
[2018-07-24] MEDS: clonazePAM 0.5 MG TAB PO SCH ×4 (00:53→21:54)
[2018-07-24] MEDS: ACETAMINOPHEN 325 MG TAB PO PRN (00:53)
[2018-07-24] MEDS: KRISS PO SCH ×4 (00:54→21:54)
[2018-07-24] MEDS: DIPHENHYDRAMINE HCL 25 MG PO SCH ×5 (00:54→21:53)
[2018-07-24] MEDS: TIZANIDINE HCL 4 MG PO SCH ×4 (00:54→21:53)
[2018-07-24] MEDS: MEROPENEM 1 GM in NS 100 ML IV SCH ×3 (05:21→21:53)
[2018-07-24] MEDS: morphINE SR 15 MG TAB PO SCH ×2 (05:21→21:54)
[2018-07-24] MEDS: NS 1,000 ML IV SCH ×2 (08:18→19:08)
[2018-07-24] MEDS ORDERED: INSULIN GLARGINE 100 UNITS/ML UNIT SC SCH (09:00)
[2018-07-24] MEDS: INSULIN LISPRO 100 UNIT/ML SC SCH ×4 (09:28→18:29)
--- NOTE | 2018-07-24 09:41 | SOAPPROG ---
SOAP Progress Note Assessment/Plan: Assessment: 57 y/o F admitted for MSSA bacteremia secondary to indwelling PICC S: Feels much better. As far as her ostomy, she did get enemas x2 last night, and has had good output since then. O:Alert Abdomen soft, nontender, ostomy is retracted, but pink. No apparent stricture or hernia on exam. Plan: Pt seen with Dr. Santos. Ostomy appears to be functioning well. 07/23/18 12:30 Subjective: No complaints. Good ostomy output. Denies abdominal pain. Objective: Vital Signs Temp Pulse Resp BP Pulse Ox 36.6 C 64 16 138/83 H 97 07/24/18 07:50 07/24/18 07:50 07/24/18 07:50 07/24/18 07:50 07/24/18 07:50 Microbiology 07/22/18 17:40 Blood Panel (PCR) - Final Blood S.aureus Methicillin Suscept. Laboratory Results 07/23/18 06:15 07/24/18 04:43 07/23/18 07/24/18 07/25/18 05:59 05:59 05:59 Intake Total 2100 1578 Output Total 150 1950 900 Balance 1950 -747 -900 ICD10 Worksheet Patient Problems: Problems Problem Status Onset Acute kidney injury Acute Dehydration Acute Nausea and vomiting Acute Kidney stone Active Microscopic hematuria Active Recurrent cystitis Active Reflex sympathetic dystrophy Active Abdominal pain Acute Biliary colic Acute Bowel obstruction Acute Chronic pain Acute Flank pain, acute Acute History of reflex sympathetic dystrophy Acute Hyperglycemia Acute Narcotic withdrawal Acute UTI (urinary tract infection) Acute Volume depletion Acute Vomiting Acute
[2018-07-24] MEDS: MICAFUNGIN NA 100 MG in NS 100 ML IV SCH (11:18)
[2018-07-24] MEDS: morphINE SR 15 MG TAB PO PRN ×2 (11:47→14:35)
--- NOTE | 2018-07-24 13:39 | PCMIDPN ---
Assessment/Plan: Assessment/Plan: * Septic thrombophlebitis with MSSA bacteremia due to PICC line: PICC line now removed. Ultrasound findings reviewed showing DVT. All blood culture showing growth of MSSA. Continue meropenem recognizing this is broader than necessary for MSSA but due to patient's multiple drug allergies and intolerance is have limited other treatment options. Prior allergic reactions including that to daptomycin reviewed and patient reluctant to change to ertapenem due to intolerable nausea and vomiting. Repeat blood cultures in a.m. to assess for clearing of bacteremia. Hold off on PICC line if possible until bacteremia clears. Plan tunneled PICC line for ongoing treatment once bacteremia has cleared as patient will require 6 weeks of IV therapy based on presence of septic thrombophlebitis/endovascular source. * Intertrigo: Clinically resolved. Will continue micafungin while on meropenem as potential for relapse with broad-spectrum antibiotic therapy. 07/24/18 13:35 Subjective: Patient with residual left arm pain. Objective: Vital Signs Temp Pulse Resp BP Pulse Ox 36.9 C 64 16 122/80 H 96 07/24/18 12:00 07/24/18 12:00 07/24/18 12:00 07/24/18 12:00 07/24/18 12:00 Microbiology 07/22/18 17:40 Blood Panel (PCR) - Final Blood S.aureus Methicillin Suscept. Laboratory Results 07/24/18 11:46 07/24/18 04:43 07/23/18 07/24/18 07/25/18 05:59 05:59 05:59 Intake Total 2100 1578 Output Total 150 1950 900 Balance 4456 -513 -775 Meropenem # 2 Blood cultures 07/22/2018 2/2 MSSA T-max 39.5 degrees - Physical Exam General Appearance: alert, no apparent distress EENT: No scleral icterus, No thrush, No conjunctival petechiae Respiratory: lungs clear, No respiratory distress Cardiac/Chest: regular rate, rhythm, No systolic murmur Extremities: inflammation (Left upper extremity with tender cord approximately 2 cm in length at site of prior PICC line insertion; no edema or drainage) Abdomen: non-tender, No distended Skin: No embolic lesions ICD10 Worksheet Patient Problems: Problems Problem Status Onset Acute kidney injury Acute Dehydration Acute Nausea and vomiting Acute Kidney stone Active Microscopic hematuria Active Recurrent cystitis Active Reflex sympathetic dystrophy Active Abdominal pain Acute Biliary colic Acute Bowel obstruction Acute Chronic pain Acute Flank pain, acute Acute History of reflex sympathetic dystrophy Acute Hyperglycemia Acute Narcotic withdrawal Acute UTI (urinary tract infection) Acute Volume depletion Acute Vomiting Acute
--- NOTE | 2018-07-24 14:13 | HOSPPROG ---
Hospitalist Progress Note Assessment/Plan: 57yo F with ostomy due to chronic constipation, chronic pain, numerous drug allergies here with bacteremia likely from infected PICC-associated DVT. This is my first encounter with the patient. #MSSA bacteremia: Suspect d/t septic thrombophlebitis. Had fever overnight which isn't too surprising given her infected thrombus. - Continue meropenem due to allergy list, ID following - Repeat blood cultures tomorrow - If surveillance cx negative, place tunneled PICC for 6 weeks of abx #Thrombocytopenia: While new DVT and dropping platelets raises suspicion for HIT , there are reasonable alternative explanations for these (DVT is line associated and thrombocytopenia is likely consumptive in setting of thrombus and infection). - Send HIT abs - Continue LMWH for now - Monitor clinical picture and platelets closely. If plts continue to drop, consider argatroban #Acute LUE DVT: PICC associated. Involving brachial, axillary, and subclavian veins. - PICC now removed - Anticoagulation as above #Hyperglycemia with T2DM: Not controlled in setting of infection. - Restart home 70/30 at 10 BID, continue SSI, monitor BG #KAREN: Resolving, likely pre-renal. - Monitor daily #Dilated cecum: Noted on CT with focal luminal narrowing. - Gen surg following, recommend enemas, no surgical intervention planned #H/o ostomy #Chronic pain: Continue home meds #HTN: Chronic. Continue home meds Diet: carb controlled Code: Full Dispo: Remain inpatient for IV antibiotics, management of above. Will need outpatient IV antibiotics on discharge. Subjective: Had fever overnight. Didn't sleep much. Still having LUE pain. PICC now removed. Objective: Vital Signs Temp Pulse Resp BP Pulse Ox 36.9 C 64 16 122/80 H 96 07/24/18 12:00 07/24/18 12:00 07/24/18 12:00 07/24/18 12:00 07/24/18 12:00 Microbiology 07/22/18 17:40 Blood Panel (PCR) - Final Blood S.aureus Methicillin Suscept. Laboratory Results 07/24/18 11:46 07/24/18 04:43 07/23/18 07/24/18 07/25/18 05:59 05:59 05:59 Intake Total 2100 1578 Output Total 150 1950 900 Balance 3438 -461 -242 ICD10 Worksheet Patient Problems: Problems Problem Status Onset Acute kidney injury Acute Dehydration Acute Nausea and vomiting Acute Kidney stone Active Microscopic hematuria Active Recurrent cystitis Active Reflex sympathetic dystrophy Active Abdominal pain Acute Biliary colic Acute Bowel obstruction Acute Chronic pain Acute Flank pain, acute Acute History of reflex sympathetic dystrophy Acute Hyperglycemia Acute Narcotic withdrawal Acute UTI (urinary tract infection) Acute Volume depletion Acute Vomiting Acute
[2018-07-24] MEDS: ENOXAPARIN 120 MG/0.8 ML SYR SC SCH ×2 (15:55→22:56)
--- NOTE | 2018-07-24 17:17 | ASMTCMCOM ---
CM Note CM Note Notes: Spoke with pt and re; dc poc. Pt has refused to work with PT/OT stating it makes it worse. She and her go on to say that [facility] have refused her in the past because she has Medicare. CM will look into matter but unlikely they will want to participate, is pt's primary caregiver. Pt has also refused to consider SNF. Anticipate pt will dc home w/ but CM will continue to folllow for any needs. DC Plan: TBD Date Signed: 07/24/2018 05:16 PM Electronically Signed By:Gladys Martinez RN
[2018-07-24] MEDS: INSULIN 70/30 HUMAN 100 UNIT/ML SYR SC SCH (18:34)
[2018-07-25] MEDS: ACETAMINOPHEN 325 MG TAB PO PRN (01:21)
[2018-07-25] MEDS: clonazePAM 0.5 MG TAB PO SCH ×4 (01:21→21:19)
[2018-07-25] MEDS: TIZANIDINE HCL 4 MG PO SCH ×4 (01:22→21:10)
[2018-07-25] MEDS: DIPHENHYDRAMINE HCL 25 MG PO SCH ×4 (01:23→21:08)
[2018-07-25] MEDS: KRISS PO SCH ×4 (01:24→21:09)
[2018-07-25] MEDS: LORazepam 1 MG/0.5 ML UDSYR PO PRN (01:28)
[2018-07-25] MEDS: MEROPENEM 1 GM in NS 100 ML IV SCH ×3 (05:56→22:15)
[2018-07-25] MEDS: morphINE SR 15 MG TAB PO SCH ×2 (05:56→21:19)
[2018-07-25] MEDS: INSULIN 70/30 HUMAN 100 UNIT/ML SYR SC SCH ×2 (09:29→17:36)
[2018-07-25] MEDS: ENOXAPARIN 120 MG/0.8 ML SYR SC SCH ×2 (09:29→21:04)
[2018-07-25] MEDS: MICAFUNGIN NA 100 MG in NS 100 ML IV SCH ×2 (09:29→11:14)
[2018-07-25] MEDS: INSULIN LISPRO 100 UNIT/ML SC SCH ×3 (09:29→18:23)
[2018-07-25] MEDS ORDERED: fentaNYL 100 MCG/2 ML INJ IVP PRN (13:40)
[2018-07-25] MEDS ORDERED: BISACODYL 10 MG SUPP PR PRN (13:41)
[2018-07-25] MEDS ORDERED: MAGNESIUM HYDROXIDE 30 ML UDCUP PO PRN (13:41)
[2018-07-25] MEDS ORDERED: LACTULOSE 20 GM/30 ML UDCUP PO PRN (13:41)
[2018-07-25] MEDS ORDERED: POLYETHYLENE GLYCOL 3350 17 GM PKT PO PRN (13:41)
--- NOTE | 2018-07-25 13:54 | HOSPPROG ---
Hospitalist Progress Note Assessment/Plan: 57yo F with ostomy due to chronic constipation, chronic pain, numerous drug allergies here with bacteremia likely from infected PICC-associated DVT. This is my first encounter with the patient. #MSSA bacteremia: Suspect d/t septic thrombophlebitis. Continues to fever which isn't surprising. - Continue meropenem due to allergy list, ID following. She gets IV benadryl with abx - Repeated blood cultures today - If surveillance cx negative, place tunneled PICC for 6 weeks of abx #Thrombocytopenia: Improving. While new DVT and dropping platelets raises suspicion for HIT, there are reasonable alternative explanations for these (DVT is line associated and thrombocytopenia is likely consumptive in setting of thrombus and infection). - HIT abs pending - Continue LMWH - Monitor clinical picture and platelets closely. If plts continue to drop, consider argatroban #Acute on chronic pain: Much worse today. - AXR pending - Trial fentanyl 100mcg q6h PRN - Continue home MS contin, mm relaxers, benzos - Bowel regimen ordered - Monitor mental status, continuous pulse ox given high risk #Acute LUE DVT: PICC associated. Involving brachial, axillary, and subclavian veins. - PICC now removed - Anticoagulation as above #Hyperglycemia with T2DM: BG better but not adequately controlled. - Increase 70/30 from 10->12 BID, continue SSI, monitor BG #KAREN: Resolving, likely pre-renal. - Monitor daily #Dilated cecum: Noted on CT with focal luminal narrowing. - Gen surg following, recommend enemas, no surgical intervention planned #H/o ostomy #HTN: Chronic. Continue home meds Diet: carb controlled Code: Full Dispo: Remain inpatient for IV antibiotics, management of above. Will need outpatient IV antibiotics on discharge. Subjective: Crying in pain today from abdomen. Requesting IV fentanyl. Had long discussion with patient and about all the pain medications she has tried in the past. Objective: Vital Signs Temp Pulse Resp BP Pulse Ox 36.7 C 62 15 101/67 97 07/25/18 08:00 07/25/18 08:00 07/25/18 08:00 07/25/18 08:00 07/25/18 08:00 Microbiology 07/22/18 17:40 Blood Culture - Final Blood Staphylococcus Aureus Blood Panel (PCR) - Final S.aureus Methicillin Suscept. 07/22/18 20:10 Blood Culture - Final Blood Staphylococcus Aureus Laboratory Results 07/25/18 05:17 07/25/18 05:17 07/24/18 07/25/18 07/26/18 05:59 05:59 05:59 Intake Total 1573 2709 Output Total 4579 3140 Balance -372 109 - Physical Exam Constitutional: obese, uncomfortable, other (crying in pain) Eyes: PERRL, anicteric sclera, EOMI Ears, Nose, Mouth, Throat: moist mucous membranes, hearing normal, ears appear normal, no oral mucosal ulcers Cardiovascular: regular rate and rhythym, no murmur, rub, or gallop Respiratory: no respiratory distress, no rales or rhonchi, clear to auscultation Gastrointestinal: normoactive bowel sounds, soft, non-tender abdomen, no palpable masses, other (ostomy appeard c/d/i) Skin: no rashes or abrasions, no fluctuance, no induration Neurologic: AAOx3, sensation intact bilaterally Psychiatric: interacting appropriately, not anxious, not encephalopathic, thought process linear ICD10 Worksheet Patient Problems: Problems Problem Status Onset Acute kidney injury Acute Dehydration Acute Nausea and vomiting Acute Kidney stone Active Microscopic hematuria Active Recurrent cystitis Active Reflex sympathetic dystrophy Active Abdominal pain Acute Biliary colic Acute Bowel obstruction Acute Chronic pain Acute Flank pain, acute Acute History of reflex sympathetic dystrophy Acute Hyperglycemia Acute Narcotic withdrawal Acute UTI (urinary tract infection) Acute Volume depletion Acute Vomiting Acute
[2018-07-25] MEDS: morphINE SR 15 MG TAB PO PRN (13:57)
[2018-07-25] MEDS: LORazepam 2 MG/ML INJ IVP PRN ×3 (14:46→22:44)
--- NOTE | 2018-07-25 14:51 | PCMIDPN ---
Assessment/Plan: Assessment: MSSA septic thrombophlebitis from PICC line in left arm. Patient continues to have clinical fevers and chills. This is not surprising given the extent of the clot in the venous system. She is getting low weight molecular heparin subcutaneously to help break up the clot over time. Repeat blood cultures are not showing Staph aureus at this point. Plan to continue the meropenem and micafungin as described in previous notes. Patient has a significant allergy list the prevents deviation away from carbapenem. Plan: 1. Continue both meropenem and micafungin at current dosing. 2. Continue symptomatic management with Benadryl and antiemetics. 07/25/18 14:51 Subjective: Patient is reporting ongoing fevers and chills. She continues to have ongoing nausea. Generally feels poorly. No rash. Objective: Meropenem # 3 Micafungin # Vital Signs Temp Pulse Resp BP Pulse Ox 36.7 C 112 H 16 155/105 H 100 07/25/18 08:00 07/25/18 12:00 07/25/18 12:00 07/25/18 12:00 07/25/18 12:00 Microbiology 07/22/18 17:40 Blood Culture - Final Blood Staphylococcus Aureus Blood Panel (PCR) - Final S.aureus Methicillin Suscept. 07/22/18 20:10 Blood Culture - Final Blood Staphylococcus Aureus Laboratory Results 07/25/18 05:17 07/25/18 05:17 07/24/18 07/25/18 07/26/18 05:59 05:59 05:59 Intake Total 1578 2709 Output Total 1950 2600 Balance -372 109 - Physical Exam General Appearance: WD/WN, alert, apparent distress (Mild), obese, toxic (Mildly ) Respiratory: lungs clear, normal breath sounds, No respiratory distress Cardiac/Chest: regular rate, rhythm, No tachycardia Extremities: swelling, No non-tender, No normal inspection Skin: normal color, warm/dry, No rash Neuro/Psych: alert, normal mood/affect, oriented x 3 ICD10 Worksheet Patient Problems: Problems Problem Status Onset Acute kidney injury Acute Dehydration Acute Nausea and vomiting Acute Kidney stone Active Microscopic hematuria Active Recurrent cystitis Active Reflex sympathetic dystrophy Active Abdominal pain Acute Biliary colic Acute Bowel obstruction Acute Chronic pain Acute Flank pain, acute Acute History of reflex sympathetic dystrophy Acute Hyperglycemia Acute Narcotic withdrawal Acute UTI (urinary tract infection) Acute Volume depletion Acute Vomiting Acute
[2018-07-25] MEDS: fentaNYL 100 MCG/2 ML INJ IVP PRN ×2 (15:37→22:43)
[2018-07-25] MEDS: NS 1,000 ML IV SCH (18:37)
[2018-07-25] MEDS: SENNOSIDES/DOCUSATE SODIUM TAB PO SCH (21:02)
[2018-07-26] MEDS: clonazePAM 0.5 MG TAB PO SCH ×4 (01:30→23:15)
[2018-07-26] MEDS: KRISS PO SCH ×4 (01:31→23:19)
[2018-07-26] MEDS: TIZANIDINE HCL 4 MG PO SCH ×4 (01:31→23:18)
[2018-07-26] MEDS: DIPHENHYDRAMINE HCL 25 MG PO SCH ×4 (01:31→23:19)
[2018-07-26] MEDS: LORazepam 2 MG/ML INJ IVP PRN ×5 (02:48→21:09)
[2018-07-26] MEDS: MEROPENEM 1 GM in NS 100 ML IV SCH ×3 (05:20→23:52)
[2018-07-26] MEDS: morphINE SR 15 MG TAB PO SCH ×2 (05:20→23:15)
[2018-07-26] MEDS: fentaNYL 100 MCG/2 ML INJ IVP PRN ×3 (07:59→21:08)
[2018-07-26] MEDS: INSULIN LISPRO 100 UNIT/ML SC SCH ×3 (08:37→17:05)
[2018-07-26] MEDS: ENOXAPARIN 120 MG/0.8 ML SYR SC SCH ×2 (09:00→23:17)
[2018-07-26] MEDS: INSULIN 70/30 HUMAN 100 UNIT/ML SYR SC SCH ×2 (09:33→17:04)
[2018-07-26] MEDS: SENNOSIDES/DOCUSATE SODIUM TAB PO SCH ×2 (09:33→23:17)
--- NOTE | 2018-07-26 09:44 | SOAPPROG ---
SOAP Progress Note Assessment/Plan: Assessment: PATIENT ADMITTED WITH ABDOMINAL PAIN AND CONSTIPATION/SHE HAS AN OSTOMY BECAUSE OF CHRONIC CONSTIPATION PROBLEMS CT SCAN DOES NOT REVEAL ANY OTHER HERNIAS OR PROBLEMS Plan: ENEMAS THROUGH THE COLOSTOMY/WILL FOLLOW UP TOMORROW 07/23/18 12:47 07/23/18 12:49 SEEN WITH MY NURSE PRACTITIONER TODAY/PLEASE REFER TO HER NOTE MUCH MORE COMFORTABLE/AFEBRILE/OSTOMY PINK AND PATENT WITH NO EVIDENCE OF OBSTRUCTION SHE HAS HAD SEVERAL BOWEL MOVEMENTS THROUGH THE COLOSTOMY AFTER IN MOST LAST NIGHT 07/26/18 09:43 STILL COMPLAINS OF PAIN BUT OSTOMY FUNCTIONING WELL AND LOOKS GOOD ABDOMEN SOFT NOT PARTICULARLY TENDER WITH NO PERITONEAL SIGN CHEST CLEAR/COR REGULAR RHYTHM/HEENT NONICTERIC PLANS PER INTERNAL MEDICINE Objective: Vital Signs Temp Pulse Resp BP Pulse Ox 36.8 C 102 H 18 179/106 H 99 07/26/18 08:18 07/26/18 08:00 07/26/18 08:00 07/26/18 08:00 07/26/18 08:00 Microbiology 07/22/18 17:40 Blood Culture - Final Blood Staphylococcus Aureus Blood Panel (PCR) - Final S.aureus Methicillin Suscept. 07/22/18 20:10 Blood Culture - Final Blood Staphylococcus Aureus Laboratory Results 07/26/18 04:39 07/26/18 04:39 07/25/18 07/26/18 07/27/18 05:59 05:59 05:59 Intake Total 2709 1731 Output Total 2600 650 Balance 109 1731 -650 ICD10 Worksheet Patient Problems: Problems Problem Status Onset Acute kidney injury Acute Dehydration Acute Nausea and vomiting Acute Kidney stone Active Microscopic hematuria Active Recurrent cystitis Active Reflex sympathetic dystrophy Active Abdominal pain Acute Biliary colic Acute Bowel obstruction Acute Chronic pain Acute Flank pain, acute Acute History of reflex sympathetic dystrophy Acute Hyperglycemia Acute Narcotic withdrawal Acute UTI (urinary tract infection) Acute Volume depletion Acute Vomiting Acute
[2018-07-26] MEDS: NS 1,000 ML IV SCH (11:17)
[2018-07-26] MEDS: MICAFUNGIN NA 100 MG in NS 100 ML IV SCH (11:51)
--- NOTE | 2018-07-26 14:01 | HOSPPROG ---
Hospitalist Progress Note Assessment/Plan: 57yo F with ostomy due to chronic constipation, chronic pain, numerous drug allergies here with bacteremia likely from infected PICC-associated DVT. This is my first encounter with the patient. #Acute on chronic abdominal pain: Acutely worsened today and now associated with bilious vomiting and decreased ostomy output, which is concerning for obstruction. Also concern for pancreatitis with elevated lipase. - NG tube in place to suction - CT abd/pelvis w/IV contrast to eval - Will not change pain meds for now: fentanyl IV PRN, home MS contin, mm relaxers, benzos #MSSA bacteremia: Suspect d/t septic thrombophlebitis. Afebrile. - Continue meropenem due to allergy list, ID following. She gets IV benadryl with abx - Surveillance blood cx 07/25 NGTD. If remain negative tomorrow, will plan for tunneled PICC to complete abx course #Thrombocytopenia: Improving. While new DVT and dropping platelets raises suspicion for HIT, there are reasonable alternative explanations for these (DVT is line associated and thrombocytopenia is likely consumptive in setting of thrombus and infection). - HIT abs pending - Continue LMWH - Monitor clinical picture and platelets closely. If plts continue to drop, consider argatroban #Acute LUE DVT: PICC associated. Involving brachial, axillary, and subclavian veins. - PICC now removed - Anticoagulation as above #HTN: Uncontrolled, likely 2/2 pain. - Continue clonidine, add hydralazine PRN for SBP>180 #Hyperglycemia with T2DM: BG better but not adequately controlled. - 70/30 12 BID, continue SSI, monitor BG #KAREN: Resolved, likely pre-renal. - Monitor daily #Dilated cecum: Noted on CT with focal luminal narrowing. - Gen surg following, recommend enemas, no surgical intervention planned #H/o ostomy Diet: carb controlled Code: Full Dispo: Remain inpatient for IV antibiotics, management of above. Will need outpatient IV antibiotics on discharge. Subjective: Crying in pain. Had terrible night and morning with pain. Also developed rather copious bilious vomiting which is new. An NG was placed earlier today with 600mL green fluid in suction bin. Objective: Vital Signs Temp Pulse Resp BP Pulse Ox 36.8 C 102 H 18 179/106 H 99 07/26/18 08:18 07/26/18 08:00 07/26/18 08:00 07/26/18 08:00 07/26/18 08:00 Microbiology 07/22/18 17:40 Blood Culture - Final Blood Staphylococcus Aureus Blood Panel (PCR) - Final S.aureus Methicillin Suscept. 07/22/18 20:10 Blood Culture - Final Blood Staphylococcus Aureus Laboratory Results 07/26/18 04:39 07/26/18 04:39 07/25/18 07/26/18 07/27/18 05:59 05:59 05:59 Intake Total 2709 1731 Output Total 2600 650 Balance 109 1731 -650 - Physical Exam Constitutional: other (writhin in pain) Eyes: PERRL, anicteric sclera, EOMI Ears, Nose, Mouth, Throat: other (NG tube in place) Cardiovascular: regular rate and rhythym, no murmur, rub, or gallop Respiratory: no respiratory distress, no rales or rhonchi, clear to auscultation Gastrointestinal: tenderness (diffusely, non-peritoneal), distension, other ( diminished bowel sounds) Genitourinary: no bladder fullness, no bladder tenderness, no renal bruits Neurologic: AAOx3, sensation intact bilaterally Psychiatric: interacting appropriately, not anxious, not encephalopathic, thought process linear ICD10 Worksheet Patient Problems: Problems Problem Status Onset Nausea and vomiting Acute Reflex sympathetic dystrophy Active Kidney stone Active Microscopic hematuria Active Recurrent cystitis Active Abdominal pain Acute Narcotic withdrawal Acute Chronic pain Acute Vomiting Acute Flank pain, acute Acute UTI (urinary tract infection) Acute Biliary colic Acute Bowel obstruction Acute Hyperglycemia Acute Volume depletion Acute History of reflex sympathetic dystrophy Acute Acute kidney injury Acute Dehydration Acute
[2018-07-26] MEDS ORDERED: hydrALAZINE 20 MG/ML VIAL IVP PRN (14:03)
[2018-07-26] MEDS: morphINE SR 15 MG TAB PO PRN (15:04)
--- NOTE | 2018-07-26 16:11 | ASMTCMCOM ---
CM Note CM Note Notes: CM discussed with RN, NG tube to be placed today. Patient continues to refuse therapies. Discharge date TBD. CM to follow. Current discharge plan: Date TBD, likely home independent with . Date Signed: 07/26/2018 04:10 PM Electronically Signed By:Nory Comer
--- NOTE | 2018-07-26 17:02 | PCMIDPN ---
Assessment/Plan: Assessment/Plan: * Septic thrombophlebitis with MSSA bacteremia due to PICC line: Repeat blood cultures are no growth to date. Fever has also resolved. Continue meropenem given multiple drug allergies and that she is tolerating this therapy to date. If blood cultures remain negative, will plan tunnel PICC placement with hopes this will have lower risk of infection. * Intertrigo: Clinically resolved. Will continue micafungin while on meropenem as potential for relapse with broad-spectrum antibiotic therapy. * Nausea/vomiting/abdominal pain: Significant output via NG tube. Repeat CT scan has been ordered by hospitalist service to assess for obstruction. 07/26/18 16:58 Subjective: Patient complains of nausea and vomiting with associated abdominal pain. Left arm pain decreased. Objective: Vital Signs Temp Pulse Resp BP Pulse Ox 36.7 C 90 21 H 192/91 H 97 07/26/18 16:00 07/26/18 16:00 07/26/18 16:00 07/26/18 16:26 07/26/18 16:00 Laboratory Results 07/26/18 04:39 07/26/18 04:39 07/25/18 07/26/18 07/27/18 05:59 05:59 05:59 Intake Total 2709 1731 Output Total 2600 650 Balance 109 1731 -650 Meropenem # 4 Micafungin # 4 Blood cultures x2 07/25/2018 no growth NG-tube with approximately 1000 mL of bilious output - Physical Exam General Appearance: alert, apparent distress (Uncomfortable due to abdominal pain) EENT: No scleral icterus, No thrush, No conjunctival petechiae Respiratory: lungs clear, No respiratory distress Cardiac/Chest: regular rate, rhythm Extremities: inflammation (Left upper extremity with decreasing small cord and tenderness; serous output from prior PICC insertion) Abdomen: tender (Diffusely), No distended Skin: No embolic lesions ICD10 Worksheet Patient Problems: Problems Problem Status Onset Acute kidney injury Acute Dehydration Acute Nausea and vomiting Acute Kidney stone Active Microscopic hematuria Active Recurrent cystitis Active Reflex sympathetic dystrophy Active Abdominal pain Acute Biliary colic Acute Bowel obstruction Acute Chronic pain Acute Flank pain, acute Acute History of reflex sympathetic dystrophy Acute Hyperglycemia Acute Narcotic withdrawal Acute UTI (urinary tract infection) Acute Volume depletion Acute Vomiting Acute
--- NOTE | 2018-07-26 18:08 | GCON ---
DATE OF CONSULTATION: 07/23/2018 The patient is a 57-year-old female with chronic pain issues and chronic constipation problems for ich she has a colostomy. This required revision because of ongoing stenosis. This was several month s ago. She presents today with diffuse abdominal pain and significant constipation. CT scan showed no other major problems and no peristomal hernias or other issues. She has had no fever or chills, h as been able to eat adequately. She is presently on treatment for a vaginal yeast infection with pat afungin. REVIEW OF SYSTEMS: Noncontributory on a 10-point review. PAST MEDICAL HISTORY: Includes colostomy and a colostomy revision, diabetes, morbid obesity, history of small bowel obstruction, reflex sympathetic dystrophy in her legs, chronic pain syndrome with con tinuous narcotic use. ALLERGIES: Multiple, listed in her chart. PRESENT MEDICATIONS: Insulin, temazepam, clonidine, lorazepam, morphine, Pyridium, diphenhydramine, Alocril drops. SOCIAL HISTORY: She does not smoke or drink. FAMILY HISTORY: Noncontributory. PHYSICAL EXAMINATION: GENERAL: An alert, reasonably comfortable 57-year-old female in no acute dist ress. HEAD/NECK: PERRLA, nonicteric. There is no adenopathy or oral lesions. Neck is supple. ADRIANNA ST: Clear and symmetric. CARDIAC: Regular rhythm. ABDOMEN: Distended, overweight, but no localiz ed tenderness. No organomegaly. Her ostomy is flush with the skin, but is pink and working well wit h no evidence of stenosis. EXTREMITIES: Full pulses. NEUROLOGIC: Exam is physiologic. PSYCHIATRI C: Exam reveals her to be alert, oriented, and reasonably cooperative. IMPRESSION: Chronic abdominal pain probably secondary to constipation, although at the present time there is no evidence of ostomy stomal stricture or stenosis to create this pain. We will follow her with you. /[id number]/MODL
[2018-07-26] MEDS ORDERED: IOPAMIDOL (ISOVUE-300) 100 ML BTL ONE (18:09)
[2018-07-27] MEDS: clonazePAM 0.5 MG TAB PO SCH ×4 (02:39→21:07)
[2018-07-27] MEDS: DIPHENHYDRAMINE HCL 25 MG PO SCH ×4 (02:40→22:00)
[2018-07-27] MEDS: KRISS PO SCH ×4 (02:40→21:07)
[2018-07-27] MEDS: TIZANIDINE HCL 4 MG PO SCH ×4 (02:43→21:07)
[2018-07-27] MEDS: morphINE SR 15 MG TAB PO SCH ×2 (06:17→21:07)
[2018-07-27] MEDS: MEROPENEM 1 GM in NS 100 ML IV SCH ×3 (06:17→21:06)
[2018-07-27] MEDS: ENOXAPARIN 120 MG/0.8 ML SYR SC SCH ×2 (08:49→21:21)
[2018-07-27] MEDS: SENNOSIDES/DOCUSATE SODIUM TAB PO SCH ×3 (08:49→21:08)
[2018-07-27] MEDS: MICAFUNGIN NA 100 MG in NS 100 ML IV SCH (08:50)
[2018-07-27] MEDS: INSULIN LISPRO 100 UNIT/ML SC SCH ×3 (08:55→18:27)
[2018-07-27] MEDS: INSULIN 70/30 HUMAN 100 UNIT/ML SYR SC SCH ×2 (08:55→18:25)
[2018-07-27] MEDS ORDERED: POTASSIUM CL 20 MEQ/15 ML UDCUP TUBE ONE (09:57)
--- NOTE | 2018-07-27 10:08 | SOAPPROG ---
SOAP Progress Note Assessment/Plan: Assessment/Plan: 57 Y F chronic constipation, chronic opioid dependence, admitted c abdominal pain. No sign of stomal stricture or stenosis per Dr. Santos. Some very small hard rock like stools with enema via stoma. Discussed her history with constipation with patient and her partner in detail. Consider using relistor--is available, per pharmacy. Will d/w Dr. Santos first. 07/27/18 10:06 Objective: Vital Signs Temp Pulse Resp BP Pulse Ox 36.9 C 88 20 142/62 H 91 L 07/27/18 08:00 07/27/18 08:00 07/27/18 08:00 07/27/18 08:00 07/27/18 08:00 Laboratory Results 07/27/18 04:20 07/27/18 04:20 07/26/18 07/27/18 07/28/18 05:59 05:59 05:59 Intake Total 1731 2701 Output Total 650 Balance 1731 2051 ICD10 Worksheet Patient Problems: Problems Problem Status Onset Acute kidney injury Acute Dehydration Acute Nausea and vomiting Acute Kidney stone Active Microscopic hematuria Active Recurrent cystitis Active Reflex sympathetic dystrophy Active Abdominal pain Acute Biliary colic Acute Bowel obstruction Acute Chronic pain Acute Flank pain, acute Acute History of reflex sympathetic dystrophy Acute Hyperglycemia Acute Narcotic withdrawal Acute UTI (urinary tract infection) Acute Volume depletion Acute Vomiting Acute
[2018-07-27] MEDS: fentaNYL 100 MCG/2 ML INJ IVP PRN ×2 (10:44→17:06)
[2018-07-27] MEDS: LORazepam 2 MG/ML INJ IVP PRN ×3 (10:44→19:37)
--- NOTE | 2018-07-27 12:09 | PCMIDPN ---
Assessment/Plan: Assessment/Plan: * Septic thrombophlebitis with MSSA bacteremia due to PICC line: Repeat blood cultures remain no growth. Fever has also resolved. Plan 6 weeks of meropenem given endovascular focus (meropenem being utilized given multiple drug allergies ). Radiology reviewing possibility of tunneled PICC line for access. Has stable peripheral IV in left antecubital fossa currently. * Intertrigo: Clinically resolved. Plan 3 times per week micafungin during course of meropenem to prevent recurrent intertrigo. 07/27/18 12:06 Subjective: Overall patient feels better. Complains of having NG tube. Abdominal pain less prominent. Left arm pain decreasing. Objective: Vital Signs Temp Pulse Resp BP Pulse Ox 36.6 C 94 16 168/82 H 99 07/27/18 11:41 07/27/18 11:41 07/27/18 11:41 07/27/18 11:41 07/27/18 11:41 Laboratory Results 07/27/18 04:20 07/27/18 04:20 07/26/18 07/27/18 07/28/18 05:59 05:59 05:59 Intake Total 1731 2701 Output Total 650 Balance 1731 2051 Meropenem # 5 Micafungin # 5 Blood cultures x2 07/25/[address] abdomen pelvis shows no evidence of bowel obstruction - Physical Exam General Appearance: alert, no apparent distress EENT: No scleral icterus, No thrush, No conjunctival petechiae Respiratory: lungs clear, No respiratory distress Cardiac/Chest: regular rate, rhythm, No systolic murmur Extremities: inflammation (Left upper extremity with approximately 2 cm cord at site of prior PICC insertion with less tenderness) Abdomen: non-tender, No distended ICD10 Worksheet Patient Problems: Problems Problem Status Onset Nausea and vomiting Acute Reflex sympathetic dystrophy Active Kidney stone Active Microscopic hematuria Active Recurrent cystitis Active Abdominal pain Acute Narcotic withdrawal Acute Chronic pain Acute Vomiting Acute Flank pain, acute Acute UTI (urinary tract infection) Acute Biliary colic Acute Bowel obstruction Acute Hyperglycemia Acute Volume depletion Acute History of reflex sympathetic dystrophy Acute Acute kidney injury Acute Dehydration Acute
[2018-07-27] MEDS ORDERED: METHYLNALTREXONE BROMIDE 12 MG/0.6 ML INJ SC ONE (12:18)
[2018-07-27] MEDS: morphINE SR 15 MG TAB PO PRN (13:43)
[2018-07-27] MEDS: NS 1,000 ML IV SCH (13:51)
--- NOTE | 2018-07-27 14:58 | HOSPPROG ---
Hospitalist Progress Note Assessment/Plan: 57yo F with ostomy due to chronic constipation, chronic pain, numerous drug allergies here with bacteremia likely from infected PICC-associated DVT. This is my first encounter with the patient. #Acute on chronic abdominal pain: CT without acute finding. Lipase elevated, possibly pancreatitis. - Keep NG tube in place for now - Continue current pain mgmt: fentanyl IV PRN, home MS contin, mm relaxers, benzos - Clear liquids - Consulting palliative care, patient and Reynaldo very interested in this. Have alerted case management #MSSA bacteremia: Suspect d/t septic thrombophlebitis. Afebrile. Surveillance cx 07/25 NGTD. - Continue meropenem due to allergy list, ID following. She gets IV benadryl with abx - ID working on getting tunneled PICC line with IR #Thrombocytopenia: Improving. Unlikely HIT - HIT abs pending - Continue LMWH #Acute LUE DVT: PICC associated. Involving brachial, axillary, and subclavian veins. - PICC now removed, anticoagulation as above #HTN: Likely 2/2 pain. - Continue clonidine, add hydralazine PRN for SBP>180 #Hyperglycemia with T2DM: BG better. - 70/30 12 BID PRN, continue SSI, monitor BG #KAREN: Resolved, likely pre-renal. - Monitor daily with recent IV contrast #Dilated cecum: Noted on CT with focal luminal narrowing. - Gen surg following, recommend enemas, no surgical intervention planned #H/o ostomy Diet: carb controlled Code: Full Dispo: Remain inpatient for IV antibiotics, management of above. Will need outpatient IV antibiotics on discharge. Subjective: Sitting up eating ice chips on side of bed. Doing much better than yesterday. NG a little bothersome but still having quite a bit of output. Abdominal pain better. Objective: Vital Signs Temp Pulse Resp BP Pulse Ox 36.6 C 94 16 168/82 H 99 07/27/18 11:41 07/27/18 11:41 07/27/18 11:41 07/27/18 11:41 07/27/18 11:41 Laboratory Results 07/27/18 04:20 07/27/18 04:20 07/26/18 07/27/18 07/28/18 05:59 05:59 05:59 Intake Total 1731 2701 Output Total 650 Balance 1731 2051 - Physical Exam Constitutional: no apparent distress, appears nourished, not in pain Eyes: PERRL, anicteric sclera, EOMI Ears, Nose, Mouth, Throat: other (NG tube in place) Cardiovascular: no murmur, rub, or gallop, tachycardia, No edema Respiratory: no respiratory distress, no rales or rhonchi, clear to auscultation Gastrointestinal: other (ostomy in place) Skin: no rashes or abrasions, no fluctuance, no induration Neurologic: AAOx3, sensation intact bilaterally Psychiatric: interacting appropriately, not anxious, not encephalopathic, thought process linear ICD10 Worksheet Patient Problems: Problems Problem Status Onset Acute kidney injury Acute Dehydration Acute Nausea and vomiting Acute Kidney stone Active Microscopic hematuria Active Recurrent cystitis Active Reflex sympathetic dystrophy Active Abdominal pain Acute Biliary colic Acute Bowel obstruction Acute Chronic pain Acute Flank pain, acute Acute History of reflex sympathetic dystrophy Acute Hyperglycemia Acute Narcotic withdrawal Acute UTI (urinary tract infection) Acute Volume depletion Acute Vomiting Acute
--- NOTE | 2018-07-27 16:04 | ASMTCMCOM ---
CM Note CM Note Notes: Pts case discussed w/ Dr. Baltazar. A palliative has been ordered. CM met w/ the briefly today. CM provided Dario w/ the 's cell. CM to follow. Plan: TBD Date Signed: 07/27/2018 04:03 PM Electronically Signed By:JUAN Hannah
[2018-07-28] MEDS: NS 1,000 ML IV SCH ×3 (00:15→22:48)
[2018-07-28] MEDS: LORazepam 2 MG/ML INJ IVP PRN ×4 (01:06→20:25)
[2018-07-28] MEDS: fentaNYL 100 MCG/2 ML INJ IVP PRN ×4 (01:06→21:47)
[2018-07-28] MEDS: clonazePAM 0.5 MG TAB PO SCH ×4 (01:06→21:53)
[2018-07-28] MEDS: DIPHENHYDRAMINE HCL 25 MG PO SCH ×4 (01:07→19:31)
[2018-07-28] MEDS: KRISS PO SCH ×4 (01:07→21:45)
[2018-07-28] MEDS: TIZANIDINE HCL 4 MG PO SCH ×4 (01:08→21:46)
[2018-07-28] MEDS: morphINE SR 15 MG TAB PO SCH ×2 (05:32→21:53)
[2018-07-28] MEDS: MEROPENEM 1 GM in NS 100 ML IV SCH ×3 (05:38→21:47)
[2018-07-28] MEDS ORDERED: POTASSIUM CL 20 MEQ/15 ML UDCUP PO ONE (05:47)
[2018-07-28] MEDS ORDERED: MAGNESIUM SULF 1 GM/DEXTROSE 100 ML IV ONE (06:13)
[2018-07-28] MEDS: INSULIN LISPRO 100 UNIT/ML SC SCH ×3 (08:00→19:00)
[2018-07-28] MEDS: INSULIN 70/30 HUMAN 100 UNIT/ML SYR SC SCH ×2 (08:00→18:13)
--- NOTE | 2018-07-28 09:01 | SOAPPROG ---
SOAP Progress Note Assessment/Plan: Assessment/Plan: 57 Y F chronic constipation, chronic opioid dependence, admitted c abdominal pain. No sign of stomal stricture or stenosis per Dr. Santos. Some very small hard rock like stools with enema via stoma. Discussed her history with constipation with patient and her partner in detail yesterday. Relistor given yesterday-- will give again today. Per pt and it required two shots last time. Will give after placement of line. Discussed with RN. S: c/o pain--always at baseline. +nausea. O: alert nad ncat chest clear rrr abd soft, hypoactive BS 07/28/18 08:59 Objective: Vital Signs Temp Pulse Resp BP Pulse Ox 36.8 C 82 16 162/84 H 97 07/28/18 07:10 07/28/18 07:10 07/28/18 07:10 07/28/18 07:10 07/28/18 07:10 Laboratory Results 07/28/18 04:20 07/28/18 04:20 07/27/18 07/28/18 07/29/18 05:59 05:59 05:59 Intake Total 1791 3267 Output Total 061 2600 Balance 2051 137 ICD10 Worksheet Patient Problems: Problems Problem Status Onset Acute kidney injury Acute Dehydration Acute Nausea and vomiting Acute Kidney stone Active Microscopic hematuria Active Recurrent cystitis Active Reflex sympathetic dystrophy Active Abdominal pain Acute Biliary colic Acute Bowel obstruction Acute Chronic pain Acute Flank pain, acute Acute History of reflex sympathetic dystrophy Acute Hyperglycemia Acute Narcotic withdrawal Acute UTI (urinary tract infection) Acute Volume depletion Acute Vomiting Acute
[2018-07-28] MEDS ORDERED: METHYLNALTREXONE BROMIDE 12 MG/0.6 ML INJ SC ONE (09:03)
[2018-07-28] MEDS: SENNOSIDES/DOCUSATE SODIUM TAB PO SCH ×2 (09:09→21:46)
[2018-07-28] MEDS: MICAFUNGIN NA 100 MG in NS 100 ML IV SCH (09:16)
[2018-07-28] MEDS: POTASSIUM Cl (KCl) 100 ML IV SCH ×6 (09:22→22:48)
--- NOTE | 2018-07-28 11:26 | PCMIDPN ---
Assessment/Plan: Assessment/Plan: * Septic thrombophlebitis with MSSA bacteremia due to PICC line: Repeat blood cultures show clearing of bacteremia without recurrent fever. Anticipate 6 week course of IV meropenem based on presence of DVT. Plans for tunnel PICC placement later today. Lovenox has been held anticipating its placement. * Intertrigo: Clinically resolved. Will change to 3 times per week micafungin to prevent recurrent intertrigo while on broad-spectrum antibiotic therapy. 07/28/18 11:24 Subjective: Patient with less arm pain. Continues to have NG tube in place. Objective: Vital Signs Temp Pulse Resp BP Pulse Ox 37.0 C 117 H 16 164/82 H 94 07/28/18 11:22 07/28/18 11:22 07/28/18 11:22 07/28/18 11:22 07/28/18 11:22 Laboratory Results 07/28/18 04:20 07/28/18 04:20 07/27/18 07/28/18 07/29/18 05:59 05:59 05:59 Intake Total 2701 2737 Output Total 650 2600 1300 Balance 2051 137 -1300 Meropenem # 6 Micafungin # 6 Blood cultures x2 07/25/2018 no growth - Physical Exam General Appearance: alert, no apparent distress EENT: No scleral icterus Respiratory: lungs clear, No respiratory distress Cardiac/Chest: regular rate, rhythm, No systolic murmur Extremities: inflammation (Left upper extremity cord decreasing in size/ induration/tenderness) Abdomen: non-tender ICD10 Worksheet Patient Problems: Problems Problem Status Onset Nausea and vomiting Acute Reflex sympathetic dystrophy Active Kidney stone Active Microscopic hematuria Active Recurrent cystitis Active Abdominal pain Acute Narcotic withdrawal Acute Chronic pain Acute Vomiting Acute Flank pain, acute Acute UTI (urinary tract infection) Acute Biliary colic Acute Bowel obstruction Acute Hyperglycemia Acute Volume depletion Acute History of reflex sympathetic dystrophy Acute Acute kidney injury Acute Dehydration Acute
--- NOTE | 2018-07-28 13:19 | ASMTCMCOM ---
CM Note CM Note Notes: CM touched base w/ Dario and Maria G from [facility]. A palliative may be slated for tomorrow. Referral made to [facility] and [facility] for iv infusions. Pt is getting a PICC today. CM to follow. Plan: Terrence portillo/ [facility]ACH[facility], CLEMENT Date Signed: 07/28/2018 01:19 PM Electronically Signed By:JUAN Hannah
[2018-07-28] MEDS: morphINE SR 15 MG TAB PO PRN (14:30)
--- NOTE | 2018-07-28 15:47 | ASMTCMCOM ---
STACY Note CM Note Notes: CM spoke to Natalie at [facility]. Christina, their APPLICATION SYSTEMS ENGINEER will come in for 9AM to meet w/ pt and her . Date Signed: 07/28/2018 03:46 PM Electronically Signed By:JUAN Hannah
[2018-07-28] MEDS ORDERED: fentaNYL 100 MCG/2 ML INJ IVP ONE (15:59)
--- NOTE | 2018-07-28 15:59 | HOSPPROG ---
Hospitalist Progress Note Assessment/Plan: 57yo F with ostomy due to chronic constipation, chronic pain, numerous drug allergies here with bacteremia likely from infected PICC-associated DVT. #Acute on chronic abdominal pain, constipation: CT without acute finding or obstruction. Lipase elevated, possibly pancreatitis. NGT with 1.3L output yesterday. Will NOT increase pain meds. - Keep NG tube in place - Continue current pain mgmt: fentanyl IV PRN, home MS contin, mm relaxers, benzos. - Clear liquids - Palliative care to meet with patient and tomorrow 07/29 #MSSA bacteremia: Suspect d/t septic thrombophlebitis. Afebrile. Surveillance cx 07/25 NGTD. - Continue meropenem for 8 weeks due to allergy list, ID following. She gets IV benadryl with abx - To get tunneled PICC line with IR today #Acute LUE DVT: PICC associated. Involving brachial, axillary, and subclavian veins. - Holding LMWH for procedure, resume once completed #Hypokalemia: K 2.8 - IV K protocol, replete Mg as well and monitor daily #Thrombocytopenia: Improving. HIT abs negative. - Monitor daily #HTN: Likely 2/2 pain. - Continue clonidine, hydralazine PRN for SBP>180 #Hyperglycemia with T2DM: BG better. - 70/30 12 BID PRN, continue SSI, monitor BG #KAREN: Resolved, likely pre-renal. - Monitor daily with recent IV contrast #Dilated cecum: Noted on CT with focal luminal narrowing. - Gen surg following, recommend enemas, no surgical intervention planned #H/o ostomy Diet: carb controlled Code: Full Dispo: Remain inpatient for IV antibiotics, management of above. Will need outpatient IV antibiotics on discharge. Subjective: Requesting more pain meds, specifically to go up to 100mcg on fentanyl or increase frequency. I told her this was not a good idea. NG tube still with significant output. Objective: Vital Signs Temp Pulse Resp BP Pulse Ox 36.9 C 88 16 144/80 H 97 07/28/18 15:08 07/28/18 15:08 07/28/18 15:08 07/28/18 15:08 07/28/18 15:08 Laboratory Results 07/28/18 04:20 07/28/18 04:20 07/27/18 07/28/18 07/29/18 05:59 05:59 05:59 Intake Total 5682 2708 Output Total 953 5170 1750 Balance 2050 137 -1750 - Physical Exam Constitutional: no apparent distress, appears nourished, not in pain Eyes: PERRL, anicteric sclera, EOMI Ears, Nose, Mouth, Throat: other (NG tube in place) Cardiovascular: regular rate and rhythym, no murmur, rub, or gallop Respiratory: no respiratory distress, no rales or rhonchi, clear to auscultation Gastrointestinal: tenderness, distension, other (ostomy) Skin: no rashes or abrasions, no fluctuance, no induration Neurologic: AAOx3, sensation intact bilaterally Psychiatric: interacting appropriately, not anxious, not encephalopathic, thought process linear ICD10 Worksheet Patient Problems: Problems Problem Status Onset Acute kidney injury Acute Dehydration Acute Nausea and vomiting Acute Kidney stone Active Microscopic hematuria Active Recurrent cystitis Active Reflex sympathetic dystrophy Active Abdominal pain Acute Biliary colic Acute Bowel obstruction Acute Chronic pain Acute Flank pain, acute Acute History of reflex sympathetic dystrophy Acute Hyperglycemia Acute Narcotic withdrawal Acute UTI (urinary tract infection) Acute Volume depletion Acute Vomiting Acute
--- NOTE | 2018-07-28 17:29 | PDRADPRE ---
Radiology History & Physical Indication for procedure: other (Infection/poor IV access. Plan for tunneled small bore noncuffed CVC) Home medications: Insulin 70/30 Human [Novolin 70/30 (*)] 4 - 10 unit SC BID PRN 07/16/17 [Last Taken 07/22/18 10:30 10 units] Morphine Sulfate [Ms Contin] 15 mg PO BID@529,07/16/17 [Last Taken 07/22/18 05:30] Morphine Sulfate [Ms Contin] 15 mg PO DAILY@14 PRN 07/16/17 [Last Taken Unknown] Tizanidine HCl [Zanaflex] 8 mg PO QID@129,529,,07/16/17 [Last Taken 07/22 05:30] clonIDINE [Catapres (*)] 0.1 mg PO TID@529,,07/16/17 [Last Taken 07/22/18 05:30] clonazePAM [Klonopin (*)] 0.25 mg PO TID@129,529,07/16/17 [Last Taken 07/22 05:30] clonazePAM [Klonopin (*)] 0.5 mg PO DAILY@2200 07/16/17 [Last Taken 04/07/18] diphenhydrAMINE HCL [Wal-Dryl] 50 mg PO QID@129,529,,07/16/17 [Last Taken 07/22/18 05:30] LORazepam [Lorazepam Intensol] 2 mg PO Q4 PRN 02/27/18 [Last Taken 07/22/18 05: 00] Acetaminophen/ASA/Caffeine [Excedrin Tablet (*)] 1 each PO DAILY PRN 04/08/18 [ Last Taken 07/22/18] Alocril 2% Drops 1 drop EACHEYE DAILY PRN 04/08/18 [Last Taken 07/21/18] Morphine 100mg/5ml Symone 0.5 - 1 ml PO DAILY PRN 04/08/18 [Last Taken 07/21/18 21: 00] Phenazopyridine HCl [Pyridium] 100 mg PO HS PRN 04/08/18 [Last Taken 04/07/18 20 :00] Salv[place]orean [place] 1.5 tab PO QID@129,529,,22 04/08/18 [Last Taken 07/22/18 05:30] EPINEPHrine [Epipen 0.3 MG] 0.3 mg IM ONCE 07/22/18 [Last Taken Unknown] Allergies/Adverse Reactions: chlorhexidine Allergy (Severe, Verified 07/22/18 12:08) hives, anaphylaxis linezolid Allergy (Severe, Verified 07/22/18 12:08) full body paralysis ondansetron HCl [From Zofran (as hydrochloride)] Allergy (Severe, Verified 07/22 12:08) itching and swelling of throat vancomycin Allergy (Intermediate, Verified 07/22/18 12:08) Rash zolpidem [From Ambien] Allergy (Intermediate, Verified 07/22/18 12:08) Hives oxymorphone HCl [From Opana] Allergy (Unknown, Verified 07/22/18 12:08) amoxicillin trihydrate [From Augmentin] Allergy (Verified 07/22/18 12:08) ampicillin [Ampicillin] Allergy (Verified 07/22/18 12:08) azithromycin Allergy (Verified 07/22/18 12:08) cephalexin monohydrate [From Keflex] Allergy (Verified 07/22/18 12:08) Cephalosporins Allergy (Verified 07/22/18 12:08) ciprofloxacin Allergy (Verified 07/22/18 12:08) clindamycin Allergy (Verified 07/22/18 12:08) cyclobenzaprine Allergy (Verified 07/22/18 12:08) Other-Enter Comments dalteparin sodium,porcine [From Fragmin] Allergy (Verified 07/22/18 12:08) erythromycin base [Erythromycin Base] Allergy (Verified 07/22/18 12:08) iodine Allergy (Verified 07/22/18 12:08) latex Allergy (Verified 07/22/18 12:08) levofloxacin [Levofloxacin] Allergy (Verified 07/22/18 12:08) nitrofurantoin macrocrystalline [From Macrodantin] Allergy (Verified 07/22/18 12 :08) oxycodone Allergy (Verified 07/22/18 12:08) Penicillins Allergy (Verified 07/22/18 12:08) phenytoin sodium [From Dilantin] Allergy (Verified 07/22/18 12:08) potassium clavula *RETIRED-07/13/12 [From Augmentin] Allergy (Verified 07/22/18 12:08) prednisone Allergy (Verified 07/22/18 12:08) rifampin Allergy (Verified 07/22/18 12:08) Shellfish *RETIRED-07/13/12 Allergy (Verified 07/22/18 12:08) silver [From Tegaderm AG Mesh] Allergy (Verified 07/25/18 17:42) sulfamethoxazole [Sulfamethoxazole] Allergy (Verified 07/22/18 12:08) trimethoprim [From Bactrim] Allergy (Verified 07/22/18 12:08) tegade Allergy (Uncoded 07/25/18 17:44) Mental status: A&Ox3 Heart exam: regular rate and rhythm Lungs exam: clear to auscultation Mallampati Score: Class 3
--- NOTE | 2018-07-28 17:31 | PDRADPN ---
Radiology Procedure Note Date of Procedure: 07/28/18 Radiologist: Yifan Terrazas Anesthesia: Local (Specify) (Lidocaine) Pre-op Diagnosis: Infection/need for retirement ABX, Poor central venous access Post-op Diagnosis: Infection/need for retirement ABX, Poor central venous access Indication: Infection/need for ferry terminal agent ABX, Poor central venous access Procedure: Tunneled small bore noncuffed CVC Finding(s): Patent right IJ. 4 Fr single lumen catheter placed with tip at proximal right atrium. PLAN: This IJ Tunneled catheter functions the same as a peripheral PICC with decreased rate of infection, and is a vein-preserving alternative with no risk of arm vein thrombosis. The Tunneled noncuffed catheter may be removed at any time the same as any peripheral PICC with hemostasis achieved via manual compression followed by a sterile, occlusive dressing. Inf/Abcess present in the surg proc area at time of surgery?: No
[2018-07-28] MEDS ORDERED: PROTOCOL POTASSIUM 1 DOSE MISC PRN (19:59)
[2018-07-28] MEDS ORDERED: POTASSIUM Cl (KCl) 50 ML IV SCH (20:30)
[2018-07-28] MEDS: ENOXAPARIN 120 MG/0.8 ML SYR SC SCH (21:54)
[2018-07-29] MEDS: DIPHENHYDRAMINE HCL 25 MG PO SCH ×4 (00:36→21:15)
[2018-07-29] MEDS: clonazePAM 0.5 MG TAB PO SCH ×5 (00:48→21:14)
[2018-07-29] MEDS: LORazepam 2 MG/ML INJ IVP PRN ×5 (00:48→21:15)
[2018-07-29] MEDS: TIZANIDINE HCL 4 MG PO SCH ×4 (00:48→21:14)
[2018-07-29] MEDS: KRISS PO SCH ×4 (00:49→21:15)
[2018-07-29] MEDS: fentaNYL 100 MCG/2 ML INJ IVP PRN ×3 (05:22→18:34)
[2018-07-29] MEDS: MEROPENEM 1 GM in NS 100 ML IV SCH ×3 (05:34→21:14)
[2018-07-29] MEDS: morphINE SR 15 MG TAB PO SCH ×2 (05:34→21:14)
[2018-07-29] MEDS: NS 1,000 ML IV SCH ×2 (05:34→21:18)
[2018-07-29] MEDS ORDERED: POTASSIUM CL 10 MEQ TAB PO ONE (07:48)
[2018-07-29] MEDS: INSULIN 70/30 HUMAN 100 UNIT/ML SYR SC SCH ×2 (07:50→18:22)
[2018-07-29] MEDS ORDERED: METHYLNALTREXONE BROMIDE 12 MG/0.6 ML INJ SC ONE (09:00)
--- NOTE | 2018-07-29 09:44 | SOAPPROG ---
SOAP Progress Note Assessment/Plan: Assessment: 57 y/o F admitted for MSSA bacteremia secondary to indwelling PICC, abdominal pain and constipation S: Frustrated. Reports that it took 2 shots of Relistor last time she was this constipated. Did get one shot on Friday, but per pharmacy, additional shot increases risk for GI bleed. O:Alert NG tube with 1.5-2L output Abdomen soft, nontender, ostomy is retracted, but pink. Solid stool in appliance. No apparent stricture or hernia on exam, +BS Plan: Discussed with pharmacy and Dr. Santos. GI bleed unlikely. Will try one more shot of Relistor today to hopefully get her bowels moving. 07/29/18 09:41 Objective: Vital Signs Temp Pulse Resp BP Pulse Ox 36.5 C 74 18 134/76 H 97 07/29/18 08:00 07/29/18 08:00 07/29/18 04:00 07/29/18 08:00 07/29/18 08:00 Laboratory Results 07/28/18 04:20 07/29/18 05:25 07/28/18 07/29/18 07/30/18 05:59 05:59 05:59 Intake Total 2737 200 Output Total 2600 3100 Balance 137 -2900 ICD10 Worksheet Patient Problems: Problems Problem Status Onset Acute kidney injury Acute Dehydration Acute Nausea and vomiting Acute Kidney stone Active Microscopic hematuria Active Recurrent cystitis Active Reflex sympathetic dystrophy Active Abdominal pain Acute Biliary colic Acute Bowel obstruction Acute Chronic pain Acute Flank pain, acute Acute History of reflex sympathetic dystrophy Acute Hyperglycemia Acute Narcotic withdrawal Acute UTI (urinary tract infection) Acute Volume depletion Acute Vomiting Acute
--- NOTE | 2018-07-29 09:55 | HOSPPROG ---
Hospitalist Progress Note Assessment/Plan: 57yo F with ostomy due to chronic constipation, chronic pain, numerous drug allergies here with bacteremia likely from infected PICC-associated DVT. #Acute on chronic abdominal pain, constipation: CT without acute finding or obstruction. Lipase elevated, possibly pancreatitis. - Will NOT increase pain meds. - Keep NG tube in place, mgmt per surgery - Continue current pain mgmt: fentanyl IV PRN, home MS contin, mm relaxers, benzos. - Clear liquids per surgery - Will get a second Relistor today - Palliative care to meet with patient and today #MSSA bacteremia: Suspect d/t septic thrombophlebitis. Afebrile. Surveillance cx 07/25 NGTD. - Continue meropenem for 6 weeks due to allergy list, ID following. She gets IV benadryl with abx - s/p IJ tunneled catheter on 07/28 #Acute LUE DVT: PICC associated. Involving brachial, axillary, and subclavian veins. - restart LMWH - We discussed future anticoagulation and she is very hesitant about switching to Coumadin or any oral agent and is hoping to stay on LMWH even though she will be having to give herself shots. She reports no hx of ever having to take an blood thinner and denies a hx of blood clots, but then her reports that she has previously been on Fragmin for unclear reasons and that she was allergic. In either case, the patient does not want any oral medications. #Hypokalemia: K 2.8 - IV K protocol, replete Mg as well and monitor daily #Thrombocytopenia: Improving. HIT abs negative. - Monitor daily. Recheck in a.m. #HTN: Likely 2/2 pain. - Continue clonidine, hydralazine PRN for SBP>180 #Hyperglycemia with T2DM: BG better. - 70/30 12 BID PRN, continue SSI, monitor BG #KAREN: Resolved, likely pre-renal. #Dilated cecum: Noted on CT with focal luminal narrowing. - Gen surg following, recommend enemas, no surgical intervention planned #H/o ostomy Diet: CLD Code: Full Dispo: Remain inpatient for IV antibiotics, management of above. Will need outpatient IV antibiotics on discharge. Plan: per above changing diet to CLD and giving one more Relistor. She may benefit from other stool softner, but for now, given recent start on CLD will hold. cont LMWH per above no changes to her pain regimen, although she cont to request and get IV pain meds and may need to increase her long acting meds if she can tolerate from a GI perspective. I would not go up on her short acting regimen cont Meropenem Palliative Care will see her today, await reccs. d/W nursing and palliative care Subjective: denies abd pain. small stool pellets seen in ostomy bag Objective: Vital Signs Temp Pulse Resp BP Pulse Ox 36.5 C 74 18 134/76 H 97 07/29/18 08:00 07/29/18 08:00 07/29/18 04:00 07/29/18 08:00 07/29/18 08:00 Laboratory Results 07/28/18 04:20 07/29/18 05:25 07/28/18 07/29/18 07/30/18 05:59 05:59 05:59 Intake Total 2737 200 Output Total 2600 3100 Balance 137 -2900 - Physical Exam Constitutional: no apparent distress Eyes: PERRL Ears, Nose, Mouth, Throat: moist mucous membranes, hearing normal Cardiovascular: regular rate and rhythym, No edema Respiratory: no respiratory distress, no rales or rhonchi, clear to auscultation Gastrointestinal: soft, non-tender abdomen, other (ostomy in place), No distension Skin: warm Neurologic: AAOx3 Psychiatric: interacting appropriately, not anxious, not encephalopathic Lymph, Heme, Immunologic: No petechiae ICD10 Worksheet Patient Problems: Problems Problem Status Onset Acute kidney injury Acute Dehydration Acute Nausea and vomiting Acute Kidney stone Active Microscopic hematuria Active Recurrent cystitis Active Reflex sympathetic dystrophy Active Abdominal pain Acute Biliary colic Acute Bowel obstruction Acute Chronic pain Acute Flank pain, acute Acute History of reflex sympathetic dystrophy Acute Hyperglycemia Acute Narcotic withdrawal Acute UTI (urinary tract infection) Acute Volume depletion Acute Vomiting Acute
[2018-07-29] MEDS: ENOXAPARIN 120 MG/0.8 ML SYR SC SCH ×2 (10:14→21:15)
[2018-07-29] MEDS: MICAFUNGIN NA 100 MG in NS 100 ML IV SCH (10:21)
--- NOTE | 2018-07-29 10:40 | PCMIDPN ---
Assessment/Plan: Assessment/Plan: * Septic thrombophlebitis with MSSA bacteremia due to PICC line: Bacteremia has cleared. Plan 6 weeks of IV meropenem (being used based on prior history of multiple antibiotic allergies). Tunnelled PICC line placed yesterday in right IJ location. Left upper extremity thrombophlebitis continues to resolve. * Intertrigo: Clinically resolved. Micafungin change 3 times per week to avoid recurrent intertrigo while on meropenem. 07/29/18 10:38 Subjective: Patient without significant bowel movement. No significant abdominal pain. Left upper extremity pain largely resolved. Objective: Vital Signs Temp Pulse Resp BP Pulse Ox 36.5 C 74 18 134/76 H 97 07/29/18 08:00 07/29/18 08:00 07/29/18 04:00 07/29/18 08:00 07/29/18 08:00 Laboratory Results 07/28/18 04:20 07/29/18 05:25 07/28/18 07/29/18 07/30/18 05:59 05:59 05:59 Intake Total 2737 200 Output Total 2600 3100 Balance 137 -2900 Meropenem # 7 Micafungin # 7 Blood cultures x2 07/25/2018 no growth - Physical Exam General Appearance: alert, no apparent distress EENT: No scleral icterus, No thrush Respiratory: lungs clear, other (PICC line in right upper chest), No respiratory distress Cardiac/Chest: regular rate, rhythm, No systolic murmur Extremities: inflammation (Left upper extremity small inflamed cord continues to resolve) Abdomen: non-tender, No distended ICD10 Worksheet Patient Problems: Problems Problem Status Onset Nausea and vomiting Acute Reflex sympathetic dystrophy Active Kidney stone Active Microscopic hematuria Active Recurrent cystitis Active Abdominal pain Acute Narcotic withdrawal Acute Chronic pain Acute Vomiting Acute Flank pain, acute Acute UTI (urinary tract infection) Acute Biliary colic Acute Bowel obstruction Acute Hyperglycemia Acute Volume depletion Acute History of reflex sympathetic dystrophy Acute Acute kidney injury Acute Dehydration Acute
[2018-07-29] MEDS: INSULIN LISPRO 100 UNIT/ML SC SCH ×3 (11:53→18:23)
[2018-07-29] MEDS: SENNOSIDES/DOCUSATE SODIUM TAB PO SCH ×2 (12:19→21:14)
[2018-07-29] MEDS: POTASSIUM Cl (KCl) 100 ML IV SCH ×8 (12:19→23:25)
--- NOTE | 2018-07-29 15:44 | ASMTCMCOM ---
CM Note CM Note Notes: Pt had a palliative consult today. Pt and are reluctant to have any homecare because of bad experiences in the past. Pt does however need IV abx at dc, referrals made. SD Plan: [facility] Date Signed: 07/29/2018 03:06 PM Electronically Signed By:Gladys Martinez RN
[2018-07-30] MEDS: fentaNYL 100 MCG/2 ML INJ IVP PRN ×4 (00:34→17:36)
[2018-07-30] MEDS: clonazePAM 0.5 MG TAB PO SCH ×4 (00:34→21:38)
[2018-07-30] MEDS: TIZANIDINE HCL 4 MG PO SCH ×4 (00:50→21:39)
[2018-07-30] MEDS: KRISS PO SCH ×4 (00:50→21:39)
[2018-07-30] MEDS: DIPHENHYDRAMINE HCL 25 MG PO SCH ×4 (00:50→21:39)
[2018-07-30] MEDS: LORazepam 2 MG/ML INJ IVP PRN ×5 (04:53→21:38)
[2018-07-30] MEDS: MEROPENEM 1 GM in NS 100 ML IV SCH ×3 (04:59→21:50)
[2018-07-30] MEDS: morphINE SR 15 MG TAB PO SCH ×2 (04:59→21:38)
[2018-07-30 05:22] LABS: PLATELET COUNT 188 10^3/uL (150-400)
[2018-07-30] MEDS: SENNOSIDES/DOCUSATE SODIUM TAB PO SCH ×2 (08:46→21:38)
[2018-07-30] MEDS: ENOXAPARIN 120 MG/0.8 ML SYR SC SCH ×2 (08:47→21:38)
[2018-07-30] MEDS: INSULIN LISPRO 100 UNIT/ML SC SCH ×3 (08:48→17:40)
[2018-07-30] MEDS: INSULIN 70/30 HUMAN 100 UNIT/ML SYR SC SCH ×2 (08:52→17:45)
--- NOTE | 2018-07-30 09:07 | SOAPPROG ---
SOAP Progress Note Assessment/Plan: Assessment: 57 y/o F admitted for MSSA bacteremia secondary to indwelling PICC, abdominal pain and constipation S: Frustrated. Reports that it took 2 shots of Relistor last time she was this constipated. Did get one shot on Friday, but per pharmacy, additional shot increases risk for GI bleed. O:Alert NG tube with 1.5-2L output Abdomen soft, nontender, ostomy is retracted, but pink. Solid stool in appliance. No apparent stricture or hernia on exam, +BS Plan: Discussed with pharmacy and Dr. Santos. GI bleed unlikely. Will try one more shot of Relistor today to hopefully get her bowels moving. 07/29/18 09:41 Subjective: Feeling a little better. Did have some stool out from ostomy after second Relistor shot yesterday. Objective: Vital Signs Temp Pulse Resp BP Pulse Ox 36.9 C 82 16 142/100 H 98 07/30/18 08:00 07/30/18 08:00 07/30/18 08:00 07/30/18 08:00 07/30/18 08:00 Microbiology 07/25/18 05:17 Blood Culture - Final Blood 07/25/18 05:24 Blood Culture - Final Blood Laboratory Results 07/30/18 05:05 07/30/18 05:05 07/29/18 07/30/18 07/31/18 05:59 05:59 05:59 Intake Total 200 2700 Output Total 3100 3230 Balance -2900 -530 ICD10 Worksheet Patient Problems: Problems Problem Status Onset Acute kidney injury Acute Dehydration Acute Nausea and vomiting Acute Kidney stone Active Microscopic hematuria Active Recurrent cystitis Active Reflex sympathetic dystrophy Active Abdominal pain Acute Biliary colic Acute Bowel obstruction Acute Chronic pain Acute Flank pain, acute Acute History of reflex sympathetic dystrophy Acute Hyperglycemia Acute Narcotic withdrawal Acute UTI (urinary tract infection) Acute Volume depletion Acute Vomiting Acute
[2018-07-30] MEDS: POTASSIUM Cl (KCl) 100 ML IV SCH ×7 (09:40→21:38)
--- NOTE | 2018-07-30 10:26 | HOSPPROG ---
Hospitalist Progress Note Assessment/Plan: 57yo F with ostomy due to chronic constipation, chronic pain, numerous drug allergies here with bacteremia likely from infected PICC-associated DVT. Acute on chronic abdominal pain, constipation: CT without acute finding or obstruction. Lipase elevated, possibly pancreatitis. - Will NOT increase pain meds. - will discuss removal of NGT w surgery - Continue current pain mgmt: fentanyl IV PRN, home MS contin, mm relaxers, benzos. - Clear liquids per surgery - second Relistor yesterday - Palliative care meeting yesterday MSSA bacteremia: Suspect d/t septic thrombophlebitis. Afebrile. Surveillance cx 07/25 NGTD. - Continue meropenem for 6 weeks due to allergy list, ID following. She gets IV benadryl with abx - s/p IJ tunneled catheter on 07/28 Acute LUE DVT: PICC associated. Involving brachial, axillary, and subclavian veins. - restart LMWH we recommend eliquis or other DOAc; she is discussing were her Hypokalemia: K 2.8 - IV K protocol, replete Mg as well and monitor daily Thrombocytopenia: Improving. HIT abs negative. - Monitor daily. Recheck in a.m. HTN: Likely 2/2 pain. - Continue clonidine, hydralazine PRN for SBP>180 Hyperglycemia with T2DM: BG better. - 70/30 12 BID PRN, continue SSI, monitor BG KAREN: Resolved, likely pre-renal. Dilated cecum: Noted on CT with focal luminal narrowing. - Gen surg following, recommend enemas, no surgical intervention planned H/o ostomy Diet: CLD Code: Full Dispo: Remain inpatient for IV antibiotics, management of above. Will need outpatient IV antibiotics on discharge. Subjective: case discussed at length w dr healy. afebrile Objective: Vital Signs Temp Pulse Resp BP Pulse Ox 36.9 C 82 16 142/100 H 98 07/30/18 08:00 07/30/18 08:00 07/30/18 08:00 07/30/18 08:00 07/30/18 08:00 Microbiology 07/25/18 05:17 Blood Culture - Final Blood 07/25/18 05:24 Blood Culture - Final Blood Laboratory Results 07/30/18 05:05 07/30/18 05:05 07/29/18 07/30/1818 05:59 05:59 05:59 Intake Total 200 2700 Output Total 3100 3230 Balance -2900 -530 - Physical Exam Constitutional: no apparent distress, appears nourished Eyes: PERRL, anicteric sclera Ears, Nose, Mouth, Throat: moist mucous membranes, hearing normal Cardiovascular: regular rate and rhythym, no murmur, rub, or gallop Respiratory: no respiratory distress, no rales or rhonchi Gastrointestinal: soft, non-tender abdomen, other (firm stool in ostomy bag) Genitourinary: no bladder fullness, No woods in urethra Skin: warm, normal color Musculoskeletal: full muscle strength, no muscle tenderness Neurologic: AAOx3 ICD10 Worksheet Patient Problems: Problems Problem Status Onset Acute kidney injury Acute Dehydration Acute Nausea and vomiting Acute Kidney stone Active Microscopic hematuria Active Recurrent cystitis Active Reflex sympathetic dystrophy Active Abdominal pain Acute Biliary colic Acute Bowel obstruction Acute Chronic pain Acute Flank pain, acute Acute History of reflex sympathetic dystrophy Acute Hyperglycemia Acute Narcotic withdrawal Acute UTI (urinary tract infection) Acute Volume depletion Acute Vomiting Acute
--- NOTE | 2018-07-30 10:53 | PCMIDPN ---
Assessment/Plan: Assessment/Plan: * Septic thrombophlebitis with MSSA bacteremia due to PICC line: Tolerating meropenem well today. Tunneled PICC line in place in right IJ location. Plan 6 weeks of meropenem (stop date 09/05/2018). Plan weekly CBC and CMP on meropenem. * Intertrigo: Clinically resolved. Continue micafungin Friday, Friday, Friday while on meropenem with goal of preventing recurrent intertrigo. 07/30/18 10:51 Subjective: Overall patient feels improved with resolution of left upper extremity pain. NG tube remains in place. Objective: Vital Signs Temp Pulse Resp BP Pulse Ox 36.9 C 82 16 142/100 H 98 07/30/18 08:00 07/30/18 08:00 07/30/18 08:00 07/30/18 08:00 07/30/18 08:00 Microbiology 07/25/18 05:17 Blood Culture - Final Blood 07/25/18 05:24 Blood Culture - Final Blood Laboratory Results 07/30/18 05:05 07/30/18 05:05 07/29/18 07/30/18 07/31/18 05:59 05:59 05:59 Intake Total 200 2700 Output Total 3100 3230 Balance -2900 -530 Meropenem # 8 Micafungin # 8 Blood cultures 07/25/2018 no growth - Physical Exam General Appearance: alert, no apparent distress EENT: No scleral icterus, No thrush Respiratory: lungs clear, No respiratory distress Cardiac/Chest: regular rate, rhythm Abdomen: non-tender, distended ICD10 Worksheet Patient Problems: Problems Problem Status Onset Acute kidney injury Acute Dehydration Acute Nausea and vomiting Acute Kidney stone Active Microscopic hematuria Active Recurrent cystitis Active Reflex sympathetic dystrophy Active Abdominal pain Acute Biliary colic Acute Bowel obstruction Acute Chronic pain Acute Flank pain, acute Acute History of reflex sympathetic dystrophy Acute Hyperglycemia Acute Narcotic withdrawal Acute UTI (urinary tract infection) Acute Volume depletion Acute Vomiting Acute
[2018-07-30] MEDS: morphINE SR 15 MG TAB PO PRN (14:01)
[2018-07-30] MEDS: NS 1,000 ML IV SCH (21:38)
[2018-07-31] MEDS: fentaNYL 100 MCG/2 ML INJ IVP PRN ×4 (00:37→18:19)
[2018-07-31] MEDS: LORazepam 2 MG/ML INJ IVP PRN ×5 (01:41→19:56)
[2018-07-31] MEDS: clonazePAM 0.5 MG TAB PO SCH ×4 (01:41→21:57)
[2018-07-31] MEDS: TIZANIDINE HCL 4 MG PO SCH ×4 (01:41→21:43)
[2018-07-31] MEDS: DIPHENHYDRAMINE HCL 25 MG PO SCH ×4 (01:41→21:41)
[2018-07-31] MEDS: KRISS PO SCH ×4 (01:41→21:42)
[2018-07-31] MEDS: morphINE SR 15 MG TAB PO SCH ×2 (05:31→21:57)
[2018-07-31] MEDS: MEROPENEM 1 GM in NS 100 ML IV SCH ×3 (05:31→22:37)
--- NOTE | 2018-07-31 08:45 | SOAPPROG ---
SOAP Progress Note Assessment/Plan: Assessment: 57 y/o F admitted for MSSA bacteremia secondary to indwelling PICC, abdominal pain and constipation S: Feeling better today. Adequate stool output into ostomy appliance. O:Alert NG tube with 600ml out Abdomen soft, nontender, ostomy is retracted, but pink. Solid stool in appliance. No apparent stricture or hernia on exam, +BS Plan: Clamp NG tube, hopefully remove it later this afternoon. Dispo pending. 07/31/18 08:44 Objective: Vital Signs Temp Pulse Resp BP Pulse Ox 36.6 C 70 18 132/70 H 98 07/30/18 22:53 07/30/18 22:53 07/30/18 22:53 07/30/18 22:53 07/30/18 22:53 Microbiology 07/25/18 05:17 Blood Culture - Final Blood 07/25/18 05:24 Blood Culture - Final Blood Laboratory Results 07/30/18 05:05 07/31/18 05:31 07/30/18 07/31/18 08/01/18 05:59 05:59 05:59 Intake Total 2700 475 Output Total 3895 7344 Balance -530 -2000 ICD10 Worksheet Patient Problems: Problems Problem Status Onset Acute kidney injury Acute Dehydration Acute Nausea and vomiting Acute Kidney stone Active Microscopic hematuria Active Recurrent cystitis Active Reflex sympathetic dystrophy Active Abdominal pain Acute Biliary colic Acute Bowel obstruction Acute Chronic pain Acute Flank pain, acute Acute History of reflex sympathetic dystrophy Acute Hyperglycemia Acute Narcotic withdrawal Acute UTI (urinary tract infection) Acute Volume depletion Acute Vomiting Acute
[2018-07-31] MEDS: INSULIN LISPRO 100 UNIT/ML SC SCH ×3 (08:54→17:55)
[2018-07-31] MEDS ORDERED: MICAFUNGIN NA 100 MG in NS 100 ML IV SCH (09:00)
[2018-07-31] MEDS: INSULIN 70/30 HUMAN 100 UNIT/ML SYR SC SCH ×2 (09:16→17:54)
[2018-07-31] MEDS: SENNOSIDES/DOCUSATE SODIUM TAB PO SCH ×2 (09:17→19:56)
[2018-07-31] MEDS: ENOXAPARIN 120 MG/0.8 ML SYR SC SCH (09:22)
[2018-07-31] MEDS: POTASSIUM Cl (KCl) 100 ML IV SCH ×5 (10:36→23:54)
--- NOTE | 2018-07-31 12:39 | HOSPPROG ---
Hospitalist Progress Note Assessment/Plan: 57yo F with ostomy due to chronic constipation, chronic pain, numerous drug allergies here with bacteremia likely from infected PICC-associated DVT. Acute on chronic abdominal pain, constipation: CT without acute finding or obstruction. Lipase elevated, possibly pancreatitis. - Will NOT increase pain meds. can likely remove NGT today MSSA bacteremia: Suspect d/t septic thrombophlebitis. Afebrile. Surveillance cx 07/25 NGTD. - Continue meropenem for 6 weeks due to allergy list, ID following. She gets IV benadryl with abx - s/p IJ tunneled catheter on 07/28 Acute LUE DVT: PICC associated. Involving brachial, axillary, and subclavian veins. start eliquis this PM Hypokalemia: normalized - IV K protocol, replete Mg as well and monitor daily Thrombocytopenia: Improving. HIT abs negative. - Monitor daily. Recheck in a.m. HTN: Likely 2/2 pain. - Continue clonidine, hydralazine PRN for SBP>180 Hyperglycemia with T2DM: BG better. - 70/30 12 BID PRN, continue SSI, monitor BG KAREN: Resolved, likely pre-renal. Dilated cecum: Noted on CT with focal luminal narrowing. - Gen surg following, recommend enemas, no surgical intervention planned H/o ostomy Diet: CLD Code: Full Dispo: Remain inpatient for IV antibiotics, management of above. Will need outpatient IV antibiotics on discharge. Subjective: case d/w dr castro. willing to try eliquis Objective: Vital Signs Temp Pulse Resp BP Pulse Ox 36.6 C 76 18 90/60 L 96 07/31/18 08:00 07/31/18 08:00 07/31/18 08:00 07/31/18 08:00 07/31/18 08:00 Microbiology 07/25/18 05:17 Blood Culture - Final Blood 07/25/18 05:24 Blood Culture - Final Blood Laboratory Results 07/30/18 05:05 07/31/18 05:31 07/30/18 07/31/18 08/01/18 05:59 05:59 05:59 Intake Total 2700 475 Output Total 3230 1755 900 Balance -416 -3244 -913 - Physical Exam Constitutional: no apparent distress, appears nourished Eyes: PERRL, anicteric sclera Ears, Nose, Mouth, Throat: moist mucous membranes, hearing normal Cardiovascular: regular rate and rhythym, no murmur, rub, or gallop Respiratory: no respiratory distress, no rales or rhonchi Gastrointestinal: normoactive bowel sounds, soft, non-tender abdomen Genitourinary: no bladder fullness, No woods in urethra Skin: warm, normal color Musculoskeletal: full muscle strength, no muscle tenderness Neurologic: AAOx3 ICD10 Worksheet Patient Problems: Problems Problem Status Onset Acute kidney injury Acute Dehydration Acute Nausea and vomiting Acute Kidney stone Active Microscopic hematuria Active Recurrent cystitis Active Reflex sympathetic dystrophy Active Abdominal pain Acute Biliary colic Acute Bowel obstruction Acute Chronic pain Acute Flank pain, acute Acute History of reflex sympathetic dystrophy Acute Hyperglycemia Acute Narcotic withdrawal Acute UTI (urinary tract infection) Acute Volume depletion Acute Vomiting Acute
[2018-07-31] MEDS: morphINE SR 15 MG TAB PO PRN (14:09)
--- NOTE | 2018-07-31 16:08 | ASMTCMCOM ---
CM Note CM Note Notes: Spoke with pt in the room. Discharge date unknown at this time. Pt confirmed that she would prefer home antibiotics with [facility] and [facility] despite having come to outpatient infusion center in the past. Referrals sent and approved with [facility] and [facility], antibiotic will be covered by [facility] at 100%. D/C Plan: Home with [facility] home infusion and [facility]. Date Signed: 07/31/2018 04:04 PM Electronically Signed By:Yolanda Broussard
[2018-07-31] MEDS: APIXABAN 5 MG TAB PO SCH (19:56)
[2018-07-31] MEDS: NS 1,000 ML IV SCH (20:15)
[2018-08-01] MEDS: fentaNYL 100 MCG/2 ML INJ IVP PRN ×5 (00:04→22:25)
[2018-08-01] MEDS: clonazePAM 0.5 MG TAB PO SCH ×4 (01:25→21:58)
[2018-08-01] MEDS: TIZANIDINE HCL 4 MG PO SCH ×4 (01:27→22:00)
[2018-08-01] MEDS: DIPHENHYDRAMINE HCL 25 MG PO SCH ×4 (01:32→21:59)
[2018-08-01] MEDS: KRISS PO SCH ×4 (01:32→22:00)
[2018-08-01] MEDS: LORazepam 2 MG/ML INJ IVP PRN ×5 (04:52→22:25)
[2018-08-01] MEDS: MEROPENEM 1 GM in NS 100 ML IV SCH ×3 (05:28→21:57)
[2018-08-01] MEDS: morphINE SR 15 MG TAB PO SCH ×2 (05:29→21:58)
[2018-08-01] MEDS: INSULIN LISPRO 100 UNIT/ML SC SCH ×3 (08:54→18:45)
[2018-08-01] MEDS: SENNOSIDES/DOCUSATE SODIUM TAB PO SCH ×2 (08:55→20:00)
--- NOTE | 2018-08-01 08:59 | SOAPPROG ---
SOAP Progress Note Assessment/Plan: Assessment: Abdomen is soft, nondistended nontender. Stoma is functioning appropriately with appropriate output. Patient's nasogastric tube was discontinued without incident she is tolerating a regular diet, ate a burger last night for dinner without issue. Plan: 08/01/18 08:58 Subjective: Feels good denies nausea Objective: Vital Signs Temp Pulse Resp BP Pulse Ox 36.6 C 59 L 16 117/80 95 08/01/18 07:42 08/01/18 07:42 08/01/18 07:42 08/01/18 07:42 08/01/18 07:42 Laboratory Results 07/30/18 05:05 08/01/18 05:00 07/31/18 08/01/18 08/02/18 05:59 05:59 05:59 Intake Total 475 1850 Output Total 2475 2350 Balance -2000 -500 ICD10 Worksheet Patient Problems: Problems Problem Status Onset Acute kidney injury Acute Dehydration Acute Nausea and vomiting Acute Kidney stone Active Microscopic hematuria Active Recurrent cystitis Active Reflex sympathetic dystrophy Active Abdominal pain Acute Biliary colic Acute Bowel obstruction Acute Chronic pain Acute Flank pain, acute Acute History of reflex sympathetic dystrophy Acute Hyperglycemia Acute Narcotic withdrawal Acute UTI (urinary tract infection) Acute Volume depletion Acute Vomiting Acute
[2018-08-01] MEDS: APIXABAN 5 MG TAB PO SCH ×2 (09:18→20:00)
[2018-08-01] MEDS ORDERED: POTASSIUM Cl (KCl) 50 ML IV ONE (09:49)
[2018-08-01] MEDS: INSULIN 70/30 HUMAN 100 UNIT/ML SYR SC SCH ×2 (10:05→18:34)
[2018-08-01] MEDS: POTASSIUM Cl (KCl) 100 ML IV SCH ×2 (10:27→11:53)
--- NOTE | 2018-08-01 10:46 | HOSPPROG ---
Hospitalist Progress Note Assessment/Plan: 57yo F with ostomy due to chronic constipation, chronic pain, numerous drug allergies here with bacteremia likely from infected PICC-associated DVT. Acute on chronic abdominal pain, constipation: CT without acute finding or obstruction. Lipase elevated, possibly pancreatitis. - Will NOT increase pain meds. NGT out MSSA bacteremia: Suspect d/t septic thrombophlebitis. Afebrile. Surveillance cx 07/25 NGTD. - Continue meropenem for 6 weeks due to allergy list, ID following. She gets IV benadryl with abx - s/p IJ tunneled catheter on 07/28 Acute LUE DVT: PICC associated. Involving brachial, axillary, and subclavian veins. eliquis started; tolerating thus far Hypokalemia: normalized - IV K protocol, replete Mg as well and monitor daily Thrombocytopenia: Improving. HIT abs negative. - Monitor daily. Recheck in a.m. HTN: Likely 2/2 pain. - Continue clonidine, hydralazine PRN for SBP>180 Hyperglycemia with T2DM: BG better. - 70/30 12 BID PRN, continue SSI, monitor BG KAREN: Resolved, likely pre-renal. Dilated cecum: Noted on CT with focal luminal narrowing. - Gen surg following, recommend enemas, no surgical intervention planned H/o ostomy Diet: CLD Code: Full Dispo: Remain inpatient for IV antibiotics, management of above. Will need outpatient IV antibiotics on discharge. Subjective: case d/w dr healy Objective: Vital Signs Temp Pulse Resp BP Pulse Ox 36.6 C 59 L 16 117/80 95 08/01/18 07:42 08/01/18 07:42 08/01/18 07:42 08/01/18 07:42 08/01/18 07:42 Laboratory Results 07/30/18 05:05 08/01/18 05:00 07/31/18 08/01/18 08/02/18 05:59 05:59 05:59 Intake Total 475 1850 Output Total 3138 9110 Balance -1999 - - Physical Exam Constitutional: no apparent distress, appears nourished Eyes: PERRL, anicteric sclera Ears, Nose, Mouth, Throat: moist mucous membranes, hearing normal Cardiovascular: regular rate and rhythym, no murmur, rub, or gallop Respiratory: no respiratory distress, no rales or rhonchi Gastrointestinal: normoactive bowel sounds, other (stool in ostomy) Genitourinary: no bladder fullness, No woods in urethra Skin: warm, normal color Musculoskeletal: No full muscle strength Neurologic: AAOx3 Psychiatric: interacting appropriately ICD10 Worksheet Patient Problems: Problems Problem Status Onset Acute kidney injury Acute Dehydration Acute Nausea and vomiting Acute Kidney stone Active Microscopic hematuria Active Recurrent cystitis Active Reflex sympathetic dystrophy Active Abdominal pain Acute Biliary colic Acute Bowel obstruction Acute Chronic pain Acute Flank pain, acute Acute History of reflex sympathetic dystrophy Acute Hyperglycemia Acute Narcotic withdrawal Acute UTI (urinary tract infection) Acute Volume depletion Acute Vomiting Acute
--- NOTE | 2018-08-01 13:06 | PCMIDPN ---
Assessment/Plan: Assessment/Plan: * Septic thrombophlebitis with MSSA bacteremia due to PICC line: Continues to tolerate meropenem while. Plan 6 weeks of IV meropenem in the setting of left upper extremity DVT/septic thrombophlebitis. Plan weekly CBC and CMP while on therapy. Tolerating right IJ tunneled PICC well. * Intertrigo: Clinically resolved. Plan continued 3 times per week micafungin while on broad-spectrum therapy with meropenem to prevent recurrent disease. 08/01/18 13:04 Subjective: Patient complains of ongoing pain. Left upper extremity pain has resolved. Now having bowel movements and tolerating diet. Objective: Vital Signs Temp Pulse Resp BP Pulse Ox 36.6 C 59 L 16 117/80 95 08/01/18 07:42 08/01/18 07:42 08/01/18 07:42 08/01/18 07:42 08/01/18 07:42 Laboratory Results 07/30/18 05:05 08/01/18 05:00 07/31/18 08/01/18 08/02/18 05:59 05:59 05:59 Intake Total 475 1850 Output Total 2475 2350 Balance -2000 -500 Meropenem # 9 Micafungin dose Friday, Friday, Friday # 9 Blood cultures 07/25/2018 no growth - Physical Exam General Appearance: alert, no apparent distress EENT: No scleral icterus, No thrush, No conjunctival petechiae Respiratory: lungs clear, No respiratory distress Cardiac/Chest: regular rate, rhythm, other (PICC line in upper chest without tenderness) Extremities: No inflammation (Left upper extremity with resolution of prior small cord and tenderness) Abdomen: non-tender, No distended ICD10 Worksheet Patient Problems: Problems Problem Status Onset Acute kidney injury Acute Dehydration Acute Nausea and vomiting Acute Kidney stone Active Microscopic hematuria Active Recurrent cystitis Active Reflex sympathetic dystrophy Active Abdominal pain Acute Biliary colic Acute Bowel obstruction Acute Chronic pain Acute Flank pain, acute Acute History of reflex sympathetic dystrophy Acute Hyperglycemia Acute Narcotic withdrawal Acute UTI (urinary tract infection) Acute Volume depletion Acute Vomiting Acute
[2018-08-01] MEDS: morphINE SR 15 MG TAB PO PRN (14:17)
[2018-08-02] MEDS: clonazePAM 0.5 MG TAB PO SCH ×3 (01:35→14:39)
[2018-08-02] MEDS: DIPHENHYDRAMINE HCL 25 MG PO SCH ×3 (01:36→14:43)
[2018-08-02] MEDS: KRISS PO SCH ×3 (01:36→14:46)
[2018-08-02] MEDS: TIZANIDINE HCL 4 MG PO SCH ×3 (01:37→14:47)
[2018-08-02] MEDS: LORazepam 2 MG/ML INJ IVP PRN ×5 (02:29→20:41)
[2018-08-02] MEDS: fentaNYL 100 MCG/2 ML INJ IVP PRN ×6 (02:29→20:41)
[2018-08-02] MEDS: morphINE SR 15 MG TAB PO SCH (05:17)
[2018-08-02] MEDS: MEROPENEM 1 GM in NS 100 ML IV SCH ×3 (05:17→18:15)
[2018-08-02] MEDS: APIXABAN 5 MG TAB PO SCH (08:52)
[2018-08-02] MEDS: INSULIN 70/30 HUMAN 100 UNIT/ML SYR SC SCH ×2 (08:57→18:14)
[2018-08-02] MEDS: INSULIN LISPRO 100 UNIT/ML SC SCH ×2 (08:58→14:44)
[2018-08-02] MEDS: SENNOSIDES/DOCUSATE SODIUM TAB PO SCH (08:59)
--- NOTE | 2018-08-02 09:00 | SOAPPROG ---
SOAP Progress Note Assessment/Plan: Assessment: Abdomen remains soft, she continues to tolerate a regular diet. Stoma has stool in the appliance, discussed bowel regimen today. Patient appears to be allergic to pretty much everything but takes something called [place], which appears to be a fancy branding of senna 3 times a day. Nothing else concerning okay with discharge later today Plan: 08/01/18 08:58 08/02/18 08:59 Subjective: Tolerating a regular diet, had a cheeseburger last night for dinner. Stoma function appropriate Objective: Vital Signs Temp Pulse Resp BP Pulse Ox 36.6 C 60 16 130/90 H 97 08/02/18 07:16 08/02/18 07:16 08/02/18 07:16 08/02/18 07:16 08/02/18 07:16 Laboratory Results 07/30/18 05:05 08/01/18 05:00 08/01/18 08/02/18 08/03/18 05:59 05:59 05:59 Intake Total 1850 900 Output Total 2350 1500 Balance -500 -600 ICD10 Worksheet Patient Problems: Problems Problem Status Onset Acute kidney injury Acute Dehydration Acute Nausea and vomiting Acute Kidney stone Active Microscopic hematuria Active Recurrent cystitis Active Reflex sympathetic dystrophy Active Abdominal pain Acute Biliary colic Acute Bowel obstruction Acute Chronic pain Acute Flank pain, acute Acute History of reflex sympathetic dystrophy Acute Hyperglycemia Acute Narcotic withdrawal Acute UTI (urinary tract infection) Acute Volume depletion Acute Vomiting Acute
--- NOTE | 2018-08-02 09:19 | PDIAF ---
- Diagnosis Diagnosis: MSSA bacteremia, intertrigo Code Status: Full Code - Medication Management Discharge Medications: Medications to Continue on Transfer Insulin 70/30 Human [Novolin 70/30 (*)] 4 - 10 unit SC BID PRN 07/16/17 [Last Taken 07/22/18 10:30 10 units] Morphine Sulfate [Ms Contin] 15 mg PO BID@529,07/16/17 [Last Taken 07/22/18 05:30] Morphine Sulfate [Ms Contin] 15 mg PO DAILY@14 PRN 07/16/17 [Last Taken Unknown] Tizanidine HCl [Zanaflex] 8 mg PO QID@129,529,,07/16/17 [Last Taken 07/22 05:30] clonIDINE [Catapres (*)] 0.1 mg PO TID@529,,07/16/17 [Last Taken 07/22/18 05:30] clonazePAM [Klonopin (*)] 0.25 mg PO TID@129,529,07/16/17 [Last Taken 07/22 05:30] clonazePAM [Klonopin (*)] 0.5 mg PO DAILY@2200 07/16/17 [Last Taken 04/07/18] diphenhydrAMINE HCL [Wal-Dryl] 50 mg PO QID@129,529,,07/16/17 [Last Taken 07/22/18 05:30] LORazepam [Lorazepam Intensol] 2 mg PO Q4 PRN 02/27/18 [Last Taken 07/22/18 05: 00] Acetaminophen/ASA/Caffeine [Excedrin Tablet (*)] 1 each PO DAILY PRN 04/08/18 [ Last Taken 07/22/18] Alocril 2% Drops 1 drop EACHEYE DAILY PRN 04/08/18 [Last Taken 07/21/18] Morphine 100mg/5ml Symone 0.5 - 1 ml PO DAILY PRN 04/08/18 [Last Taken 07/21/18 21: 00] Phenazopyridine HCl [Pyridium] 100 mg PO HS PRN 04/08/18 [Last Taken 04/07/18 20 :00] [place] 1.5 tab PO QID@129,529,,18 [Last Taken 07/22/18 05:30] EPINEPHrine [Epipen 0.3 MG] 0.3 mg IM ONCE 07/22/18 [Last Taken Unknown] [facility] Antibiotics: Meropenem 1 g IV q.8 hours, micafungin 100 mg IV Q Friday , Friday, [facility] Antibiotic Stop Date: 09/05/18 Discharge Medications: Refer to the Discharge Home Medication list for PRN reason. PICC Care - Routine: Yes - Orders Services needed: Home [facility] Care Face to Face: I certify that this patient was under my care and that I had the required [id number] encounter meeting the encounter requirements on the discharge day. My findings support the fact that the patient is homebound as defined in Home Care Face to Face Continued: CMS Chapter 7 Medicare Benefits Manual 30.1.1 , The condition of the patient is such that there exists a normal inability to leave home and consequently, leaving home would require a considerable and taxing effort. Isolation Type: None - Labs/Radiology CBC w/diff Date: 08/05/18 (Weekly Q Friday) CMP Date: 08/05/18 (Weekly Q Friday) Call or Fax Lab and Imaging Results to: Dr. Tomas, - Follow Up Care Current Providers and Referrals: Robert Cunningham MD [Primary Care Provider] - As per Instructions
--- NOTE | 2018-08-02 11:54 | PDIAF ---
- Diagnosis Diagnosis: MSSA bacteremia, intertrigo Code Status: Full Code - Medication Management Discharge Medications: Medications to Continue on Transfer Insulin 70/30 Human [Novolin 70/30 (*)] 4 - 10 unit SC BID PRN 07/16/17 [Last Taken 07/22/18 10:30 10 units] Morphine Sulfate [Ms Contin] 15 mg PO BID@529,07/16/17 [Last Taken 07/22/18 05:30] Morphine Sulfate [Ms Contin] 15 mg PO DAILY@14 PRN 07/16/17 [Last Taken Unknown] Tizanidine HCl [Zanaflex] 8 mg PO QID@129,529,,07/16/17 [Last Taken 07/22 05:30] clonIDINE [Catapres (*)] 0.1 mg PO TID@529,,07/16/17 [Last Taken 07/22/18 05:30] clonazePAM [Klonopin (*)] 0.25 mg PO TID@129,529,07/16/17 [Last Taken 07/22 05:30] clonazePAM [Klonopin (*)] 0.5 mg PO DAILY@2200 07/16/17 [Last Taken 04/07/18] diphenhydrAMINE HCL [Wal-Dryl] 50 mg PO QID@129,529,,07/16/17 [Last Taken 07/22/18 05:30] LORazepam [Lorazepam Intensol] 2 mg PO Q4 PRN 02/27/18 [Last Taken 07/22/18 05: 00] Acetaminophen/ASA/Caffeine [Excedrin Tablet (*)] 1 each PO DAILY PRN 04/08/18 [ Last Taken 07/22/18] Alocril 2% Drops 1 drop EACHEYE DAILY PRN 04/08/18 [Last Taken 07/21/18] Morphine 100mg/5ml Symone 0.5 - 1 ml PO DAILY PRN 04/08/18 [Last Taken 07/21/18 21: 00] Phenazopyridine HCl [Pyridium] 100 mg PO HS PRN 04/08/18 [Last Taken 04/07/18 20 :00] [place] 1.5 tab PO QID@129,529,,18 [Last Taken 07/22/18 05:30] EPINEPHrine [Epipen 0.3 MG] 0.3 mg IM ONCE 07/22/18 [Last Taken Unknown] [employer] [employer] Antibiotics: Meropenem 1 g IV q.8 hours, micafungin 100 mg IV Q Friday , Friday, [facility] [employer] Antibiotic Stop Date: 09/05/18 Additional Medication Instructions: Benadryl 50 mg IV 30 minutes before meropenem infusion Discharge Medications: Refer to the Discharge Home Medication list for PRN reason. PICC Care - Routine: Yes - Orders Services needed: Home [facility] Care Face to Face: I certify that this patient was under my care and that I had the required [id number] encounter meeting the encounter requirements on the discharge day. My findings support the fact that the patient is homebound as defined in Home Care Face to Face Continued: CMS Chapter 7 Medicare Benefits Manual 30.1.1 , The condition of the patient is such that there exists a normal inability to leave home and consequently, leaving home would require a considerable and taxing effort. Isolation Type: None - Labs/Radiology CBC w/diff Date: 08/05/18 (Weekly Q Friday) CMP Date: 08/05/18 (Weekly Q Friday) Call or Fax Lab and Imaging Results to: Dr. Tomas, - Follow Up Care Current Providers and Referrals: Robert Cunningham MD [Primary Care Provider] - As per Instructions
--- NOTE | 2018-08-02 11:56 | HOSPPROG ---
Hospitalist Progress Note Assessment/Plan: 57yo F with ostomy due to chronic constipation, chronic pain, numerous drug allergies here with bacteremia likely from infected PICC-associated DVT. Acute on chronic abdominal pain, constipation: CT without acute finding or obstruction. Lipase elevated, possibly pancreatitis. - Will NOT increase pain meds. NGT out MSSA bacteremia: Suspect d/t septic thrombophlebitis. Afebrile. Surveillance cx 07/25 NGTD. - Continue meropenem for 6 weeks due to allergy list, ID following. She gets IV benadryl with abx - s/p IJ tunneled catheter on 07/28 Acute LUE DVT: PICC associated. Involving brachial, axillary, and subclavian veins. eliquis started; tolerating thus far rec 3 months therapy Hypokalemia: normalized - IV K protocol, replete Mg as well and monitor daily Thrombocytopenia: Improving. HIT abs negative. - Monitor daily. Recheck in a.m. HTN: Likely 2/2 pain. - Continue clonidine, hydralazine PRN for SBP>180 Hyperglycemia with T2DM: BG better. - 70/30 12 BID PRN, continue SSI, monitor BG KAREN: Resolved, likely pre-renal. Dilated cecum: Noted on CT with focal luminal narrowing. - Gen surg following, recommend enemas, no surgical intervention planned H/o ostomy Diet: CLD Code: Full Dispo: home today > 30 minutes Subjective: anxious but ready for dc Objective: Vital Signs Temp Pulse Resp BP Pulse Ox 36.6 C 60 16 130/90 H 97 08/02/18 07:16 08/02/18 07:16 08/02/18 07:16 08/02/18 07:16 08/02/18 07:16 Laboratory Results 07/30/18 05:05 08/01/18 05:00 08/01/18 08/02/18 08/03/18 05:59 05:59 05:59 Intake Total 1850 900 Output Total 2350 1500 Balance -500 -600 - Physical Exam Constitutional: no apparent distress, appears nourished Eyes: PERRL, anicteric sclera Ears, Nose, Mouth, Throat: moist mucous membranes, hearing normal Cardiovascular: regular rate and rhythym, no murmur, rub, or gallop Respiratory: no respiratory distress Gastrointestinal: normoactive bowel sounds, soft, non-tender abdomen Genitourinary: no bladder fullness, No woods in urethra Skin: warm, normal color Neurologic: AAOx3 Psychiatric: interacting appropriately ICD10 Worksheet Patient Problems: Problems Problem Status Onset Acute kidney injury Acute Dehydration Acute Nausea and vomiting Acute Kidney stone Active Microscopic hematuria Active Recurrent cystitis Active Reflex sympathetic dystrophy Active Abdominal pain Acute Biliary colic Acute Bowel obstruction Acute Chronic pain Acute Flank pain, acute Acute History of reflex sympathetic dystrophy Acute Hyperglycemia Acute Narcotic withdrawal Acute UTI (urinary tract infection) Acute Volume depletion Acute Vomiting Acute
--- NOTE | 2018-08-02 13:09 | PDIAF ---
- Diagnosis Diagnosis: MSSA bacteremia, intertrigo Code Status: Full Code - Medication Management Discharge Medications: Medications to Continue on Transfer Insulin 70/30 Human [Novolin 70/30 (*)] 4 - 10 unit SC BID PRN 07/16/17 [Last Taken 07/22/18 10:30 10 units] Morphine Sulfate [Ms Contin] 15 mg PO BID@529,07/16/17 [Last Taken 07/22/18 05:30] Morphine Sulfate [Ms Contin] 15 mg PO DAILY@14 PRN 07/16/17 [Last Taken Unknown] Tizanidine HCl [Zanaflex] 8 mg PO QID@129,529,,07/16/17 [Last Taken 07/22 05:30] clonIDINE [Catapres (*)] 0.1 mg PO TID@529,,07/16/17 [Last Taken 07/22/18 05:30] clonazePAM [Klonopin (*)] 0.25 mg PO TID@129,529,07/16/17 [Last Taken 07/22 05:30] clonazePAM [Klonopin (*)] 0.5 mg PO DAILY@2200 07/16/17 [Last Taken 04/07/18] diphenhydrAMINE HCL [Wal-Dryl] 50 mg PO QID@129,529,,07/16/17 [Last Taken 07/22/18 05:30] LORazepam [Lorazepam Intensol] 2 mg PO Q4 PRN 02/27/18 [Last Taken 07/22/18 05: 00] Acetaminophen/ASA/Caffeine [Excedrin Tablet (*)] 1 each PO DAILY PRN 04/08/18 [ Last Taken 07/22/18] Alocril 2% Drops 1 drop EACHEYE DAILY PRN 04/08/18 [Last Taken 07/21/18] Morphine 100mg/5ml Symone 0.5 - 1 ml PO DAILY PRN 04/08/18 [Last Taken 07/21/18 21: 00] Phenazopyridine HCl [Pyridium] 100 mg PO HS PRN 04/08/18 [Last Taken 04/07/18 20 :00] Croatian [place] 1.5 tab PO QID@129,529,,18 [Last Taken 07/22/18 05:30] EPINEPHrine [Epipen 0.3 MG] 0.3 mg IM ONCE 07/22/18 [Last Taken Unknown] Apixaban [Eliquis] 5 mg PO BID #60 tab 08/02/18 [Last Taken Unknown] Meropenem [Merrem Inj 1 gm (*)] 1 gm IV Q8H vial 08/02/18 [Last Taken Unknown] Micafungin Na [Mycamine 100Mg Vial] 100 mg IV MoWeFr@0900 vial 08/02/18 [Last Taken Unknown] diphenhydrAMINE [Benadryl Injection] 50 mg IVP Q6H PRN inj 08/02/18 [Last Taken Unknown] Fdc Antibiotics: Meropenem 1 g IV q.8 hours, micafungin 100 mg IV Q Friday , Friday, [employer] Antibiotic Stop Date: 09/05/18 Additional Medication Instructions: Benadryl 50 mg IV 30 minutes before meropenem infusion. Ativan 1 mg IV q 6 hours as needed for nausea Discharge Medications: Refer to the Discharge Home Medication list for PRN reason. PICC Care - Routine: Yes - Orders Services needed: Home Long Term Care Face to Face: I certify that this patient was under my care and that I had the required [id number] encounter meeting the encounter requirements on the discharge day. My findings support the fact that the patient is homebound as defined in Home Care Face to Face Continued: CMS Chapter 7 Medicare Benefits Manual 30.1.1 , The condition of the patient is such that there exists a normal inability to leave home and consequently, leaving home would require a considerable and taxing effort. Isolation Type: None - Labs/Radiology CBC w/diff Date: 08/05/18 (Weekly Q Friday) CMP Date: 08/05/18 (Weekly Q Friday) Call or Fax Lab and Imaging Results to: Dr. Tomas, - Follow Up Care Current Providers and Referrals: Robert Cunningham MD [Primary Care Provider] - As per Instructions
--- NOTE | 2018-08-02 13:11 | ASMTLACE ---
SONIA Length of stay for Answers: 7-13 days current admission Acuity / Level of Answers: Yes Care: Did the patient have an inpatient admission? Comorbidities - select Answers: Cerebrovascular disease all that apply (CVA, TIA, aneurysms, vasc ular dementia) Diabetes (uncontrolled or controlled) Opioid dependence / Chronic pain Other Notes: HTN # of Emergency department Answers: 3-4 visits in the last 6 months Social determinants Answers: Mental health diagnosis (anxiety, depression, pers onality disorders, etc.) Score: 21 Date Signed: 08/02/2018 01:10 PM Electronically Signed By:JUAN Hannah
[2018-08-02] MEDS: morphINE SR 15 MG TAB PO PRN (14:39)
--- NOTE | 2018-08-02 14:51 | ASMTDCNOTE ---
Case Management Discharge Discharge Order Complete? Answers: Yes Patient to Obtain Answers: via Family Medications Transportation Arranged Answers: Family/Friends EMTALA Complete Answers: No Case Management Transport Answers: No Form Complete Faxed Final Orders Answers: Yes Agency/Facility Transfer Answers: Yes Report Printed & Faxed to Receiving Agency Family Notified Answers: Yes Discharge Comments Notes: Pts case discussed w/ Dr. Morgan, Dr. Tomas and CLEMENT Galloway. Pt is being discharged today. CM met w/ pt and her for dispo planning. Pt will get her 3 doses of ivabx here at the hospital prior to leaving. CM notified [facility] and [facility] of the d/c. DC orders sent. [facility] will see pt tomorrow AM - around 9AM. CM notified [facility] of the need to admin ativan/bendryal prior to admining ivabx. [facility] will deliver ivabx here at the hospital. CLEMENT Galloway will give report to [facility]. CM available for changes. Plan:[facility]MENT BRISCOE w/ [facility] Date Signed: 08/02/2018 02:50 PM Electronically Signed By:JUAN Hannah
--- NOTE | 2018-08-02 14:53 | ASDISCHSUM ---
Discharge Information Plan Status:Home with Home Health Medically Cleared to Leave:08/02/2018 Discharge Date:08/02/2018 CM D/C Disposition: ADT D/C Disposition: Projected Discharge Date:08/02/2018 11:00 AM Transportation at D/C: Discharge Delay Reason: Follow-Up Date:08/02/2018 11:00 AM Discharge Slot: Final Diagnosis: Placement Information Referral Type:Palliative Care Referral ID:[id number] Provider Name: Address 1: Phone Number: Address 2: Fax Number: City: Selection Factors: State: Referral Type:Home Infusion Referral ID:[id number] [facility] Address 1:[address] Address 2: City:[place] Selection Factors: State:[place] Referral Type:*Home Health Care Services Referral ID:[id number] Provider Name:[facility] Address 1:[address], [address] Address 2: City:[place] Selection Factors: State:[place] Patient Contact Information Contact Name:GT Relationship: Address:[address] City:[place] Alternate Phone: [facility]/Zip Code:[place] [address] Email: Financial Information Financial Class:Medicare Primary Plan Desc:MEDICARE INPATIENT Primary Plan Number:[id number] Secondary Plan Desc:KWAN LUCIANO [facility] Secondary Plan Number:[id number] Assessment Information LACE LACE Length of stay for Answers: 7-13 days current admission Acuity / Level of Answers: Yes Care: Did the patient have an inpatient admission? Comorbidities - select Answers: Cerebrovascular disease all that apply (CVA, TIA, aneurysms, vasc ular dementia) Diabetes (uncontrolled or controlled) Opioid dependence / Chronic pain Other Notes: HTN # of Emergency department Answers: 3-4 visits in the last 6 months Social determinants Answers: Mental health diagnosis (anxiety, depression, pers onality disorders, etc.) Score: 21 Date Signed: 08/02/2018 01:10 PM Electronically Signed By:JUAN Hannah [facility] CM Progress Note CM Note CM Note Notes: Spoke w/, pt may benefit from SNF. PT/OT to STACY mancini w/f up in am. Date Signed: 07/23/2018 04:34 PM Electronically Signed By:Gladys Martinez RN [facility] CM Progress Note CM Note CM Note Notes: Spoke with pt and re; dc poc. Pt has refused to work with PT/OT stating it makes it worse. She and her go on to say that [facility] have refused her in the past because she has Medicare. CM will look into matter but unlikely they will want to participate, is pt's primary caregiver. Pt has also refused to consider SNF. Anticipate pt will dc home w/ but CM will continue to folllow for any needs. DC Plan: TBD Date Signed: 07/24/2018 05:16 PM Electronically Signed By:Gladys Martinez RN [facility] CM Progress Note CM Note CM Note Notes: CM discussed with RN, NG tube to be placed today. Patient continues to refuse therapies. Discharge date TBD. CM to follow. Current discharge plan: Date TBD, likely home independent with . Date Signed: 07/26/2018 04:10 PM Electronically Signed By:Nory Comer [facility] CM Progress Note CM Note CM Note Notes: Pts case discussed w/ Dr. Baltazar. A palliative has been ordered. CM met w/ the briefly today. CM provided Dario w/ the 's cell. CM to follow. Plan: TBD Date Signed: 07/27/2018 04:03 PM Electronically Signed By:JUAN Hannah [facility] CM Progress Note CM Note CM Note Notes: CM touched base w/ Dario and Maria G from [facility]. A palliative may be slated for tomorrow. Referral made to [facility] and [facility] for iv infusions. Pt is getting a PICC today. CM to follow. Plan: [facility] portillo/ [facility], CLEMENT Date Signed: 07/28/2018 01:19 PM Electronically Signed By:JUAN Hannah BC CM Progress Note CM Note CM Note Notes: [facility] will come in for 9AM to meet w/ pt and her . Date Signed: 07/28/2018 03:46 PM Electronically Signed By:JUAN Hannah BC CM Progress Note CM Note CM Note Notes: Pt had a palliative consult today. Pt and are reluctant to have any homecare because of bad experiences in the past. Pt does however need IV abx at dc, referrals made. DC Plan: [facility] Date Signed: 07/29/2018 03:06 PM Electronically Signed By:Gladys Martinez RN BC CM Progress Note CM Note CM Note Notes: Spoke with pt in the room. Discharge date unknown at this time. Pt confirmed that she would prefer home antibiotics with [facility] despite having come to outpatient infusion center in the past. Referrals sent and approved with [facility] and [facility], antibiotic will be covered by [employer] at 100%. D/C Plan: Home with [facility] infusion [facility]. Date Signed: 07/31/2018 04:04 PM Electronically Signed By:Yolanda Broussard Case Management Discharge Plan Note Case Management Discharge Discharge Order Complete? Answers: Yes Patient to Obtain Answers: via Family Medications Transportation Arranged Answers: Family/Friends EMTALA Complete Answers: No Case Management Transport Answers: No Form Complete Faxed Final Orders Answers: Yes Agency/Facility Transfer Answers: Yes Report Printed & Faxed to Receiving Agency Family Notified Answers: Yes Discharge Comments Notes: Pts case discussed w/ Dr. Morgan, Dr. Tomas and [facility] Galloway. Pt is being discharged today. CM met w/ pt and her for dispo planning. Pt will get her 3 doses of ivabx here at the hospital prior to leaving. CM notified [facility] and [facility] of the d/c. DC orders sent. [facility] will see pt tomorrow AM - around 9AM. CM notified [facility] of the need to admin ativan/bendryal prior to admining ivabx. [facility] will deliver ivabx here at the hospital. CLEMENT Galloway will give report to [facility]. available for changes. Plan:CLEMENT BRISCOE w/ [facility] Date Signed: 08/02/2018 02:50 PM Electronically Signed By:JUAN Hannah Intervention Information
--- NOTE | 2018-08-02 15:34 | GDS ---
DISCHARGE DIAGNOSES: 1. 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 This is a recurrent cl ot. 2. Constipation with ostomy. 3. Thrombocytopenia, resolved. 4. Methicillin-susceptible Staphylococcus aureus bacteremia. 5. Chronic pain with continuous narcotics. 6. Acute kidney injury, now resolved. 7. Reflex sympathetic dystrophy with symptoms primarily in her legs. 8. Anxiety. 9. History of venous thromboembolism. 10. Diabetes. HOSPITAL COURSE: 1. Please see admission history and physical by Dr. Russ Morgan. The patient presented with abdo kal pain, constipation, and a swollen left upper extremity. She had ultrasound showing DVT. PICC line was removed, and tunnel catheter was placed following the clearance of her bacteremia. This is MSSA. She is followed by ID who knows her well. She was also receiving micafungin for intertriginou s fungal infection, which has been an ongoing problem for her. She does not tolerate fluconazole. O n the day of discharge, the patient was tolerating orals. She was moving her bowels. She did transi ently have an NG tube for constipation with related nausea, which ultimately resolved. 2. Regarding her VTE, she was transitioned over to Eliquis, which she tolerated well. She did not r equire the 10 b.i.d. as she received more than 7 days of therapeutic doses of Lovenox. She is discha rged home to complete a 4-week course of meropenem for her MSSA bacteremia. New prescriptions were m eropenem as well as Eliquis. She is also authorized to have some IV Benadryl and IV Ativan prior to her medications for treatment of nausea. /[id number]/MODL
--- NOTE | 2018-08-02 15:58 | PCMIDPN ---
Assessment/Plan: Assessment/Plan: * Septic thrombophlebitis with MSSA bacteremia due to PICC line: Continues to tolerate meropenem well although using Ativan for nausea. Plan 6 weeks of IV meropenem in the setting of left upper extremity DVT/septic thrombophlebitis. Plan weekly CBC and CMP while on therapy. Patient cannot tolerate oral Ativan or oral antiemetics so have arranged for IV Ativan as part of outpatient IV antibiotic therapy. * Intertrigo: Clinically resolved. Plan continued 3 times per week micafungin while on broad-spectrum therapy with meropenem to prevent recurrent disease. Time spent, 15 min, of which all was spent on coordination of care for patient' s discharge regarding outpatient IV antibiotic therapy and use of IV Ativan. 08/02/18 15:55 Objective: Vital Signs Temp Pulse Resp BP Pulse Ox 36.6 C 60 16 157/106 H 97 08/02/18 07:16 08/02/18 07:16 08/02/18 07:16 08/02/18 14:45 08/02/18 07:16 Laboratory Results 07/30/18 05:05 08/01/18 05:00 08/01/18 08/02/18 08/03/18 05:59 05:59 05:59 Intake Total 1850 900 Output Total 2350 1500 Balance -500 -600 Laboratory Tests 08/02/18 10:16 Total Bilirubin 0.7 AST 48 H ALT 44 Alkaline Phosphatase 96 ICD10 Worksheet Patient Problems: Problems Problem Status Onset Acute kidney injury Acute Dehydration Acute Nausea and vomiting Acute Kidney stone Active Microscopic hematuria Active Recurrent cystitis Active Reflex sympathetic dystrophy Active Abdominal pain Acute Biliary colic Acute Bowel obstruction Acute Chronic pain Acute Flank pain, acute Acute History of reflex sympathetic dystrophy Acute Hyperglycemia Acute Narcotic withdrawal Acute UTI (urinary tract infection) Acute Volume depletion Acute Vomiting Acute
[2018-08-02 16:40] VITALS: BP 110/60
== END 2018-08-02 21:10 | disposition home health service (06) | DRG 315 ==
LOC: F3E 16:51
PROVIDERS: ADMIT Internal Medicine; ATTEND Internal Medicine
PROC: 02H633Z Insertion of Infusion Device into Right Atrium, Percutaneous Approach (ICD-10-PCS; principal; 2018-07-28)
DX: T82.7XXA Infection and inflammatory reaction due to other cardiac and vascular devices, implants and grafts, initial encounter (principal); N17.9 Acute kidney failure, unspecified; R78.81 Bacteremia; G90.523 Complex regional pain syndrome I of lower limb, bilateral; T85.868A Thrombosis due to other internal prosthetic devices, implants and grafts, initial encounter; B95.61 Methicillin susceptible Staphylococcus aureus infection as the cause of diseases classified elsewhere; E86.9 Volume depletion, unspecified; G89.29 Other chronic pain; F41.9 Anxiety disorder, unspecified; E11.649 Type 2 diabetes mellitus with hypoglycemia without coma; K59.00 Constipation, unspecified; F17.200 Nicotine dependence, unspecified, uncomplicated; E66.01 Morbid (severe) obesity due to excess calories; Z93.3 Colostomy status; B37.2 Candidiasis of skin and nail; L30.4 Erythema intertrigo; I10 Essential (primary) hypertension; K59.8 Other specified functional intestinal disorders
CPT/HCPCS: 82435-PO; 82565-PO; 82947-PO; 84132-PO; 84295-PO; 84520-PO; 85014-PO; 86022-90; 96374; C1751; C1769; J0360; J1200; J1650; J1815; J2060; J2185; J2212; J2248; J3010; J3475; J3480; Q9967

== ENCOUNTER 2019-03-17 15:53 | Inpatient (IN) | payer OTHER ==
--- NOTE | 2019-03-17 16:16 | EDPHY ---
H & P Stated Complaint: wound on forehaed possible infection sent by DR. Tomas Time Seen by Provider: 03/17/19 16:04 HPI/ROS: CHIEF COMPLAINT: Infection HISTORY OF PRESENT ILLNESS: The patient is a 58-year-old female with history of diabetes, chronic pain and colostomy who was sent from Dr. Tomas's office for a furuncle to her forehead. She is allergic to multiple antibiotics and he is requesting she be admitted and started on meropenem. Cultures were done in the office. Dr. Shaun serrano treated her before and has been consulted as well and is here in the department evaluating her. Patient states that this is been present for about a week. She has not had a fever but has felt warm. No GI symptoms. No headache. Severity: Moderate Modifying factors: None REVIEW OF SYSTEMS: Constitutional: denies: chills, fever, recent illness, recent injury EENTM: denies: blurred vision, double vision, nose congestion Respiratory: denies: cough, shortness of breath Cardiac: denies: chest pain, irregular heart rate, lightheadedness, palpitations Gastrointestinal/Abdominal: denies: abdominal pain, diarrhea, nausea, vomiting, blood streaked stools Genitourinary: denies: dysuria, frequency, hematuria, pain Musculoskeletal: denies: joint pain, muscle pain Skin: See HPI Neurological: denies: headache, numbness, paresthesia, tingling, dizziness, weakness Hematologic/Lymphatic: denies: blood clots, easy bleeding, easy bruising Immunologic/allergic: denies: HIV/AIDS, transplant 10 systems reviewed and negative except as noted EXAM: GENERAL: Overweight, in no acute distress. HEAD: Atraumatic, normocephalic. EYES: Pupils equal round and reactive to light, extraocular movements intact, sclera anicteric, conjunctiva are normal. ENT: nares patent, oropharynx clear without exudates. Moist mucous membranes. NECK: Normal range of motion, supple without lymphadenopathy or JVD. LUNGS: Breath sounds clear to auscultation bilaterally and equal. No wheezes rales or rhonchi. HEART: Regular rate and rhythm without murmurs, rubs or gallops. ABDOMEN: Soft, nontender, normoactive bowel sounds. No guarding, no rebound. No masses appreciated. BACK: No CVA tenderness, no spinal tenderness, step-offs or deformities EXTREMITIES: Normal range of motion, no pitting or edema. No clubbing or cyanosis. NEUROLOGICAL: Cranial nerves II through XII grossly intact. Normal speech, normal gait. 5/5 strength, normal movement in all extremities, normal sensation , normal reflexes PSYCH: Normal mood, normal affect. SKIN: Multiple lesions, large from call to forehead. Weeping. Source: Patient, Family, RN/MD Exam Limitations: No limitations - Personal History Tetanus Vaccine Date: unsure - Medical/Surgical History Hx Asthma: No Hx Chronic Respiratory Disease: No Hx Diabetes: Yes Hx Cardiac Disease: No Hx Renal Disease: No Hx Cirrhosis: No Hx Alcoholism: No Hx HIV/AIDS: No Hx Splenectomy or Spleen Trauma: No Other PMH: Reflex Synpathetic Dystrophy, chronic back pain, lumbar fusion, TIA, Appendectomy, Total hysterectomy, colostomy takedown and revision, , chronic constipation, chronic immobility, DM, O2 dependant, HTN with pain, chronic nausea, colostomy - Family History Significant Family History: No pertinent family hx - Social History Smoking Status: Former smoker Alcohol Use: Sober Drug Use: None Constitutional: Initial Vital Signs Temperature (C) 37.2 C 03/17/19 15:57 Heart Rate 125 H 03/17/19 15:57 Respiratory Rate 16 03/17/19 15:57 Blood Pressure 125/104 H 03/17/19 15:57 O2 Sat (%) 91 L 03/17/19 15:57 O2 Delivery Mode Room Air Allergies/Adverse Reactions: chlorhexidine Allergy (Severe, Verified 03/17/19 16:54) hives, anaphylaxis linezolid Allergy (Severe, Verified 03/17/19 16:54) full body paralysis ondansetron HCl [From Zofran (as hydrochloride)] Allergy (Severe, Verified 03/17 16:54) itching and swelling of throat vancomycin Allergy (Intermediate, Verified 03/17/19 16:54) Rash oxymorphone HCl [From Opana] Allergy (Unknown, Verified 03/17/19 16:54) silver Allergy (Unknown, Unverified 03/17/19 16:54) trimethoprim Allergy (Unknown, Unverified 03/17/19 16:54) zolpidem Allergy (Unknown, Unverified 03/17/19 16:54) Hives amoxicillin trihydrate [From Augmentin] Allergy (Verified 03/17/19 16:54) ampicillin [Ampicillin] Allergy (Verified 03/17/19 16:54) azithromycin Allergy (Verified 03/17/19 16:54) cephalexin monohydrate [From Keflex] Allergy (Verified 03/17/19 16:54) Cephalosporins Allergy (Verified 03/17/19 16:54) ciprofloxacin Allergy (Verified 03/17/19 16:54) clindamycin Allergy (Verified 03/17/19 16:54) cyclobenzaprine Allergy (Verified 03/17/19 16:54) Other-Enter Comments dalteparin sodium,porcine [From Fragmin] Allergy (Verified 03/17/19 16:54) erythromycin base [Erythromycin Base] Allergy (Verified 03/17/19 16:54) iodine Allergy (Verified 03/17/19 16:54) latex Allergy (Verified 03/17/19 16:54) levofloxacin [Levofloxacin] Allergy (Verified 03/17/19 16:54) nitrofurantoin macrocrystalline [From Macrodantin] Allergy (Verified 03/17/19 16 :54) oxycodone Allergy (Verified 03/17/19 16:54) Penicillins Allergy (Verified 03/17/19 16:54) phenytoin sodium [From Dilantin] Allergy (Verified 03/17/19 16:54) potassium clavula *RETIRED-07/13/12 [From Augmentin] Allergy (Verified 03/17/19 16:54) prednisone Allergy (Verified 03/17/19 16:54) rifampin Allergy (Verified 03/17/19 16:54) Shellfish *RETIRED-07/13/12 Allergy (Verified 03/17/19 16:54) silver [From Tegaderm AG Mesh] Allergy (Verified 03/17/19 16:54) sulfamethoxazole [Sulfamethoxazole] Allergy (Verified 03/17/19 16:54) amoxicillin trihydrate Allergy (Unknown, Uncoded 03/17/19 16:54) cephalexin monohydrate Allergy (Unknown, Uncoded 03/17/19 16:54) dalteparin sodium,porcine Allergy (Unknown, Uncoded 03/17/19 16:54) nitrofurantoin macrocrystalline Allergy (Unknown, Uncoded 03/17/19 16:54) ondansetron HCl Allergy (Unknown, Uncoded 03/17/19 16:54) itching and swelling of throat oxymorphone HCl Allergy (Unknown, Uncoded 03/17/19 16:54) phenytoin sodium Allergy (Unknown, Uncoded 03/17/19 16:54) potassium clavula *RETIRED-07/13/12 Allergy (Unknown, Uncoded 03/17/19 16:54) tegade Allergy (Uncoded 03/17/19 16:54) Home Medications: Medication Instructions Recorded Morphine Sulfate [Ms Contin] 15 mg PO BID@529,07/16/17 Morphine Sulfate [Ms Contin] 15 mg PO DAILY@14 PRN 07/16/17 Tizanidine HCl [Zanaflex] 8 mg PO QID@129,529,,07/16/17 clonIDINE [Catapres (*)] 0.1 mg PO BID@499,07/16/17 clonazePAM [Klonopin (*)] 0.25 mg PO TID@129,529,07/16/17 clonazePAM [Klonopin (*)] 0.5 mg PO DAILY@219907/16/17 diphenhydrAMINE HCL [Wal-Dryl] 50 mg PO QID@129,529,,07/16/17 LORazepam [Lorazepam Intensol] 2 mg PO Q4 PRN 02/27/18 Alocril 2% Drops 1 drop EACHEYE DAILY PRN 04/08/18 Phenazopyridine HCl [Pyridium] 100 mg PO HS PRN 04/08/18 [place] 1 tab PO QID@129,529,,04/08/18 EPINEPHrine [Epipen 0.3 MG] 0.3 mg IM ONCE PRN 07/22/18 diphenhydrAMINE [Benadryl 50 mg IVP Q6H PRN inj 08/02/18 Injection] Acetaminophen [Tylenol 325mg (*)] 325 - 650 mg PO Q6 PRN 03/17/19 Ibuprofen [Motrin (*)] 200 mg PO Q6H PRN 03/17/19 Insulin 70/30 Human [Novolin 70/30 10 unit SC DAILY@49903/17/19 (*)] Insulin NPH Human Isophane 10 unit SQ DAILY@03/17/19 [Novolin N] Insulin Regular Human [novoLIN R] 0 unit SQ DAILY@1300 03/17/19 hydrOXYzine HCL [Hydroxyzine HCl] 100 mg PO Q6H PRN 03/17/19 Medical Decision Making ED Course/Re-evaluation: 4:[address] Lozoya has evaluated the patient is requesting Ativan and Benadryl and then she will drain the furuncle. I spoke with Dr. Perez who accepts for admission. Differential Diagnosis: Partial list of the Differential diagnosis considered include but were not limited to; cellulitis, abscess, and although unlikely based on the history and physical exam, I also considered sepsis, endocarditis. - Data Points Medications Given: Meropenem 1 gm/ Sodium (Chloride) 120 mls @ 120 mls/hr IV Q8H BLADIMIR PRN Reason: Protocol Stop: 04/16/19 16:59 Last Admin: 03/17/19 17:20 Dose: 120 mls Discontinued Medications Diphenhydramine HCl (Benadryl Injection) 50 mg IVP EDNOW ONE Stop: 03/17/19 16:18 Last Admin: 03/17/19 16:54 Dose: 50 mg Lorazepam (Ativan Injection) 2 mg IVP EDNOW ONE Stop: 03/17/19 16:18 Last Admin: 03/17/19 16:53 Dose: 2 mg Morphine Sulfate (Morphine) 1 mg IVP ONCE ONE Stop: 03/17/19 19:56 Last Admin: 03/17/19 20:20 Dose: 1 mg Departure - Departure Disposition: [facility] Acute Clinical Impression: Furuncle Condition: Fair
[2019-03-17] MEDS ORDERED: LORazepam 2 MG/ML INJ IVP ONE (16:17)
[2019-03-17 16:54] LABS: PLATELET COUNT 172 10^3/uL (150-400)
[2019-03-17 17:08] LABS: INR 0.91 (0.83-1.16); PROTIME(PATIENT) 11.9 SEC (12.0-15.0)
[2019-03-17] MEDS ORDERED: ACETAMINOPHEN 325 MG TAB PO PRN (17:12)
[2019-03-17] MEDS ORDERED: D50W 25 GM/50 ML SYR IVP PRN (17:14)
[2019-03-17] MEDS: MEROPENEM 1 GM in NS 100 ML IV SCH (17:20)
--- NOTE | 2019-03-17 17:22 | PDGENHP ---
History and Physical - Chief Complaint 1 week of furuncle located on forehead - History of Present Illness 58 y/o female w/multiple medical disorders including poorly controlled diabetes , chronic pain, reflex sympathetic dystrophy w/symptoms primarily in her legs presents to the ED from ID's office under the recommendation of Dr. Tomas for a furuncle on her forehead that has persisted for one week. She has multiple allergies to antibiotics and was started on Meropenem having tolerated the antibiotic during a previous hospitalization associated w/MSSA bacteremia. Mostly recently in July 2018, cultures show staph aureus isolates to be MSSA. The pt denies fever, chills, vomiting, nausea. Reports chronic headaches however this particular incident has exacerbated her headache. She is being admitted for treatment and monitoring. History Information - Allergies/Home Medication List Allergies/Adverse Reactions: chlorhexidine Allergy (Severe, Verified 03/17/19 16:54) hives, anaphylaxis linezolid Allergy (Severe, Verified 03/17/19 16:54) full body paralysis ondansetron HCl [From Zofran (as hydrochloride)] Allergy (Severe, Verified 03/17 16:54) itching and swelling of throat vancomycin Allergy (Intermediate, Verified 03/17/19 16:54) Rash oxymorphone HCl [From Opana] Allergy (Unknown, Verified 03/17/19 16:54) silver Allergy (Unknown, Unverified 03/17/19 16:54) trimethoprim Allergy (Unknown, Unverified 03/17/19 16:54) zolpidem Allergy (Unknown, Unverified 03/17/19 16:54) Hives amoxicillin trihydrate [From Augmentin] Allergy (Verified 03/17/19 16:54) ampicillin [Ampicillin] Allergy (Verified 03/17/19 16:54) azithromycin Allergy (Verified 03/17/19 16:54) cephalexin monohydrate [From Keflex] Allergy (Verified 03/17/19 16:54) Cephalosporins Allergy (Verified 03/17/19 16:54) ciprofloxacin Allergy (Verified 03/17/19 16:54) clindamycin Allergy (Verified 03/17/19 16:54) cyclobenzaprine Allergy (Verified 03/17/19 16:54) Other-Enter Comments dalteparin sodium,porcine [From Fragmin] Allergy (Verified 03/17/19 16:54) erythromycin base [Erythromycin Base] Allergy (Verified 03/17/19 16:54) iodine Allergy (Verified 03/17/19 16:54) latex Allergy (Verified 03/17/19 16:54) levofloxacin [Levofloxacin] Allergy (Verified 03/17/19 16:54) nitrofurantoin macrocrystalline [From Macrodantin] Allergy (Verified 03/17/19 16 :54) oxycodone Allergy (Verified 03/17/19 16:54) Penicillins Allergy (Verified 03/17/19 16:54) phenytoin sodium [From Dilantin] Allergy (Verified 03/17/19 16:54) potassium clavula *RETIRED-07/13/12 [From Augmentin] Allergy (Verified 03/17/19 16:54) prednisone Allergy (Verified 03/17/19 16:54) rifampin Allergy (Verified 03/17/19 16:54) Shellfish *RETIRED-07/13/12 Allergy (Verified 03/17/19 16:54) silver [From Tegaderm AG Mesh] Allergy (Verified 03/17/19 16:54) sulfamethoxazole [Sulfamethoxazole] Allergy (Verified 03/17/19 16:54) amoxicillin trihydrate Allergy (Unknown, Uncoded 03/17/19 16:54) cephalexin monohydrate Allergy (Unknown, Uncoded 03/17/19 16:54) dalteparin sodium,porcine Allergy (Unknown, Uncoded 03/17/19 16:54) nitrofurantoin macrocrystalline Allergy (Unknown, Uncoded 03/17/19 16:54) ondansetron HCl Allergy (Unknown, Uncoded 03/17/19 16:54) itching and swelling of throat oxymorphone HCl Allergy (Unknown, Uncoded 03/17/19 16:54) phenytoin sodium Allergy (Unknown, Uncoded 03/17/19 16:54) potassium clavula *RETIRED-07/13/12 Allergy (Unknown, Uncoded 03/17/19 16:54) tegade Allergy (Uncoded 03/17/19 16:54) Home Medications: Morphine Sulfate [Ms Contin] 15 mg PO BID@0530,22 07/16/17 [Last Taken 03/17/19] Morphine Sulfate [Ms Contin] 15 mg PO DAILY@14 PRN 07/16/17 [Last Taken Unknown] Tizanidine HCl [Zanaflex] 8 mg PO QID@129,529,,07/16/17 [Last Taken 03/17] clonIDINE [Catapres (*)] 0.1 mg PO BID@0500,07/16/17 [Last Taken 03/17/19] clonazePAM [Klonopin (*)] 0.25 mg PO TID@129,529,07/16/17 [Last Taken 03/17] clonazePAM [Klonopin (*)] 0.5 mg PO DAILY@2200 07/16/17 [Last Taken 04/07/18] diphenhydrAMINE HCL [Wal-Dryl] 50 mg PO QID@0,529,,07/16/17 [Last Taken 03/17/19] LORazepam [Lorazepam Intensol] 2 mg PO Q4 PRN 02/27/18 [Last Taken 07/22/18 05: 00] Alocril 2% Drops 1 drop EACHEYE DAILY PRN 04/08/18 [Last Taken 07/21/18] Phenazopyridine HCl [Pyridium] 100 mg PO HS PRN 04/08/18 [Last Taken 04/07/18 20 :00] [place] 1 tab PO QID@129,529,,04/08/18 [Last Taken 07/22/18 05:30] EPINEPHrine [Epipen 0.3 MG] 0.3 mg IM ONCE 07/22/18 [Last Taken Unknown] Acetaminophen [Tylenol 325mg (*)] 325 - 650 mg PO Q6 PRN 03/17/19 [Last Taken Unknown] Ibuprofen [Motrin (*)] 200 mg PO Q6H PRN 03/17/19 [Last Taken Unknown] Insulin 70/30 Human [Novolin 70/30 (*)] 10 unit SC DAILY@0500 03/17/19 [Last Taken 03/17/19] Insulin NPH Human Isophane [Novolin N] 10 unit SQ DAILY@2200 03/17/19 [Last Taken 03/16/19] Insulin Regular Human [novoLIN R] 0 unit SQ DAILY@1300 03/17/19 [Last Taken Unknown] hydrOXYzine HCL [Hydroxyzine HCl] 100 mg PO Q6H PRN 03/17/19 [Last Taken Unknown ] I have personally reviewed and updated: family history, medical history, social history, surgical history - Past Medical History hypertension Additional medical history: RSD. chronic pain/continuous narcotic use and dependency. anxiety. sbo. morbid obesity - Surgical History Additional surgical history: LUPILLO. colostomy and takedown/revision - Family History Positive for: non-pertinent - Social History Smoking Status: Former smoker Alcohol Use: Sober Drug Use: None Additional social history: , wheelchair bound Review of Systems Review of Systems: ROS: 10pt was reviewed & negative except for what was stated in HPI & below Physical Exam Physical Exam: Lab data was reviewed. Case discussed w/admitting physician, Dr. Kylee Perez and ID Dr. Ten Tomas. WBC: 7.21 H/H: 16.6/50.1 Plt count: 172 Na: 134 K: 4.4 Cl: 99 Co2: 21 BUN/Cr: 22/1.5 INR: 0.91 Lactic Acid: 1.5 Temp Pulse Resp BP Pulse Ox 37.2 C 125 H 16 125/104 H 91 L 03/17/19 15:57 03/17/19 15:57 03/17/19 15:57 03/17/19 15:57 03/17/19 15:57 Constitutional: obese, uncomfortable Eyes: PERRL, anicteric sclera, EOMI Ears, Nose, Mouth, Throat: moist mucous membranes, hearing normal, ears appear normal, no oral mucosal ulcers Cardiovascular: regular rate and rhythym, no murmur, rub, or gallop, No edema Peripheral Pulses: 2+: dorsalis-pedis (R), dorsalis-pedis (L) Respiratory: no respiratory distress, no rales or rhonchi, clear to auscultation Gastrointestinal: normoactive bowel sounds, soft, non-tender abdomen, no palpable masses Genitourinary: no bladder fullness, no bladder tenderness Skin: erythema (Large furuncle to forehead, tender to palpate, weeping) Musculoskeletal: full muscle strength, no muscle tenderness, normal joint ROM, no joint effusions Neurologic: AAOx3, sensation intact bilaterally, CN II-XII Intact Psychiatric: interacting appropriately, not anxious, not encephalopathic, thought process linear Lymph, Heme, Immunologic: no cervical LAD, no supraclavicular LAD Lab Data & Imaging Review 03/17/19 16:45 03/17/19 16:45 WBC 7.21 10^3/uL (3.80-9.50) 03/17/19 16:45 RBC 6.49 10^6/uL (4.18-5.33) H 03/17/19 16:45 Hgb 16.6 g/dL (12.6-16.3) H 03/17/19 16:45 Hct 50.1 % (38.0-47.0) H 03/17/19 16:45 MCV 77.2 fL (81.5-99.8) L 03/17/19 16:45 MCH 25.6 pg (27.9-34.1) L 03/17/19 16:45 MCHC 33.1 g/dL (32.4-36.7) 03/17/19 16:45 RDW 16.3 % (11.5-15.2) H 03/17/19 16:45 Plt Count 172 10^3/uL (150-400) 03/17/19 16:45 MPV 9.7 fL (8.7-11.7) 03/17/19 16:45 Neut % (Auto) 48.1 % (39.3-74.2) 03/17/19 16:45 Lymph % (Auto) 37.4 % (15.0-45.0) 03/17/19 16:45 [place] % (Auto) 7.1 % (4.5-13.0) 03/17/19 16:45 Eos % (Auto) 6.7 % (0.6-7.6) 03/17/19 16:45 Baso % (Auto) 0.4 % (0.3-1.7) 03/17/19 16:45 Nucleat RBC Rel Count 0.0 % (0.0-0.2) 03/17/19 16:45 Absolute Neuts (auto) 3.47 10^3/uL (1.70-6.50) 03/17/19 16:45 Absolute Lymphs (auto) 2.70 10^3/uL (1.00-3.00) 03/17/19 16:45 Absolute Monos (auto) 0.51 10^3/uL (0.30-0.80) 03/17/19 16:45 Absolute Eos (auto) 0.48 10^3/uL (0.03-0.40) H 03/17/19 16:45 Absolute Basos (auto) 0.03 10^3/uL (0.02-0.10) 03/17/19 16:45 Absolute Nucleated RBC 0.00 10^3/uL (0-0.01) 03/17/19 16:45 Immature Gran % 0.3 % (0.0-1.1) 03/17/19 16:45 Immature Gran # 0.02 10^3/uL (0.00-0.10) 03/17/19 16:45 PT 11.9 SEC (12.0-15.0) L 03/17/19 16:45 INR 0.91 (0.83-1.16) 03/17/19 16:45 APTT 29.4 SEC (23.0-38.0) 03/17/19 16:45 VBG Lactic Acid 1.5 mmol/L (0.7-2.1) 03/17/19 16:45 Sodium 134 mEq/L (135-145) L 03/17/19 16:45 Potassium 4.4 mEq/L (3.5-5.2) 03/17/19 16:45 Chloride 99 mEq/L (97-110) 03/17/19 16:45 Carbon Dioxide 21 mEq/l (22-31) L 03/17/19 16:45 Anion Gap 14 mEq/L (6-14) 03/17/19 16:45 BUN 22 mg/dL (7-23) 03/17/19 16:45 Creatinine 1.5 mg/dL (0.6-1.0) H 03/17/19 16:45 Estimated GFR 36 03/17/19 16:45 Glucose 251 mg/dL (70-100) H 03/17/19 16:45 Calcium 9.5 mg/dL (8.5-10.4) 03/17/19 16:45 Total Bilirubin 0.9 mg/dL (0.1-1.4) 03/17/19 16:45 Assessment & Plan Assessment: 58 y/o female w/complicated medical history including poorly controlled diabetes , morbid obesity, multiple drug allergies, RSD presenting from Dr. Tomas's office d/t a furuncle on her forehead that has been present for one week. She chronically wears 2L NC of oxygen. Vital signs w/admission into the ED are the following: BP 125/104, HR 125, Resp 16, Temp 37.2, 91% RA. Last vitals: BP 141/ 97, HR 111, Resp 18, Temp 37.1, 96% 2L NC. #Furuncle (Acute) -ID consulted and aware. -Wound culture was taken at ID office. Blood cultures pending -Initiated meropenem IV Q8H -Dr. Evita Dunn at bedside draining furuncle after pt received IV Benadryl and Ativan in ED #Morbid obesity -Dietary consult -Pt is wheelchair bound -PT/OT to evaluate and treat while in house #Chronic pain -Cont home medications once reconciled by pharmacy #Diabetes -Poorly controlled. Last A1c was 07/2018 9.7%. Checking A1c now -ISS while in house, glucose ACHS Diet: Carb-controlled VTE ppx: LMWH Code: Full Dispo: Admit to obs
[2019-03-17] MEDS ORDERED: PHENAZOPYRIDINE HCL 100 MG TAB PO PRN (19:30)
[2019-03-17] MEDS ORDERED: Epinephrine [Epipen 0.3 Mg] IM PRN (19:30)
[2019-03-17] MEDS ORDERED: ALOCRIL EACHEYE PRN (19:30)
[2019-03-17] MEDS: clonazePAM 0.5 MG TAB PO SCH (21:59)
[2019-03-17] MEDS: morphINE SR 15 MG TAB PO SCH (21:59)
[2019-03-17] MEDS ORDERED: INSULIN NPH HUMAN 100 UNITS/ML SYR SC SCH (22:00)
[2019-03-17] MEDS: DIPHENHYDRAMINE HCL 25 MG PO SCH (22:01)
[2019-03-17] MEDS: SENNOSIDES PO SCH (22:02)
[2019-03-17] MEDS: TIZANIDINE HCL 4 MG PO SCH (22:03)
[2019-03-17] MEDS: NS 1,000 ML IV SCH (22:07)
[2019-03-17] MEDS: LORazepam 1 MG/0.5 ML UDSYR PO PRN (22:16)
[2019-03-17] MEDS: INSULIN REGULAR HUMAN 100 UNIT/ML UNIT SC SCH (22:41)
[2019-03-18] MEDS: SENNOSIDES PO SCH ×4 (01:04→21:14)
[2019-03-18] MEDS: fentaNYL 100 MCG/2 ML INJ IVP PRN ×4 (01:14→21:12)
[2019-03-18] MEDS: DIPHENHYDRAMINE HCL 25 MG PO SCH ×4 (01:16→21:13)
[2019-03-18] MEDS: MEROPENEM 1 GM in NS 100 ML IV SCH ×3 (02:04→18:02)
[2019-03-18] MEDS: LORazepam 1 MG/0.5 ML UDSYR PO PRN ×4 (02:17→21:13)
[2019-03-18] MEDS: clonazePAM 0.5 MG TAB PO SCH ×4 (02:44→21:11)
[2019-03-18] MEDS: TIZANIDINE HCL 4 MG PO SCH ×4 (02:44→21:15)
[2019-03-18] MEDS: hydrOXYzine HCL 50 MG TAB PO PRN ×2 (03:17→21:12)
[2019-03-18] MEDS ORDERED: INSULIN 70/30 HUMAN 100 UNIT/ML SYR SC SCH (05:00)
[2019-03-18] MEDS: morphINE SR 15 MG TAB PO SCH ×2 (05:56→21:11)
--- NOTE | 2019-03-18 06:05 | SUROPNOTE ---
[facility] Operative Report - Surgery Date of Procedure: March 17, 2019 at 1700 Pre-procedure diagnosis: infected cyst forhead Procedure performed: Incision and drainage cyst on forehead Post-procedure diagnosis: Same Indications: Sherri is a 58 year old who has developed a cyst on her forehead that has drained/ She developed erythema on her forehead. Findings: cavity about 1 cm Specimen: Micro Description of Procedure: Sherri was consented for the procedure. I prepped the patients forehead with betadine and draped it. I infiltrated 3 ml of 1% Lidocaine with epinephrine and bicarbonate over the fluctuant area. I made a cruciate incision and dissected down through the subcutaneous tissues. Scant fluid was expressed. Culture was obtained. The wound was irrigated and dressing applied. The patient tolerated the procedure well.
--- NOTE | 2019-03-18 07:45 | SOAPPROG ---
SOAP Progress Note Assessment/Plan: Assessment: s/p incision and drainage of forehead abscess Cellulitus much improved still induration around abscess with some drainage Can shower without protecting wound Light dressing to cover Sherri has difficulty with follow up so maybe Dr. 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 Lying in bed, sleeping, easily arousable Cellulitus improved and receding Wound with some drainage, still induration and tender Plan: 03/18/19 07:43 Objective: Vital Signs Temp Pulse Resp BP Pulse Ox 36.6 C 61 16 121/79 H 98 03/18/19 03:36 03/18/19 03:36 03/18/19 03:36 03/18/19 05:56 03/18/19 03:36 Laboratory Results 03/18/19 04:45 03/17/19 03/18/19 03/19/19 05:59 05:59 05:59 Intake Total 1328 Balance 1328 PT 11.9 SEC (12.0-15.0) L 03/17/19 16:45 INR 0.91 (0.83-1.16) 03/17/19 16:45 ICD10 Worksheet Patient Problems: Problems Problem Status Onset Furuncle Acute Kidney stone Active Microscopic hematuria Active Recurrent cystitis Active Reflex sympathetic dystrophy Active Abdominal pain Acute Acute kidney injury Acute Biliary colic Acute Bowel obstruction Acute Chronic pain Acute Dehydration Acute Flank pain, acute Acute History of reflex sympathetic dystrophy Acute Hyperglycemia Acute Narcotic withdrawal Acute Nausea and vomiting Acute UTI (urinary tract infection) Acute Volume depletion Acute Vomiting Acute
[2019-03-18] MEDS: NS 1,000 ML IV SCH (08:56)
--- NOTE | 2019-03-18 09:35 | PCMIDPN ---
Assessment/Plan: #Furuncle mid-forehead w surrounding cellulitis which appears to have receded based on prior photographs. Cx shows MSSA. --still with moderate cellulitis, may need a day or 2 more of meropenem. Patient does not tolerate any form of PO abx, hoping for a very short course of IV therapy --patient is receiving meropenem bc it is one of the few abx she will take/does not have a reaction to # H/O Vaginal yeast infection / intertrigo - recurrent, last Rx Jul 2018. Required micafungin although no resistant ortiz ID'd # Patient responds anaphylaxis to PCN, ceph, linezolid, vancomycin. Rec'd vancomycin last year w/o reaction during episode of sepsis. She is generally unwilling to take PO antimicrobials. Hopeful for significant resolution with short course of IV in the hospital Microbiology 03/17 wound culture from clinic: 3+ MSSA 03/17 blood cultures (2): Pending Subjective: Patient desires to go home this afternoon. Severe pain related to abscess on forehead which she characterizes as over a 10/10 pain. Denies vaginal discomfort. Concerned that she is not getting adequate quantities of fentanyl. Patient was examined and history was taken with Dr. Lanier Objective: Vital Signs Temp Pulse Resp BP Pulse Ox 36.6 C 55 L 18 113/71 98 03/18/19 08:05 03/18/19 08:05 03/18/19 08:05 03/18/19 08:05 03/18/19 08:05 Laboratory Results 03/18/19 04:45 03/17/19 03/18/19 03/19/19 05:59 05:59 05:59 Intake Total 1328 Balance 1328 - Physical Exam General Appearance: alert, obese, other (Large furuncle mid forehead with surrounding erythema -limited to forehead, somewhat pratibha, central fluctuance with purulent material easily expressed from the center) EENT: pale conjunctiva, No scleral icterus Respiratory: other (Distant breath sounds), No accessory muscle use Neck: supple Cardiac/Chest: regular rate, rhythm Abdomen: normal bowel sounds, non-tender, soft Neuro/Psych: alert, normal mood/affect, oriented x 3 - Line/s PIV Lines: other (L forarm), No drainage, No erythema - Time Spent With Patient Time Spent with Patient: greater than 35 minutes Time Spent with Patient: Greater than 35 minutes spent on this patients care, greater than 50% of time spent counseling, educating, and coordinating care regarding the above mentioned plan. ICD10 Worksheet Patient Problems: Problems Problem Status Onset Furuncle Acute Kidney stone Active Microscopic hematuria Active Recurrent cystitis Active Reflex sympathetic dystrophy Active Abdominal pain Acute Acute kidney injury Acute Biliary colic Acute Bowel obstruction Acute Chronic pain Acute Dehydration Acute Flank pain, acute Acute History of reflex sympathetic dystrophy Acute Hyperglycemia Acute Narcotic withdrawal Acute Nausea and vomiting Acute UTI (urinary tract infection) Acute Volume depletion Acute Vomiting Acute
--- NOTE | 2019-03-18 09:45 | HOSPPROG ---
Hospitalist Progress Note Assessment/Plan: # forehead abscess s/p I&D yesterday, still with pus today - cont merrem given allergies - culture sent # chronic pain, RSD - cont home meds (ms contin 15 tid) - also now on low dose fentanyl # morbid obesity # DM2, A1c 11.3 - increase NPH 08/12 to 10/14 - cont SSI Subjective: complains of more than 10/10 pain Objective: Vital Signs Temp Pulse Resp BP Pulse Ox 36.6 C 55 L 18 113/71 98 03/18/19 08:05 03/18/19 08:05 03/18/19 08:05 03/18/19 08:05 03/18/19 08:05 Laboratory Results 03/18/19 04:45 03/17/19 03/18/19 03/19/19 05:59 05:59 05:59 Intake Total 1328 Balance 1328 PT 11.9 SEC (12.0-15.0) L 03/17/19 16:45 INR 0.91 (0.83-1.16) 03/17/19 16:45 chart reviewed discussed with Dr Baca - Physical Exam Constitutional: obese, uncomfortable Ears, Nose, Mouth, Throat: hearing normal Cardiovascular: No edema Respiratory: no respiratory distress Gastrointestinal: No distension Genitourinary: No woods in urethra Skin: warm Neurologic: AAOx3 Psychiatric: anxious ICD10 Worksheet Patient Problems: Problems Problem Status Onset Nausea and vomiting Acute Reflex sympathetic dystrophy Active Kidney stone Active Microscopic hematuria Active Recurrent cystitis Active Abdominal pain Acute Narcotic withdrawal Acute Chronic pain Acute Vomiting Acute Flank pain, acute Acute UTI (urinary tract infection) Acute Biliary colic Acute Bowel obstruction Acute Hyperglycemia Acute Volume depletion Acute History of reflex sympathetic dystrophy Acute Acute kidney injury Acute Dehydration Acute Furuncle Acute
[2019-03-18] MEDS: [UNRECOGNIZED DRUG - OTHER] SC SCH (11:30)
[2019-03-18] MEDS: INSULIN REGULAR SC SCH (11:30)
[2019-03-18] MEDS: INSULIN ISOPHANE SC SCH (11:30)
[2019-03-18] MEDS: [UNRECOGNIZED DRUG - OTHER] SC SCH ×4 (11:30→21:27)
[2019-03-18] MEDS: INSULIN REGULAR HUMAN 100 UNIT/ML UNIT SC SCH (12:32)
--- NOTE | 2019-03-18 13:30 | PDMN ---
Medical Necessity Medical necessity: Change to IP, as of 03/17/19, per MD & MCG M-70; los >2 mn for ongoing management of persistent furuncle on forehead w/surrounding cellulitis; cxs pending; requiring Surgical consult w/I&D, ID consult & IV abx; hx poorly controlled diabetes, multiple drug allergies, RSD, wc bound, morbid obesity
[2019-03-18] MEDS: morphINE SR 15 MG TAB PO PRN (15:20)
--- NOTE | 2019-03-18 15:47 | ASMTCMCOM ---
CM Note CM Note Notes: Reviewed chart, pt admitted from ID office for infection on forhead. Pt lives at home with her and has a complex medical history. Pt uses 2L O2 at baseline and is wheelchair bound. Per PT, she and her decline the need for homecare, pt has assistance from for her needs. Also declines need in the acute care setting. Pt will dc home w/support of when medically stable, CM available for any changes. DC Plan: Independent Date Signed: 03/18/2019 12:38 PM Electronically Signed By:Gladys Martinez RN
[2019-03-18] MEDS: [UNRECOGNIZED DRUG - OTHER] SC SCH (21:10)
[2019-03-18] MEDS: ACETAMINOPHEN 325 MG TAB PO PRN (21:17)
[2019-03-18] MEDS ORDERED: INSULIN NPH HUMAN 100 UNITS/ML SYR SC SCH (22:00)
[2019-03-19] MEDS: SENNOSIDES PO SCH ×2 (01:19→05:26)
[2019-03-19] MEDS: TIZANIDINE HCL 4 MG PO SCH ×4 (01:20→21:51)
[2019-03-19] MEDS: fentaNYL 100 MCG/2 ML INJ IVP PRN ×9 (01:21→19:58)
[2019-03-19] MEDS: clonazePAM 0.5 MG TAB PO SCH ×4 (01:21→21:49)
[2019-03-19] MEDS: LORazepam 1 MG/0.5 ML UDSYR PO PRN ×4 (01:21→14:51)
[2019-03-19] MEDS: DIPHENHYDRAMINE HCL 25 MG PO SCH ×4 (01:25→21:50)
[2019-03-19] MEDS: MEROPENEM 1 GM in NS 100 ML IV SCH ×3 (01:42→17:15)
[2019-03-19] MEDS ORDERED: INSULIN 70/30 HUMAN 100 UNIT/ML SYR SC SCH (05:00)
[2019-03-19] MEDS: [UNRECOGNIZED DRUG - OTHER] SC SCH (05:25)
[2019-03-19] MEDS: INSULIN REGULAR SC SCH (05:25)
[2019-03-19] MEDS: INSULIN ISOPHANE SC SCH (05:25)
[2019-03-19] MEDS: morphINE SR 15 MG TAB PO SCH ×2 (05:28→21:49)
--- NOTE | 2019-03-19 08:13 | HOSPPROG ---
Hospitalist Progress Note Assessment/Plan: #Forehead abscess: s/p I&D. Still purulent, repeat today. - cont meropenem. #Chronic pain, RSD - cont home meds (ms contin 15 tid) - also now on low dose fentanyl # Morbid obesity # DM2, A1c 11.3 - increase NPH 08/12 to 10/14 - cont SSI #DVT ppx: SCDs Inpatient admission for I&D, IV abx Subjective: Pain at abscess site Objective: Vital Signs Temp Pulse Resp BP Pulse Ox 36.6 C 56 L 16 105/54 L 94 03/19/19 07:39 03/19/19 07:39 03/19/19 07:39 03/19/19 07:39 03/19/19 07:39 Laboratory Results 03/18/19 04:45 03/18/19 03/19/19 03/20/19 05:59 05:59 05:59 Intake Total 828 350 Balance 828 350 PT 11.9 SEC (12.0-15.0) L 03/17/19 16:45 INR 0.91 (0.83-1.16) 03/17/19 16:45 - Time Spent With Patient Time Spent with Patient: greater than 35 minutes Time Spent with Patient: Greater than 35 minutes spent on this patients care, greater than 50% of time spent counseling, educating, and coordinating care regarding the above mentioned plan. - Physical Exam Constitutional: uncomfortable Ears, Nose, Mouth, Throat: other (forehead abscess with induration, redness. TTP ) Cardiovascular: regular rate and rhythym Respiratory: no respiratory distress Gastrointestinal: normoactive bowel sounds Genitourinary: no bladder fullness Skin: warm Musculoskeletal: full muscle strength Neurologic: AAOx3, CN II-XII Intact Psychiatric: interacting appropriately ICD10 Worksheet Patient Problems: Problems Problem Status Onset Furuncle Acute Kidney stone Active Microscopic hematuria Active Recurrent cystitis Active Reflex sympathetic dystrophy Active Abdominal pain Acute Acute kidney injury Acute Biliary colic Acute Bowel obstruction Acute Chronic pain Acute Dehydration Acute Flank pain, acute Acute History of reflex sympathetic dystrophy Acute Hyperglycemia Acute Narcotic withdrawal Acute Nausea and vomiting Acute UTI (urinary tract infection) Acute Volume depletion Acute Vomiting Acute
[2019-03-19] MEDS: [UNRECOGNIZED DRUG - OTHER] SC SCH ×4 (09:07→21:55)
--- NOTE | 2019-03-19 09:40 | SOAPPROG ---
SOAP Progress Note Assessment/Plan: Assessment: s/p incision and drainage of forehead abscess Still with some purulent drainage. Will do repeat I&D with anesthesia around 1 - (was too painful to do more at bedside) Cellulitus much improved still induration around abscess with some drainage Can shower without protecting wound Light dressing to cover S: cage tender - maybe even worse than prior Sitting up =- Reynaldo at bedside Cellulitus improved and receding Wound with some drainage, still induration and tender Additional small lesions that would not benefit from I&D on face Plan: 03/18/19 07:43 03/19/19 09:38 Objective: Vital Signs Temp Pulse Resp BP Pulse Ox 36.6 C 56 L 16 105/54 L 94 03/19/19 07:39 03/19/19 07:39 03/19/19 07:39 03/19/19 07:39 03/19/19 07:39 Laboratory Results 03/18/19 04:45 03/18/19 03/19/19 03/20/19 05:59 05:59 05:59 Intake Total 828 350 Balance 828 350 PT 11.9 SEC (12.0-15.0) L 03/17/19 16:45 INR 0.91 (0.83-1.16) 03/17/19 16:45 ICD10 Worksheet Patient Problems: Problems Problem Status Onset Furuncle Acute Kidney stone Active Microscopic hematuria Active Recurrent cystitis Active Reflex sympathetic dystrophy Active Abdominal pain Acute Acute kidney injury Acute Biliary colic Acute Bowel obstruction Acute Chronic pain Acute Dehydration Acute Flank pain, acute Acute History of reflex sympathetic dystrophy Acute Hyperglycemia Acute Narcotic withdrawal Acute Nausea and vomiting Acute UTI (urinary tract infection) Acute Volume depletion Acute Vomiting Acute
[2019-03-19] MEDS ORDERED: EPINEPHRINE IF ONE (11:06)
[2019-03-19] MEDS ORDERED: LIDOCAINE HCL IF ONE (11:06)
[2019-03-19] MEDS ORDERED: LIDO/EPI 2%** Not for Epidural 20 ML MDV IF ONE (11:45)
--- NOTE | 2019-03-19 12:41 | PCMIDPN ---
Assessment/Plan: Assessment: 58-year-old woman with a central forehead subcutaneous abscess status post bedside incision drainage 03/18. She is tolerating meropenem and reiterates that she cannot take any oral antibiotic with multiple anaphylaxis reactions to different classes of antibiotics by report. She will have to continue with her meropenem which she is currently tolerating and determine overall course of therapy based on repeat incision and drainage in progress thereafter. 1. Central forehead to subcutaneous abscess secondary to Staphylococcus aureus ( MSSA) 2. Status post incision and drainage of forehead abscess on 03/18; growth of Staphylococcus aureus (MSSA) 3. Numerous antibiotic intolerances, with stated anaphylaxis to multiple beta lactams and tetracyclines; stated "full body paralysis" with linezolid 4. Class 2 obesity Plan: 1. Continue meropenem 2. Reviewed in detail potential side effects of beta-lactam antibiotics to include: allergy, rash, nausea, antibiotic-associated diarrhea, Clostridioides difficile colitis. 3. Total duration of antibiotics will be determined by rapidity of resolution after definitive incision and drainage plan for today Carlos Najera MD Infectious Diseases 03/19/19 12:45 Subjective: No fever or chills in the past 24-hours. Developed extension of right upper extremity erythematous rash to the left upper extremity in the past 24 hr. Rash is not pruritic. She suspects this is related to morphine given yesterday. She has not have diarrhea, other rashes, abdominal discomfort, or other discernible side effect from her meropenem. She is planned to have further incision and drainage of her forehead lesion with general surgery today. She states that although she has been told the erythema is improved, overall it is more painful over her forehead. Objective: Vital Signs Temp Pulse Resp BP Pulse Ox 36.7 C 66 16 132/80 H 96 03/19/19 11:40 03/19/19 11:40 03/19/19 11:40 03/19/19 11:40 03/19/19 11:40 Laboratory Results 03/18/19 04:45 03/18/19 03/19/19 03/20/19 05:59 05:59 05:59 Intake Total 828 350 Balance 828 350 Ongoing monitoring for antimicrobial toxicity with: CBC, BMP, interval historical information, and interval physical exam. Discussed treatment/diagnostic testing and testing results with admitting provider(s). Personally reviewed interval laboratory results. - Physical Exam General Appearance: no apparent distress, non-toxic EENT: No scleral icterus Respiratory: No respiratory distress, No accessory muscle use Neck: full range of motion, supple Skin: other (Blanching erythematous rash the bilateral extremities; forehead lesion of approximately 1.5 cm tall diameter with mild surrounding erythema) Neuro/Psych: alert, oriented x 3, depressed affect, No confused - Time Spent With Patient Time Spent with Patient: greater than 35 minutes Time Spent with Patient: Greater than 35 minutes spent on this patients care, greater than 50% of time spent counseling, educating, and coordinating care regarding the above mentioned plan. ICD10 Worksheet Patient Problems: Problems Problem Status Onset Furuncle Acute Kidney stone Active Microscopic hematuria Active Recurrent cystitis Active Reflex sympathetic dystrophy Active Abdominal pain Acute Acute kidney injury Acute Biliary colic Acute Bowel obstruction Acute Chronic pain Acute Dehydration Acute Flank pain, acute Acute History of reflex sympathetic dystrophy Acute Hyperglycemia Acute Narcotic withdrawal Acute Nausea and vomiting Acute UTI (urinary tract infection) Acute Volume depletion Acute Vomiting Acute
[2019-03-19] MEDS ORDERED: LIDOCAINE 1% 5 ML SDV ONE (12:47)
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
[2019-03-19] MEDS ORDERED: PROPOFOL 200 MG/20 ML VIAL ONE ×2 (12:59)
[2019-03-19] MEDS ORDERED: NALOXONE HCL 0.4 MG/ML INJ IVP PRN (13:18)
--- NOTE | 2019-03-19 13:19 | POSTANESTH ---
Post Anesthetic Evaluation Cardiovascular Status: Normal, Stable Respiratory Status: Normal, Stable Level of Consciousness/Mental Status: Can Participate in Eval Pain Control: Adequate, Prn Tx Ordered Nausea/Vomiting Control: Adequate, Prn Tx Ordered Complications Possibly Related to Anesthesia: None Noted
[2019-03-19] MEDS ORDERED: fentaNYL 100 MCG/2 ML INJ ONE (13:24)
[2019-03-19] MEDS: KRISS PO SCH ×2 (15:23→21:50)
--- NOTE | 2019-03-19 15:59 | ASMTCMCOM ---
CM Note CM Note Notes: CM met with pt. Pt reports that she is wheelchair bound and lives with her . Pt reports that she is not needing anything from CM at this time. CM to follow. Plan: Independent Date Signed: 03/19/2019 03:58 PM Electronically Signed By:Kirsten Saucedo
[2019-03-19] MEDS: morphINE SR 15 MG TAB PO PRN (17:15)
[2019-03-19] MEDS: ACETAMINOPHEN 325 MG TAB PO PRN (18:36)
[2019-03-19] MEDS: NS 1,000 ML IV SCH (21:49)
[2019-03-19] MEDS: [UNRECOGNIZED DRUG - OTHER] SC SCH (21:55)
[2019-03-20] MEDS: fentaNYL 100 MCG/2 ML INJ IVP PRN ×4 (00:06→19:23)
[2019-03-20] MEDS: MEROPENEM 1 GM in NS 100 ML IV SCH ×3 (00:07→17:46)
[2019-03-20] MEDS: DIPHENHYDRAMINE HCL 25 MG PO SCH ×4 (00:22→21:40)
[2019-03-20] MEDS: clonazePAM 0.5 MG TAB PO SCH ×4 (00:40→21:39)
[2019-03-20] MEDS: KRISS PO SCH ×4 (00:40→21:39)
[2019-03-20] MEDS: TIZANIDINE HCL 4 MG PO SCH ×4 (00:41→21:41)
[2019-03-20] MEDS: morphINE SR 15 MG TAB PO SCH ×2 (04:38→21:39)
[2019-03-20] MEDS: [UNRECOGNIZED DRUG - OTHER] SC SCH (04:39)
[2019-03-20] MEDS: INSULIN REGULAR SC SCH (04:39)
[2019-03-20] MEDS: INSULIN ISOPHANE SC SCH (04:39)
[2019-03-20] MEDS: LORazepam 1 MG/0.5 ML UDSYR PO PRN (04:48)
--- NOTE | 2019-03-20 06:59 | SUROPNOTE ---
[facility] Operative Report - Surgery Pre procedure diagnosis: forehead abscess Post procedure diagnosis: same Procedure performed: Excisional debridement forehead abscess 1cm Specimens: None EBL 5 cc Indications: Sherri is a 58 yo with multiple allergies who developed an abscess on her forehead with cellulitus to her nose. Although improved, she continues to have purulent drainage. Bedside I&D was painful Description of procedure: Sherri was in the PACU. Sedation administered. Wound cleansed with Betadine. Injected with 1% LIdocaine. Tissue excised. Wound about 1 cm. Irrigated, Silver nitrate applied and gauze.
[2019-03-20] MEDS: NS 1,000 ML IV SCH ×2 (07:33→17:53)
[2019-03-20] MEDS: [UNRECOGNIZED DRUG - OTHER] SC SCH ×4 (08:39→21:38)
[2019-03-20] MEDS ORDERED: fentaNYL 100 MCG/2 ML INJ IVP PRN (10:51)
--- NOTE | 2019-03-20 10:52 | SOAPPROG ---
SOAP Progress Note Assessment/Plan: Assessment: forehead looks fine wants more fentanyl Plan: 03/20/19 10:52 Objective: Vital Signs Temp Pulse Resp BP Pulse Ox 36.7 C 58 L 16 142/74 H 97 03/20/19 07:07 03/20/19 07:07 03/20/19 07:07 03/20/19 07:07 03/20/19 07:07 Laboratory Results 03/18/19 04:45 03/19/19 03/20/19 03/21/19 05:59 05:59 05:59 Intake Total 350 600 Output Total 5 Balance 350 595 PT 11.9 SEC (12.0-15.0) L 03/17/19 16:45 INR 0.91 (0.83-1.16) 03/17/19 16:45 ICD10 Worksheet Patient Problems: Problems Problem Status Onset Furuncle Acute Kidney stone Active Microscopic hematuria Active Recurrent cystitis Active Reflex sympathetic dystrophy Active Abdominal pain Acute Acute kidney injury Acute Biliary colic Acute Bowel obstruction Acute Chronic pain Acute Dehydration Acute Flank pain, acute Acute History of reflex sympathetic dystrophy Acute Hyperglycemia Acute Narcotic withdrawal Acute Nausea and vomiting Acute UTI (urinary tract infection) Acute Volume depletion Acute Vomiting Acute
--- NOTE | 2019-03-20 12:04 | PCMIDPN ---
Assessment/Plan: 1. Forehead abscess with history of surrounding cellulitis: Patient is now status post I&D x2. Still complaining of significant discomfort. No surrounding cellulitis. Because of ongoing pain, she will remain in house. Continue meropenem. Hopefully, will only need another 24 hr of hospitalization. No diarrhea. Have asked patient's nurse to soak dressing in saline and change dressing after lunch. Subjective: Patient states her forehead hurts. Status post I and D yesterday with sedation. Wants to know if her fentanyl dose was increased to 100 Objective: Meropenem 1 g IV q.8 hours day 3 No fevers Vital Signs Temp Pulse Resp BP Pulse Ox 36.7 C 71 16 143/83 H 97 03/20/19 11:07 03/20/19 11:07 03/20/19 11:07 03/20/19 11:07 03/20/19 11:07 Laboratory Results 03/18/19 04:45 03/19/19 03/20/19 03/21/19 05:59 05:59 05:59 Intake Total 350 600 Output Total 5 Balance 350 595 Blood cultures March 17 no growth Facial abscess: MSSA - Physical Exam General Appearance: obese EENT: other (Patient's forehead, at the hairline is notable for bandage that is adherent to the soft tissue beneath. There is dried blood and I did not attempt to remove it. No surrounding cellulitis visible.) ICD10 Worksheet Patient Problems: Problems Problem Status Onset Furuncle Acute Kidney stone Active Microscopic hematuria Active Recurrent cystitis Active Reflex sympathetic dystrophy Active Abdominal pain Acute Acute kidney injury Acute Biliary colic Acute Bowel obstruction Acute Chronic pain Acute Dehydration Acute Flank pain, acute Acute History of reflex sympathetic dystrophy Acute Hyperglycemia Acute Narcotic withdrawal Acute Nausea and vomiting Acute UTI (urinary tract infection) Acute Volume depletion Acute Vomiting Acute
[2019-03-20] MEDS ORDERED: fentaNYL 100 MCG/2 ML INJ IVP ONE (13:26)
[2019-03-20] MEDS: LORazepam 2 MG/ML INJ IVP PRN (13:57)
[2019-03-20] MEDS: morphINE SR 15 MG TAB PO PRN (14:25)
--- NOTE | 2019-03-20 14:46 | HOSPPROG ---
Hospitalist Progress Note Assessment/Plan: #Forehead abscess: s/p I&Dx 2. Cellulitis resolved. No abx needed at DC. Meropenem here #Acute on chronic pain, RSD - cont home meds (ms contin 15 tid) - increased Fentanyl dose #Anxiety: ativan #Macular rash BL arms: cannot use steroids with severe allergy. Cont aloe vera lotion # Morbid obesity # DM2, A1c 11.3 - increase NPH 08/12 to 10/14 - cont SSI #DVT ppx: SCDs Inpatient admission for I&D, IV abx. Plan for DC tomorrow Subjective: "pain and nausea not controlled" Objective: Vital Signs Temp Pulse Resp BP Pulse Ox 36.7 C 71 16 143/83 H 97 03/20/19 11:07 03/20/19 11:07 03/20/19 11:07 03/20/19 11:07 03/20/19 11:07 Laboratory Results 03/18/19 04:45 03/19/19 03/20/19 03/21/19 05:59 05:59 05:59 Intake Total 350 600 Output Total 5 Balance 350 595 PT 11.9 SEC (12.0-15.0) L 03/17/19 16:45 INR 0.91 (0.83-1.16) 03/17/19 16:45 - Time Spent With Patient Time Spent with Patient: greater than 35 minutes Time Spent with Patient: Greater than 35 minutes spent on this patients care, greater than 50% of time spent counseling, educating, and coordinating care regarding the above mentioned plan. - Physical Exam Constitutional: uncomfortable, other (tearful) Eyes: PERRL Ears, Nose, Mouth, Throat: moist mucous membranes, other (forehead incision healing with no purulence. Surrounding cellulitis resolved) Gastrointestinal: normoactive bowel sounds Genitourinary: No woods in urethra Skin: rash (macular rash BL arms, no purulence) ICD10 Worksheet Patient Problems: Problems Problem Status Onset Furuncle Acute Kidney stone Active Microscopic hematuria Active Recurrent cystitis Active Reflex sympathetic dystrophy Active Abdominal pain Acute Acute kidney injury Acute Biliary colic Acute Bowel obstruction Acute Chronic pain Acute Dehydration Acute Flank pain, acute Acute History of reflex sympathetic dystrophy Acute Hyperglycemia Acute Narcotic withdrawal Acute Nausea and vomiting Acute UTI (urinary tract infection) Acute Volume depletion Acute Vomiting Acute
[2019-03-20] MEDS: [UNRECOGNIZED DRUG - OTHER] SC SCH (21:38)
[2019-03-20] MEDS: hydrOXYzine HCL 50 MG TAB PO PRN (21:39)
[2019-03-21] MEDS: KRISS PO SCH ×3 (01:27→14:26)
[2019-03-21] MEDS: fentaNYL 100 MCG/2 ML INJ IVP PRN ×3 (01:28→15:33)
[2019-03-21] MEDS: clonazePAM 0.5 MG TAB PO SCH ×3 (01:29→14:56)
[2019-03-21] MEDS: LORazepam 2 MG/ML INJ IVP PRN ×3 (01:29→15:34)
[2019-03-21] MEDS: DIPHENHYDRAMINE HCL 25 MG PO SCH ×3 (01:30→14:25)
[2019-03-21] MEDS: TIZANIDINE HCL 4 MG PO SCH ×3 (01:30→14:27)
[2019-03-21] MEDS: MEROPENEM 1 GM in NS 100 ML IV SCH ×2 (01:51→09:42)
[2019-03-21] MEDS: NS 1,000 ML IV SCH (05:15)
[2019-03-21] MEDS: morphINE SR 15 MG TAB PO SCH (05:17)
[2019-03-21] MEDS: INSULIN ISOPHANE SC SCH (05:17)
[2019-03-21] MEDS: [UNRECOGNIZED DRUG - OTHER] SC SCH (05:17)
[2019-03-21] MEDS: INSULIN REGULAR SC SCH (05:17)
[2019-03-21 09:19] VITALS: BP 115/93
[2019-03-21] MEDS: hydrOXYzine HCL 50 MG TAB PO PRN (09:35)
[2019-03-21] MEDS: [UNRECOGNIZED DRUG - OTHER] SC SCH ×2 (10:25→14:22)
--- NOTE | 2019-03-21 11:29 | PCMIDPN ---
Assessment/Plan: 1. Forehead abscess with history of surrounding cellulitis: Wants to go home! This is completely reasonable. Cellulitis has resolved. Needs forehead dressing changed today. Does not feel she needs to follow up with my colleague, Dr. Tomas who follows her primarily. Understands the importance of keeping the area clean. 03/21/19 11:28 Subjective: Wants to go home. Objective: Meropenem 1 g IV q.8 hours day for No fevers Vital Signs Temp Pulse Resp BP Pulse Ox 36.7 C 59 L 16 115/93 H 95 03/21/19 08:00 03/21/19 08:00 03/21/19 08:00 03/21/19 08:00 03/21/19 08:00 Laboratory Results 03/18/19 04:45 03/20/19 03/21/19 03/22/19 05:59 05:59 05:59 Intake Total 600 2160 Output Total 5 Balance 595 2160 - Physical Exam General Appearance: no apparent distress EENT: other (Forehead abscess with same dressing on as per yesterday; it was not changed. The dried blood is adherent to the skin and I did not remove it. No surrounding cellulitis.) ICD10 Worksheet Patient Problems: Problems Problem Status Onset Furuncle Acute Kidney stone Active Microscopic hematuria Active Recurrent cystitis Active Reflex sympathetic dystrophy Active Abdominal pain Acute Acute kidney injury Acute Biliary colic Acute Bowel obstruction Acute Chronic pain Acute Dehydration Acute Flank pain, acute Acute History of reflex sympathetic dystrophy Acute Hyperglycemia Acute Narcotic withdrawal Acute Nausea and vomiting Acute UTI (urinary tract infection) Acute Volume depletion Acute Vomiting Acute
--- NOTE | 2019-03-21 13:39 | ASMTLACE ---
RODRIGOE Length of stay for Answers: 3 days current admission Acuity / Level of Answers: Yes Care: Did the patient have an inpatient admission? Comorbidities - select Answers: Cerebrovascular disease all that apply (CVA, TIA, aneurysms, vasc ular dementia) Diabetes (uncontrolled or controlled) Opioid dependence / Chronic pain Other Notes: HTN # of Emergency department Answers: 1-2 visits in the last 6 months Score: 14 Date Signed: 03/21/2019 01:38 PM Electronically Signed By:Gladys Martinez RN
--- NOTE | 2019-03-21 14:20 | GDS ---
[f rep st] DISCHARGE SUMMARY DISCHARGE DIAGNOSES: 1. Forehead abscess/cellulitis, status post I and D x2. 2. Forehead cellulitis. 3. Acute on chronic pain with RSD. 4. Anxiety. 5. Macular rash, bilateral arms. 6. Morbid obesity. 7. Diabetes. HISTORY OF PRESENT ILLNESS: A 58-year-old female with RSD, chronic pain, on opioids, diabetes, presents to the ED from ID's office with recommendation by Dr. Tomas for a furuncle on her forehead to be I and D'd. HOSPITAL COURSE BY PROBLEM: 1. Forehead abscess with cellulitis: Status post I and D x2. She has multiple drug allergies and was treated with meropenem. She does not need antibiotics at discharge. Doing gauze dressing changes. Discussed with Dr. Fuentes. 2. Acute on chronic pain: I and D pushed her into a pain crisis. This improved. She is now looking forward to going home. Continue home medications. 3. Morbid obesity: Is wheelchair bound. 4. Diabetes: A1c is 11. Needs follow up with her PCP. 5. RSD/chronic pain, on chronic opioids: She should follow up with her pain doctor. DISPOSITION: Stable for discharge home with her . MEDICATIONS: No new medications. FOLLOWUP: With Dr. Tomas if recurrence of infection. /[id number]/MODL [email or web address]
[2019-03-21] MEDS: morphINE SR 15 MG TAB PO PRN (14:56)
== END 2019-03-21 15:56 | disposition home or self-care (01) | DRG 571 ==
LOC: F3E 17:33 → OBSVTOIN 20:37
PROVIDERS: ADMIT Internal Medicine; ATTEND Internal Medicine
PROC: 0J910ZZ Drainage of Face Subcutaneous Tissue and Fascia, Open Approach (ICD-10-PCS; 2019-03-17)
PROC: 0JB10ZZ Excision of Face Subcutaneous Tissue and Fascia, Open Approach (ICD-10-PCS; principal; 2019-03-19 13:02)
DX: L02.02 Furuncle of face (principal); L03.211 Cellulitis of face; B95.61 Methicillin susceptible Staphylococcus aureus infection as the cause of diseases classified elsewhere; G90.523 Complex regional pain syndrome I of lower limb, bilateral; F11.20 Opioid dependence, uncomplicated; Z98.1 Arthrodesis status; Z93.3 Colostomy status; F41.9 Anxiety disorder, unspecified; R21 Rash and other nonspecific skin eruption; E66.01 Morbid (severe) obesity due to excess calories; Z68.38 Body mass index [BMI] 38.0-38.9, adult; Z99.3 Dependence on wheelchair; Z99.81 Dependence on supplemental oxygen; E11.65 Type 2 diabetes mellitus with hyperglycemia; Z79.4 Long term (current) use of insulin; I10 Essential (primary) hypertension; Z87.891 Personal history of nicotine dependence
CPT/HCPCS: 96374; 97166-GO; J1200; J1815; J2060; J2185; J2270; J2704; J3010